=== PATIENT | female | born 1950 | race Caucasian/White ===

== ENCOUNTER 2017-03-18 23:34 | Inpatient (IN) | payer MEDICARE ==
[2017-03-18] MEDS ORDERED: Zithromax 500 MG/ 250 ML NaCl Premix 500 MG/250 ML IVPB IV STA (23:42)
[2017-03-18] MEDS ORDERED: Pepcid 20 MG VIAL IV ONE ×2 (23:42→23:48)
[2017-03-18] MEDS ORDERED: PROVENTIL 2.5 MG/3 ML NEB IH ONE (23:42)
[2017-03-18] MEDS ORDERED: Lasix 40 MG/4 ML IV ONE (23:42)
[2017-03-18] MEDS ORDERED: Zosyn 3.375GM/100 Ml D5W 3.375 GM/100 ML IVPB IV STA (23:43)
[2017-03-18 23:48] LABS: A-aADO2 409; ARTERIAL BLD GAS O2 SATURATION 99.1 % (95-100); ARTERIAL BLOOD GAS BASE EXCESS 4.7 (-2.0-2.0); ARTERIAL BLOOD GAS FIO2 100 %; ARTERIAL BLOOD GAS PO2 235 mmHg (75-100); ARTERIAL BLOOD GAS pH 7.36 (7.35-7.45); BIPAP(E) 6; BIPAP(I) 14; Glucose,Critical Care 93 (70-110)
[2017-03-18] MEDS ORDERED: Lasix 40 MG/4 ML ONE (23:48)
[2017-03-18] MEDS ORDERED: Zithromax 500 MG/ 250 ML NaCl Premix 500 MG/250 ML IVPB IV ONE (23:48)
[2017-03-18 23:49] LABS: Mean Cell Volume 77.2 fl (78-100); Mean Corpuscular Hemoglobin 21.6 pg (26-32); Mean Platelet Volume 9.8 fl (6-9.5); Platelet Count 274 K/mm3 (150-450); Red Blood Count 4.35 M/mm3 (4.1-5.4); Red Cell Distribution Width 17.6 % (11.5-14.0); White Blood Count 16.3 K/mm3 (4.0-10.5)
[2017-03-18] MEDS ORDERED: Zosyn 3.375GM/100 Ml D5W 3.375 GM/100 ML IVPB IV ONE (23:49)
[2017-03-19 00:10] LABS: ALBUMIN 2.7 g/dL (3.4-5.0); ANION GAP 11.2 MEQ/L (5-15); BILIRUBIN,TOTAL 0.4 mg/dL (0.2-1.0); Carbon Dioxide 30.5 mEq/L (21-32); Potassium 5.7 mEq/L (3.5-5.1); Total Protein 7.5 gm/dL (6.4-8.2)
[2017-03-19 00:16] LABS: MAGNESIUM 1.9 mg/dL (1.8-2.4)
[2017-03-19] MEDS ORDERED: NARCAN 1 MG/ML ONE ×2 (00:17→05:05)
[2017-03-19] MEDS ORDERED: Sodium Chloride 0.9% 1000 ML 1,000 ML ONE (00:18)
[2017-03-19 00:28] LABS: BAND 5 % (0.0-2.0); Eosinophil 2 % (0.00-3.0); Hypochromia 2+; Metamyelocyte 1 %; Microcytosis 1+; Platelet Estimate NORMAL (NORMAL); Total Cells Counted 100
[2017-03-19] MEDS ORDERED: NARCAN 1 MG/ML IV ONE (00:31)
[2017-03-19] MEDS ORDERED: FEVERALL 650 MG PR STA (00:32)
[2017-03-19] MEDS ORDERED: PROVENTIL 2.5 MG/3 ML NEB IH ONE (00:33)
[2017-03-19 00:34] LABS: Collection Type CATH
[2017-03-19 00:35] LABS: Bacteria MODERATE /HPF (NEGATIVE); Bilirubin MODERATE (NEGATIVE); Blood 50 Ery/ul (0-5); COMPLETE URINE MICROSCOPIC? YES; Epithelial Cells MODERATE /HPF (FEW); Glucose NEGATIVE (NEGATIVE); Hyaline Casts 0-2 /LPF (0-2); Leukocyte Esterase 1+ (NEGATIVE); PTT 32.1 SECONDS (25.3-37.0)
[2017-03-19] MEDS ORDERED: FEVERALL 325 MG ONE (00:35)
[2017-03-19 00:36] LABS: INR 1.19 (0.8-3.0); PROTIME 13.2 SECONDS (9.95-12.35)
--- NOTE | 2017-03-19 00:41 | ERPHSYRPT ---
- History of Present Illness Time Seen by Provider: 03/18/17 23:40 Source: EMS, correction records Physician History: CC: trouble breathing Hx: 66 y/o patient of Dr Gomez at [facility]. She has hx of heart disease, DM. Had flu shot this week. URI symptoms for 2 days. Lungs congested. She was in bed all day today. Took her meds at 1800PM. Later in evening was worse with sweats and sleepy and decreased responsiveness. Accu check was 106. BP was low. Pulse ox low. EMS noted resp distress on arrival and gave oxygen and neb en route. Pt unable to give hx. NH attempted to call sister Mandi Merida [phone] and left message. Severity: severe Allergies/Adverse Reactions: No Known Drug Allergies Allergy (Verified 03/19/17 00:53) Home Medications: Calcium Carbonate/Vitamin D3 [Caltrate 600 + D Soft Chew Tab] 1 each PO DAILY [History] Carvedilol 12.5 mg [Coreg 12.5 mg] 12.5 mg PO BID 01/01/15 [History] Celecoxib 100 mg [celeBREX 100 MG] 200 mg PO BID 01/01/15 [History] Clonazepam 0.5 mg [Klonopin 0.5 MG] 0.5 mg PO BID 01/01/15 [History] Clopidogrel Bisulfate 75 mg [PLAVIX 75 MG Tablet] 75 mg PO DAILY 01/01/15 [History] Cyanocobalamin 1000 Mcg/ml [Cyanocobalamin B-12 1000 MCG/ML] 1,000 mcg IJ UD 01/01/15 [History] Docusate Sodium 100 mg [Colace 100 MG] 100 mg PO TID 01/01/15 [History] Escitalopram Oxalate [Lexapro] 20 mg PO DAILY 01/01/15 [History] Furosemide [Lasix] 20 mg PO DAILY 01/01/15 [History] Gabapentin [Neurontin] 300 mg PO BID 01/01/15 [History] Glimepiride 2 mg [Amaryl 2 MG] 2 mg PO DAILY 01/01/15 [History] Insulin Aspart [NovoLOG Insulin] 20 unit SQ AC 01/01/15 [History] Insulin Detemir [Levemir] 60 unit SQ 01/01/15 [History] Isosorbide Mononitrate 30 mg [Imdur 30 MG] 30 mg PO DAILY 01/01/15 [History ] Lisinopril 10 mg [Zestril 10 MG] 10 mg PO DAILY 01/01/15 [History] Loratadine 10 mg [Claritin 10 mg] 10 mg PO DAILY 01/01/15 [History] Omeprazole 40 mg PO DAILY 01/01/15 [History] Oxycodone HCl [Oxycontin] 30 mg PO BID 01/01/15 [History] Potassium Chloride 10 Meq Tab* [Klor Con 10 MEQ] 10 meq PO BID 01/01/15 [ History] Pravastatin Sodium 40 mg PO DAILY 01/01/15 [History] Temazepam 7.5 mg PO 01/01/15 [History] Tizanidine HCl 4 mg [Zanaflex 4 MG] 4 mg PO 01/01/15 [History] Acetaminophen 325 mg [Tylenol 325 mg] 650 mg PO Q4HPRN PRN 07/21/15 [ History] Albuterol 2.5 mg/3 ml Neb [Proventil 2.5 mg/3 ml Neb] 2.5 mg IH Q6HPRN PRN 07/21/15 [History] Aspirin 81 mg PO DAILY 07/21/15 [History] Carboxymethylcellulose Sodium [Refresh Plus] 1 each OP Q2H/PRN PRN 07/21/15 [ History] PANTOPRAZOLE 40 mg Tablet [Protonix 40MG Tablet] 40 mg PO DAILY 07/21/15 [ History] Sodium Phosphate,[place]-Dibasic [Enema] 133 ml RC DAILY PRN PRN 07/21/15 [History] Hx Tetanus, Diphtheria Vaccination/Date Given: Yes Hx Influenza Vaccination/Date Given: Yes Hx Pneumococcal Vaccination/Date Given: Yes - Review of Systems Constitutional: Fatigue, Malaise, Weakness Abdominal/Gastrointestinal: No Vomiting All Other Systems: Unable due to condition - Past Medical History Pertinent Past Medical History: Yes Neurological History: Stroke, TIA, Other Cardiac History: Hypertension, Other Respiratory History: COPD Endocrine Medical History: Diabetes Type II Musculoskeletal History: Other GI Medical History: GERD History: No Pertinent History Psycho-Social History: Anxiety, Depression Female Reproductive Disorders: No Pertinent History Other Medical History: CHRONIC PAIN. PERIPHERAL NEUROPATHY. HYPERLIPEDEMIA. ANGINA PECTORIS. ALLERGIC RHINITIS. ESOPAHGITIS - Past Surgical History Past Surgical History: Yes Neuro Surgical History: No Pertinent History Cardiac: CABG, Cardiac Catheterization, Cardiac Stent Respiratory: No Pertinent History Gastrointestinal: No Pertinent History Genitourinary: No Pertinent History Musculoskeletal: No Pertinent History Female Surgical History: Other Other Surgical History: HIP SURGERY - Social History Smoking Status: Former smoker Exposure to second hand smoke: Yes Drug Use: none Patient Lives Alone: No ([facility]) - Nursing Vital Signs Nursing Vital Signs: Initial Vital Signs Pulse Rate 70 03/19/17 00:05 Respiratory Rate 14 03/19/17 00:05 Blood Pressure 100/47 03/19/17 00:05 O2 Sat by Pulse Oximetry 99 03/19/17 00:05 - Physical Exam General Appearance: other (lethargic on arrival but follows simple commands) Eye Exam: PERRL/EOMI (midsize) Ears, Nose, Throat Exam: dry mucous membranes Neck Exam: supple Respiratory Exam: crackles/rales, rhonchi Cardiovascular Exam: regular rate/rhythm Gastrointestinal/Abdomen Exam: soft, No tenderness, No distention Neurologic Exam: other (moves all extremities to commands but is very lethargic) Skin Exam: warm, dry SpO2 Interpretation: borderline oxygenation SpO2: 92 Oxygen Delivery: BiPap - Course Nursing assessment & vital signs reviewed: Yes EKG Interpreted by Me: RATE (86), Sinus Rhythm, NORMAL AXIS, NORMAL INTERVALS ( [id number]), Q-wave (septal), Non-specific ST Changes - Radiology Exams cxr X-ray Interpretation: Reviewed by me (limited, congestion, CM, ) Ordered Tests: Active Orders 24 hr Category Date Time Status Chief Technician STAT Care 03/18/17 23:40 Active Catheter-[place] STAT Care 03/18/17 23:40 Active EKG-ER Only STAT Care 03/18/17 23:41 Active IV Insertion STAT Care 03/18/17 23:41 Active IV Insertion-2nd Peripheral STAT Care 03/18/17 23:41 Active Pulse Oximetry (ED) STAT Care 03/18/17 23:40 Active Saline Lock STAT Care 03/18/17 23:40 Active CHEST 1 VIEW (PORTABLE) Stat Exams 03/18/17 23:41 Taken ARTERIAL BLOOD GASES Stat Lab 03/18/17 23:43 Completed BLOOD CULTURE Stat Lab 03/18/17 23:48 Received CBC W DIFF Stat Lab 03/18/17 23:46 Completed CMP Stat Lab 03/18/17 23:46 Completed CULTURE,URINE Stat Lab 03/18/17 00:12 Received Glucose,Critical Care Stat Lab 03/18/17 23:43 Completed Lactic Acid Stat Lab 03/18/17 23:43 Completed MAGNESIUM Stat Lab 03/18/17 23:49 Completed Manual Differential NC Stat Lab 03/18/17 23:46 Completed NT PRO BNP Stat Lab 03/18/17 23:49 Completed PROTIME WITH INR Stat Lab 03/18/17 00:12 Completed PTT Stat Lab 03/18/17 00:12 Completed TROPONIN Q3H Lab 03/18/17 23:46 Completed TROPONIN Q3H Lab 03/19/17 02:45 Ordered TROPONIN Q3H Lab 03/19/17 05:45 Ordered TROPONIN Q3H Lab 03/19/17 08:45 Ordered TROPONIN Q3H Lab 03/19/17 11:45 Ordered UA W/ MICROSCOPIC Stat Lab 03/18/17 00:12 Completed BiPap/CPAP Assessment STAT RT 03/18/17 23:41 Completed Respiratory Nebulizer STAT RT 03/18/17 23:43 Completed Medication Summary Generic Name Dose Route Start Last Admin Trade Name Freq PRN Reason Stop Dose Admin Sodium Chloride 1,000 mls @ 20 mls/hr 03/19/17 00:45 03/19/17 00:42 Sodium Chloride 0.9% 1000 Ml IV 04/18/17 00:44 20 mls/hr .Q24H MARJORIE Administration Discontinued Medications Generic Name Dose Route Start Last Admin Trade Name Freq PRN Reason Stop Dose Admin Acetaminophen 975 mg 03/19/17 00:32 03/19/17 00:36 [place] 650 Mg NE 03/19/17 00:33 975 mg STAT STA Administration Acetaminophen Confirm 03/19/17 00:35 F[place]all 325 Mg Administered 03/19/17 00:36 Dose 975 mg .ROUTE .STK-MED ONE Albuterol Sulfate 2.5 mg 03/18/17 23:42 03/19/17 00:34 Proventil 2.5 Mg/3 Ml Neb IH 03/18/17 23:43 2.5 mg STAT ONE Administration Albuterol Sulfate Confirm 03/19/17 00:33 Proventil 2.5 Mg/3 Ml Neb Administered 03/19/17 00:34 Dose 2.5 mg IH .STK-MED ONE Famotidine 20 mg 03/18/17 23:42 03/18/17 23:56 Pepcid 20 Mg Vial IV 03/18/17 23:43 20 mg STAT ONE Administration Famotidine Confirm 03/18/17 23:48 Pepcid 20 Mg Vial Administered 03/18/17 23:49 Dose 20 mg IV .STK-MED ONE Furosemide 40 mg 03/18/17 23:42 03/18/17 23:56 Lasix 40 Mg/4 Ml IV 03/18/17 23:43 40 mg STAT ONE Administration Furosemide Confirm 03/18/17 23:48 Lasix 40 Mg/4 Ml Administered 03/18/17 23:49 Dose 40 mg .ROUTE .STK-MED ONE Azithromycin 500 mg in 250 mls @ 250 mls/hr 03/18/17 23:42 03/18/17 23:56 Zithromax 500 Mg/ 250 Ml Nacl Premix IV 03/19/17 00:41 250 mls/hr STAT STA Administration Piperacillin Sod/Tazobactam Sod 3.375 gm in 100 mls @ 200 mls/hr 03/18/17 23: 43 03/18/17 23:56 Zosyn 3.375gm/100 Ml D5w IV 03/19/17 00:12 200 mls/hr STAT STA Administration Azithromycin Confirm 03/18/17 23:48 Zithromax 500 Mg/ 250 Ml Nacl Premix Administered 03/18/17 23:49 Dose 500 mg in 250 mls @ ud IV .STK-MED ONE Piperacillin Sod/Tazobactam Sod Confirm 03/18/17 23:49 Zosyn 3.375gm/100 Ml D5w Administered 03/18/17 23:50 Dose 3.375 gm in 100 mls @ ud IV .STK-MED ONE Sodium Chloride Confirm 03/19/17 00:18 Sodium Chloride 0.9% 1000 Ml Administered 03/19/17 00:19 Dose 1,000 mls @ ud .ROUTE .STK-MED ONE Naloxone HCl Confirm 03/19/17 00:17 Narcan 1 Mg/Ml Administered 03/19/17 00:18 Dose 2 mg .ROUTE .STK-MED ONE Naloxone HCl 0.3 mg 03/19/17 00:31 03/19/17 00:34 Narcan 1 Mg/Ml IV 03/19/17 00:32 0.3 mg STAT ONE Administration Lab/Rad Data: Laboratory Result Diagrams 03/18/17 23:46 03/18/17 23:46 Laboratory Results 03/18/17 03/18/17 03/18/17 Range/Units 23:49 23:46 23:46 WBC (4.0-10.5) K/mm3 RBC (4.1-5.4) M/mm3 Hgb (12.0-16.0) gm/dl Hct (35-47) % MCV (78-100) fl MCH (26-32) pg MCHC (32-36) g/dl RDW (11.5-14.0) % Plt Count (150-450) K/mm3 MPV (6-9.5) fl Segmented Neutrophils (36.0-66.0) % Band Neutrophils (0.0-2.0) % Lymphocytes (Manual) (24-44) % Monocytes (Manual) (0.0-12.0) % Eosinophils (Manual) (0.00-3.0) % Metamyelocytes % Differential Comment Platelet Estimate (NORMAL) Hypochromasia Microcytosis INR (0.8-3.0) APTT (25.3-37.0) SECONDS Puncture Site pCO2 (35-45) mmHg pO2 (75-100) mmHg Base Excess (-2.0-2.0) O2 Saturation (94-100) g/dF ABG pH (7.35-7.45) ABG HCO3 (22-28) ABG O2 Sat (Measured) (95-100) % Tyler Test A-a Gradient a/A Ratio Hemoglobin Carboxyhemoglobin (0.0-6.9) % THgb Methemoglobin (1.4-1.5) % Potassium 5.7 H (3.5-5.1) Glucose 92 (70-110) Temperature C POC O2 Flow Rate % Inspiratory BiPAP Expiratory BiPAP Sodium 135 L (136-145) mEq/L Chloride 99 (98-107) mEq/L Carbon Dioxide 30.5 (21-32) mEq/L Anion Gap 11.2 (5-15) MEQ/L BUN 33 H (9-20) mg/dL Creatinine 2.17 H (0.55-1.30) mg/dl Estimated GFR 24 ML/MIN Lactic Acid (0.4-2.0) Calcium 8.8 (8.5-10.1) mg/dL Magnesium 1.9 (1.8-2.4) mg/dL Total Bilirubin 0.40 (0.2-1.0) mg/dL AST 35 (15-37) U/L ALT 12 (12-78) U/L Alkaline Phosphatase 64 (46-116) U/L Troponin I < 0.017 (0.000-0.056) ng/ml NT-Pro-B Natriuret Pep 2201 H (0-125) pg/ml Serum Total Protein 7.5 (6.4-8.2) gm/dL Albumin 2.7 L (3.4-5.0) g/dL Ur Collection Type Urine Color (YELLOW) Urine Appearance (CLEAR) Urine pH (5-6) Ur Specific [place] (1.005-1.025) Urine Protein (Negative) Urine Ketones (NEGATIVE) Urine Blood (0-5) Ramses/ul Urine Nitrite (NEGATIVE) Urine Bilirubin (NEGATIVE) Urine Urobilinogen (0-1) mg/dL Ur Leukocyte Esterase (NEGATIVE) Urine Microscopic RBC (0-2) /HPF Urine Microscopic WBC (0-5) /HPF Ur Epithelial Cells (FEW) /HPF Amorphous Crystals (NEGATIVE) /HPF Urine Bacteria (NEGATIVE) /HPF Hyaline Casts (0-2) /LPF Urine Glucose (NEGATIVE) mg/dL Specimen Received 03/18/17 03/18/17 03/18/17 Range/Units 23:46 23:43 23:43 WBC 16.3 H (4.0-10.5) K/mm3 RBC 4.35 (4.1-5.4) M/mm3 Hgb 9.4 L (12.0-16.0) gm/dl Hct 33.6 L (35-47) % MCV 77.2 L (78-100) fl MCH 21.6 L (26-32) pg MCHC 28.0 L (32-36) g/dl RDW 17.6 H (11.5-14.0) % Plt Count 274 (150-450) K/mm3 MPV 9.8 H (6-9.5) fl Segmented Neutrophils 74 H (36.0-66.0) % Band Neutrophils 5 H (0.0-2.0) % Lymphocytes (Manual) 13 L (24-44) % Monocytes (Manual) 5 (0.0-12.0) % Eosinophils (Manual) 2 (0.00-3.0) % Metamyelocytes 1 % Differential Comment ABNORMAL Platelet Estimate NORMAL (NORMAL) Hypochromasia 2+ Microcytosis 1+ INR (0.8-3.0) APTT (25.3-37.0) SECONDS Puncture Site RIGHT BRACHIAL pCO2 55 H (35-45) mmHg pO2 235 H* (75-100) mmHg Base Excess 4.7 H (-2.0-2.0) O2 Saturation 95.6 (94-100) g/dF ABG pH 7.36 (7.35-7.45) ABG HCO3 31.1 H* (22-28) ABG O2 Sat (Measured) 99.1 (95-100) % Tyler Test NOT APPLICABLE A-a Gradient 409 a/A Ratio 0.36 Hemoglobin 9.9 Carboxyhemoglobin 2.2 (0.0-6.9) % THgb Methemoglobin 1.3 L (1.4-1.5) % Potassium 5.7 H (3.5-5.1) Glucose 93 (70-110) Temperature 37.0 C POC O2 Flow Rate 100 % Inspiratory BiPAP 14 Expiratory BiPAP 6 Sodium (136-145) mEq/L Chloride (98-107) mEq/L Carbon Dioxide (21-32) mEq/L Anion Gap (5-15) MEQ/L BUN (9-20) mg/dL Creatinine (0.55-1.30) mg/dl Estimated GFR ML/MIN Lactic Acid 0.8 (0.4-2.0) Calcium (8.5-10.1) mg/dL Magnesium (1.8-2.4) mg/dL Total Bilirubin (0.2-1.0) mg/dL AST (15-37) U/L ALT (12-78) U/L Alkaline Phosphatase (46-116) U/L Troponin I (0.000-0.056) ng/ml NT-Pro-B Natriuret Pep (0-125) pg/ml Serum Total Protein (6.4-8.2) gm/dL Albumin (3.4-5.0) g/dL Ur Collection Type Urine Color (YELLOW) Urine Appearance (CLEAR) Urine pH (5-6) Ur Specific [place] (1.005-1.025) Urine Protein (Negative) Urine Ketones (NEGATIVE) Urine Blood (0-5) Ramses/ul Urine Nitrite (NEGATIVE) Urine Bilirubin (NEGATIVE) Urine Urobilinogen (0-1) mg/dL Ur Leukocyte Esterase (NEGATIVE) Urine Microscopic RBC (0-2) /HPF Urine Microscopic WBC (0-5) /HPF Ur Epithelial Cells (FEW) /HPF Amorphous Crystals (NEGATIVE) /HPF Urine Bacteria (NEGATIVE) /HPF Hyaline Casts (0-2) /LPF Urine Glucose (NEGATIVE) mg/dL Specimen Received 03/18/17 03/18/17 Range/Units 00:12 00:12 WBC (4.0-10.5) K/mm3 RBC (4.1-5.4) M/mm3 Hgb (12.0-16.0) gm/dl Hct (35-47) % MCV (78-100) fl MCH (26-32) pg MCHC (32-36) g/dl RDW (11.5-14.0) % Plt Count (150-450) K/mm3 MPV (6-9.5) fl Segmented Neutrophils (36.0-66.0) % Band Neutrophils (0.0-2.0) % Lymphocytes (Manual) (24-44) % Monocytes (Manual) (0.0-12.0) % Eosinophils (Manual) (0.00-3.0) % Metamyelocytes % Differential Comment Platelet Estimate (NORMAL) Hypochromasia Microcytosis INR 1.19 (0.8-3.0) APTT 32.1 (25.3-37.0) SECONDS Puncture Site pCO2 (35-45) mmHg pO2 (75-100) mmHg Base Excess (-2.0-2.0) O2 Saturation (94-100) g/dF ABG pH (7.35-7.45) ABG HCO3 (22-28) ABG O2 Sat (Measured) (95-100) % Tyler Test A-a Gradient a/A Ratio Hemoglobin Carboxyhemoglobin (0.0-6.9) % THgb Methemoglobin (1.4-1.5) % Potassium (3.5-5.1) Glucose (70-110) Temperature C POC O2 Flow Rate % Inspiratory BiPAP Expiratory BiPAP Sodium (136-145) mEq/L Chloride (98-107) mEq/L Carbon Dioxide (21-32) mEq/L Anion Gap (5-15) MEQ/L BUN (9-20) mg/dL Creatinine (0.55-1.30) mg/dl Estimated GFR ML/MIN Lactic Acid (0.4-2.0) Calcium (8.5-10.1) mg/dL Magnesium (1.8-2.4) mg/dL Total Bilirubin (0.2-1.0) mg/dL AST (15-37) U/L ALT (12-78) U/L Alkaline Phosphatase (46-116) U/L Troponin I (0.000-0.056) ng/ml NT-Pro-B Natriuret Pep (0-125) pg/ml Serum Total Protein (6.4-8.2) gm/dL Albumin (3.4-5.0) g/dL Ur Collection Type CATH Urine Color YELLOW (YELLOW) Urine Appearance CLOUDY (CLEAR) Urine pH 5.0 (5-6) Ur Specific [place]pton 1.020 (1.005-1.025) Urine Protein TRACE (Negative) Urine Ketones NEGATIVE (NEGATIVE) Urine Blood 50 (0-5) Ramses/ul Urine Nitrite NEGATIVE (NEGATIVE) Urine Bilirubin MODERATE (NEGATIVE) Urine Urobilinogen NORMAL (0-1) mg/dL Ur Leukocyte Esterase 1+ (NEGATIVE) Urine Microscopic RBC 5-10 (0-2) /HPF Urine Microscopic WBC 5-10 (0-5) /HPF Ur Epithelial Cells MODERATE (FEW) /HPF Amorphous Crystals MODERATE (NEGATIVE) /HPF Urine Bacteria MODERATE (NEGATIVE) /HPF Hyaline Casts 0-2 (0-2) /LPF Urine Glucose NEGATIVE (NEGATIVE) mg/dL Specimen Received 03/19/17 0015 - Progress Progress Note: 03/19/17 00:42 Accu check ok. Labs fairly good. Bipap applied on arrival. Small dose narcan titrated and she had improvement in resp rate and was a little more awake. She is on ER oxycodone scheduled at [place]. She will need IP ICU admission. Cultures sent and abtx started to cover sepsis, pneumonia. 03/19/17 00:58 She renny has some renal failure with opioid build up and sedation. Appears to have infection as well. She is tolerating bipap. Called Dr Simon for Patricia and will admit to ICU. Counseled pt/family regarding: lab results, diagnosis, need for follow-up, rad results - Departure Time of Disposition: 00:59 Departure Disposition: In-patient Admission (ICU) Clinical Impression: Altered mental status, CHF (congestive heart failure), Sepsis, Acute kidney injury Condition: Serious Critical Care Time: Yes Critical Care Time(excluding separately billable procedures): 30-74 minutes Referrals: HOMER ZHENG [Primary Care Provider] -
[2017-03-19] MEDS: Sodium Chloride 0.9% 1000 ML 1,000 ML IV SCH ×3 (00:42→18:07)
[2017-03-19] MEDS ORDERED: solu-CORTEF 100MG IV ONE (01:03)
[2017-03-19] MEDS ORDERED: solu-CORTEF 100MG ONE (01:07)
[2017-03-19] MEDS ORDERED: NovoLOG Insulin SQ PRN (02:59)
[2017-03-19] MEDS ORDERED: solu-CORTEF 100MG IV SCH ×2 (02:59→10:00)
[2017-03-19] MEDS: DUONEB 0.5-3 MG/3 ml Neb IH SCH ×5 (04:05→15:39)
[2017-03-19 04:32] LABS: A-aADO2 169; ARTERIAL BLD GAS O2 SATURATION 98.1 % (95-100); ARTERIAL BLOOD GAS BASE EXCESS 3.5 (-2.0-2.0); ARTERIAL BLOOD GAS FIO2 50 %; ARTERIAL BLOOD GAS PO2 99 mmHg (75-100); ARTERIAL BLOOD GAS pH 7.26 (7.35-7.45); BIPAP(E) 6; BIPAP(I) 14; Lactic Acid 0.7 (0.4-2.0)
[2017-03-19] MEDS ORDERED: Narcan 0.4 MG/ML IV ONE ×2 (04:42→06:00)
[2017-03-19] MEDS ORDERED: DEXTROSE IV PRN (04:59)
[2017-03-19] MEDS ORDERED: NARCAN IV PRN (04:59)
[2017-03-19] MEDS ORDERED: WATER IV PRN (04:59)
[2017-03-19 05:00] LABS: BASOPHIL % 0.3 % (0.0-0.4); Eosinophil % 0.5 % (0.00-5.0); Granulocytes % 81.1 % (36.0-66.0); Lymphocytes % 10.3 % (24.0-44.0); Mean Cell Volume 77.6 fl (78-100); Mean Corpuscular Hemoglobin 22.1 pg (26-32); Mean Platelet Volume 10.2 fl (6-9.5); Monocytes % 7.8 % (0.0-12.0); Platelet Count 298 K/mm3 (150-450); Red Cell Distribution Width 17.9 % (11.5-14.0); White Blood Count 16.1 K/mm3 (4.0-10.5)
[2017-03-19] MEDS ORDERED: Dextrose 5%/Water IV Soln. 500 ML 500 ML IV ONE (05:05)
[2017-03-19 05:24] LABS: ALBUMIN 2.7 g/dL (3.4-5.0); ANION GAP 10.9 MEQ/L (5-15); BILIRUBIN,TOTAL 0.5 mg/dL (0.2-1.0); Carbon Dioxide 30.2 mEq/L (21-32); Total Protein 6.9 gm/dL (6.4-8.2)
[2017-03-19 05:31] LABS: Potassium 6.2 mEq/L (3.5-5.1)
[2017-03-19 05:55] LABS: A-aADO2 168; ARTERIAL BLOOD GAS BASE EXCESS 2.8 (-2.0-2.0); ARTERIAL BLOOD GAS FIO2 50 %; ARTERIAL BLOOD GAS PO2 119 mmHg (75-100); ARTERIAL BLOOD GAS pH 7.33 (7.35-7.45); BIPAP(E) 6; BIPAP(I) 14
[2017-03-19] MEDS ORDERED: Lasix 40 MG/4 ML IV ONE (06:00)
[2017-03-19] MEDS: Zosyn 3.375GM/100 Ml D5W 3.375 GM/100 ML IVPB IV SCH ×3 (06:16→17:56)
--- NOTE | 2017-03-19 08:30 | HP ---
HISTORY OF PRESENT ILLNESS: This is a 66 year-old patient from [facility] who presented to the emergency department. The retirement had called me close to midnight and said that she was not as responsive as she usually was and has been in bed all day and that her blood pressure was low and her oxygen saturation was right at 90% on her baseline 4 liters nasal cannula so she was brought to the emergency department by ambulance for evaluation. The patient is unable to give any history herself at this time. The emergency room physician noted that when they gave her 0.3 mg of Narcan that she woke up. He placed her on BiPAP. He noted that her potassium was a little bit high and that her creatinine was higher than her baseline and they called to have her admitted to the ICU. Overnight the patient was more somnolent. She had initial ABG with pH that was 7.36 and pCO2 of 55. Repeat ABG at 09/30/2016 her pH was 7.26 and pCO2 of 71 and this was on BiPAP. She was given another dose of Narcan 0.3 mg. Her nurse said that with that she woke up and spoke and said that she was scared. The patient is on 30 mg extended release oxycodone scheduled twice a day and also has hydrocodone ordered as needed and did receive her last dose approximately 1800 hours last night of oxycodone. The patient was started on Narcan drip which was titrating up. Currently the patient will open her eyes to voice. REVIEW OF SYSTEMS: Unobtainable besides the history of present illness due to the patient's condition. PAST MEDICAL HISTORY: Diabetes mellitus type 2, arthritis, neuropathy, anxiety, insomnia, chronic pain, depression, angina, allergic rhinitis, hyperlipidemia, hypertension, gastroesophageal reflux disease, chronic tension-type headache, chronic viral hepatitis B, history of coronary artery disease. PAST SURGICAL HISTORY: Taken from her old chart. She had a coronary artery bypass graft. She also had a scar on her upper neck. MEDICATIONS: Taken from her list from the retirement. Ferrous sulfate 325 mg p.o. b.i.d., Metformin 500 mg b.i.d., acetaminophen 650 mg daily in the a.m. for pain, aspirin 81 mg p.o. daily, carvedilol 12.5 mg p.o. b.i.d., Celebrex 200 mg b.i.d., Plavix 75 mg daily, vitamin B12 1 ml IM on the third of every month, docusate 100 mg t.i.d., Furosemide 20 mg daily, Glipizide 5 mg b.i.d., Imdur 30 mg daily, potassium chloride 1 tablet b.i.d. 10 mEq tablet, lisinopril 40 mg daily, loratadine 10 mg daily, Neurontin 300 mg b.i.d., Nystatin powder to bilateral breasts she said she finished that. Oxycodone 300 mg p.o. b.i.d., pantoprazole 40 mg daily, Pravastatin 40 mg q.h.s., tizanidine 4 mg every evening, Klonopin 0.5 mg p.o. q.h.s., Lexapro 20 mg daily, trazodone 150 mg at bedtime, Levemir 65 units at bedtime and the last dose was last night, NovoLog 20 units t.i.d. with meals, buspirone 15 mg p.o. b.i.d. ALLERGIES: NKDA. SOCIAL HISTORY: She lives at [facility]. FAMILY HISTORY: Unknown. PHYSICAL EXAMINATION: VITAL SIGNS: Temperature current 100F, temperature max 100F, heart rate 69 to 90, respiratory rate 14 to 22, blood pressure 115 to 61 with a range of 88 to 115 over 46 to 61. Oxygen saturation 92 to 100% on BiPAP currently on 50% oxygen saturation of 96%. GENERAL: The patient is lying in bed sleeping. When I talk to her she will try to open her eyes but for me she does not open them all the way. CVS: Her heart has a regular rate and rhythm. No murmurs, gallops or rubs. CHEST: Clear to auscultation bilaterally when auscultated anteriorly. ABDOMEN: Obese, soft, nontender, nondistended. EXTREMITIES: No clubbing, cyanosis or edema. SKIN: Warm, dry and intact. LABORATORY DATA AND TESTS: Her white blood cell count is 16,100 with 81% granulocytes, 10% lymphocytes, potassium was 6.2, creatinine 2.3. Serial troponins have been negative. UA revealed moderate bacteria. EKG is sinus rhythm with no ST or T-wave changes. Chest x-ray portable showed some pulmonary edema bilaterally. There is no formal report from the radiologist yet. ASSESSMENT AND PLAN: 1) ACUTE RESPIRATORY FAILURE MAY BE DUE TO UNDERLYING SEPSIS OR RETENTION OF OPIOID AND THE ACUTE RENAL FAILURE. She is currently on a Narcan drip at 0.5 mg/hour and appears to be more alert when she is given boluses of Narcan and her blood gas did improve after Narcan was given. Will continue with close monitoring of her respiratory status. 2) ACUTE RENAL FAILURE: Her potassium was elevated this morning to 6.2 and it looks like she has been getting oral potassium at [facility]. She does not have any peaks on her T-waves or EKG changes. I have ordered Lasix 20 mg IV x1 which she also had some fluid overload on her chest x-ray and poor urinary output. I will ask the greenhouse florist to see her as well. Her baseline creatinine was 1.03 on 03/13/2017. 3) CONGESTIVE HEART FAILURE EXACERBATION: Her BNP was elevated at 2,201, will continue with close monitoring. She was requiring fluids due to sepsis. 4) ALTERED MENTAL STATUS: It did improve with the Narcan. 5) SEPSIS: She is currently on Zosyn and azithromycin and on IV fluids that are running at 20 ml/hour, will try to increase this to 70 ml/hour. PROGNOSIS: Guarded given her multiple past medical problems. Dr. Jericho Vitale, her primary care doctor, will be updated shortly when she comes on shift.
--- NOTE | 2017-03-19 08:59 | XRAY ---
Indication: Short of breath. Possible sepsis. Comparison: July 21, 2015. Portable chest limited by respiration/motion artifact again with CABG surgery. Suspect new cardiomegaly, vascular congestion, small bibasilar effusions, and right midlung infiltrate/atelectasis.
[2017-03-19] MEDS: Pepcid 20 MG VIAL IV SCH ×2 (09:14→21:12)
[2017-03-19 11:48] LABS: A-aADO2 149; ALLEN TEST OK? YES; ARTERIAL BLD GAS O2 SATURATION 99.4 % (95-100); ARTERIAL BLOOD GAS BASE EXCESS 5.6 (-2.0-2.0); ARTERIAL BLOOD GAS FIO2 50 %; ARTERIAL BLOOD GAS PO2 143 mmHg (75-100); ARTERIAL BLOOD GAS pH 7.39 (7.35-7.45); BIPAP(E) 6; BIPAP(I) 14
[2017-03-19] MEDS ORDERED: CARBOXYMETHYLCELLULOSE SODIUM OP PRN (13:00)
[2017-03-19] MEDS ORDERED: Artificial Tears 15 ML OP PRN (13:24)
[2017-03-19] MEDS: solu-CORTEF 100MG IV SCH ×2 (14:36→21:11)
[2017-03-19] MEDS: NovoLOG Insulin SQ PRN ×2 (15:00→21:42)
--- NOTE | 2017-03-19 15:06 | CONS ---
CONSULT DATE: 03/19/2017 REASON FOR CONSULT: 1) Evaluation of increased BUN and creatinine. 2) High potassium. HISTORY: Miss Roman is a 66 year-old lady from [facility]. The patient was admitted because she was having poor oxygenation, altered mental sensorium. In the emergency room, the patient was given Narcan which woke her up. Her pH was low at 7.26. She was put on BiPAP. Subsequently, she was started on Narcan drip. Her creatinine at baseline is around 1.1 mg%. Her creatinine was more than 2 mg%. Potassium was 6.2 and renal consultation was called. The patient's other underlying comorbidities include hypertension, diabetes. REVIEW OF SYSTEMS: The patient is arousable. Off Narcan drip now. Slow to respond but answered simple questions appropriately then states the shortness of breath is improving. She is awaiting speech and swallow evaluation. Cough with phlegm was present. No chest pain or abdominal pain. No bleeding from any orifices. No seizure. No fall. No trauma. The rest of the review was negative. I could not assess with clarity because of underlying condition of the patient. All systems were reviewed pertinent mentioned here. PAST MEDICAL HISTORY: Diabetes mellitus type 2. Chronic kidney disease not otherwise specified, whether she has underlying chronic kidney disease or not. Osteoarthritis. Peripheral neuropathy. Chronic hepatitis B. Coronary artery disease. Hypertension. Dyslipidemia. Angina. Gastroesophageal reflux disease. Chronic tension headaches. PAST SURGICAL HISTORY: Coronary artery bypass surgery. Scar on upper neck possible neck surgery. MEDICATIONS: Home medications were reviewed and pertinent the patient was on Celebrex 200 mg b.i.d., Metformin 500 mg b.i.d., potassium chloride 10 mg twice a day, lisinopril 40 mg daily, carvedilol 12.5 mg b.i.d., Imdur 30 mg daily, Lasix 20 mg daily. All medications were reviewed, details of those are noted and hospital medications were reviewed. ALLERGIES: NKDA. SOCIAL HISTORY: No recent history of smoking. Whether she was a past smoker is unclear. She lives at [facility]. FAMILY HISTORY: No mention of any renal problems in the family but the patient is unable to recollect. PHYSICAL EXAMINATION: Revealed a lady upright in ICU. Temperature was 100F. She has been having low grade fever. Blood pressure was noted to be around 110 to 120 systolic. Initially she was hypotensive. Respiratory rate was 14 to 22, pulse rate was 69 to 90. Oxygen saturation was around 95% on 4 liters nasal cannula. HEENT: Normocephalic, atraumatic, pink conjunctiva. NECK: Neck is short. JVD could not be appreciated. CHEST: Occasional right basilar crackles. No distress. CVS: S1-S2 normal. ABDOMEN: Soft, nontender. No organomegaly. EXTREMITIES: No cyanosis, clubbing. Trace to +1 edema bilaterally. SKIN: Dry, skin turgor normal. MUSCULOSKELETAL: No acute joint swelling is noted. NEUROLOGIC: The patient is awake, answers appropriately. Alert, awake, oriented x3 at this time. LAB DATA AND TESTS: Labs were reviewed. Potassium was 6.2 which is down to 4.9. The pH was noted to be 7.36 and initially it was 7.26. Creatinine 2.3. Baseline 1.1. UA revealed moderate bacteria with some 5 to 10 white blood cell and red blood cells, no major protein. X-ray was reviewed. ASSESSMENT: 1) HYPERKALEMIA. Etiology of hyperkalemia was multifactorial this included respiratory acidosis plus underlying acute kidney injury. The patient also was on lisinopril, potassium supplementation which could have further contributed to high potassium. All offending medications have been removed, pH has improved, potassium levels have already better at 4.9. No need for Kayexalate. 2) ACUTE KIDNEY INJURY ETIOLOGY SECONDARY TO HYPERTENSION ALSO. The patient was hypoxemic which can lead to tubular damage in medullary interstitium. Also the patient was on lisinopril, Lasix which could have further caused loss of auto regulation and acute kidney injury. Continue IV fluids. Renal functions should improve. Urine output has already improving. We will monitor urine studies. We will check for underlying chronic kidney disease by getting baseline ultrasound of kidneys, will check for renal mass, renal stone, obstructive uropathy, cystic disease. I will also quantify proteinuria. Continue to monitor renal functions, avoid nonsteroidals. I agree with holding lisinopril in this acute scenario. 3) HYPERTENSION: Improved. Hold Imdur. Hold Lisinopril re-initiate at a lower dose if blood pressure is an issue. Continue fluids for now. Once she is eating better we can titrate the fluids. 4) RIGHT MIDDLE LOBE PNEUMONIA: Continue Zosyn. The patient is also on Zithromax. Zosyn should be able to cover atypical pneumonia well. 5) DIABETES MELLITUS TYPE 2: Management as per primary care physician. 6) QUESTION OF URINARY TRACT INFECTION: It could be contamination, cultures pending. The patient is well covered with Zosyn. 7) OTHER: We will make sure there is no rhabdomyolysis or cell break down causing high potassium, monitor CPK levels. We will continue to follow her up.
[2017-03-19] MEDS: COREG 12.5 MG PO SCH ×2 (15:12→21:13)
[2017-03-19] MEDS: Protonix 40MG Tablet PO SCH (15:13)
[2017-03-19] MEDS: CLARITIN 10 MG PO SCH (15:13)
[2017-03-19] MEDS: BUSPAR 5 MG PO SCH ×2 (15:14→22:00)
[2017-03-19] MEDS: Colace 100 MG PO SCH ×2 (15:17→21:13)
[2017-03-19] MEDS: TYLENOL 325 MG PO SCH (15:21)
[2017-03-19] MEDS: Lexapro 10 MG PO SCH (15:23)
[2017-03-19 15:30] LABS: ANION GAP 15.4 MEQ/L (5-15); Carbon Dioxide 27.2 mEq/L (21-32); Potassium 5.1 mEq/L (3.5-5.1)
[2017-03-19] MEDS ORDERED: DUONEB 0.5-3 MG/3 ml Neb IH PRN (15:45)
[2017-03-19] MEDS: NovoLOG Insulin SQ SCH (17:57)
[2017-03-19] MEDS: FEOSOL 325 MG PO SCH (21:13)
[2017-03-19] MEDS: ZOCOR 20MG PO SCH (21:13)
[2017-03-19] MEDS: Zithromax 500 MG/ 250 ML NaCl Premix 500 MG/250 ML IVPB IV SCH (21:14)
[2017-03-19] MEDS ORDERED: INSULIN DETEMIR 65 UNIT SQ SCH (22:00)
[2017-03-19] MEDS ORDERED: BUSPIRONE HCL 15 MG PO SCH (22:00)
[2017-03-19] MEDS ORDERED: Lantus Insulin SQ SCH (22:00)
[2017-03-19] MEDS: Desyrel 150 MG PO SCH (23:22)
[2017-03-19] MEDS: OXYCODONE-ACETAMINOPHEN 10-325 PO PRN (23:22)
[2017-03-20] MEDS: Zosyn 3.375GM/100 Ml D5W 3.375 GM/100 ML IVPB IV SCH ×5 (00:27→23:49)
[2017-03-20] MEDS: solu-CORTEF 100MG IV SCH ×3 (05:03→21:04)
[2017-03-20] MEDS: Sodium Chloride 0.9% 1000 ML 1,000 ML IV SCH (05:03)
[2017-03-20] MEDS: OXYCODONE-ACETAMINOPHEN 10-325 PO PRN ×5 (05:29→22:38)
[2017-03-20 06:39] LABS: BASOPHIL % 0.2 % (0.0-0.4); Eosinophil % 1.2 % (0.00-5.0); Granulocytes % 68.7 % (36.0-66.0); Lymphocytes % 19.4 % (24.0-44.0); Mean Platelet Volume 10.4 fl (6-9.5); Monocytes % 10.5 % (0.0-12.0); Platelet Count 284 K/mm3 (150-450); Red Blood Count 4.34 M/mm3 (4.1-5.4); Red Cell Distribution Width 17.3 % (11.5-14.0); White Blood Count 11.6 K/mm3 (4.0-10.5)
[2017-03-20 06:47] LABS: Mean Corpuscular Hemoglobin 21.6 pg (26-32)
[2017-03-20] MEDS: NovoLOG Insulin SQ SCH ×3 (07:38→17:33)
--- NOTE | 2017-03-20 08:10 | PCM.NOTE ---
Date and Time: 03/20/17809 Subjective Assessment: very alert this am doing well having some pains all over and in back eating well now. breathing ok was having some pain in the chest more in the ribs and abdomen it appears no sob Objective Exam General Appearance: no apparent distress, obese Neurologic Exam: alert, cooperative Skin Exam: warm, dry Ears, Nose, Throat Exam: moist mucous membranes Neck Exam: non-tender, supple Respiratory Exam: lungs clear Cardiovascular Exam: regular rate/rhythm, normal heart sounds Gastrointestinal/Abdomen Exam: soft, normal bowel sounds, No tenderness, No distention Extremity Exam: normal inspection, No pedal edema OBJECTIVE DATA Vital Signs: Vital Signs - 24 hr Temp Pulse Resp BP Pulse Ox 03/20/17 07:55 98.4 F 77 21 164/46 97 03/20/17 04:00 97.5 F 77 24 178/94 97 03/20/17 02:00 97.5 F 70 20 03/20/17 00:00 98.4 F 73 24 149/61 96 03/19/17 22:00 70 21 03/19/17 20:00 98.1 F 72 17 125/92 96 03/19/17 19:22 69 18 98 03/19/17 18:00 98.4 F 72 21 165/74 98 03/19/17 16:00 98.4 F 71 19 157/82 98 03/19/17 15:43 72 20 98 03/19/17 12:51 96 03/19/17 11:47 99.3 F 72 20 136/66 99 03/19/17 10:57 70 20 99 03/19/17 10:00 99.1 F 71 20 134/66 100 Oxygen-Last 24 hours O2 Percentage 4 Liters = 36% O2 Percentage 4 Liters = 36% O2 Percentage 4 Liters = 36% O2 Percentage 4 Liters = 36% O2 Percentage 4 Liters = 36% O2 Percentage 4 Liters = 36% O2 Percentage 4 Liters = 36% O2 Percentage 50% Pain Assessment - Last Documented Pain Intensity 4 Pain Scale Used 0-10 Pain Scale Intake and Output: Intake & Output 03/17/17 03/18/17 03/19/17 03/20/17 11:59 11:59 11:59 11:59 Intake Total 300 3659 Output Total 250 3850 Balance 50 -191 Weight 129.7 kg 129.41 kg Lab Results: Accuchecks Date 03/20/17 Date 03/19/17 Date 03/19/17 Time 06:25 Time 21:45 Time 09:00 Accucheck Value: 181 Accucheck Value: 228 Accucheck Value: 233 Accucheck Value: 248 Lab Results-Last 24 Hours 03/19/17 03/19/17 03/19/17 Range/Units 08:54 11:40 11:50 WBC (4.0-10.5) K/mm3 RBC (4.1-5.4) M/mm3 Hgb (12.0-16.0) gm/dl Hct (35-47) % MCV (78-100) fl MCH (26-32) pg MCHC (32-36) g/dl RDW (11.5-14.0) % Plt Count (150-450) K/mm3 MPV (6-9.5) fl Gran % (36.0-66.0) % Lymphocytes % (24.0-44.0) % Monocytes % (0.0-12.0) % Eosinophils % (0.00-5.0) % Basophils % (0.0-0.4) % Basophils # (0-0.4) Puncture Site RIGHT RADIAL pCO2 52 H (35-45) mmHg pO2 143 H* (75-100) mmHg Base Excess 5.6 H (-2.0-2.0) O2 Saturation 96.4 (94-100) g/dF ABG pH 7.39 (7.35-7.45) ABG HCO3 31.5 H* (22-28) ABG O2 Sat (Measured) 99.4 (95-100) % Tyler Test YES A-a Gradient 149 a/A Ratio 0.49 Hemoglobin 9.8 Carboxyhemoglobin 1.9 (0.0-6.9) % THgb Methemoglobin 1.1 L (1.4-1.5) % Potassium 4.9 (3.5-5.1) Temperature 37.0 C POC O2 Flow Rate 50 % Inspiratory BiPAP 14 Expiratory BiPAP 6 Sodium (136-145) mEq/L Chloride (98-107) mEq/L Carbon Dioxide (21-32) mEq/L Anion Gap (5-15) MEQ/L BUN (9-20) mg/dL Creatinine (0.55-1.30) mg/dl Estimated GFR ML/MIN Glucose (70-110) MG/DL Calcium (8.5-10.1) mg/dL Magnesium Creatine Kinase (26-192) U/L Troponin I < 0.017 < 0.017 (0.000-0.056) ng/ml Ur Random Creatinine (30-125) MG/DL U Random Total Protein mg/dL Urine Sodium MMOL Slides for Path Review 03/19/17 03/19/17 03/19/17 Range/Units 14:29 14:29 14:29 WBC (4.0-10.5) K/mm3 RBC (4.1-5.4) M/mm3 Hgb (12.0-16.0) gm/dl Hct (35-47) % MCV (78-100) fl MCH (26-32) pg MCHC (32-36) g/dl RDW (11.5-14.0) % Plt Count (150-450) K/mm3 MPV (6-9.5) fl Gran % (36.0-66.0) % Lymphocytes % (24.0-44.0) % Monocytes % (0.0-12.0) % Eosinophils % (0.00-5.0) % Basophils % (0.0-0.4) % Basophils # (0-0.4) Puncture Site pCO2 (35-45) mmHg pO2 (75-100) mmHg Base Excess (-2.0-2.0) O2 Saturation (94-100) g/dF ABG pH (7.35-7.45) ABG HCO3 (22-28) ABG O2 Sat (Measured) (95-100) % Tyler Test A-a Gradient a/A Ratio Hemoglobin Carboxyhemoglobin (0.0-6.9) % THgb Methemoglobin (1.4-1.5) % Potassium 5.1 (3.5-5.1) Temperature C POC O2 Flow Rate % Inspiratory BiPAP Expiratory BiPAP Sodium 136 (136-145) mEq/L Chloride 98 (98-107) mEq/L Carbon Dioxide 27.2 (21-32) mEq/L Anion Gap 15.4 H (5-15) MEQ/L BUN 38 H (9-20) mg/dL Creatinine 1.64 H (0.55-1.30) mg/dl Estimated GFR 33 ML/MIN Glucose 209 H (70-110) MG/DL Calcium 8.3 L (8.5-10.1) mg/dL Magnesium Cancelled Creatine Kinase 560 H (26-192) U/L Troponin I (0.000-0.056) ng/ml Ur Random Creatinine 44.56 (30-125) MG/DL U Random Total Protein 70.3 mg/dL Urine Sodium MMOL Slides for Path Review 03/19/17 03/20/17 03/20/17 Range/Units 14:29 06:10 06:15 WBC 11.6 H (4.0-10.5) K/mm3 RBC 4.34 (4.1-5.4) M/mm3 Hgb 9.4 L (12.0-16.0) gm/dl Hct 33.0 L (35-47) % MCV 76.0 L (78-100) fl MCH 21.6 L (26-32) pg MCHC 28.5 L (32-36) g/dl RDW 17.3 H (11.5-14.0) % Plt Count 284 (150-450) K/mm3 MPV 10.4 H (6-9.5) fl Gran % 68.7 H (36.0-66.0) % Lymphocytes % 19.4 L (24.0-44.0) % Monocytes % 10.5 (0.0-12.0) % Eosinophils % 1.2 (0.00-5.0) % Basophils % 0.2 (0.0-0.4) % Basophils # 0.02 (0-0.4) Puncture Site pCO2 (35-45) mmHg pO2 (75-100) mmHg Base Excess (-2.0-2.0) O2 Saturation (94-100) g/dF ABG pH (7.35-7.45) ABG HCO3 (22-28) ABG O2 Sat (Measured) (95-100) % Tyler Test A-a Gradient a/A Ratio Hemoglobin Carboxyhemoglobin (0.0-6.9) % THgb Methemoglobin (1.4-1.5) % Potassium (3.5-5.1) Temperature C POC O2 Flow Rate % Inspiratory BiPAP Expiratory BiPAP Sodium (136-145) mEq/L Chloride (98-107) mEq/L Carbon Dioxide (21-32) mEq/L Anion Gap (5-15) MEQ/L BUN (9-20) mg/dL Creatinine (0.55-1.30) mg/dl Estimated GFR ML/MIN Glucose (70-110) MG/DL Calcium (8.5-10.1) mg/dL Magnesium Creatine Kinase (26-192) U/L Troponin I < 0.017 (0.000-0.056) ng/ml Ur Random Creatinine (30-125) MG/DL U Random Total Protein mg/dL Urine Sodium 51.7 MMOL Slides for Path Review YES 03/20/17 Range/Units 06:15 WBC (4.0-10.5) K/mm3 RBC (4.1-5.4) M/mm3 Hgb (12.0-16.0) gm/dl Hct (35-47) % MCV (78-100) fl MCH (26-32) pg MCHC (32-36) g/dl RDW (11.5-14.0) % Plt Count (150-450) K/mm3 MPV (6-9.5) fl Gran % (36.0-66.0) % Lymphocytes % (24.0-44.0) % Monocytes % (0.0-12.0) % Eosinophils % (0.00-5.0) % Basophils % (0.0-0.4) % Basophils # (0-0.4) Puncture Site pCO2 (35-45) mmHg pO2 (75-100) mmHg Base Excess (-2.0-2.0) O2 Saturation (94-100) g/dF ABG pH (7.35-7.45) ABG HCO3 (22-28) ABG O2 Sat (Measured) (95-100) % Tyler Test A-a Gradient a/A Ratio Hemoglobin Carboxyhemoglobin (0.0-6.9) % THgb Methemoglobin (1.4-1.5) % Potassium (3.5-5.1) Temperature C POC O2 Flow Rate % Inspiratory BiPAP Expiratory BiPAP Sodium (136-145) mEq/L Chloride (98-107) mEq/L Carbon Dioxide (21-32) mEq/L Anion Gap (5-15) MEQ/L BUN (9-20) mg/dL Creatinine (0.55-1.30) mg/dl Estimated GFR ML/MIN Glucose (70-110) MG/DL Calcium (8.5-10.1) mg/dL Magnesium 2.0 Creatine Kinase (26-192) U/L Troponin I (0.000-0.056) ng/ml Ur Random Creatinine (30-125) MG/DL U Random Total Protein mg/dL Urine Sodium MMOL Slides for Path Review Radiology Exams: Radiology Procedures Category Date Time Status CHEST 1 VIEW (PORTABLE) Stat Exams 03/20/17 06:06 Taken KIDNEY [US] Routine Exams 03/20/17 07:00 Ordered Assessment/Plan (1) Pneumonia Current Visit: Yes Status: Acute Qualifiers: Laterality: right Lung location: upper lobe of lung Assessment & Plan: continue zosyn and azithromycin she had acute respiratory failure complicated by her depressed respiratory drive from chronic opiate therapy and acute kidney injury resulting in toxic levels resolved with the narcan gtt she was having severe pains in her back and having opiate withdrawal symptoms and percocet was started in place of her chronic Oxy ER and tolerating now. JORGE improving with holding austen inhibitor and the hydration Code(s): J18.9 - PNEUMONIA, UNSPECIFIED ORGANISM (2) Opiate dependence Current Visit: Yes Status: Chronic Code(s): F11.20 - OPIOID DEPENDENCE, UNCOMPLICATED (3) Chronic back pain Current Visit: Yes Status: Chronic Code(s): M54.9 - DORSALGIA, UNSPECIFIED; G89.29 - OTHER CHRONIC PAIN (4) Sepsis Current Visit: Yes Status: Acute (5) Acute kidney injury Current Visit: Yes Status: Acute Code(s): N17.9 - ACUTE KIDNEY FAILURE, UNSPECIFIED (6) Acute hypoxemic respiratory failure Current Visit: Yes Status: Acute Code(s): J96.01 - ACUTE RESPIRATORY FAILURE WITH HYPOXIA (7) Acute respiratory acidosis Current Visit: Yes Status: Acute Code(s): E87.2 - ACIDOSIS (8) Hyperkalemia Current Visit: Yes Status: Acute Code(s): E87.5 - HYPERKALEMIA (9) Type 2 diabetes mellitus Current Visit: Yes Status: Chronic (10) Hypertension Current Visit: Yes Status: Chronic Code(s): I10 - ESSENTIAL (PRIMARY) HYPERTENSION (11) Anemia Current Visit: Yes Status: Chronic Code(s): D64.9 - ANEMIA, UNSPECIFIED
[2017-03-20 08:25] LABS: ALBUMIN 2.4 g/dL (3.4-5.0); ANION GAP 14.2 MEQ/L (5-15); BILIRUBIN,TOTAL 0.4 mg/dL (0.2-1.0); Potassium 4.4 mEq/L (3.5-5.1); Total Protein 7.4 gm/dL (6.4-8.2)
[2017-03-20] MEDS: Colace 100 MG PO SCH ×3 (08:59→21:04)
[2017-03-20] MEDS: CLARITIN 10 MG PO SCH (08:59)
[2017-03-20] MEDS: Pepcid 20 MG VIAL IV SCH ×2 (08:59→21:05)
[2017-03-20] MEDS: BUSPAR 5 MG PO SCH ×2 (08:59→21:03)
[2017-03-20] MEDS: FEOSOL 325 MG PO SCH ×2 (09:00→21:04)
[2017-03-20] MEDS: Protonix 40MG Tablet PO SCH (09:00)
[2017-03-20] MEDS: Lexapro 10 MG PO SCH (09:03)
[2017-03-20] MEDS: TYLENOL 325 MG PO SCH (09:03)
--- NOTE | 2017-03-20 09:11 | XRAY ---
Indication: Chest pain. Short of breath. Comparison: March 18, 2017. Portable chest demonstrates diminished bibasilar effusions with stable cardiomegaly, vascular congestion, and right upper lobe infiltrate/atelectasis. No new cardiopulmonary abnormalities.
--- NOTE | 2017-03-20 09:11 | XRAY ---
Indication: Acute renal failure. Two-dimensional renal sonogram performed. Comparison: None Both kidneys normal in reniform shape with normal color perfusion. Right kidney measures 11.4 x 3.9 x 4.9 cm and the left measures 11.2 x 4.7 x 5.1 cm. No suspicious renal mass, hydronephrosis, or perinephric fluid. Cortical medullary differentiation maintained without cortical thinning. Urinary bladder is empty via Blanco catheter. Impression: Negative renal sonogram.
[2017-03-20] MEDS ORDERED: NON-FORMULARY ITEM (Escitalopram Oxalate [Lexapro] 20 MG) PO SCH (10:00)
[2017-03-20] MEDS ORDERED: ECOTRIN 81 MG PO SCH (10:00)
[2017-03-20] MEDS ORDERED: NON-FORMULARY ITEM (Pravastatin Sodium [Pravastatin Sodium] 40 MG) PO SCH (10:00)
[2017-03-20] MEDS ORDERED: Imdur 30 MG PO SCH (10:00)
[2017-03-20] MEDS ORDERED: NON-FORMULARY ITEM (Aspirin [Aspirin] 81 MG) PO SCH (10:00)
[2017-03-20] MEDS ORDERED: PLAVIX 75 MG Tablet PO SCH (10:00)
[2017-03-20] MEDS: ZOCOR 20MG PO SCH (21:03)
[2017-03-20] MEDS: Desyrel 150 MG PO SCH (21:04)
[2017-03-20] MEDS: Zithromax 500 MG/ 250 ML NaCl Premix 500 MG/250 ML IVPB IV SCH (21:05)
[2017-03-21] MEDS ORDERED: IMODIUM 2 MG PO PRN (02:00)
[2017-03-21] MEDS: Haldol 5 MG IM ONE ×2 (02:15→04:37)
[2017-03-21] MEDS: OXYCODONE-ACETAMINOPHEN 10-325 PO PRN ×2 (02:25→06:15)
[2017-03-21] MEDS: Zosyn 3.375GM/100 Ml D5W 3.375 GM/100 ML IVPB IV SCH (06:16)
[2017-03-21 06:29] LABS: Mean Cell Volume 75.6 fl (78-100); Mean Platelet Volume 10.4 fl (6-9.5); Platelet Count 270 K/mm3 (150-450); Red Blood Count 4.59 M/mm3 (4.1-5.4); Red Cell Distribution Width 17.4 % (11.5-14.0); White Blood Count 13.5 K/mm3 (4.0-10.5)
[2017-03-21] MEDS: solu-CORTEF 100MG IV SCH (06:29)
[2017-03-21 06:46] LABS: Mean Corpuscular Hemoglobin 21.5 pg (26-32)
[2017-03-21 06:47] VITALS: O2SAT 92
[2017-03-21 06:51] LABS: ANION GAP 13.7 MEQ/L (5-15); BLOOD UREA NITROGEN 14 mg/dL (9-20); CHLORIDE 102 mEq/L (98-107); Carbon Dioxide 29.5 mEq/L (21-32); Glucose 217 MG/DL (70-110); Potassium 4.2 mEq/L (3.5-5.1); SODIUM 141 mEq/L (136-145)
[2017-03-21 06:54] VITALS: BP 201/82; PULSE 114
[2017-03-21] MEDS ORDERED: Zyprexa Zydis 5 MG PO ONE (08:04)
--- NOTE | 2017-03-21 08:11 | PCM.DS ---
Discharge Summary Date of Admission: 03/19/17 02:19 Date of Discharge: 03/21/17 Admitting Physician: KATIE SANCHEZ Consults: Consults on Case 03/19/17 06:31 Consult Nephrology ROUTINE 03/19/17 18:54 Nutritional Consult Primary Care Provider: KATIE SANCHEZ Allergies Allergies No Known Drug Allergies Allergy (Verified 03/19/17 00:53) Hospital Summary - Hospital Course Hospital Course: Ms. moya is a chronic patient at [facility] and suffers from chronic pain and anxiety and has been on buttermaker continuous churn opiate analgesia. She developed illness resulting in pneumonia and became hypotensive with acute renal failure resulting in build up of her long acting opiate medications and difficulty to arouse. She presented to ED required bipap and narcan improved cognition. She was then placed on narcan gtt the first night of admission and by morning was experiencing symptoms of opiate withdrawal without sedation and difficulty in her sleeping. Her renal function improved with hydration. Her breathing improved with antibiotics. She was found to also have E. coli UTI covered by her zosyn for her pneumonia. With the good clinical improvement she was switched to levoquin for both the UTI and pneumonia for additional 7 days and transferred back to [facility] as renal function fully recovered. Her pain medication was weaned to oxycodone 15 q6h from her previous long and short acting combination. Her clonazepam at night was also discontinued. She was on percocet 10 q4h at hospital and still experiencing withdrawal symptoms and a great deal of anxiety and agitation. Will get her back to her normal environment and continue to work on decreasing sedating medications as tolerated. - Vitals & Intake/Output Vital Signs: Vital Signs Temperature 98.2 F 03/21/17 06:53 Pulse Rate 114 H 03/21/17 06:53 Respiratory Rate 20 03/21/17 06:53 Blood Pressure 201/82 03/21/17 06:53 O2 Sat by Pulse Oximetry 92 L 03/21/17 06:53 Oxygen-Last Documented O2 Percentage 4 Liters = 36% Intake & Output: Intake & Output 03/18/17 03/19/17 03/20/17 03/21/17 11:59 11:59 11:59 11:59 Intake Total 300 4139 2008 Output Total 250 3850 4000 Balance 50 289 -1990 Weight 129.7 kg 129.41 kg - Lab Result Diagrams: 03/21/17 05:00 03/21/17 05:00 Lab Results-Last 24 Hrs: Accuchecks Date 03/20/17 Date 03/20/17 Date 03/20/17 Time 22:00 Time 16:30 Time 11:06 Accucheck Value: 193 Accucheck Value: 142 Accucheck Value: 236 Lab Results-Last 24 Hours 03/19/17 03/19/17 03/20/17 Range/Units 14:29 14:29 05:00 WBC (4.0-10.5) K/mm3 RBC (4.1-5.4) M/mm3 Hgb (12.0-16.0) gm/dl Hct (35-47) % MCV (78-100) fl MCH (26-32) pg MCHC (32-36) g/dl RDW (11.5-14.0) % Plt Count (150-450) K/mm3 MPV (6-9.5) fl Sodium 143 (136-145) mEq/L Potassium 4.4 (3.5-5.1) mEq/L Chloride 104 (98-107) mEq/L Carbon Dioxide 29.0 (21-32) mEq/L Anion Gap 14.2 (5-15) MEQ/L BUN 30 H (9-20) mg/dL Creatinine 1.17 (0.55-1.30) mg/dl Estimated GFR 49 ML/MIN Glucose 188 H (70-110) MG/DL Serum Osmolality 300 (282-304) mOsm/kg Calcium 8.6 (8.5-10.1) mg/dL Total Bilirubin 0.40 (0.2-1.0) mg/dL AST 19 (15-37) U/L ALT 12 (12-78) U/L Alkaline Phosphatase 60 (46-116) U/L Serum Total Protein 7.4 (6.4-8.2) gm/dL Albumin 2.4 L (3.4-5.0) g/dL Urine Osmolality 397 mOsm/kg Slides for Path Review 03/21/17 03/21/17 Range/Units 05:00 05:00 WBC 13.5 H (4.0-10.5) K/mm3 RBC 4.59 (4.1-5.4) M/mm3 Hgb 9.9 L (12.0-16.0) gm/dl Hct 34.7 L (35-47) % MCV 75.6 L (78-100) fl MCH 21.5 L (26-32) pg MCHC 28.5 L (32-36) g/dl RDW 17.4 H (11.5-14.0) % Plt Count 270 (150-450) K/mm3 MPV 10.4 H (6-9.5) fl Sodium 141 (136-145) mEq/L Potassium 4.2 (3.5-5.1) mEq/L Chloride 102 (98-107) mEq/L Carbon Dioxide 29.5 (21-32) mEq/L Anion Gap 13.7 (5-15) MEQ/L BUN 14 (9-20) mg/dL Creatinine 0.79 (0.55-1.30) mg/dl Estimated GFR > 60 ML/MIN Glucose 217 H (70-110) MG/DL Serum Osmolality (282-304) mOsm/kg Calcium 8.9 (8.5-10.1) mg/dL Total Bilirubin (0.2-1.0) mg/dL AST (15-37) U/L ALT (12-78) U/L Alkaline Phosphatase (46-116) U/L Serum Total Protein (6.4-8.2) gm/dL Albumin (3.4-5.0) g/dL Urine Osmolality mOsm/kg Slides for Path Review YES Micro Results-Entire Visit: Accuchecks Date 03/20/17 Date 03/20/17 Date 03/20/17 Time 22:00 Time 16:30 Time 11:06 Accucheck Value: 193 Accucheck Value: 142 Accucheck Value: 236 - Radiology Exams Ordered Rad Exams-Entire Visit: Radiology Procedures Category Date Time Status CHEST 1 VIEW (PORTABLE) Stat Exams 03/20/17 06:06 Completed KIDNEY [US] Routine Exams 03/20/17 07:00 Completed - Procedures and Test Procedures and Tests throughout Hospitalization: Therapy Orders & Screens 03/19/17 03:00 Respiratory Nebulizer Q4H Comment: DUONEB Q4 HOURS Diagnosis: Shortness of Breath 03/19/17 04:08 BiPap/CPAP Assessment ROUTINE Comment: BIPAP 14/6, 50% O2 Diagnosis: Shortness of Breath 03/19/17 04:09 Oxygen NASAL CANNULA 2 lpm Comment: Diagnosis: Shortness of Breath 03/19/17 04:20 OT Screen per Nursing Assess Comment: Protocol Order Physician Instructions: Greater than 3 points order OT Admission Screening Reason For Exam: Triggered on Admission Diagnosis: Shortness of Breath Open Wound/Cellutlitis/Pressure Ulcers: Yes Acute Fx/ORIF/Change in wt bearing status: No Severe MUSCULOSKELETAL pain: No ADL Dysfunction: No Acute CVA w/Hemiparesis/Hemiplegia: No Decreased Functional Mobility/Strength: No Sprain/Strain: No Acute Post-op Mobility Dysfunction: No Total Points: 5 PT Screen per Nursing Assess ONCE Comment: Protocol Order Physician Instructions: Greater than 3 points order PT Admission Screenin Reason For Exam: Triggered on Admission Diagnosis: Shortness of Breath Open Wound/Cellutlitis/Pressure Ulcers: Yes Acute Fx/ORIF/Change in wt bearing status: No Severe MUSCULOSKELETAL pain: No ADL Dysfunction: No Acute CVA w/Hemiparesis/Hemiplegia: No Decreased Functional Mobility/Strength: No Sprain/Strain: No Acute Post-op Mobility Dysfunction: No Total Points: 5 ST Screen per Nursing Assess once Comment: Protocol Order Physician Instructions: Greater than [address] Admission Screening Reason For Exam: Triggered on Admission Diagnosis: Shortness of Breath CVA/Dyshpagia/Aphasia: No Cognitive Deficits: No Dehydration/Nutrition Deficit: No Reflux: Yes Oral-Motor Difficulties: No Pneumonia: No Skilled Nursing Resident: Yes Total Points: 8 03/19/17 05:46 EKG ROUTINE Comment: Diagnosis: Shortness of Breath 03/19/17 13:16 Speech Therapy Eval & Treat [ST Eval & Treat (MD Order)] .as ordered Comment: Physician Instructions: Reason For Exam: Evaluate: Yes Treat: Yes Reason for Eval: Choking/coughing after drinks of water. Diagnosis: Shortness of Breath 03/19/17 15:45 Respiratory Nebulizer Comment: RUDI Q4PRN Diagnosis: Shortness of Breath 03/20/17 05:55 EKG ROUTINE Comment: Diagnosis: Shortness of Breath Final Diagnosis/Problem List - Final Discharge Diagnosis/Problem (1) Pneumonia Status: Acute (2) Opiate dependence Status: Chronic (3) Chronic back pain Status: Chronic (4) Sepsis Status: Acute (5) Acute kidney injury Status: Acute (6) Acute hypoxemic respiratory failure Status: Acute (7) Acute respiratory acidosis Status: Acute (8) Hyperkalemia Status: Acute (9) Type 2 diabetes mellitus Status: Chronic (10) Hypertension Status: Chronic (11) Anemia Status: Chronic - Discharge Disposition: Skilled Care @ [facility] Condition: Fair Prescriptions: New Levofloxacin [Levofloxacin 500 MG Tablet] 500 mg PO DAILY #7 tablet Oxycodone HCl 15 mg PO Q6H #120 tablet Continue Tizanidine HCl 4 mg [Zanaflex 4 MG] 4 mg PO HS Pravastatin Sodium 40 mg PO DAILY Loratadine 10 mg [Claritin 10 mg] 10 mg PO DAILY Insulin Detemir [Levemir] 65 unit SQ HS Gabapentin [Neurontin] 300 mg PO TID Insulin Aspart [NovoLOG Insulin] 20 unit SQ AC Potassium Chloride 10 Meq Tab* [Klor Con 10 MEQ] 10 meq PO BID Lisinopril 10 mg [Zestril 10 MG] 40 mg PO DAILY Isosorbide Mononitrate 30 mg [Imdur 30 MG] 30 mg PO DAILY Furosemide [Lasix] 20 mg PO DAILY Docusate Sodium 100 mg [Colace 100 MG] 100 mg PO TID Cyanocobalamin 1000 Mcg/ml [Cyanocobalamin B-12 1000 MCG/ML] 1,000 mcg IJ UD Clopidogrel Bisulfate 75 mg [PLAVIX 75 MG Tablet] 75 mg PO DAILY Celecoxib 100 mg [celeBREX 100 MG] 200 mg PO BID Carvedilol 12.5 mg [Coreg 12.5 mg] 12.5 mg PO BID PANTOPRAZOLE 40 mg Tablet [Protonix 40MG Tablet] 40 mg PO DAILY Aspirin 81 mg PO DAILY Acetaminophen 325 mg [Tylenol 325 mg] 650 mg PO DAILY Escitalopram Oxalate [Lexapro] 20 mg PO DAILY Buspirone HCl 15 mg PO BID Glipizide 5 mg [Glucotrol 5 MG] 5 mg PO BID Metformin HCl 500 mg [Glucophage 500 MG] 500 mg PO BID Ferrous Sulfate 325 mg [Feosol 325 mg] 325 mg PO BID Trazodone HCl 150 mg PO HS Nitroglycerin 0.4 mg Tablet [Nitrostat 0.4 MG Tablet] 0.4 mg SL UD PRN PRN Reason: Chest Pain Carboxymethylcellulose Sodium [Refresh Tears] 1 drop OP Q2H/PRN PRN PRN Reason: Allergies Discontinued Oxycodone HCl [Oxycontin] 30 mg PO BID Hydrocodone Bit/Acetaminophen [[place] 5/325Mg] 1 tablet PO Q6H PRN PRN PRN Reason: Pain Clonazepam 0.5 mg [Klonopin 0.5 MG] 0.5 mg PO QHS Instructions: Heart Failure, Shortness of Breath Follow up with: [facility] [LOCATION] - Forms: Discharge Instructions
[2017-03-21] MEDS: NovoLOG Insulin SQ PRN (08:17)
[2017-03-21] MEDS: TYLENOL 325 MG PO SCH (08:22)
== END 2017-03-21 09:15 | DRG 999 ==
LOC: ED 23:34 → ICU 03-19 02:19 → MED SURG 03-20 12:25
PROVIDERS: ADMIT Internal Medicine; ATTEND Family Medicine
DX: J18.9 Pneumonia, unspecified organism (principal); A41.9 Sepsis, unspecified organism; J96.01 Acute respiratory failure with hypoxia; F11.20 Opioid dependence, uncomplicated; N39.0 Urinary tract infection, site not specified; N17.9 Acute kidney failure, unspecified; E87.2 Acidosis; B96.20 Unspecified Escherichia coli [E. coli] as the cause of diseases classified elsewhere; M54.9 Dorsalgia, unspecified; G89.29 Other chronic pain; E87.5 Hyperkalemia; E11.9 Type 2 diabetes mellitus without complications; I10 Essential (primary) hypertension; D64.9 Anemia, unspecified; I50.9 Heart failure, unspecified; R41.82 Altered mental status, unspecified; Z79.899 Other long term (current) drug therapy; Z79.84 Long term (current) use of oral hypoglycemic drugs; Z79.4 Long term (current) use of insulin; F41.9 Anxiety disorder, unspecified
CPT/HCPCS: 36000; 36415; 36600; 51702; 71010; 76770; 80048; 80053; 81000; 82375; 82550; 82570; 82803; 82947; 82962; 83605; 83735; 83880; 83930; 83935; 84156; 84300; 84484; 85025; 85027; 85610; 85730; 87040; 87077; 87086; 87186; 87493; 93005; 93041; 94002; 94003; 94640; 94760; 96360; 96361; 96365; 96367; 96374; 96375; 99285; J0456; J1630; J1720; J1940; J2310; J2543; A9270-GY

== ENCOUNTER 2017-03-23 19:52 | Observation (INO) | payer MEDICARE ==
--- NOTE | 2017-03-23 19:58 | ERPHSYRPT ---
- History of Present Illness Time Seen by Provider: 03/23/17 19:57 Historian: patient, EMS, long-term records Exam Limitations: no limitations Physician History: The patient is a 66-year-old female brought in by ambulance from a local long-term complaining of a sudden onset of left-sided chest pain with radiation to her left shoulder and arm. The chest pain began about an hour ago. She also had shortness of breath. She denies nausea or vomiting. She was recently hospitalized for chest congestion and discharge 2-3 days ago with antibiotic treatment. She said she is worse today with her breathing and her shortness of breath. She denies fever or chills. She was given aspirin 324 mg and nitroglycerin sublingual 3 with mild relief of the chest pain. Her chest pain was 7 or 8 out of 10 and now it is a 5 out of 10. Her past medical history is significant for [place] several years ago, CABG, hypertension, diabetes, GERD, morbid obesity, and congestive heart failure. Timing/Duration: today, hour(s) (1) Activities at Onset: none, rest Quality: aching Location: substernal Chest Pain Radiation: arm Severity of Pain-Max: severe Severity of Pain-Current: moderate Modifying Factors: Improves With: nitroglycerin, aspirin Associated Symptoms: shortness of breath Prior Chest Pain/Cardiac Workup: angina, heart attack, recent hospitalization Nitro Today/Relief: 0.4 mg x 3, provided by EMS, mild relief Aspirin Treatment Today: 81 mg x 4, provided by EMS Allergies/Adverse Reactions: No Known Drug Allergies Allergy (Verified 03/23/17 20:18) Home Medications: Carvedilol 12.5 mg [Coreg 12.5 mg] 12.5 mg PO BID 01/01/15 [History] Celecoxib 100 mg [celeBREX 100 MG] 200 mg PO BID 01/01/15 [History] Clopidogrel Bisulfate 75 mg [PLAVIX 75 MG Tablet] 75 mg PO DAILY 01/01/15 [History] Cyanocobalamin 1000 Mcg/ml [Cyanocobalamin B-12 1000 MCG/ML] 1,000 mcg IJ UD 01/01/15 [History] Docusate Sodium 100 mg [Colace 100 MG] 100 mg PO TID 01/01/15 [History] Furosemide [Lasix] 20 mg PO DAILY 01/01/15 [History] Gabapentin [Neurontin] 300 mg PO TID 01/01/15 [History] Insulin Aspart [NovoLOG Insulin] 20 unit SQ AC 01/01/15 [History] Insulin Detemir [Levemir] 65 unit SQ HS 01/01/15 [History] Isosorbide Mononitrate 30 mg [Imdur 30 MG] 30 mg PO DAILY 01/01/15 [History ] Lisinopril 10 mg [Zestril 10 MG] 40 mg PO DAILY 01/01/15 [History] Loratadine 10 mg [Claritin 10 mg] 10 mg PO DAILY 01/01/15 [History] Potassium Chloride 10 Meq Tab* [Klor Con 10 MEQ] 10 meq PO BID 01/01/15 [ History] Pravastatin Sodium 40 mg PO DAILY 01/01/15 [History] Tizanidine HCl 4 mg [Zanaflex 4 MG] 4 mg PO HS 01/01/15 [History] Acetaminophen 325 mg [Tylenol 325 mg] 650 mg PO DAILY 07/21/15 [History] Aspirin 81 mg PO DAILY 07/21/15 [History] PANTOPRAZOLE 40 mg Tablet [Protonix 40MG Tablet] 40 mg PO DAILY 07/21/15 [ History] Buspirone HCl 15 mg PO BID 03/19/17 [History] Carboxymethylcellulose Sodium [Refresh Tears] 1 drop OP Q2H/PRN PRN 03/19/17 [ History] Escitalopram Oxalate [Lexapro] 20 mg PO DAILY 03/19/17 [History] Ferrous Sulfate 325 mg [Feosol 325 mg] 325 mg PO BID 03/19/17 [History] Glipizide 5 mg [Glucotrol 5 MG] 5 mg PO BID 03/19/17 [History] Metformin HCl 500 mg [Glucophage 500 MG] 500 mg PO BID 03/19/17 [History] Nitroglycerin 0.4 mg Tablet [Nitrostat 0.4 MG Tablet] 0.4 mg SL UD PRN 02/25 [History] Trazodone HCl 150 mg PO HS 03/19/17 [History] Hx Tetanus, Diphtheria Vaccination/Date Given: Yes Hx Influenza Vaccination/Date Given: Yes Hx Pneumococcal Vaccination/Date Given: Yes - Review of Systems Constitutional: No Fever, No Chills Eyes: No Symptoms Ears, Nose, & Throat: No Symptoms Respiratory: Dyspnea Cardiac: Chest Pain, Edema Abdominal/Gastrointestinal: No Abdominal Pain, No Nausea, No Vomiting, No Diarrhea Genitourinary Symptoms: No Dysuria Musculoskeletal: No Back Pain, No Neck Pain Skin: No Rash Neurological: No Dizziness, No Focal Weakness, No Sensory Changes Psychological: No Symptoms Endocrine: No Symptoms Hematologic/Lymphatic: No Symptoms Immunological/Allergic: No Symptoms All Other Systems: Reviewed and Negative - Past Medical History Pertinent Past Medical History: Yes Neurological History: Stroke, TIA, Other Cardiac History: Hypertension, Other Respiratory History: COPD Endocrine Medical History: Diabetes Type II Musculoskeletal History: Other GI Medical History: GERD History: No Pertinent History Psycho-Social History: Anxiety, Depression Female Reproductive Disorders: No Pertinent History Other Medical History: CHRONIC PAIN. PERIPHERAL NEUROPATHY. HYPERLIPEDEMIA. ANGINA PECTORIS. ALLERGIC RHINITIS. ESOPAHGITIS - Past Surgical History Past Surgical History: Yes Neuro Surgical History: No Pertinent History Cardiac: CABG, Cardiac Catheterization, Cardiac Stent Respiratory: No Pertinent History Gastrointestinal: No Pertinent History Genitourinary: No Pertinent History Musculoskeletal: No Pertinent History Female Surgical History: Other Other Surgical History: HIP SURGERY - Social History Smoking Status: Never smoker Exposure to second hand smoke: Yes Drug Use: none Patient [facility] - Nursing Vital Signs Nursing Vital Signs: Initial Vital Signs Temperature 98 F 03/23/17 20:07 Pulse Rate 82 03/23/17 20:07 Respiratory Rate 20 03/23/17 20:07 Blood Pressure 150/64 03/23/17 20:07 O2 Sat by Pulse Oximetry 97 03/23/17 20:07 Pain Scale Pain Intensity 5 - Physical Exam General Appearance: mild distress, alert, obese Eye Exam: PERRL/EOMI, eyes nml inspection Ears, Nose, Throat Exam: normal ENT inspection, moist mucous membranes Neck Exam: normal inspection, non-tender, supple, full range of motion Respiratory Exam: chest tenderness (localized bruising in left anterior superior chest with reproducible chest pain), diminished breath sounds, wheezing Cardiovascular Exam: regular rate/rhythm, normal heart sounds Gastrointestinal/Abdomen Exam: soft, No tenderness, No mass Pelvic Exam: not done Rectal Exam: not done Back Exam: normal inspection, No CVA tenderness, No vertebral tenderness Extremity Exam: pedal edema Neurologic Exam: alert, oriented x 3, cooperative, normal mood/affect, sensation nml, No motor deficits Skin Exam: normal color, warm, dry SpO2 Interpretation: normal - Course EKG Interpreted by Me: RATE, Sinus Rhythm, NORMAL AXIS, NORMAL INTERVALS, Non- specific ST Changes - Radiology Exams Chest X-ray Interpretation: Interpreted by me, Other (worsening pulmonary congestion with bilateral pleural effusions, compared to single view chest 03/20/17) Ordered Tests: Active Orders 24 hr Category Date Time Status Catheter-[place] STAT Care 03/23/17 21:01 Active EKG-ER Only STAT Care 03/23/17 20:20 Active IV Insertion STAT Care 03/23/17 20:20 Active Oxygen-ED Only NASAL CANNULA 4 lpm Care 03/23/17 20:20 Active Pulse Oximetry (ED) STAT Care 03/23/17 20:20 Active CHEST 2 VIEWS (PA AND LAT) Stat Exams 03/23/17 20:20 Taken CBC W DIFF Stat Lab 03/23/17 20:00 Completed CMP Stat Lab 03/23/17 20:00 Completed Lactic Acid Stat Lab 03/23/17 20:45 Completed Manual Differential NC Stat Lab 03/23/17 20:00 Completed NT PRO BNP Stat Lab 03/23/17 20:00 Completed TROPONIN Q3H Lab 03/23/17 18:55 Completed TROPONIN Q3H Lab 03/23/17 23:30 Ordered TROPONIN Q3H Lab 03/24/17 02:30 Ordered TROPONIN Q3H Lab 03/24/17 05:30 Ordered TROPONIN Q3H Lab 03/24/17 08:30 Ordered UA W/ MICROSCOPIC Stat Lab 03/23/17 21:15 Completed Medication Summary Discontinued Medications Generic Name Dose Route Start Last Admin Trade Name Freq PRN Reason Stop Dose Admin Albuterol/Ipratropium 3 ml 03/23/17 20:20 03/23/17 20:52 Duoneb 0.5-3 Mg/3 Ml Neb IH 03/23/17 20:21 Not Given STAT ONE Furosemide 40 mg 03/23/17 20:20 03/23/17 20:55 Lasix 40 Mg/4 Ml IV 03/23/17 20:21 40 mg STAT ONE Administration Furosemide Confirm 03/23/17 20:54 Lasix 40 Mg/4 Ml Administered 03/23/17 20:55 Dose 40 mg .ROUTE .STK-MED ONE Morphine Sulfate 4 mg 03/23/17 20:20 03/23/17 20:55 Morphine Sulfate 4 Mg Inj IV 03/23/17 20:21 4 mg STAT ONE Administration Morphine Sulfate Confirm 03/23/17 20:54 Morphine Sulfate 4 Mg Inj Administered 03/23/17 20:55 Dose 4 mg .ROUTE .STK-MED ONE Lab/Rad Data: Laboratory Result Diagrams 03/23/17 20:00 03/23/17 20:00 Laboratory Results 03/23/17 03/23/17 03/23/17 Range/Units 21:15 20:45 20:00 WBC (4.0-10.5) K/mm3 RBC (4.1-5.4) M/mm3 Hgb (12.0-16.0) gm/dl Hct (35-47) % MCV (78-100) fl MCH (26-32) pg MCHC (32-36) g/dl RDW (11.5-14.0) % Plt Count (150-450) K/mm3 MPV (6-9.5) fl Segmented Neutrophils (36.0-66.0) % Lymphocytes (Manual) (24-44) % Monocytes (Manual) (0.0-12.0) % Eosinophils (Manual) (0.00-3.0) % Differential Comment Platelet Estimate (NORMAL) Hypochromasia Anisocytosis Sodium 139 (136-145) mEq/L Potassium 4.1 (3.5-5.1) mEq/L Chloride 98 (98-107) mEq/L Carbon Dioxide 32.0 (21-32) mEq/L Anion Gap 12.8 (5-15) MEQ/L BUN 22 H (9-20) mg/dL Creatinine 0.98 (0.55-1.30) mg/dl Estimated GFR > 60 ML/MIN Glucose 201 H (70-110) MG/DL Lactic Acid 1.4 (0.4-2.0) Calcium 8.9 (8.5-10.1) mg/dL Total Bilirubin 0.50 (0.2-1.0) mg/dL AST 15 (15-37) U/L ALT 12 (12-78) U/L Alkaline Phosphatase 63 (46-116) U/L Troponin I (0.000-0.056) ng/ml NT-Pro-B Natriuret Pep 4901 H (0-125) pg/ml Serum Total Protein 8.0 (6.4-8.2) gm/dL Albumin 2.6 L (3.4-5.0) g/dL Ur Collection Type CATH Urine Color YELLOW (YELLOW) Urine Appearance CLEAR (CLEAR) Urine pH 5.0 (5-6) Ur Specific [place] 1.015 (1.005-1.025) Urine Protein 30 (Negative) Urine Ketones NEGATIVE (NEGATIVE) Urine Blood 250 (0-5) Ramses/ul Urine Nitrite NEGATIVE (NEGATIVE) Urine Bilirubin NEGATIVE (NEGATIVE) Urine Urobilinogen NORMAL (0-1) mg/dL Ur Leukocyte Esterase NEGATIVE (NEGATIVE) Urine Microscopic RBC 2-5 (0-2) /HPF Urine Microscopic WBC 0-2 (0-5) /HPF Ur Epithelial Cells FEW (FEW) /HPF Amorphous Crystals MODERATE (NEGATIVE) /HPF Urine Bacteria FEW (NEGATIVE) /HPF Urine Culture Reflexed NO (NO) Urine Glucose NEGATIVE (NEGATIVE) mg/dL Specimen Received 03-23-17 [id number] 03/23/17 03/23/17 Range/Units 20:00 18:55 WBC 10.5 (4.0-10.5) K/mm3 RBC 4.64 (4.1-5.4) M/mm3 Hgb 10.1 L (12.0-16.0) gm/dl Hct 34.9 L (35-47) % MCV 75.2 L (78-100) fl MCH 21.7 L (26-32) pg MCHC 28.9 L (32-36) g/dl RDW 18.4 H (11.5-14.0) % Plt Count 318 (150-450) K/mm3 MPV 10.0 H (6-9.5) fl Segmented Neutrophils 65 (36.0-66.0) % Lymphocytes (Manual) 22 L (24-44) % Monocytes (Manual) 9 (0.0-12.0) % Eosinophils (Manual) 4 H (0.00-3.0) % Differential Comment ABNORMAL Platelet Estimate NORMAL (NORMAL) Hypochromasia 1+ Anisocytosis 1+ Sodium (136-145) mEq/L Potassium (3.5-5.1) mEq/L Chloride (98-107) mEq/L Carbon Dioxide (21-32) mEq/L Anion Gap (5-15) MEQ/L BUN (9-20) mg/dL Creatinine (0.55-1.30) mg/dl Estimated GFR ML/MIN Glucose (70-110) MG/DL Lactic Acid (0.4-2.0) Calcium (8.5-10.1) mg/dL Total Bilirubin (0.2-1.0) mg/dL AST (15-37) U/L ALT (12-78) U/L Alkaline Phosphatase (46-116) U/L Troponin I 0.057 H (0.000-0.056) ng/ml NT-Pro-B Natriuret Pep (0-125) pg/ml Serum Total Protein (6.4-8.2) gm/dL Albumin (3.4-5.0) g/dL Ur Collection Type Urine Color (YELLOW) Urine Appearance (CLEAR) Urine pH (5-6) Ur Specific [place] (1.005-1.025) Urine Protein (Negative) Urine Ketones (NEGATIVE) Urine Blood (0-5) Ramses/ul Urine Nitrite (NEGATIVE) Urine Bilirubin (NEGATIVE) Urine Urobilinogen (0-1) mg/dL Ur Leukocyte Esterase (NEGATIVE) Urine Microscopic RBC (0-2) /HPF Urine Microscopic WBC (0-5) /HPF Ur Epithelial Cells (FEW) /HPF Amorphous Crystals (NEGATIVE) /HPF Urine Bacteria (NEGATIVE) /HPF Urine Culture Reflexed (NO) Urine Glucose (NEGATIVE) mg/dL Specimen Received - Progress Progress: improved Air Movement: fair Blood Culture(s) Obtained: No Antibiotics given: No Discussed with : Arian Will see patient in: hospital (observation) Counseled pt/family regarding: lab results, diagnosis, rad results - Departure Time of Disposition: 21:49 Departure Disposition: Observation (Per Dr Don) Clinical Impression: CHF (congestive heart failure), Dyspnea Condition: Stable Critical Care Time: No Referrals: KATIE SANCHEZ [Primary Care Provider] - Instructions: Heart Failure
[2017-03-23] MEDS ORDERED: Lasix 40 MG/4 ML IV ONE (20:20)
[2017-03-23] MEDS ORDERED: MORPHINE SULFATE 4 MG INJ IV ONE (20:20)
[2017-03-23] MEDS ORDERED: DUONEB 0.5-3 MG/3 ml Neb IH ONE (20:20)
[2017-03-23 20:31] LABS: Mean Cell Volume 75.2 fl (78-100); Platelet Count 318 K/mm3 (150-450); Red Blood Count 4.64 M/mm3 (4.1-5.4); Red Cell Distribution Width 18.4 % (11.5-14.0); White Blood Count 10.5 K/mm3 (4.0-10.5)
[2017-03-23 20:32] LABS: Mean Corpuscular Hemoglobin 21.7 pg (26-32)
[2017-03-23 20:45] LABS: ALBUMIN 2.6 g/dL (3.4-5.0); ALKALINE PHOSPHATASE 63 U/L (46-116); ANION GAP 12.8 MEQ/L (5-15); BLOOD UREA NITROGEN 22 mg/dL (9-20); CHLORIDE 98 mEq/L (98-107); Glucose 201 MG/DL (70-110); Potassium 4.1 mEq/L (3.5-5.1); SGOT/AST 15 U/L (15-37); SGPT/ALT 12 U/L (12-78); SODIUM 139 mEq/L (136-145)
[2017-03-23] MEDS ORDERED: MORPHINE SULFATE 4 MG INJ ONE (20:54)
[2017-03-23] MEDS ORDERED: Lasix 40 MG/4 ML ONE (20:54)
[2017-03-23 21:04] LABS: Eosinophil 4 % (0.00-3.0); Total Cells Counted 100
[2017-03-23 21:05] LABS: ANISOCYTOSIS 1+; Hypochromia 1+; Platelet Estimate NORMAL (NORMAL)
[2017-03-23 21:33] LABS: Bilirubin NEGATIVE (NEGATIVE); Blood 250 Ery/ul (0-5); COMPLETE URINE MICROSCOPIC? YES; Collection Type CATH; Glucose NEGATIVE (NEGATIVE); Leukocyte Esterase NEGATIVE (NEGATIVE)
[2017-03-23 21:34] LABS: ADD URINE CULTURE? NO (NO); Bacteria FEW /HPF (NEGATIVE); Epithelial Cells FEW /HPF (FEW); WBC 0-2 /HPF (0-5)
--- NOTE | 2017-03-23 23:01 | XRAY ---
Indication: Chest pain and short of breath. Comparison: March 20, 2017. AP/lateral chest demonstrates stable cardiomegaly, vascular congestion, and tiny bibasilar effusions favoring cardiac decompensation. Previous right upper lobe infiltrate/atelectasis appears slightly worsened. No new cardiopulmonary abnormalities.
[2017-03-23] MEDS ORDERED: Oxy-IR 5 MG PO PRN (23:43)
[2017-03-23] MEDS ORDERED: Zanaflex 4 MG PO ONE (23:55)
[2017-03-23] MEDS ORDERED: Desyrel 150 MG PO ONE (23:55)
[2017-03-24] MEDS ORDERED: COREG 12.5 MG ONE (00:05)
[2017-03-24] MEDS ORDERED: Catapres 0.1 MG ONE (00:06)
[2017-03-24] MEDS ORDERED: Lantus Insulin ONE (00:07)
[2017-03-24] MEDS ORDERED: NEURONTIN 300 MG ONE (00:09)
[2017-03-24] MEDS ORDERED: ZOCOR 20MG ONE (00:10)
[2017-03-24 07:11] LABS: Mean Cell Volume 74.7 fl (78-100); Mean Platelet Volume 9.6 fl (6-9.5); Platelet Count 307 K/mm3 (150-450); Red Cell Distribution Width 18.5 % (11.5-14.0); White Blood Count 9.3 K/mm3 (4.0-10.5)
[2017-03-24 07:37] LABS: Mean Corpuscular Hemoglobin 21.4 pg (26-32)
[2017-03-24] MEDS: Oxy-IR 5 MG PO PRN ×2 (07:42→14:50)
[2017-03-24 08:28] LABS: ANION GAP 12.9 MEQ/L (5-15); BLOOD UREA NITROGEN 20 mg/dL (9-20); CHLORIDE 98 mEq/L (98-107); Carbon Dioxide 32.8 mEq/L (21-32); Glucose 185 MG/DL (70-110); Potassium 4.2 mEq/L (3.5-5.1); SODIUM 140 mEq/L (136-145)
[2017-03-24] MEDS ORDERED: Zestril 20 MG PO SCH (10:00)
[2017-03-24] MEDS ORDERED: Lasix 20 MG/2 ML IV SCH (10:00)
[2017-03-24] MEDS ORDERED: TYLENOL 325 MG PO PRN (11:24)
[2017-03-24] MEDS ORDERED: CARBOXYMETHYLCELLULOSE SODIUM OP PRN (11:24)
[2017-03-24] MEDS ORDERED: Nitrostat 0.4 MG Tablet SL PRN (11:24)
[2017-03-24 11:26] VITALS: BP 187/71; PULSE 87; O2SAT 91
[2017-03-24] MEDS ORDERED: NovoLOG Insulin SQ SCH (11:30)
[2017-03-24] MEDS ORDERED: Artificial Tears 15 ML OP PRN (11:40)
[2017-03-24] MEDS ORDERED: celeBREX 100 MG PO SCH (12:00)
[2017-03-24] MEDS ORDERED: CLARITIN 10 MG PO SCH (12:00)
[2017-03-24] MEDS ORDERED: ECOTRIN 81 MG PO SCH (12:00)
[2017-03-24] MEDS ORDERED: TYLENOL 325 MG PO SCH (12:00)
[2017-03-24] MEDS ORDERED: Imdur 30 MG PO SCH (12:00)
[2017-03-24] MEDS ORDERED: Lexapro 10 MG PO SCH (12:00)
[2017-03-24] MEDS ORDERED: FEOSOL 325 MG PO SCH (12:00)
[2017-03-24] MEDS ORDERED: PLAVIX 75 MG Tablet PO SCH (12:00)
[2017-03-24] MEDS ORDERED: Klor Con 10 MEQ PO SCH (12:00)
[2017-03-24] MEDS ORDERED: LASIX 20 MG PO SCH (12:00)
[2017-03-24] MEDS ORDERED: BUSPAR 5 MG PO SCH (12:00)
[2017-03-24] MEDS ORDERED: COREG 12.5 MG PO SCH (12:00)
[2017-03-24] MEDS ORDERED: Protonix 40MG Tablet PO SCH (12:00)
--- NOTE | 2017-03-24 14:32 | HP ---
CHIEF COMPLAINT: Chest pain. HISTORY OF PRESENT ILLNESS: The patient is a 66-year-old white female, resident of local skilled nursing over the past 3 years, for diabetes and peripheral neuropathy. The patient is unable to get up out of bed and walk. The patient began having problems with chest discomfort, she reports she has had productive cough, which is somewhat tender in the left sternal border. She also has a history of coronary artery disease having had bypass grafting approximately 2000. PAST MEDICAL HISTORY: HOME MEDICATIONS: List and extensive and it includes aspirin 81 mg a day, BuSpar 15 mg b.i.d., carvedilol 12.5 mg b.i.d., Celebrex 100 mg 2 tablets b.i.d., clonidine 0.1 mg t.i.d., Plavix 75 mg a day, vitamin B12 shots, Colace 100 mg t.i.d., Lexapro 20 mg a day, iron 325 mg daily, Lasix 20 mg a day, gabapentin 100 mg 3x a day, Glucotrol 500 mg b.i.d. She uses insulin. Isosorbide mononitrate 30 mg daily, lisinopril 40 mg a day, Loratadine 2 mg a day, Metformin 500 mg b.i.d., oxycodone 15 mg q.6h p.r.n. pain, potassium 10 mEq a day, Pravastatin 40 mg a day, Zanaflex 4 mg a day, trazodone 150 mg at night. ALLERGIES: The patient reveals no known drug allergies. PHYSICAL EXAMINATION: GENERAL: Reveals an obese white female who appears to be in moderate discomfort presently. VITAL SIGNS: At the most recent time showed her to be afebrile with a pulse of 71, respiratory rate of 19, blood pressure 148/84, O2 saturations 98%. HEENT: Normocephalic and atraumatic, pupils are equal, round, reactive to light, extraocular muscles intact. Oropharynx is dry. NECK: Supple without lymphadenopathy, thyromegaly or JVD. CHEST: Reveals tenderness to palpation the left sternal border. The chest is clear. HEART: Regular without significant murmurs, rubs or gallops. ABDOMEN: Soft, nontender, nondistended without hepatosplenomegaly or masses. EXTREMITIES: Without cyanosis, clubbing or edema. NEUROLOGIC: The patient is alert and oriented x3. No focal deficits are noted. LABS: The patient's laboratory studies show a urinalysis with a specific gravity of 1.015, which is essentially normal. She had a troponin at 0.057. Her white count was 10,500, hemoglobin 10.1, platelet count 318,000. There is no significant left shift noted. She does have somewhat microcytic indices consistent with her iron deficiency. Her sugar was 201 nonfasting. BUN 22, creatinine 0.98. Electrolytes were normal. He NT Pro BNP was elevated at 4901. Her chest x-ray reveals a right upper lobe atelectasis, but otherwise is normal. ASSESSMENT: Patient with chest pain, likely chest wall pain due to bronchitis and coughing; however, with a history of coronary artery disease and heart failure, the patient is given Lasix. She has been admitted to the hospital for serial troponins, rule out myocardial infarction, and for monitoring.
[2017-03-24] MEDS ORDERED: Catapres 0.1 MG PO SCH (15:00)
[2017-03-24] MEDS ORDERED: Colace 100 MG PO SCH (15:00)
[2017-03-24] MEDS ORDERED: NEURONTIN 300 MG PO SCH (15:00)
[2017-03-24] MEDS ORDERED: Glucotrol 5 MG PO SCH (16:30)
[2017-03-24] MEDS ORDERED: Glucophage 500 MG PO SCH (17:00)
[2017-03-24] MEDS ORDERED: Lantus Insulin SQ SCH (22:00)
[2017-03-24] MEDS ORDERED: INSULIN DETEMIR 65 UNIT SQ SCH (22:00)
[2017-03-24] MEDS ORDERED: ZOCOR 20MG PO SCH (22:00)
[2017-03-24] MEDS ORDERED: Zanaflex 4 MG PO SCH (22:00)
[2017-03-24] MEDS ORDERED: Desyrel 150 MG PO SCH (22:00)
[2017-03-24] MEDS ORDERED: BUSPIRONE HCL 15 MG PO SCH (22:00)
[2017-03-24] MEDS ORDERED: NON-FORMULARY ITEM (Pravastatin Sodium [Pravastatin Sodium] 40 MG) PO SCH (22:00)
[2017-03-24] MEDS ORDERED: ZOCOR 20MG PO ONE (22:55)
[2017-03-24] MEDS ORDERED: NEURONTIN 300 MG PO ONE (22:55)
[2017-03-24] MEDS ORDERED: Lantus Insulin SQ ONE (22:55)
[2017-03-24] MEDS ORDERED: COREG 12.5 MG PO ONE (22:55)
[2017-03-24] MEDS ORDERED: Catapres 0.1 MG PO ONE (22:55)
[2017-03-25] MEDS ORDERED: NON-FORMULARY ITEM (Escitalopram Oxalate [Lexapro] 20 MG) PO SCH (10:00)
[2017-03-25] MEDS ORDERED: NON-FORMULARY ITEM (Aspirin [Aspirin] 81 MG) PO SCH (10:00)
[2017-04-13] MEDS ORDERED: Cyanocobalamin B-12 1000 MCG/ML IJ SCH (22:00)
== END 2017-03-24 15:35 ==
LOC: ED 19:52 → MED SURG 22:20
PROVIDERS: ADMIT Family Medicine; ATTEND Internal Medicine
DX: J40 Bronchitis, not specified as acute or chronic (principal); R05 Cough; I25.10 Atherosclerotic heart disease of native coronary artery without angina pectoris; I50.9 Heart failure, unspecified; Z79.899 Other long term (current) drug therapy; I25.2 Old myocardial infarction; I10 Essential (primary) hypertension; E11.9 Type 2 diabetes mellitus without complications
CPT/HCPCS: 36000; 36415; 51702; 71020; 80048; 80053; 81000; 82962; 83605; 83880; 84484; 85025; 85027; 93005; 93268; 94760; 96374; 96375; 99284; 99285; G0378; J1940; J2270; A9270-GY

== ENCOUNTER 2017-06-22 05:53 | Emergency (ER) | payer MEDICARE ==
[2017-06-22] MEDS ORDERED: BABY ASPIRIN 81 MG CHEW PO ONE (06:11)
[2017-06-22 06:12] VITALS: O2SAT 97
[2017-06-22] MEDS ORDERED: PERCOCET TABLET 5/325MG PO STA (06:14)
[2017-06-22] MEDS ORDERED: PERCOCET TABLET 5/325MG ONE (06:21)
[2017-06-22] MEDS ORDERED: BABY ASPIRIN 81 MG CHEW ONE (06:21)
--- NOTE | 2017-06-22 06:21 | ERPHSYRPT ---
<LEONIDAS HOWELL - Last Filed: 06/22/17 07:28> - History of Present Illness Time Seen by Provider: 06/22/17 06:10 Historian: patient, EMS Exam Limitations: other (poor historian) Patient Subjective Stated Complaint: gneralized body aching and CP starting this am BAXCK PAIN MID BACK.. Triage Nursing Assessment: ALERT AND ANXIOUS WITH c/o BACK PAIN CP LEFT ARM PAIN , GENERALIZED BODY ACHING. CONGESTED COUGH STATES COUGHING UP YELLOW X 2 DAYS. CONGESTED LUNGS ON AUSCULATATION. ABDOMEN ROUND + bs NO PAIN ON PALPATION. NO SWELLING NOTED TO LEGS. Physician History: Pt has been c/o generalized body aches, started having left chest pain, SOB since last night. She denies vomiting, but nauseated, given one SL NTG by EMS, pain relived partly, refused NTG, asking for pain medication now, slightly wheezing over all lung dutton, but not in respiratory distress. Timing/Duration: yesterday Activities at Onset: none Quality: aching, sharpness Location: other (left chest) Chest Pain Radiation: arm (left) Severity of Pain-Max: severe Severity of Pain-Current: moderate Modifying Factors: Improves With: nothing Associated Symptoms: nausea, shortness of breath, cough Prior Chest Pain/Cardiac Workup: angina Nitro Today/Relief: provided by EMS Aspirin Treatment Today: no aspirin today Allergies/Adverse Reactions: No Known Drug Allergies Allergy (Verified 06/22/17 06:14) Home Medications: Carvedilol 12.5 mg [Coreg 12.5 mg] 25 mg PO BID 01/01/15 [History] Celecoxib 100 mg [celeBREX 100 MG] 200 mg PO BID 01/01/15 [History] Clopidogrel Bisulfate 75 mg [PLAVIX 75 MG Tablet] 75 mg PO DAILY 01/01/15 [History] Cyanocobalamin 1000 Mcg/ml [Cyanocobalamin B-12 1000 MCG/ML] 1,000 mcg IJ UD 01/01/15 [History] Docusate Sodium 100 mg [Colace 100 MG] 100 mg PO TID 01/01/15 [History] Furosemide [Lasix] 20 mg PO DAILY 01/01/15 [History] Insulin Aspart [NovoLOG Insulin] 20 unit SQ AC 01/01/15 [History] Insulin Detemir [Levemir] 65 unit SQ 01/01/15 [History] Isosorbide Mononitrate 30 mg [Imdur 30 MG] 30 mg PO DAILY 01/01/15 [History ] Lisinopril 10 mg [Zestril 10 MG] 40 mg PO DAILY 01/01/15 [History] Loratadine 10 mg [Claritin 10 mg] 10 mg PO DAILY 01/01/15 [History] Potassium Chloride 10 Meq Tab* [Klor Con 10 MEQ] 10 meq PO BID 01/01/15 [ History] Pravastatin Sodium 40 mg PO QHS 01/01/15 [History] Tizanidine HCl 4 mg [Zanaflex 4 MG] 4 mg PO HS 01/01/15 [History] Acetaminophen 325 mg [Tylenol 325 mg] 650 mg PO Q4H PRN 07/21/15 [History] Aspirin 81 mg PO DAILY 07/21/15 [History] PANTOPRAZOLE 40 mg Tablet [Protonix 40MG Tablet] 40 mg PO DAILY 07/21/15 [ History] Buspirone HCl 15 mg PO BID 03/19/17 [History] Ferrous Sulfate 325 mg [Feosol 325 mg] 325 mg PO BID 03/19/17 [History] Glipizide 5 mg [Glucotrol 5 MG] 5 mg PO BID 03/19/17 [History] Metformin HCl 500 mg [Glucophage 500 MG] 500 mg PO BID 03/19/17 [History] Nitroglycerin 0.4 mg Tablet [Nitrostat 0.4 MG Tablet] 0.4 mg SL UD PRN 02/25 [History] Trazodone HCl 150 mg PO HS 03/19/17 [History] Acetaminophen 325 mg [Tylenol 325 mg] 650 mg PO DAILY 03/23/17 [History] Clonidine HCl 0.1 mg [Catapres 0.1 MG] 0.1 mg PO TID 03/23/17 [History] Oxycodone HCl 15 mg PO Q6H PRN 03/23/17 [History] Carboxymethylcellulose Sodium [Refresh Plus] 1 each OP Q2H 06/22/17 [History] Escitalopram Oxalate 10 mg [Lexapro 10 MG] 20 mg PO DAILY 06/22/17 [History] Gabapentin 300 mg PO TID 06/22/17 [History] Ketotifen Fumarate [Refresh] 06/22/17 [History] Hx Tetanus, Diphtheria Vaccination/Date Given: Yes Hx Influenza Vaccination/Date Given: Yes Hx Pneumococcal Vaccination/Date Given: Yes Immunizations Up to Date: (UNKNOWN) - Review of Systems Constitutional: No Symptoms Respiratory: Dyspnea Cardiac: Chest Pain Abdominal/Gastrointestinal: Nausea All Other Systems: Reviewed and Negative - Past Medical History Pertinent Past Medical History: Yes Neurological History: Stroke, TIA, Other Cardiac History: High Cholesterol, Hypertension, Other Respiratory History: COPD Endocrine Medical History: Diabetes Type II Musculoskeletal History: Other GI Medical History: GERD History: No Pertinent History Psycho-Social History: Anxiety, Depression Female Reproductive Disorders: No Pertinent History Other Medical History: CHRONIC PAIN. PERIPHERAL NEUROPATHY. HYPERLIPEDEMIA. ANGINA PECTORIS. ALLERGIC RHINITIS. ARTHRITIS. CHRONIC HEADACHE. ESOPAHGITIS - Past Surgical History Past Surgical History: Yes Neuro Surgical History: No Pertinent History Cardiac: CABG, Cardiac Catheterization, Cardiac Stent Respiratory: No Pertinent History Gastrointestinal: No Pertinent History Genitourinary: No Pertinent History Musculoskeletal: No Pertinent History Female Surgical History: Other Other Surgical History: HIP SURGERY - Social History Smoking Status: Unknown if ever smoked Exposure to second hand smoke: No Drug Use: none Patient Lives Alone: No - Nursing Vital Signs Nursing Vital Signs: Initial Vital Signs Temperature 98.1 F 06/22/17 06:01 Pulse Rate 69 06/22/17 06:01 Respiratory Rate 22 06/22/17 06:01 Blood Pressure 176/99 06/22/17 06:01 O2 Sat by Pulse Oximetry 97 06/22/17 06:01 Pain Scale Pain Intensity 5 - Physical Exam General Appearance: no apparent distress Eye Exam: eyes nml inspection Ears, Nose, Throat Exam: normal ENT inspection Neck Exam: normal inspection, non-tender, supple, No carotid bruit, No JVD Respiratory Exam: airway intact, diminished breath sounds (both lung base), wheezing (diffuse, mild), No chest tenderness, No respiratory distress Cardiovascular Exam: regular rate/rhythm, normal heart sounds, normal peripheral pulses, No murmur Gastrointestinal/Abdomen Exam: soft, normal bowel sounds, No tenderness, No guarding Back Exam: normal inspection Extremity Exam: normal inspection, No calf tenderness, No marylu's sign Neurologic Exam: alert, oriented x 3 Skin Exam: normal color, warm, dry, No rash SpO2 Interpretation: normal SpO2: 97 Oxygen Delivery: Nasal Cannula - Course EKG Interpreted by Me: RATE, Left Redford Deviation, NORMAL INTERVALS, Non- specific ST Changes - Radiology Exams Chest X-ray Interpretation: Interpreted by me, Other (cardiomegaly, wide mediasthinum , atelectasis, chronic changes) Ordered Tests: Active Orders 24 hr Category Date Time Status Clinical Project Assistant STAT Care 06/22/17 06:12 Active Cath [Catheter-Wilsey Blanco] STAT Care 06/22/17 08:32 Active EKG-ER Only STAT Care 06/22/17 06:11 Active IV Insertion STAT Care 06/22/17 06:11 Active Oxygen-ED Only NASAL CANNULA 2 lpm Care 06/22/17 06:11 Active Pulse Oximetry (ED) STAT Care 06/22/17 06:11 Active CHEST 1 VIEW (PORTABLE) Stat Exams 06/22/17 06:12 Completed CHEST WITH CONTRAST [CT] Stat Exams 06/22/17 07:12 Completed CBC W DIFF Stat Lab 06/22/17 06:30 Completed CK-Creatinine Phosphokinase Stat Lab 06/22/17 06:30 Completed CMP Stat Lab 06/22/17 06:30 Completed D-DIMER QUANTITATION Stat Lab 06/22/17 06:30 Completed LIPASE Stat Lab 06/22/17 06:30 Completed MAGNESIUM Stat Lab 06/22/17 06:30 Completed NT PRO BNP Stat Lab 06/22/17 06:30 Completed PROTIME WITH INR Stat Lab 06/22/17 06:30 Completed TROPONIN Q3H Lab 06/22/17 06:30 Completed UA W/ MICROSCOPIC Stat Lab 06/22/17 09:17 Completed Medication Summary Discontinued Medications Generic Name Dose Route Start Last Admin Trade Name Freq PRN Reason Stop Dose Admin Aspirin 324 mg 06/22/17 06:11 06/22/17 06:28 Baby Aspirin 81 Mg Chew PO 06/22/17 06:12 324 mg STAT ONE Administration Aspirin Confirm 06/22/17 06:21 Baby Aspirin 81 Mg Chew Administered 06/22/17 06:22 Dose 324 mg .ROUTE .STK-MED ONE Oxycodone/Acetaminophen 1 tab 06/22/17 06:14 06/22/17 06:27 Percocet Tablet 5/325mg PO 06/22/17 06:15 1 tab STAT STA Administration Oxycodone/Acetaminophen Confirm 06/22/17 06:21 Percocet Tablet 5/325mg Administered 06/22/17 06:22 Dose 1 tab .ROUTE .STK-MED ONE Lab/Rad Data: Laboratory Result Diagrams 06/22/17 06:30 06/22/17 06:30 Laboratory Results 06/22/17 06/22/17 06/22/17 Range/Units 09:17 06:30 06:30 WBC (4.0-10.5) K/mm3 RBC (4.1-5.4) M/mm3 Hgb (12.0-16.0) gm/dl Hct (35-47) % MCV (78-100) fl MCH (26-32) pg MCHC (32-36) g/dl RDW (11.5-14.0) % Plt Count (150-450) K/mm3 MPV (6-9.5) fl Gran % (36.0-66.0) % Lymphocytes % (24.0-44.0) % Monocytes % (0.0-12.0) % Eosinophils % (0.00-5.0) % Basophils % (0.0-0.4) % Basophils # (0-0.4) INR 1.13 (0.8-3.0) D-Dimer 1345.04 H* (0-500) ng/mL Sodium (136-145) mEq/L Potassium (3.5-5.1) mEq/L Chloride (98-107) mEq/L Carbon Dioxide (21-32) mEq/L Anion Gap (5-15) MEQ/L BUN (9-20) mg/dL Creatinine (0.55-1.30) mg/dl Estimated GFR ML/MIN Glucose (70-110) MG/DL Calcium (8.5-10.1) mg/dL Magnesium (1.8-2.4) mg/dL Total Bilirubin (0.2-1.0) mg/dL AST (15-37) U/L ALT (12-78) U/L Alkaline Phosphatase (46-116) U/L Creatine Kinase (26-192) U/L Troponin I < 0.017 (0.000-0.056) ng/ml NT-Pro-B Natriuret Pep (0-125) pg/ml Serum Total Protein (6.4-8.2) gm/dL Albumin (3.4-5.0) g/dL Lipase (73-393) U/L Ur Collection Type CATH Urine Color COLORLESS (YELLOW) Urine Appearance CLEAR (CLEAR) Urine pH 8.0 (5-6) Ur Specific Jewett 1.000 (1.005-1.025) Urine Protein NEGATIVE (Negative) Urine Ketones NEGATIVE (NEGATIVE) Urine Blood 50 (0-5) Ramses/ul Urine Nitrite NEGATIVE (NEGATIVE) Urine Bilirubin NEGATIVE (NEGATIVE) Urine Urobilinogen NORMAL (0-1) mg/dL Ur Leukocyte Esterase 2+ (NEGATIVE) Urine Microscopic RBC 0-2 (0-2) /HPF Urine Microscopic WBC 25-50 (0-5) /HPF Ur Epithelial Cells RARE (FEW) /HPF Urine Bacteria RARE (NEGATIVE) /HPF Urine Glucose 50 (NEGATIVE) mg/dL Specimen Received 06/22/17 0923 06/22/17 06/22/17 Range/Units 06:30 06:30 WBC 7.9 (4.0-10.5) K/mm3 RBC 4.73 (4.1-5.4) M/mm3 Hgb 12.2 (12.0-16.0) gm/dl Hct 39.7 (35-47) % MCV 83.9 (78-100) fl MCH 25.8 L (26-32) pg MCHC 30.7 L (32-36) g/dl RDW 16.8 H (11.5-14.0) % Plt Count 274 (150-450) K/mm3 MPV 8.7 (6-9.5) fl Gran % 60.6 (36.0-66.0) % Lymphocytes % 24.2 (24.0-44.0) % Monocytes % 9.5 (0.0-12.0) % Eosinophils % 5.3 H (0.00-5.0) % Basophils % 0.4 (0.0-0.4) % Basophils # 0.03 (0-0.4) INR (0.8-3.0) D-Dimer (0-500) ng/mL Sodium 138 (136-145) mEq/L Potassium 5.3 H (3.5-5.1) mEq/L Chloride 99 (98-107) mEq/L Carbon Dioxide 33.6 H (21-32) mEq/L Anion Gap 10.6 (5-15) MEQ/L BUN 10 (9-20) mg/dL Creatinine 0.98 (0.55-1.30) mg/dl Estimated GFR > 60 ML/MIN Glucose 258 H (70-110) MG/DL Calcium 8.9 (8.5-10.1) mg/dL Magnesium 1.3 L (1.8-2.4) mg/dL Total Bilirubin 0.30 (0.2-1.0) mg/dL AST 13 L (15-37) U/L ALT 13 (12-78) U/L Alkaline Phosphatase 51 (46-116) U/L Creatine Kinase 29 (26-192) U/L Troponin I (0.000-0.056) ng/ml NT-Pro-B Natriuret Pep 2101 H (0-125) pg/ml Serum Total Protein 7.6 (6.4-8.2) gm/dL Albumin 3.0 L (3.4-5.0) g/dL Lipase 199 (73-393) U/L Ur Collection Type Urine Color (YELLOW) Urine Appearance (CLEAR) Urine pH (5-6) Ur Specific Jewett (1.005-1.025) Urine Protein (Negative) Urine Ketones (NEGATIVE) Urine Blood (0-5) Ramses/ul Urine Nitrite (NEGATIVE) Urine Bilirubin (NEGATIVE) Urine Urobilinogen (0-1) mg/dL Ur Leukocyte Esterase (NEGATIVE) Urine Microscopic RBC (0-2) /HPF Urine Microscopic WBC (0-5) /HPF Ur Epithelial Cells (FEW) /HPF Urine Bacteria (NEGATIVE) /HPF Urine Glucose (NEGATIVE) mg/dL Specimen Received - Progress Progress: improved Air Movement: fair Progress Note: 06/22/17 07:29 Improved, Awaiting CT chest, care transferred to Dr Brandt, discussed in details. - Departure Time of Disposition: 07:29 Departure Disposition: Home Clinical Impression: ATYPICAL CHEST PAIN, URINARY TRACT INFECTION Chest pain Qualifiers: Chest pain type: unspecified Qualified Code(s): R07.9 - Chest pain, unspecified Condition: Stable Critical Care Time: No Referrals: [facility] [LOCATION] - Additional Instructions: CONTINUE ALL CURRENT MEDICATIONS DIRECTED, HOLD GLUCOPHAGE FOR 48 HOURS. FOLLOW ACCUCHECK BEFORE MEALS AND AT BEDTIME, ANTIBIOTIC BACTRIM DS TWICE DAILY FOR 10 DAYS. <SERGEY BRANDT - Last Filed: 06/22/17 10:43> - CT Exams Chest CT Interpretation: Discussed w/radiologist (CHEST CT PE PROTOCOL-NO LARGE CENTRAL PULMONARY EMBOLISM, CARDIOMEGALY WITHOUT CHF, NO ACUTE CARDIOPULMONARY ABNORMALITIES) - Progress Counseled pt/family regarding: lab results, diagnosis, need for follow-up, rad results
[2017-06-22 06:32] LABS: BASOPHIL % 0.4 % (0.0-0.4); Basophil (Absolute #) 0.03 (0-0.4); Eosinophil % 5.3 % (0.00-5.0); Eosinophil (Absolute #) 0.42 (0-0.5); Granulocytes % 60.6 % (36.0-66.0); Hematocrit 39.7 % (35-47); Hemoglobin 12.2 gm/dl (12.0-16.0); Lymphocyte (Absolute #) 1.92 (1.0-4.6); Lymphocytes % 24.2 % (24.0-44.0); Mean Cell Volume 83.9 fl (78-100); Mean Corpuscular Hemoglobin 25.8 pg (26-32); Mean Corpuscular Hgb Concent. 30.7 g/dl (32-36); Mean Platelet Volume 8.7 fl (6-9.5); Monocyte (Absolute #) 0.75 (0.0-1.3); Monocytes % 9.5 % (0.0-12.0); Platelet Count 274 K/mm3 (150-450); Red Blood Count 4.73 M/mm3 (4.1-5.4); Red Cell Distribution Width 16.8 % (11.5-14.0); White Blood Count 7.9 K/mm3 (4.0-10.5)
[2017-06-22 06:51] LABS: INR 1.13 (0.8-3.0)
[2017-06-22 07:04] LABS: ALKALINE PHOSPHATASE 51 U/L (46-116); ANION GAP 10.6 MEQ/L (5-15); BLOOD UREA NITROGEN 10 mg/dL (9-20); CHLORIDE 99 mEq/L (98-107); CK-Creatinine Phosphokinase 29 U/L (26-192); Calcium 8.9 mg/dL (8.5-10.1); Carbon Dioxide 33.6 mEq/L (21-32); Creatinine 1 0.98 mg/dl (0.55-1.30); EST GLOMERULAR FILTRATION RATE > 60 ML/MIN; Glucose 258 MG/DL (70-110); LIPASE 199 U/L (73-393); MAGNESIUM 1.3 mg/dL (1.8-2.4); NT PRO BNP 2101 pg/ml (0-125); Potassium 5.3 mEq/L (3.5-5.1); SGOT/AST 13 U/L (15-37); SGPT/ALT 13 U/L (12-78); SODIUM 138 mEq/L (136-145); Total Protein 7.6 gm/dL (6.4-8.2)
[2017-06-22 07:06] LABS: D-DIMER QUANTITATION 1345.04 ng/mL (0-500)
[2017-06-22 08:11] VITALS: PULSE 68
--- NOTE | 2017-06-22 08:42 | XRAY ---
Indication: Chest pain. Comparison: March 23, 2017. Portable chest again demonstrates cardiomegaly and previous CABG surgery. No focal infiltrate, consolidation, or large effusion. Bony thorax intact again with mild osteopenia and degenerative changes. Impression: Stable cardiomegaly. Negative acute pneumonic process or CHF.
--- NOTE | 2017-06-22 08:45 | XRAY ---
Indication: Chest pain. Elevated d-dimer. Multiple contiguous axial images obtained through the chest using 100 cc Isovue 370 contrast and PE protocol. Comparison: None There is adequate opacification of the pulmonary arteries. However respiration artifact limits evaluation of the lobar and segmental branches. No central pulmonary embolus. Heart is enlarged. Aorta is mildly arteriosclerotic without aneurysm/dissection. Tiny right hilar calcified nodes. No pathologic mediastinal/hilar lymphadenopathy. Examination of the lung parenchyma demonstrates minimal bibasilar dependent atelectasis. No suspicious pulmonary mass, infiltrate, or effusion. Bony thorax intact with mild degenerative changes throughout the spine and sternotomy wires. Limited upper abdomen demonstrates fatty liver and cholecystectomy clips. Impression: 1. Limited CT PE exam due to respiration artifact. No large central pulmonary embolus. 2. Cardiomegaly without CHF. 3. No acute cardiopulmonary abnormalities. 4. Incidental fatty liver. CT DI 23.68
[2017-06-22 08:55] VITALS: BP 199/87
[2017-06-22 09:29] LABS: Appearance CLEAR (CLEAR)
[2017-06-22 09:30] LABS: Bilirubin NEGATIVE (NEGATIVE); Blood 50 Ery/ul (0-5); Glucose 50 mg/dL (NEGATIVE); Ketones NEGATIVE (NEGATIVE); Leukocyte Esterase 2+ (NEGATIVE); Nitrite NEGATIVE (NEGATIVE); Protein,Urine Dip NEGATIVE (Negative); Urobilinogen NORMAL mg/dL (0-1)
[2017-06-22 09:31] LABS: Bacteria RARE /HPF (NEGATIVE); Epithelial Cells RARE /HPF (FEW); WBC 25-50 /HPF (0-5)
== END 2017-06-22 09:49 ==
LOC: ED 05:53
DX: R07.89 Other chest pain (principal); N39.0 Urinary tract infection, site not specified; Z79.899 Other long term (current) drug therapy; R11.0 Nausea; R06.02 Shortness of breath; R05 Cough; E11.9 Type 2 diabetes mellitus without complications; J44.9 Chronic obstructive pulmonary disease, unspecified
CPT/HCPCS: 36000; 36415; 51702; 71045; 71260; 80053; 81000; 82550; 83690; 83735; 83880; 84484; 85025; 85379; 85610; 93005; 93041; 99284; 99285; A9270-GY

== ENCOUNTER 2017-07-19 19:40 | Emergency (ER) | payer MEDICARE ==
[2017-07-19] MEDS ORDERED: APRESOLINE 20 MG/ML INJ IV ONE ×2 (19:52→19:54)
[2017-07-19] MEDS ORDERED: APRESOLINE 20 MG/ML INJ ONE (19:54)
[2017-07-19] MEDS ORDERED: MORPHINE SULFATE 4 MG INJ IV ONE (20:02)
[2017-07-19] MEDS ORDERED: Zofran 4 MG/2 ML VIAL IV ONE (20:02)
[2017-07-19] MEDS ORDERED: XYLOCAINE 2% Uro-Jet TOP ONE (20:07)
[2017-07-19] MEDS ORDERED: AFRIN NASAL SPRAY NS ONE ×2 (20:07→20:15)
[2017-07-19] MEDS ORDERED: MORPHINE SULFATE 2 MG INJ ONE ×2 (20:09→20:17)
[2017-07-19] MEDS ORDERED: Sodium Chloride 0.9% 1000 ML 1,000 ML ONE (20:09)
[2017-07-19] MEDS ORDERED: Zofran 4 MG/2 ML VIAL ONE (20:09)
[2017-07-19] MEDS ORDERED: XYLOCAINE 2% Uro-Jet ONE (20:09)
[2017-07-19 20:11] LABS: BASOPHIL % 0.4 % (0.0-0.4); Basophil (Absolute #) 0.04 (0-0.4); Eosinophil % 3.8 % (0.00-5.0); Eosinophil (Absolute #) 0.34 (0-0.5); Granulocyte Absolute (ANC) 5.56 (1.4-6.9); Hematocrit 42.1 % (35-47); Lymphocytes % 26.8 % (24.0-44.0); Mean Cell Volume 85.4 fl (78-100); Mean Corpuscular Hemoglobin 26.4 pg (26-32); Mean Corpuscular Hgb Concent. 30.9 g/dl (32-36); Mean Platelet Volume 9.9 fl (6-9.5); Monocyte (Absolute #) 0.63 (0.0-1.3); Platelet Count 248 K/mm3 (150-450); Red Blood Count 4.93 M/mm3 (4.1-5.4); Red Cell Distribution Width 14.1 % (11.5-14.0)
--- NOTE | 2017-07-19 20:14 | ERPHSYRPT ---
- History of Present Illness Time Seen by Provider: 07/19/17 19:55 Source: patient Exam Limitations: no limitations Patient Subjective Stated Complaint: PT COMES TO ED FROM LOCAL [facility] BY EMS- REPORTS PT BEGAN HAVING A NOSEBLEED ROMINA 30 MIN AGO-PT REPORTS A SEVERE HEADACHE- PT BP HAS BEEN RUNNING HIGH "HIGH BUT NOT THAT HIGH FOR HER" Triage Nursing Assessment: PT FLUSHED WARM ET DRY UPON ARRIVAL-PRESSURE APPLIED TO NARES-PT ANSWERING QUESTIONS CORRECTLY-RESP NONLABORED-RIGHT EYE APPEARS BLOOD SHOT BUT REACTIVE Physician History: Pt started c/o severe nosebleed from the right nostril for about 30 minutes, denies injury, severe headaches, cough, vomiting, fever or chest pain, she is c/ o pain in her back (chronic),alert and oriented arrived with ambulance. She started bleeding from her left ear and right eye after arrival. Timing/Duration: abrupt onset Severity: severe ENT Location: nose Prearrival Treatment: no prearrival treatment Associated Symptoms: epistaxis Allergies/Adverse Reactions: No Known Drug Allergies Allergy (Verified 07/19/17 20:46) Home Medications: Carvedilol 12.5 mg [Coreg 12.5 mg] 25 mg PO BID 01/01/15 [History] Celecoxib 100 mg [celeBREX 100 MG] 200 mg PO BID 01/01/15 [History] Clopidogrel Bisulfate 75 mg [PLAVIX 75 MG Tablet] 75 mg PO DAILY 01/01/15 [History] Cyanocobalamin 1000 Mcg/ml [Cyanocobalamin B-12 1000 MCG/ML] 1,000 mcg IJ UD 01/01/15 [History] Docusate Sodium 100 mg [Colace 100 MG] 100 mg PO TID 01/01/15 [History] Furosemide [Lasix] 20 mg PO DAILY 01/01/15 [History] Insulin Aspart [NovoLOG Insulin] 20 unit SQ AC 01/01/15 [History] Insulin Detemir [Levemir] 65 unit SQ HS 01/01/15 [History] Isosorbide Mononitrate 30 mg [Imdur 30 MG] 30 mg PO DAILY 01/01/15 [History ] Lisinopril 10 mg [Zestril 10 MG] 40 mg PO DAILY 01/01/15 [History] Loratadine 10 mg [Claritin 10 mg] 10 mg PO DAILY 01/01/15 [History] Potassium Chloride 10 Meq Tab* [Klor Con 10 MEQ] 10 meq PO BID 01/01/15 [ History] Pravastatin Sodium 40 mg PO QHS 01/01/15 [History] Tizanidine HCl 4 mg [Zanaflex 4 MG] 4 mg PO HS 01/01/15 [History] Acetaminophen 325 mg [Tylenol 325 mg] 650 mg PO Q4H PRN 07/21/15 [History] Aspirin 81 mg PO DAILY 07/21/15 [History] PANTOPRAZOLE 40 mg Tablet [Protonix 40MG Tablet] 40 mg PO DAILY 07/21/15 [ History] Buspirone HCl 15 mg PO BID 03/19/17 [History] Ferrous Sulfate 325 mg [Feosol 325 mg] 325 mg PO BID 03/19/17 [History] Glipizide 5 mg [Glucotrol 5 MG] 5 mg PO BID 03/19/17 [History] Metformin HCl 500 mg [Glucophage 500 MG] 500 mg PO BID 03/19/17 [History] Nitroglycerin 0.4 mg Tablet [Nitrostat 0.4 MG Tablet] 0.4 mg SL UD PRN 02/25 [History] Trazodone HCl 150 mg PO HS 03/19/17 [History] Acetaminophen 325 mg [Tylenol 325 mg] 650 mg PO DAILY 03/23/17 [History] Clonidine HCl 0.1 mg [Catapres 0.1 MG] 0.1 mg PO TID 03/23/17 [History] Oxycodone HCl 15 mg PO Q6H PRN 03/23/17 [History] Carboxymethylcellulose Sodium [Refresh Plus] 1 each OP Q2H 06/22/17 [History] Escitalopram Oxalate 10 mg [Lexapro 10 MG] 20 mg PO DAILY 06/22/17 [History] Gabapentin 300 mg PO TID 06/22/17 [History] Ketotifen Fumarate [Refresh] 5 ml .ROUTE UD 06/22/17 [History] Hx Tetanus, Diphtheria Vaccination/Date Given: Yes Hx Influenza Vaccination/Date Given: Yes Hx Pneumococcal Vaccination/Date Given: Yes Immunizations Up to Date: Yes - Review of Systems Constitutional: No Symptoms Ears, Nose, & Throat: Epistaxis Musculoskeletal: Back Pain (chronic) All Other Systems: Reviewed and Negative - Past Medical History Pertinent Past Medical History: Yes Neurological History: Stroke, TIA, Other Cardiac History: High Cholesterol, Hypertension, Other Respiratory History: COPD Endocrine Medical History: Diabetes Type II Musculoskeletal History: Other GI Medical History: GERD History: No Pertinent History Psycho-Social History: Anxiety, Depression Female Reproductive Disorders: No Pertinent History Other Medical History: CHRONIC PAIN. PERIPHERAL NEUROPATHY. HYPERLIPEDEMIA. ANGINA PECTORIS. ALLERGIC RHINITIS. ARTHRITIS. CHRONIC HEADACHE. ESOPAHGITIS - Past Surgical History Past Surgical History: Yes Neuro Surgical History: No Pertinent History Cardiac: CABG, Cardiac Catheterization, Cardiac Stent Respiratory: No Pertinent History Gastrointestinal: No Pertinent History Genitourinary: No Pertinent History Musculoskeletal: No Pertinent History Female Surgical History: Other Other Surgical History: HIP SURGERY - Social History Smoking Status: Unknown if ever smoked Exposure to second hand smoke: No Drug Use: none Patient Lives Alone: No - Female History Hx Now: No - Nursing Vital Signs Nursing Vital Signs: Initial Vital Signs Respiratory Rate 20 07/19/17 19:43 Blood Pressure 219/127 07/19/17 19:43 O2 Sat by Pulse Oximetry 94 L 07/19/17 19:43 Pain Scale Pain Intensity 9 - Physical Exam General Appearance: mild distress, anxiety Eye Exam: bilateral eye: PERRL, EOMI Ear Exam: left ear: bleeding (left eardrum appears to be intact, blood stained, but no obvious hematotympanon, slight bloody oozing.) Nasal Exam: active bleeding (right nostril, mild, anterior, no lesions or mass, no swelling.) Throat Exam: pharynx normal (slight blood staining in oropharynx, no severe bleeding, noedema, swelling, speaks in sentences, not muffled.) Neck Exam: normal inspection, non-tender, trachea midline, No JVD, No lymphadenopathy (R), No lymphadenopathy (L) Cardiovascular/Respiratory Exam: chest non-tender, normal breath sounds, regular rate/rhythm, heart sounds normal, No no JVD Abdominal Exam: non-tender, soft Neurologic Exam: alert, oriented x 3, cooperative Skin Exam: normal color, warm, dry, No rash SpO2 Interpretation: normal SpO2: 98 Oxygen Delivery: Room Air Procedures - Additional Procedures Progress: Right nasal Rapid Rhino placement after clearing with blowing and Afrin spray, 2 % Lidocaine gel applied and 5.5 cm Rapid Rhino inserted, pt tolerated well, bleeding resolved. - Course Nursing assessment & vital signs reviewed: Yes EKG Interpreted by Me: Sinus Rhythm, Left [place] Deviation, NORMAL INTERVALS, Non- specific ST Changes Ordered Tests: Active Orders 24 hr Category Date Time Status EKG-ER Only STAT Care 07/19/17 20:15 Active Epistaxis Set Up STAT Care 07/19/17 20:02 Active IV Insertion STAT Care 07/19/17 20:02 Active CBC W DIFF Stat Lab 07/19/17 19:50 Completed CMP Stat Lab 07/19/17 19:50 Completed PROTIME WITH INR Stat Lab 07/19/17 19:50 Completed PTT Stat Lab 07/19/17 19:50 Completed Medication Summary Generic Name Dose Route Start Last Admin Trade Name Freq PRN Reason Stop Dose Admin Carvedilol 12.5 mg 07/20/17 22:10 Coreg 12.5 Mg PO 07/20/17 22:11 NOW ONE Sodium Chloride 1,000 mls @ 100 mls/hr 07/19/17 20:15 07/19/17 20:24 Sodium Chloride 0.9% 1000 Ml IV 08/18/17 20:14 100 mls/hr .Q10H MARJORIE Administration Lisinopril 10 mg 07/20/17 22:10 Zestril 10 Mg PO 07/20/17 22:11 NOW ONE Oxycodone HCl 10 mg 07/20/17 22:10 Oxycontin 10 Mg Er PO 07/20/17 22:11 NOW ONE Discontinued Medications Generic Name Dose Route Start Last Admin Trade Name Freq PRN Reason Stop Dose Admin Albuterol/Ipratropium 3 ml 07/19/17 20:31 Duoneb 0.5-3 Mg/3 Ml Neb IH 07/19/17 20:32 STAT ONE Clonidine 0.1 mg 02/08/18 22:10 Catapres 0.1 Mg PO 07/19/17 22:11 STAT ONE Hydralazine HCl 10 mg 07/19/17 19:52 07/19/17 20:00 Apresoline 20 Mg/Ml Inj IV 07/19/17 19:53 10 mg STAT ONE Administration Hydralazine HCl 10 mg 07/19/17 19:54 07/19/17 20:00 Apresoline 20 Mg/Ml Inj IV 07/19/17 19:55 Not Given STAT ONE Hydralazine HCl Confirm 07/19/17 19:54 Apresoline 20 Mg/Ml Inj Administered 07/19/17 19:55 Dose 20 mg .ROUTE .STK-MED ONE Hydromorphone HCl 0.5 mg 07/19/17 20:31 07/19/17 21:08 Hydromorphone 1 Mg/Ml Ampule IV 07/19/17 20:32 0.5 mg STAT ONE Administration Hydromorphone HCl Confirm 07/19/17 21:07 Hydromorphone 1 Mg/Ml Ampule Administered 07/19/17 21:08 Dose 1 mg .ROUTE .STK-MED ONE Labetalol HCl 20 mg 07/19/17 21:04 07/19/17 22:04 Trandate 20 Mg/5 Ml Syringe IV 07/19/17 21:05 Not Given STAT ONE Lidocaine HCl 200 mg 07/19/17 20:07 07/19/17 20:24 Xylocaine 2% Uro-Jet TOP 07/19/17 20:08 200 mg STAT ONE Administration Lidocaine HCl Confirm 07/19/17 20:09 Xylocaine 2% Uro-Jet Administered 07/19/17 20:10 Dose 200 mg .ROUTE .STK-MED ONE Morphine Sulfate 4 mg 07/19/17 20:02 07/19/17 20:20 Morphine Sulfate 4 Mg Inj IV 07/19/17 20:03 4 mg STAT ONE Administration Morphine Sulfate Confirm 07/19/17 20:09 Morphine Sulfate 2 Mg Inj Administered 07/19/17 20:10 Dose 2 mg .ROUTE .STK-MED ONE Morphine Sulfate Confirm 07/19/17 20:17 Morphine Sulfate 2 Mg Inj Administered 07/19/17 20:18 Dose 2 mg .ROUTE .STK-MED ONE Ondansetron HCl 4 mg 07/19/17 20:02 07/19/17 20:24 Zofran 4 Mg/2 Ml Vial IV 07/19/17 20:03 4 mg STAT ONE Administration Ondansetron HCl Confirm 07/19/17 20:09 Zofran 4 Mg/2 Ml Vial Administered 07/19/17 20:10 Dose 4 mg .ROUTE .STK-MED ONE Oxymetazoline HCl 15 ml 07/19/17 20:07 07/19/17 20:24 Afrin Nasal [place] NS 07/19/17 20:08 15 ml STAT ONE Administration Oxymetazoline HCl Confirm 07/19/17 20:15 Afrin Nasal [place] Administered 07/19/17 20:16 Dose 15 ml NS .STK-MED ONE Lab/Rad Data: Laboratory Result Diagrams 07/19/17 19:50 07/19/17 19:50 Laboratory Results 07/19/17 07/19/17 07/19/17 Range/Units 19:50 19:50 19:50 WBC 9.0 (4.0-10.5) K/mm3 RBC 4.93 (4.1-5.4) M/mm3 Hgb 13.0 (12.0-16.0) gm/dl Hct 42.1 (35-47) % MCV 85.4 (78-100) fl MCH 26.4 (26-32) pg MCHC 30.9 L (32-36) g/dl RDW 14.1 H (11.5-14.0) % Plt Count 248 (150-450) K/mm3 MPV 9.9 H (6-9.5) fl Gran % 62.0 (36.0-66.0) % Lymphocytes % 26.8 (24.0-44.0) % Monocytes % 7.0 (0.0-12.0) % Eosinophils % 3.8 (0.00-5.0) % Basophils % 0.4 (0.0-0.4) % Basophils # 0.04 (0-0.4) INR 1.07 (0.8-3.0) APTT 25.9 (25.3-37.0) SECONDS Sodium 136 (136-145) mEq/L Potassium 4.7 (3.5-5.1) mEq/L Chloride 97 L (98-107) mEq/L Carbon Dioxide 32.8 H (21-32) mEq/L Anion Gap 10.5 (5-15) MEQ/L BUN 15 (9-20) mg/dL Creatinine 0.90 (0.55-1.30) mg/dl Estimated GFR > 60 ML/MIN Glucose 239 H (70-110) MG/DL Calcium 8.9 (8.5-10.1) mg/dL Total Bilirubin 0.20 (0.2-1.0) mg/dL AST 13 L (15-37) U/L ALT 9 L (12-78) U/L Alkaline Phosphatase 61 (46-116) U/L Serum Total Protein 8.4 H (6.4-8.2) gm/dL Albumin 3.1 L (3.4-5.0) g/dL - Progress Progress: improved Progress Note: 07/19/17 22:38 Bleeding stopped after Rapid Rhino placed, blood pressure controlled with Hydralazine, pain controlled, BP 138/78, pt is comfortable, large clot is still hanging in the oropharynx, but no active bleeding noted. No sign if difficulty breathing or distress.She has been stable. - Departure Time of Disposition: 22:40 Departure Disposition: Extended Care Facility Clinical Impression: Epistaxis Hypertension Qualifiers: Hypertension type: unspecified Qualified Code(s): I10 - Essential (primary) hypertension Condition: Stable Critical Care Time: No Referrals: MARY COSME [Primary Care Provider] - Instructions: Nosebleeds (DC), High Blood Pressure (DC) Additional Instructions: Keep packing in for 48 hours, follow up with ENT physician to remove it, return if severe bleeding, headaches, vomiting, fever > 102F, lethargy or blood pressure> 200/120!
[2017-07-19] MEDS ORDERED: Sodium Chloride 0.9% 1000 ML 1,000 ML IV SCH (20:15)
[2017-07-19 20:26] LABS: INR 1.07 (0.8-3.0)
[2017-07-19 20:29] LABS: PTT 25.9 SECONDS (25.3-37.0)
[2017-07-19] MEDS ORDERED: Hydromorphone 1 mg/ml Ampule IV ONE (20:31)
[2017-07-19] MEDS ORDERED: DUONEB 0.5-3 MG/3 ml Neb IH ONE (20:31)
[2017-07-19 20:37] LABS: ALBUMIN 3.1 g/dL (3.4-5.0); ALKALINE PHOSPHATASE 61 U/L (46-116); ANION GAP 10.5 MEQ/L (5-15); BLOOD UREA NITROGEN 15 mg/dL (9-20); CHLORIDE 97 mEq/L (98-107); Calcium 8.9 mg/dL (8.5-10.1); Carbon Dioxide 32.8 mEq/L (21-32); EST GLOMERULAR FILTRATION RATE > 60 ML/MIN; Glucose 239 MG/DL (70-110); Potassium 4.7 mEq/L (3.5-5.1); SGOT/AST 13 U/L (15-37); SGPT/ALT 9 U/L (12-78); SODIUM 136 mEq/L (136-145); Total Protein 8.4 gm/dL (6.4-8.2)
[2017-07-19] MEDS ORDERED: TRANDATE 20 MG/5 ML SYRINGE IV ONE (21:04)
[2017-07-19] MEDS ORDERED: Hydromorphone 1 mg/ml Ampule ONE (21:07)
[2017-07-19] MEDS ORDERED: Catapres 0.1 MG PO ONE (22:10)
[2017-07-19] MEDS ORDERED: Catapres 0.1 MG ONE (22:45)
[2017-07-19] MEDS ORDERED: Zestril 10 MG ONE (22:55)
[2017-07-19] MEDS ORDERED: Oxycontin 10 MG ER PO ONE (22:56)
[2017-07-19] MEDS ORDERED: COREG 12.5 MG ONE (22:56)
[2017-07-19 23:33] VITALS: BP 145/74; PULSE 71; O2SAT 92
[2017-07-20] MEDS ORDERED: Oxycontin 10 MG ER PO ONE (22:10)
[2017-07-20] MEDS ORDERED: Zestril 10 MG PO ONE (22:10)
[2017-07-20] MEDS ORDERED: COREG 12.5 MG PO ONE (22:10)
== END 2017-07-19 23:34 ==
LOC: ED 19:40
DX: R04.0 Epistaxis (principal); I10 Essential (primary) hypertension; E11.9 Type 2 diabetes mellitus without complications; Z79.4 Long term (current) use of insulin; K21.9 Gastro-esophageal reflux disease without esophagitis; F41.8 Other specified anxiety disorders; G62.9 Polyneuropathy, unspecified; J44.9 Chronic obstructive pulmonary disease, unspecified; E78.5 Hyperlipidemia, unspecified; E78.00 Pure hypercholesterolemia, unspecified; M19.90 Unspecified osteoarthritis, unspecified site; Z79.899 Other long term (current) drug therapy; Z86.73 Personal history of transient ischemic attack (TIA), and cerebral infarction without residual deficits
CPT/HCPCS: 36415; 80053; 85025; 85610; 85730; 93005; 96360; 96361; 96374; 96375; 96376; 99284; J0360; J1170; J2270; J2405; A9270-GY

== ENCOUNTER 2018-07-08 13:15 | Inpatient (IN) | payer MEDICARE ==
[2018-07-08] MEDS ORDERED: PROVENTIL 2.5 MG/3 ML NEB IH ONE ×2 (13:48→14:01)
--- NOTE | 2018-07-08 13:55 | ERPHSYRPT ---
- History of Present Illness Time Seen by Provider: 07/08/18 13:43 Source: patient Exam Limitations: no limitations Patient Subjective Stated Complaint: Pt states "I am a little short of breath." . Medics states "she had no complaints initially, she had some slight wheezes so we gave a duo neb tx then she started to sound really wet." Triage Nursing Assessment: Pt alert and oriented X 3, skin pink, clammy, warm. Pt arrived via medic 1, pt had iv established and duo neb tx prior to arrival. Pt has audible rhales noted, pt stated she has had a stroke that affected her left side previously. Physician History: 68-year-old white female with history of CVA, cyst TIA, hyperlipidemia, high blood pressure, COPD, diabetes2 Patient arrives with complaint of shortness of breath symptoms since today no fevers no nausea no vomiting. Past medical history includes CVA, TIA, hyperlipidemia, high blood pressure, COPD, diabetes type 2, GERD, anxiety, depression, chronic pain, peripheral neuropathy, hyperlipidemia, angina, allergic rhinitis, arthritis, chronic headache, esophagitis Past surgical history includes cardiac catheter, CABG, cardiac stents, hip surgery Social history denies tobacco alcohol or illicit drug use Timing/Duration: today Activities at Onset: rest Severity of Dyspnea-Max: moderate Severity of Dyspnea-Current: moderate Possible Cause: occasional episodes Modifying Factors: Improves With: nothing. Worsens With: oxygen Associated Symptoms: wheezing, No constant, No anxiety, No cough, No chest pain/ discomfort, No edema, No fever, No insomnia, No loss of appetite, No lightheadedness, No weakness, No ankle swelling, No chills, No hemoptysis, No calf pain, No dizziness, No heaviness, No heart racing, No lightheadedness, No leg swelling, No muscle spasms feet, No muscle spasms hands, No painful breathing, No productive cough, No sweating, No tightness, No tingling face, No tingling hands International travel in last 2 weeks: No Allergies/Adverse Reactions: No Known Drug Allergies Allergy (Verified 07/19/17 20:46) Home Medications: Carvedilol 12.5 mg [Coreg 12.5 mg] 25 mg PO BID 01/01/15 [History] Celecoxib 100 mg [celeBREX 100 MG] 200 mg PO BID 01/01/15 [History] Clopidogrel Bisulfate 75 mg [PLAVIX 75 MG Tablet] 75 mg PO DAILY 01/01/15 [History] Cyanocobalamin 1000 Mcg/ml [Cyanocobalamin B-12 1000 MCG/ML] 1,000 mcg IJ UD 01/01/15 [History] Docusate Sodium 100 mg [Colace 100 MG] 100 mg PO TID 01/01/15 [History] Furosemide [Lasix] 20 mg PO DAILY 01/01/15 [History] Insulin Aspart [NovoLOG Insulin] 20 unit SQ AC 01/01/15 [History] Insulin Detemir [Levemir] 65 unit SQ HS 01/01/15 [History] Isosorbide Mononitrate 30 mg [Imdur 30 MG] 30 mg PO DAILY 01/01/15 [History ] Lisinopril 10 mg [Zestril 10 MG] 40 mg PO DAILY 01/01/15 [History] Loratadine 10 mg [Claritin 10 mg] 10 mg PO DAILY 01/01/15 [History] Potassium Chloride 10 Meq Tab* [Klor Con 10 MEQ] 10 meq PO BID 01/01/15 [ History] Pravastatin Sodium 40 mg PO QHS 01/01/15 [History] Tizanidine HCl 4 mg [Zanaflex 4 MG] 4 mg PO HS 01/01/15 [History] Acetaminophen 325 mg [Tylenol 325 mg] 650 mg PO Q4H PRN 07/21/15 [History] Aspirin 81 mg PO DAILY 07/21/15 [History] PANTOPRAZOLE 40 mg Tablet [Protonix 40MG Tablet] 40 mg PO DAILY 07/21/15 [ History] Buspirone HCl 15 mg PO BID 03/19/17 [History] Ferrous Sulfate 325 mg [Feosol 325 mg] 325 mg PO BID 03/19/17 [History] Glipizide 5 mg [Glucotrol 5 MG] 5 mg PO BID 03/19/17 [History] Metformin HCl 500 mg [Glucophage 500 MG] 500 mg PO BID 03/19/17 [History] Nitroglycerin 0.4 mg Tablet [Nitrostat 0.4 MG Tablet] 0.4 mg SL UD PRN 02/25 [History] Trazodone HCl 150 mg PO HS 03/19/17 [History] Acetaminophen 325 mg [Tylenol 325 mg] 650 mg PO DAILY 03/23/17 [History] Clonidine HCl 0.1 mg [Catapres 0.1 MG] 0.1 mg PO TID 03/23/17 [History] Oxycodone HCl 15 mg PO Q6H PRN 03/23/17 [History] Carboxymethylcellulose Sodium [Refresh Plus] 1 each OP Q2H 06/22/17 [History] Escitalopram Oxalate 10 mg [Lexapro 10 MG] 20 mg PO DAILY 06/22/17 [History] Gabapentin 300 mg PO TID 06/22/17 [History] Ketotifen Fumarate [Refresh] 5 ml .ROUTE UD 06/22/17 [History] Hx Tetanus, Diphtheria Vaccination/Date Given: Yes Hx Influenza Vaccination/Date Given: Yes Hx Pneumococcal Vaccination/Date Given: Yes Immunizations Up to Date: Yes - Review of Systems Constitutional: No Fever, No Chills Eyes: No Symptoms Ears, Nose, & Throat: No Symptoms, No Ear Pain, No Ear Discharge, No Hearing Changes, No Tinnitus, No Nose Pain, No Nose Congestion, No Nose Discharge, No Sinus Drainage, No Epistaxis, No Mouth Pain, No Mouth Swelling, No Loose Teeth, No Throat Pain, No Throat Swelling, No Hoarse, No Painful Swallowing, No Snoring , No Stridor Respiratory: Dyspnea, Wheezing, No Cough, No Cyanosis, No Dyspnea on Exertion ( HARVEY), No Stridor Cardiac: No Chest Pain, No Edema, No Syncope Abdominal/Gastrointestinal: No Abdominal Pain, No Nausea, No Vomiting, No Diarrhea Genitourinary Symptoms: No Dysuria Musculoskeletal: No Back Pain, No Neck Pain Skin: No Rash Neurological: No Dizziness, No Focal Weakness, No Sensory Changes Psychological: No Symptoms Endocrine: No Symptoms All Other Systems: Reviewed and Negative - Past Medical History Pertinent Past Medical History: Yes Neurological History: Stroke, TIA, Other Cardiac History: High Cholesterol, Hypertension, Other Respiratory History: COPD Endocrine Medical History: Diabetes Type II Musculoskeletal History: Other GI Medical History: GERD History: No Pertinent History Psycho-Social History: Anxiety, Depression Female Reproductive Disorders: No Pertinent History Other Medical History: CHRONIC PAIN. PERIPHERAL NEUROPATHY. HYPERLIPEDEMIA. ANGINA PECTORIS. ALLERGIC RHINITIS. ARTHRITIS. CHRONIC HEADACHE. ESOPAHGITIS - Past Surgical History Past Surgical History: Yes Neuro Surgical History: No Pertinent History Cardiac: CABG, Cardiac Catheterization, Cardiac Stent Respiratory: No Pertinent History Gastrointestinal: No Pertinent History Genitourinary: No Pertinent History Musculoskeletal: No Pertinent History Female Surgical History: Other Other Surgical History: HIP SURGERY - Social History Smoking Status: Never smoker Exposure to second hand smoke: No Drug Use: none Patient Lives Alone: No - Female History Hx Now: No - Nursing Vital Signs Nursing Vital Signs: Initial Vital Signs Temperature 99.5 F 07/08/18 13:17 Pulse Rate 86 07/08/18 13:17 Respiratory Rate 22 07/08/18 13:17 Blood Pressure 92/45 07/08/18 13:17 O2 Sat by Pulse Oximetry 93 L 07/08/18 13:17 Pain Scale Pain Intensity 0 - Physical Exam General Appearance: no apparent distress, obese, other (somnolent and arouses easily) Eye Exam: PERRL/EOMI Ears, Nose, Throat Exam: hearing grossly normal, normal ENT inspection, normal pharynx, No abnormal TM (R), No abnormal TM (L), No sinus pain/drainage, No hearing decreased, No nasal congestion, No pharyngeal erythema, No tonsillar exudate Neck Exam: normal inspection, supple Respiratory Exam: airway intact, diminished breath sounds, No chest tenderness, No lungs clear, No respiratory distress, No prolonged expirations, No crackles/ rales, No rhonchi, No wheezing, No stridor, No pleural rub Cardiovascular/Chest Exam: normal heart sounds, regular rate/rhythm Abdominal/Gastrointestinal Exam: soft, No tenderness, No distention, No mass Extremity Exam: non-tender, normal range of motion, normal inspection, no calf tenderness, no pedal edema Peripheral Pulses Exam: dorsalis-pedis (R): 2+, dorsalis-pedis (L): 2+ Neurologic Exam: alert (functional and vomitin), oriented x 3, cooperative, formula technician II-XII nml as tested, sensation nml, No motor deficits Skin Exam: normal color, warm, No dry SpO2 Interpretation: normal (94%) SpO2: 94 - Course Nursing assessment & vital signs reviewed: Yes EKG Interpreted by Me: RATE (76 bpm), Sinus Rhythm, Other (EKG sinus arrhythmia , 76 bpm,SI/QIII pattern no acute st or t wave changes noted) Ordered Tests: Active Orders 24 hr Category Date Time Status Fruit Harvester STAT Care 07/08/18 13:50 Active Cath for Specimen-Straight STAT Care 07/08/18 13:50 Active EKG-ER Only STAT Care 07/08/18 13:48 Active IV Insertion STAT Care 07/08/18 13:48 Active Oxygen-ED Only Nasal Cannula 4 lpm Care 07/08/18 13:48 Active CHEST 1 VIEW (PORTABLE) Stat Exams 07/08/18 14:03 Completed BLOOD CULTURE Stat Lab 07/08/18 14:37 Received CBC W DIFF Stat Lab 07/08/18 14:00 Completed CMP Stat Lab 07/08/18 14:00 Completed CULTURE,SPUTUM Stat Lab 07/08/18 13:49 Uncollected CULTURE,URINE Stat Lab 07/08/18 14:37 Received D-DIMER QUANTITATION Stat Lab 07/08/18 14:00 Completed Lactic Acid Stat Lab 07/08/18 14:02 Results NT PRO BNP Stat Lab 07/08/18 14:00 Completed PROTIME WITH INR Stat Lab 07/08/18 14:00 Completed PTT Stat Lab 07/08/18 14:00 Completed TROPONIN Q3H Lab 07/08/18 14:00 Completed TROPONIN Q3H Lab 07/08/18 17:00 Ordered TROPONIN Q3H Lab 07/08/18 20:00 Ordered TROPONIN Q3H Lab 07/08/18 23:00 Ordered TROPONIN Q3H Lab 07/09/18 02:00 Ordered UA W/RFX UR CULTURE Stat Lab 07/08/18 14:37 Completed VENOUS BLOOD GAS Stat Lab 07/08/18 14:02 Results Respiratory Nebulizer STAT RT 07/08/18 13:50 Completed Respiratory Therapy Assessment DAILY RT 07/08/18 14:08 Active Medication Summary Generic Name Dose Route Start Last Admin Trade Name Freq PRN Reason Stop Dose Admin Ceftriaxone Sodium/Dextrose 1 g in 50 mls @ 100 mls/hr 07/08/18 14:49 Rocephin 1 Gm-D5w 50 Ml Bag IV 07/08/18 15:18 STAT STA Sodium Chloride 1,000 mls @ 50 mls/hr 07/08/18 15:00 Sodium Chloride 0.9% 1000 Ml IV 08/07/18 14:59 .Q20H MARJORIE Discontinued Medications Generic Name Dose Route Start Last Admin Trade Name Barry PRN Reason Stop Dose Admin Albuterol Sulfate 2.5 mg 07/08/18 13:48 07/08/18 14:04 Proventil 2.5 Mg/3 Ml Neb IH 07/08/18 13:49 2.5 mg STAT ONE Administration Albuterol Sulfate Confirm 07/08/18 14:01 Proventil 2.5 Mg/3 Ml Neb Administered 07/08/18 14:02 Dose 2.5 mg IH .STK-MED ONE Methylprednisolone Sodium Succinate 125 mg 07/08/18 15:05 Solu-Medrol 125 Mg IV 07/08/18 15:06 STAT ONE Lab/Rad Data: Laboratory Result Diagrams 07/08/18 14:00 07/08/18 14:00 Laboratory Results 07/08/18 07/08/18 07/08/18 Range/Units 14:37 14:02 14:00 WBC (4.0-10.5) K/mm3 RBC (4.1-5.4) M/mm3 Hgb (12.0-16.0) gm/dl Hct (35-47) % MCV (78-100) fl MCH (26-32) pg MCHC (32-36) g/dl RDW (11.5-14.0) % Plt Count (150-450) K/mm3 MPV (6-9.5) fl Gran % (36.0-66.0) % Eos # (Auto) (0-0.5) Absolute Lymphs (auto) (1.0-4.6) Absolute Monos (auto) (0.0-1.3) Lymphocytes % (24.0-44.0) % Monocytes % (0.0-12.0) % Eosinophils % (0.00-5.0) % Basophils % (0.0-0.4) % Absolute Granulocytes (1.4-6.9) Basophils # (0-0.4) PT (9.95-12.35) SECONDS INR (0.8-3.0) APTT (25.3-37.0) SECONDS D-Dimer (215-500) ng/mL pO2/FiO2 Ratio 21.0 % VBG pH 7.23 L* (7.32-7.42) VBG pCO2 at Pat Temp 58 H (42-55) mm/Hg VBG pO2 at Pat Temp 22 L (25-40) mm/Hg VBG HCO3 24.3 (22-28) meq/L VBG O2 Sat (Rainer) 39.5 L (95-100) VBG Base Excess -3.9 L (-2.0-2.0) VBG Hemoglobin 12.1 VBG Carboxyhemoglobin 3.1 (0.0-6.9) % T HGB POC Potassium 4.6 (3.5-5.1) Sodium (137-145) mmol/L Potassium (3.5-5.1) mmol/L Chloride (98-107) mmol/L Carbon Dioxide (22-30) mmol/L Anion Gap (5-15) MEQ/L BUN (7-17) mg/dL Creatinine (0.52-1.04) mg/dL Estimated GFR ML/MIN Glucose (74-106) mg/dL Lactic Acid 2.6 H (0.4-2.0) Calcium (8.4-10.2) mg/dL Total Bilirubin (0.2-1.3) mg/dL AST (14-36) U/L ALT (0-35) U/L Alkaline Phosphatase (38-126) U/L Troponin I < 0.012 (0.000-0.034) ng/mL NT-Pro-B Natriuret Pep (0-900) pg/mL Serum Total Protein (6.3-8.2) g/dL Albumin (3.5-5.0) g/dL Urine Color DONTRELL (YELLOW) Urine Appearance TURBID (CLEAR) Urine pH 5.0 (5-6) Ur Specific [place] 1.025 (1.005-1.025) Urine Protein 100 (Negative) Urine Ketones NEGATIVE (NEGATIVE) Urine Blood LARGE (0-5) Ramses/ul Urine Nitrite NEGATIVE (NEGATIVE) Urine Bilirubin NEGATIVE (NEGATIVE) Urine Urobilinogen NEGATIVE (0-1) mg/dL Ur Leukocyte Esterase LARGE (NEGATIVE) Urine WBC (Auto) 51-100 (0-5) /HPF Urine RBC (Auto) >101 (0-2) /HPF U Epithel Cells (Auto) FEW (FEW) /HPF Urine Bacteria (Auto) PACKED (NEGATIVE) /HPF Urine Culture Reflexed YES (NO) Urine Glucose NEGATIVE (NEGATIVE) mg/dL 07/08/18 07/08/18 07/08/18 Range/Units 14:00 14:00 14:00 WBC 13.3 H (4.0-10.5) K/mm3 RBC 3.93 L (4.1-5.4) M/mm3 Hgb 11.8 L (12.0-16.0) gm/dl Hct 37.5 (35-47) % MCV 95.4 (78-100) fl MCH 30.0 (26-32) pg MCHC 31.5 L (32-36) g/dl RDW 13.5 (11.5-14.0) % Plt Count 240 (150-450) K/mm3 MPV 9.6 H (6-9.5) fl Gran % 84.3 H (36.0-66.0) % Eos # (Auto) 0.14 (0-0.5) Absolute Lymphs (auto) 1.07 (1.0-4.6) Absolute Monos (auto) 0.83 (0.0-1.3) Lymphocytes % 8.1 L (24.0-44.0) % Monocytes % 6.3 (0.0-12.0) % Eosinophils % 1.1 (0.00-5.0) % Basophils % 0.2 (0.0-0.4) % Absolute Granulocytes 11.20 H (1.4-6.9) Basophils # 0.02 (0-0.4) PT 14.2 H (9.95-12.35) SECONDS INR 1.22 (0.8-3.0) APTT 21.8 L (25.3-37.0) SECONDS D-Dimer 1662 H* (215-500) ng/mL pO2/FiO2 Ratio % VBG pH (7.32-7.42) VBG pCO2 at Pat Temp (42-55) mm/Hg VBG pO2 at Pat Temp (25-40) mm/Hg VBG HCO3 (22-28) meq/L VBG O2 Sat (Rainer) (95-100) VBG Base Excess (-2.0-2.0) VBG Hemoglobin VBG Carboxyhemoglobin (0.0-6.9) % T HGB POC Potassium (3.5-5.1) Sodium 134 L (137-145) mmol/L Potassium 4.8 (3.5-5.1) mmol/L Chloride 97 L (98-107) mmol/L Carbon Dioxide 24 (22-30) mmol/L Anion Gap 17.6 H (5-15) MEQ/L BUN 46 H (7-17) mg/dL Creatinine 2.11 H (0.52-1.04) mg/dL Estimated GFR 24.7 ML/MIN Glucose 184 H (74-106) mg/dL Lactic Acid (0.4-2.0) Calcium 8.9 (8.4-10.2) mg/dL Total Bilirubin 0.60 (0.2-1.3) mg/dL AST 16 (14-36) U/L ALT 14 (0-35) U/L Alkaline Phosphatase 70 (38-126) U/L Troponin I (0.000-0.034) ng/mL NT-Pro-B Natriuret Pep 1770 H (0-900) pg/mL Serum Total Protein 8.3 H (6.3-8.2) g/dL Albumin 4.1 (3.5-5.0) g/dL Urine Color (YELLOW) Urine Appearance (CLEAR) Urine pH (5-6) Ur Specific [place] (1.005-1.025) Urine Protein (Negative) Urine Ketones (NEGATIVE) Urine Blood (0-5) Ramses/ul Urine Nitrite (NEGATIVE) Urine Bilirubin (NEGATIVE) Urine Urobilinogen (0-1) mg/dL Ur Leukocyte Esterase (NEGATIVE) Urine WBC (Auto) (0-5) /HPF Urine RBC (Auto) (0-2) /HPF U Epithel Cells (Auto) (FEW) /HPF Urine Bacteria (Auto) (NEGATIVE) /HPF Urine Culture Reflexed (NO) Urine Glucose (NEGATIVE) mg/dL - Progress Progress: improved Air Movement: fair Progress Note: 07/08/18 14:50 This is a 68-year-old white female who is brought by medics with complaint of shortness of breath at the longterm On arrival patient has wet rales with breathing she has diminished lung sounds she apparently had wheezing prior to arrival and seemed to have more wet rales after receiving DuoNeb treatment. Patient's chest x-ray is remarkable for stable cardiomegaly. Patient's EKG with sinus rhythm, 76 bpm axis S1/Q 3 pattern Patient did have an elevated d-dimer 1662 unfortunately the patient's GFR is in the 20s. Patient with a white count of 13.3 hemoglobin 11.8 hematocrit 37.5 platelets are 240 Patient's BNP is elevated at 1770. CBC White blood cell 13.3 hemoglobin 11.8 hematocrit 37.5 platelets 240 patient' s chemistry sodium 134 potassium 4.8 chloride 97 bicarbonate 24 BUN 46 creatinine 2.11 glucose 184. Patient did have elevated lactate at 2.6. Patient's venous gases show a pH of 7.23 and a pain CO2 of 58. Patient is given albuterol treatment she has been cultured will give patient Rocephin 1 g IV. I am reluctant to give this patient IV fluids at this point in time secondary patient does have wet rales in her lung dutton and has very of worrisome for failure Will discuss case with Dr. Luna as soon as troponin is available. 07/08/18 15:10 I've discussed the patient's case with Dr. Luna. Will place patient on observation telemetry will continue IV Rocephin, will continue Solu-Medrol, will continue duo neb treatments,. Will leave fluids at 50 mL per hour at this point in time. . - Departure Time of Disposition: 15:10 Departure Disposition: Observation Clinical Impression: Shortness of breath, COPD exacerbation, Elevated d-dimer UTI (urinary tract infection) Qualifiers: Urinary tract infection type: site unspecified Hematuria presence: with hematuria Qualified Code(s): N39.0 - Urinary tract infection, site not specified ; R31.9 - Hematuria, unspecified Condition: Fair Critical Care Time: No Referrals: HOMER ZHENG [Primary Care Provider] - Instructions: Chronic Obstructive Pulmonary Disease
[2018-07-08 14:10] LABS: Lactic Acid 2.6 (0.4-2.0); VBG BASE EXCESS -3.9 (-2.0-2.0); VBG CARBOXYHEMOGLOBIN 3.1 % T HGB (0.0-6.9); VBG HCO3- 24.3 meq/L (22-28); VBG HEMOGLOBIN 12.1; VBG O2 SATURATION 39.5 (95-100); VBG PCO2 58 mm/Hg (42-55); VBG PO2 22 mm/Hg (25-40); VBG POTASSIUM 4.6 (3.5-5.1)
[2018-07-08 14:10] LABS: BASOPHIL % 0.2 % (0.0-0.4); Basophil (Absolute #) 0.02 (0-0.4); Eosinophil % 1.1 % (0.00-5.0); Eosinophil (Absolute #) 0.14 (0-0.5); Granulocytes % 84.3 % (36.0-66.0); Hematocrit 37.5 % (35-47); Hemoglobin 11.8 gm/dl (12.0-16.0); Lymphocyte (Absolute #) 1.07 (1.0-4.6); Lymphocytes % 8.1 % (24.0-44.0); Mean Cell Volume 95.4 fl (78-100); Mean Corpuscular Hgb Concent. 31.5 g/dl (32-36); Mean Platelet Volume 9.6 fl (6-9.5); Monocyte (Absolute #) 0.83 (0.0-1.3); Monocytes % 6.3 % (0.0-12.0); Platelet Count 240 K/mm3 (150-450); Red Blood Count 3.93 M/mm3 (4.1-5.4); Red Cell Distribution Width 13.5 % (11.5-14.0); White Blood Count 13.3 K/mm3 (4.0-10.5)
[2018-07-08 14:11] LABS: VBG pH 7.23 (7.32-7.42)
--- NOTE | 2018-07-08 14:19 | XRAY ---
Indication: Short of breath. Comparison: June 22, 2017. Portable chest remains clear. Heart remains enlarged again with CABG surgery and aortic calcifications. Bony thorax intact again with osteopenia and degenerative changes. Impression: Stable cardiomegaly. No new/acute findings.
[2018-07-08 14:22] LABS: INR 1.22 (0.8-3.0); PROTIME 14.2 SECONDS (9.95-12.35)
[2018-07-08 14:25] LABS: PTT 21.8 SECONDS (25.3-37.0)
[2018-07-08 14:26] LABS: ALBUMIN 4.1 g/dL (3.5-5.0); ANION GAP 17.6 MEQ/L (5-15); BILIRUBIN,TOTAL 0.6 mg/dL (0.2-1.3); Calcium 8.9 mg/dL (8.4-10.2); Creatinine 1 2.11 mg/dL (0.52-1.04); Potassium 4.8 mmol/L (3.5-5.1); Total Protein 8.3 g/dL (6.3-8.2)
[2018-07-08] MEDS ORDERED: ROCEPHIN 1 Gm-D5w 50 ml Bag** 1 G/50 ML IVPB IV STA (14:49)
[2018-07-08 14:59] LABS: Appearance TURBID (CLEAR); Bacteria PACKED /HPF (NEGATIVE); Bilirubin NEGATIVE (NEGATIVE); Blood LARGE Ery/ul (0-5); Epithelial Cells FEW /HPF (FEW); Glucose NEGATIVE (NEGATIVE); Ketones NEGATIVE (NEGATIVE); Leukocyte Esterase LARGE (NEGATIVE); Nitrite NEGATIVE (NEGATIVE); Protein,Urine Dip 100 (Negative); Specific Gravity 1.025 (1.005-1.025); Urobilinogen NEGATIVE mg/dL (0-1); WBC 51-100 /HPF (0-5)
[2018-07-08 15:00] LABS: RBC >101 /HPF (0-2)
[2018-07-08] MEDS ORDERED: Sodium Chloride 0.9% 1000 ML 1,000 ML IV SCH (15:00)
[2018-07-08] MEDS ORDERED: solu-MEDROL 125 MG IV ONE (15:05)
[2018-07-08 15:37] LABS: INFLUENZA A NEGATIVE (NEGATIVE); INFLUENZA B NEGATIVE (NEGATIVE); RESPIRATORY SYNCTIAL VIRUS NEGATIVE (Negative)
[2018-07-08] MEDS ORDERED: DUONEB 0.5-3 MG/3 ml Neb IH PRN (16:04)
[2018-07-08] MEDS: solu-MEDROL 125 MG IV SCH (17:21)
[2018-07-08] MEDS: Sodium Chloride 0.9% 1000 ML 1,000 ML IV SCH (17:21)
[2018-07-08] MEDS: ROCEPHIN 1 Gm-D5w 50 ml Bag** 1 G/50 ML IVPB IV SCH (17:21)
[2018-07-08 17:53] LABS: Lactic Acid 2.1 (0.4-2.0)
[2018-07-08] MEDS: DUONEB 0.5-3 MG/3 ml Neb IH SCH ×2 (19:09→23:23)
[2018-07-08 20:39] LABS: Lactic Acid 2.1 (0.4-2.0)
[2018-07-08] MEDS ORDERED: TYLENOL 325 MG PO PRN (21:13)
[2018-07-08] MEDS ORDERED: Nitrostat 0.4 MG Tablet SL PRN (21:30)
[2018-07-08] MEDS ORDERED: MILK OF MAGNESIA 30 ML PO PRN (21:35)
[2018-07-08] MEDS ORDERED: Topamax 25 MG PO SCH (22:00)
[2018-07-08] MEDS ORDERED: Topamax 100 MG ONE (22:39)
[2018-07-09] MEDS: NEURONTIN 300 MG PO SCH ×4 (00:13→21:09)
[2018-07-09] MEDS: BUSPAR 5 MG PO SCH ×3 (00:13→21:07)
[2018-07-09] MEDS: FEOSOL 325 MG PO SCH ×3 (00:14→21:09)
[2018-07-09] MEDS: Catapres 0.1 MG PO SCH ×4 (00:14→21:08)
[2018-07-09] MEDS: COREG 12.5 MG PO SCH ×3 (00:15→21:08)
[2018-07-09] MEDS: celeBREX 100 MG PO SCH ×3 (00:15→21:08)
[2018-07-09] MEDS: Desyrel 150 MG PO SCH ×2 (00:15→21:09)
[2018-07-09] MEDS: Zanaflex 4 MG PO SCH ×2 (00:15→21:10)
[2018-07-09] MEDS: Colace 100 MG PO SCH ×4 (00:16→21:08)
[2018-07-09] MEDS: Lantus Insulin SQ SCH ×3 (00:16→21:10)
[2018-07-09] MEDS: solu-MEDROL 125 MG IV SCH ×4 (00:16→17:03)
[2018-07-09] MEDS: DUONEB 0.5-3 MG/3 ml Neb IH SCH ×6 (03:42→23:43)
[2018-07-09 06:26] LABS: BASOPHIL % 0.1 % (0.0-0.4); Basophil (Absolute #) 0.01 (0-0.4); Eosinophil % 0.1 % (0.00-5.0); Eosinophil (Absolute #) 0.01 (0-0.5); Granulocyte Absolute (ANC) 9.21 (1.4-6.9); Granulocytes % 90.9 % (36.0-66.0); Hematocrit 37.6 % (35-47); Hemoglobin 11.8 gm/dl (12.0-16.0); Lymphocyte (Absolute #) 0.78 (1.0-4.6); Lymphocytes % 7.7 % (24.0-44.0); Mean Cell Volume 92.6 fl (78-100); Mean Corpuscular Hgb Concent. 31.4 g/dl (32-36); Mean Platelet Volume 9.8 fl (6-9.5); Monocyte (Absolute #) 0.12 (0.0-1.3); Monocytes % 1.2 % (0.0-12.0); Platelet Count 244 K/mm3 (150-450); Red Blood Count 4.06 M/mm3 (4.1-5.4); Red Cell Distribution Width 13.3 % (11.5-14.0); White Blood Count 10.1 K/mm3 (4.0-10.5)
[2018-07-09 06:40] LABS: ANION GAP 18.7 MEQ/L (5-15); BILIRUBIN,TOTAL 0.5 mg/dL (0.2-1.3); Calcium 8.8 mg/dL (8.4-10.2); Creatinine 1 1.47 mg/dL (0.52-1.04); Potassium 5.3 mmol/L (3.5-5.1); Total Protein 8.1 g/dL (6.3-8.2)
[2018-07-09] MEDS ORDERED: MILK OF MAGNESIA 30 ML PO PRN (07:04)
[2018-07-09] MEDS ORDERED: NovoLOG Insulin SQ PRN (07:04)
[2018-07-09] MEDS ORDERED: CARBOXYMETHYLCELLULOSE SODIUM OP PRN (07:04)
[2018-07-09] MEDS ORDERED: OXYCODONE HCL 15 MG PO PRN (07:04)
[2018-07-09] MEDS ORDERED: AFRIN NASAL SPRAY NS PRN (07:04)
[2018-07-09] MEDS ORDERED: GlucaGen 1 MG IM PRN (07:15)
[2018-07-09] MEDS ORDERED: Artificial Tears 15 ML OP PRN (07:24)
[2018-07-09] MEDS ORDERED: PHARMACY DOSING REQUEST MC ONE (08:56)
[2018-07-09] MEDS: ROCEPHIN 1 Gm-D5w 50 ml Bag** 1 G/50 ML IVPB IV SCH (09:17)
[2018-07-09] MEDS: hydroDIURIL 25 MG PO SCH (09:18)
[2018-07-09] MEDS: Zestril 20 MG PO SCH (09:19)
[2018-07-09] MEDS: PLAVIX 75 MG Tablet PO SCH (09:19)
[2018-07-09] MEDS: ECOTRIN 81 MG PO SCH (09:20)
[2018-07-09] MEDS: Imdur 30 MG PO SCH (09:20)
[2018-07-09] MEDS: Lexapro 10 MG PO SCH (09:20)
[2018-07-09] MEDS: CLARITIN 10 MG PO SCH (09:21)
[2018-07-09] MEDS: Protonix 40MG Tablet PO SCH (09:21)
[2018-07-09] MEDS: Aldactone 25 MG PO SCH (09:21)
[2018-07-09] MEDS: Glucophage 500 MG PO SCH ×3 (09:22→16:37)
[2018-07-09] MEDS: Topamax 100 MG PO SCH ×2 (09:24→21:09)
[2018-07-09] MEDS: NovoLOG Insulin SQ SCH ×3 (09:25→16:37)
[2018-07-09] MEDS: ENOXAPARIN SODIUM SQ SCH (09:26)
[2018-07-09] MEDS: NovoLOG Insulin SQ PRN ×3 (09:27→21:11)
[2018-07-09] MEDS ORDERED: NON-FORMULARY ITEM (Aspirin [Aspirin] 81 MG) PO SCH (10:00)
[2018-07-09] MEDS ORDERED: Zestril 10 MG PO SCH (10:00)
[2018-07-09] MEDS: Zithromax 500 MG/ 250 ML NaCl Premix 500 MG/250 ML IVPB IV SCH (10:45)
--- NOTE | 2018-07-09 11:48 | PCM.HP ---
History of Present Illness - Chief Complaint Chief Complaint: SOB for 1 day History of Present Illness: is a 68-year-old white female with history of CVA, cyst TIA, hyperlipidemia, high blood pressure, COPD, diabetes2 Patient arrives with complaint of shortness of breath symptoms since today no fevers no nausea no vomiting. Past medical history includes CVA, TIA, hyperlipidemia, high blood pressure, COPD, diabetes type 2, GERD, anxiety, depression, chronic pain, peripheral neuropathy, hyperlipidemia, angina, allergic rhinitis, arthritis, chronic headache, esophagitis - Review of Systems Constitutional: Fatigue, Lethargy, Weakness, No Fever, No Chills Eyes: No Symptoms Ears, Nose, & Throat: No Symptoms Respiratory: No Cough, No Short Of Breath Cardiac: No Chest Pain, No Edema, No Syncope Abdominal/Gastrointestinal: No Abdominal Pain, No Nausea, No Vomiting, No Diarrhea Genitourinary Symptoms: No Dysuria Musculoskeletal: No Back Pain, No Neck Pain Skin: No Rash Neurological: No Dizziness, No Focal Weakness, No Sensory Changes Psychological: No Symptoms Endocrine: No Symptoms Hematologic/Lymphatic: No Symptoms Immunological/Allergic: No Symptoms Medications & Allergies Home Medications: Home Medication List Carvedilol 12.5 mg [Coreg 12.5 mg] 25 mg PO BID 01/01/15 [History Confirmed 07/08/18] Celecoxib 100 mg [celeBREX 100 MG] 200 mg PO BID 01/01/15 [History Confirmed 07/08/18] Clopidogrel Bisulfate 75 mg [PLAVIX 75 MG Tablet] 75 mg PO DAILY 01/01/15 [History Confirmed 07/08/18] Cyanocobalamin 1000 Mcg/ml [Cyanocobalamin B-12 1000 MCG/ML] 1,000 mcg IJ UD 01/01/15 [History Confirmed 07/08/18] Docusate Sodium 100 mg [Colace 100 MG] 100 mg PO TID 01/01/15 [History Confirmed 07/08/18] Insulin Aspart [NovoLOG Insulin] 12 unit SQ AC 01/01/15 [History Confirmed 07/08/18] Insulin Detemir [Levemir] 50 unit SQ BID 01/01/15 [History Confirmed 07/08/18] Isosorbide Mononitrate 30 mg [Imdur 30 MG] 30 mg PO DAILY 01/01/15 [ History Confirmed 07/08/18] Lisinopril 10 mg [Zestril 10 MG] 40 mg PO DAILY 01/01/15 [History Confirmed 07/08/18] Loratadine 10 mg [Claritin 10 mg] 10 mg PO DAILY 01/01/15 [History Confirmed 07/08/18] Pravastatin Sodium 40 mg PO QHS 01/01/15 [History Confirmed 07/08/18] Tizanidine HCl 4 mg [Zanaflex 4 MG] 4 mg PO HS 01/01/15 [History Confirmed 07/08/18] Acetaminophen 325 mg [Tylenol 325 mg] 650 mg PO Q4H PRN 07/21/15 [History Confirmed 07/08/18] Aspirin 81 mg PO DAILY 07/21/15 [History Confirmed 07/08/18] PANTOPRAZOLE 40 mg Tablet [Protonix 40MG Tablet] 40 mg PO DAILY 07/21/15 [ History Confirmed 07/08/18] Buspirone HCl 15 mg PO BID 03/19/17 [History Confirmed 07/08/18] Ferrous Sulfate 325 mg [Feosol 325 mg] 325 mg PO BID 03/19/17 [History Confirmed 07/08/18] Metformin HCl 500 mg [Glucophage 500 MG] 500 mg PO TID 03/19/17 [History Confirmed 07/08/18] Nitroglycerin 0.4 mg Tablet [Nitrostat 0.4 MG Tablet] 0.4 mg SL UD PRN 02/25 [History Confirmed 07/08/18] Trazodone HCl 150 mg PO HS 03/19/17 [History Confirmed 07/08/18] Acetaminophen 325 mg [Tylenol 325 mg] 650 mg PO 0600 03/23/17 [History Confirmed 07/08/18] Clonidine HCl 0.1 mg [Catapres 0.1 MG] 0.3 mg PO TID 03/23/17 [History Confirmed 07/08/18] Oxycodone HCl 15 mg PO Q6HPRN PRN 03/23/17 [History Confirmed 07/08/18] Carboxymethylcellulose Sodium [Refresh Plus] 1 each OP Q2H/PRN PRN 06/22/17 [ History Confirmed 07/08/18] Escitalopram Oxalate 10 mg [Lexapro 10 MG] 20 mg PO DAILY 06/22/17 [History Confirmed 07/08/18] Gabapentin 300 mg PO TID 06/22/17 [History Confirmed 07/08/18] Glucagon 1 mg [GlucaGen 1 MG] 1 mg IM UD 07/08/18 [History Confirmed 07/08] Hydrochlorothiazide 25 mg [hydroDIURIL 25 MG] 25 mg PO DAILY 07/08/18 [ History Confirmed 07/08/18] Insulin Aspart [NovoLOG Insulin] 1 unit SQ UD PRN 07/08/18 [History Confirmed 07/08/18] Magnesium Hydroxide 30 ml [Milk of Magnesia 30 ml] 30 ml PO Q6HPRN PRN [History Confirmed 07/08/18] Oxymetazoline HCl [Nasal Bowie] 30 ml NS Q4HPRN PRN 07/08/18 [History Confirmed 07/08/18] Sodium Phosphate,Bennett-Dibasic [Enema] 1 applic RC DAILY PRN PRN 07/08/18 [ History Confirmed 07/08/18] Spironolactone 25 mg [Aldactone 25 MG] 25 mg PO DAILY 07/08/18 [History Confirmed 07/08/18] Topiramate 25 mg [Topamax 25 MG] 50 mg PO BID 07/08/18 [History Confirmed 07/08/18] Allergies/Adverse Reactions: Allergies Allergy/AdvReac Type Severity Reaction Status Date / Time No Known Drug Allergies Allergy Verified 07/19/17 20:46 - Past Medical History Past Medical History: Yes Neurological History: Stroke, TIA ENT History: No Pertinent History Cardiac History: High Cholesterol, Hypertension, Other Respiratory History: COPD Endocrine Medical History: Diabetes Type II Musculoskelatal History: Other GI Medical History: GERD History: No Pertinent History Pyscho-Social History: Anxiety, Depression Reproductive Disorders: No Pertinent History Comment: CHRONIC PAIN. PERIPHERAL NEUROPATHY. HYPERLIPEDEMIA. ANGINA PECTORIS. ALLERGIC RHINITIS. ARTHRITIS. CHRONIC HEADACHE. ESOPAHGITIS - Female History Are you now?: No - Past Surgical History Past Surgical History: Yes Neuro Surgical History: No Pertinent History Cardiac History: CABG, Cardiac Catheterization, Cardiac Stent Respiratory Surgery: No Pertinent History GI Surgical History: No Pertinent History Genitourinary Surgical Hx: No Pertinent History Musculskeletal Surgical Hx: No Pertinent History Female Surgical History: Other Other Surgical History: HIP SURGERY - Social History Smoking Status: Never smoker Exposure to second hand smoke: No Alcohol: None Drug Use: none - Physical Exam Vital Signs: Vital Signs - 24 hr Temp Pulse Resp BP Pulse Ox 07/09/18 11:37 73 22 98 07/09/18 08:00 97.6 F 64 16 156/65 98 07/09/18 07:00 65 16 98 07/09/18 04:00 97.5 F 61 20 135/62 99 07/09/18 03:15 68 18 95 07/09/18 00:00 97.4 F 73 18 141/65 07/08/18 23:23 79 18 95 07/08/18 20:00 100.3 F 79 23 118/56 95 07/08/18 19:11 78 22 99 07/08/18 17:38 98 07/08/18 17:01 88 22 100 07/08/18 16:05 100.1 F 72 23 126/58 97 07/08/18 15:11 94 L 07/08/18 15:09 102/64 07/08/18 14:57 99.1 F 86 18 104/60 97 07/08/18 14:16 99.5 F 86 20 111/64 99 07/08/18 14:08 90 24 96 07/08/18 13:17 99.5 F 86 22 92/45 94 L Oxygen-Last 24 hours O2 Percentage 3 Liters = 32% O2 Percentage 4 Liters = 36% O2 Percentage 4 Liters = 36% O2 Percentage 4 Liters = 36% O2 Percentage 4 Liters = 36% O2 Percentage 4 Liters = 36% Oxygen Flowrate (L/min)-RT 4 General Appearance: no apparent distress, alert Neurologic Exam: alert, oriented x 3, cooperative, normal mood/affect, nml cerebellar function, nml station & gait, sensation nml, No motor deficits Eye Exam: PERRL/EOMI, eyes nml inspection Ears, Nose, Throat Exam: normal ENT inspection, TMs normal, pharynx normal, moist mucous membranes Neck Exam: normal inspection, non-tender, supple, full range of motion Respiratory Exam: normal breath sounds, diminished breath sounds, crackles/rales , rhonchi, No respiratory distress Cardiovascular Exam: regular rate/rhythm, normal heart sounds, normal peripheral pulses Gastrointestinal/Abdomen Exam: soft, normal bowel sounds, No tenderness, No mass Back Exam: normal inspection, normal range of motion, No CVA tenderness, No vertebral tenderness Extremity Exam: normal inspection, normal range of motion, pelvis stable Skin Exam: normal color, warm, dry, No rash Lymphatic Exam: No adenopathy Results - Labs Lab/Micro Results: Accuchecks Date 07/09/18 Date 07/08/18 Time 07:30 Time 20:00 Accucheck Value: 299 Accucheck Value: 150 Lab Results-Last 24 Hours 07/08/18 07/08/18 07/08/18 Range/Units 14:00 14:00 14:00 WBC 13.3 H (4.0-10.5) K/mm3 RBC 3.93 L (4.1-5.4) M/mm3 Hgb 11.8 L (12.0-16.0) gm/dl Hct 37.5 (35-47) % MCV 95.4 (78-100) fl MCH 30.0 (26-32) pg MCHC 31.5 L (32-36) g/dl RDW 13.5 (11.5-14.0) % Plt Count 240 (150-450) K/mm3 MPV 9.6 H (6-9.5) fl Gran % 84.3 H (36.0-66.0) % Eos # (Auto) 0.14 (0-0.5) Absolute Lymphs (auto) 1.07 (1.0-4.6) Absolute Monos (auto) 0.83 (0.0-1.3) Lymphocytes % 8.1 L (24.0-44.0) % Monocytes % 6.3 (0.0-12.0) % Eosinophils % 1.1 (0.00-5.0) % Basophils % 0.2 (0.0-0.4) % Absolute Granulocytes 11.20 H (1.4-6.9) Basophils # 0.02 (0-0.4) PT 14.2 H (9.95-12.35) SECONDS INR 1.22 (0.8-3.0) APTT 21.8 L (25.3-37.0) SECONDS D-Dimer 1662 H* (215-500) ng/mL pO2/FiO2 Ratio % VBG pH (7.32-7.42) VBG pCO2 at Pat Temp (42-55) mm/Hg VBG pO2 at Pat Temp (25-40) mm/Hg VBG HCO3 (22-28) meq/L VBG O2 Sat (Rainer) (95-100) VBG Base Excess (-2.0-2.0) VBG Hemoglobin VBG Carboxyhemoglobin (0.0-6.9) % T HGB POC Potassium (3.5-5.1) Sodium 134 L (137-145) mmol/L Potassium 4.8 (3.5-5.1) mmol/L Chloride 97 L (98-107) mmol/L Carbon Dioxide 24 (22-30) mmol/L Anion Gap 17.6 H (5-15) MEQ/L BUN 46 H (7-17) mg/dL Creatinine 2.11 H (0.52-1.04) mg/dL Estimated GFR 24.7 ML/MIN Glucose 184 H (74-106) mg/dL Lactic Acid (0.4-2.0) Calcium 8.9 (8.4-10.2) mg/dL Total Bilirubin 0.60 (0.2-1.3) mg/dL AST 16 (14-36) U/L ALT 14 (0-35) U/L Alkaline Phosphatase 70 (38-126) U/L Troponin I (0.000-0.034) ng/mL NT-Pro-B Natriuret Pep 1770 H (0-900) pg/mL Serum Total Protein 8.3 H (6.3-8.2) g/dL Albumin 4.1 (3.5-5.0) g/dL Urine Color (YELLOW) Urine Appearance (CLEAR) Urine pH (5-6) Ur Specific Sterling (1.005-1.025) Urine Protein (Negative) Urine Ketones (NEGATIVE) Urine Blood (0-5) Ramses/ul Urine Nitrite (NEGATIVE) Urine Bilirubin (NEGATIVE) Urine Urobilinogen (0-1) mg/dL Ur Leukocyte Esterase (NEGATIVE) Urine WBC (Auto) (0-5) /HPF Urine RBC (Auto) (0-2) /HPF U Epithel Cells (Auto) (FEW) /HPF Urine Bacteria (Auto) (NEGATIVE) /HPF Urine Culture Reflexed (NO) Urine Glucose (NEGATIVE) mg/dL Influenza Type A Ag (NEGATIVE) Influenza Type B Ag (NEGATIVE) RSV (PCR) (Negative) 07/08/18 07/08/18 07/08/18 Range/Units 14:00 14:02 14:37 WBC (4.0-10.5) K/mm3 RBC (4.1-5.4) M/mm3 Hgb (12.0-16.0) gm/dl Hct (35-47) % MCV (78-100) fl MCH (26-32) pg MCHC (32-36) g/dl RDW (11.5-14.0) % Plt Count (150-450) K/mm3 MPV (6-9.5) fl Gran % (36.0-66.0) % Eos # (Auto) (0-0.5) Absolute Lymphs (auto) (1.0-4.6) Absolute Monos (auto) (0.0-1.3) Lymphocytes % (24.0-44.0) % Monocytes % (0.0-12.0) % Eosinophils % (0.00-5.0) % Basophils % (0.0-0.4) % Absolute Granulocytes (1.4-6.9) Basophils # (0-0.4) PT (9.95-12.35) SECONDS INR (0.8-3.0) APTT (25.3-37.0) SECONDS D-Dimer (215-500) ng/mL pO2/FiO2 Ratio 21.0 % VBG pH 7.23 L* (7.32-7.42) VBG pCO2 at Pat Temp 58 H (42-55) mm/Hg VBG pO2 at Pat Temp 22 L (25-40) mm/Hg VBG HCO3 24.3 (22-28) meq/L VBG O2 Sat (Rainer) 39.5 L (95-100) VBG Base Excess -3.9 L (-2.0-2.0) VBG Hemoglobin 12.1 VBG Carboxyhemoglobin 3.1 (0.0-6.9) % T HGB POC Potassium 4.6 (3.5-5.1) Sodium (137-145) mmol/L Potassium (3.5-5.1) mmol/L Chloride (98-107) mmol/L Carbon Dioxide (22-30) mmol/L Anion Gap (5-15) MEQ/L BUN (7-17) mg/dL Creatinine (0.52-1.04) mg/dL Estimated GFR ML/MIN Glucose (74-106) mg/dL Lactic Acid 2.6 H (0.4-2.0) Calcium (8.4-10.2) mg/dL Total Bilirubin (0.2-1.3) mg/dL AST (14-36) U/L ALT (0-35) U/L Alkaline Phosphatase (38-126) U/L Troponin I < 0.012 (0.000-0.034) ng/mL NT-Pro-B Natriuret Pep (0-900) pg/mL Serum Total Protein (6.3-8.2) g/dL Albumin (3.5-5.0) g/dL Urine Color (YELLOW) Urine Appearance (CLEAR) Urine pH (5-6) Ur Specific Sterling (1.005-1.025) Urine Protein (Negative) Urine Ketones (NEGATIVE) Urine Blood (0-5) Ramses/ul Urine Nitrite (NEGATIVE) Urine Bilirubin (NEGATIVE) Urine Urobilinogen (0-1) mg/dL Ur Leukocyte Esterase (NEGATIVE) Urine WBC (Auto) (0-5) /HPF Urine RBC (Auto) (0-2) /HPF U Epithel Cells (Auto) (FEW) /HPF Urine Bacteria (Auto) (NEGATIVE) /HPF Urine Culture Reflexed (NO) Urine Glucose (NEGATIVE) mg/dL Influenza Type A Ag NEGATIVE (NEGATIVE) Influenza Type B Ag NEGATIVE (NEGATIVE) RSV (PCR) NEGATIVE (Negative) 07/08/18 07/08/18 07/08/18 Range/Units 14:37 17:46 17:50 WBC (4.0-10.5) K/mm3 RBC (4.1-5.4) M/mm3 Hgb (12.0-16.0) gm/dl Hct (35-47) % MCV (78-100) fl MCH (26-32) pg MCHC (32-36) g/dl RDW (11.5-14.0) % Plt Count (150-450) K/mm3 MPV (6-9.5) fl Gran % (36.0-66.0) % Eos # (Auto) (0-0.5) Absolute Lymphs (auto) (1.0-4.6) Absolute Monos (auto) (0.0-1.3) Lymphocytes % (24.0-44.0) % Monocytes % (0.0-12.0) % Eosinophils % (0.00-5.0) % Basophils % (0.0-0.4) % Absolute Granulocytes (1.4-6.9) Basophils # (0-0.4) PT (9.95-12.35) SECONDS INR (0.8-3.0) APTT (25.3-37.0) SECONDS D-Dimer (215-500) ng/mL pO2/FiO2 Ratio % VBG pH (7.32-7.42) VBG pCO2 at Pat Temp (42-55) mm/Hg VBG pO2 at Pat Temp (25-40) mm/Hg VBG HCO3 (22-28) meq/L VBG O2 Sat (Rainer) (95-100) VBG Base Excess (-2.0-2.0) VBG Hemoglobin VBG Carboxyhemoglobin (0.0-6.9) % T HGB POC Potassium (3.5-5.1) Sodium (137-145) mmol/L Potassium (3.5-5.1) mmol/L Chloride (98-107) mmol/L Carbon Dioxide (22-30) mmol/L Anion Gap (5-15) MEQ/L BUN (7-17) mg/dL Creatinine (0.52-1.04) mg/dL Estimated GFR ML/MIN Glucose (74-106) mg/dL Lactic Acid 2.1 H (0.4-2.0) Calcium (8.4-10.2) mg/dL Total Bilirubin (0.2-1.3) mg/dL AST (14-36) U/L ALT (0-35) U/L Alkaline Phosphatase (38-126) U/L Troponin I < 0.012 (0.000-0.034) ng/mL NT-Pro-B Natriuret Pep (0-900) pg/mL Serum Total Protein (6.3-8.2) g/dL Albumin (3.5-5.0) g/dL Urine Color DONTRELL (YELLOW) Urine Appearance TURBID (CLEAR) Urine pH 5.0 (5-6) Ur Specific Sterling 1.025 (1.005-1.025) Urine Protein 100 (Negative) Urine Ketones NEGATIVE (NEGATIVE) Urine Blood LARGE (0-5) Ramses/ul Urine Nitrite NEGATIVE (NEGATIVE) Urine Bilirubin NEGATIVE (NEGATIVE) Urine Urobilinogen NEGATIVE (0-1) mg/dL Ur Leukocyte Esterase LARGE (NEGATIVE) Urine WBC (Auto) 51-100 (0-5) /HPF Urine RBC (Auto) >101 (0-2) /HPF U Epithel Cells (Auto) FEW (FEW) /HPF Urine Bacteria (Auto) PACKED (NEGATIVE) /HPF Urine Culture Reflexed YES (NO) Urine Glucose NEGATIVE (NEGATIVE) mg/dL Influenza Type A Ag (NEGATIVE) Influenza Type B Ag (NEGATIVE) RSV (PCR) (Negative) 07/08/18 07/08/18 07/08/18 Range/Units 20:20 20:35 23:07 WBC (4.0-10.5) K/mm3 RBC (4.1-5.4) M/mm3 Hgb (12.0-16.0) gm/dl Hct (35-47) % MCV (78-100) fl MCH (26-32) pg MCHC (32-36) g/dl RDW (11.5-14.0) % Plt Count (150-450) K/mm3 MPV (6-9.5) fl Gran % (36.0-66.0) % Eos # (Auto) (0-0.5) Absolute Lymphs (auto) (1.0-4.6) Absolute Monos (auto) (0.0-1.3) Lymphocytes % (24.0-44.0) % Monocytes % (0.0-12.0) % Eosinophils % (0.00-5.0) % Basophils % (0.0-0.4) % Absolute Granulocytes (1.4-6.9) Basophils # (0-0.4) PT (9.95-12.35) SECONDS INR (0.8-3.0) APTT (25.3-37.0) SECONDS D-Dimer (215-500) ng/mL pO2/FiO2 Ratio % VBG pH (7.32-7.42) VBG pCO2 at Pat Temp (42-55) mm/Hg VBG pO2 at Pat Temp (25-40) mm/Hg VBG HCO3 (22-28) meq/L VBG O2 Sat (Rainer) (95-100) VBG Base Excess (-2.0-2.0) VBG Hemoglobin VBG Carboxyhemoglobin (0.0-6.9) % T HGB POC Potassium (3.5-5.1) Sodium (137-145) mmol/L Potassium (3.5-5.1) mmol/L Chloride (98-107) mmol/L Carbon Dioxide (22-30) mmol/L Anion Gap (5-15) MEQ/L BUN (7-17) mg/dL Creatinine (0.52-1.04) mg/dL Estimated GFR ML/MIN Glucose (74-106) mg/dL Lactic Acid 2.1 H (0.4-2.0) Calcium (8.4-10.2) mg/dL Total Bilirubin (0.2-1.3) mg/dL AST (14-36) U/L ALT (0-35) U/L Alkaline Phosphatase (38-126) U/L Troponin I < 0.012 < 0.012 (0.000-0.034) ng/mL NT-Pro-B Natriuret Pep (0-900) pg/mL Serum Total Protein (6.3-8.2) g/dL Albumin (3.5-5.0) g/dL Urine Color (YELLOW) Urine Appearance (CLEAR) Urine pH (5-6) Ur Specific Sterling (1.005-1.025) Urine Protein (Negative) Urine Ketones (NEGATIVE) Urine Blood (0-5) Ramses/ul Urine Nitrite (NEGATIVE) Urine Bilirubin (NEGATIVE) Urine Urobilinogen (0-1) mg/dL Ur Leukocyte Esterase (NEGATIVE) Urine WBC (Auto) (0-5) /HPF Urine RBC (Auto) (0-2) /HPF U Epithel Cells (Auto) (FEW) /HPF Urine Bacteria (Auto) (NEGATIVE) /HPF Urine Culture Reflexed (NO) Urine Glucose (NEGATIVE) mg/dL Influenza Type A Ag (NEGATIVE) Influenza Type B Ag (NEGATIVE) RSV (PCR) (Negative) 07/09/18 07/09/18 07/09/18 Range/Units 02:07 05:27 05:27 WBC 10.1 (4.0-10.5) K/mm3 RBC 4.06 L (4.1-5.4) M/mm3 Hgb 11.8 L (12.0-16.0) gm/dl Hct 37.6 (35-47) % MCV 92.6 (78-100) fl MCH 29.0 (26-32) pg MCHC 31.4 L (32-36) g/dl RDW 13.3 (11.5-14.0) % Plt Count 244 (150-450) K/mm3 MPV 9.8 H (6-9.5) fl Gran % 90.9 H (36.0-66.0) % Eos # (Auto) 0.01 (0-0.5) Absolute Lymphs (auto) 0.78 L (1.0-4.6) Absolute Monos (auto) 0.12 (0.0-1.3) Lymphocytes % 7.7 L (24.0-44.0) % Monocytes % 1.2 (0.0-12.0) % Eosinophils % 0.1 (0.00-5.0) % Basophils % 0.1 (0.0-0.4) % Absolute Granulocytes 9.21 H (1.4-6.9) Basophils # 0.01 (0-0.4) PT (9.95-12.35) SECONDS INR (0.8-3.0) APTT (25.3-37.0) SECONDS D-Dimer (215-500) ng/mL pO2/FiO2 Ratio % VBG pH (7.32-7.42) VBG pCO2 at Pat Temp (42-55) mm/Hg VBG pO2 at Pat Temp (25-40) mm/Hg VBG HCO3 (22-28) meq/L VBG O2 Sat (Rainer) (95-100) VBG Base Excess (-2.0-2.0) VBG Hemoglobin VBG Carboxyhemoglobin (0.0-6.9) % T HGB POC Potassium (3.5-5.1) Sodium 134 L (137-145) mmol/L Potassium 5.3 H (3.5-5.1) mmol/L Chloride 98 (98-107) mmol/L Carbon Dioxide 22 (22-30) mmol/L Anion Gap 18.7 H (5-15) MEQ/L BUN 47 H (7-17) mg/dL Creatinine 1.47 H (0.52-1.04) mg/dL Estimated GFR 37.5 ML/MIN Glucose 299 H (74-106) mg/dL Lactic Acid (0.4-2.0) Calcium 8.8 (8.4-10.2) mg/dL Total Bilirubin 0.50 (0.2-1.3) mg/dL AST 17 (14-36) U/L ALT 14 (0-35) U/L Alkaline Phosphatase 67 (38-126) U/L Troponin I < 0.012 (0.000-0.034) ng/mL NT-Pro-B Natriuret Pep (0-900) pg/mL Serum Total Protein 8.1 (6.3-8.2) g/dL Albumin 4.0 (3.5-5.0) g/dL Urine Color (YELLOW) Urine Appearance (CLEAR) Urine pH (5-6) Ur Specific Sterling (1.005-1.025) Urine Protein (Negative) Urine Ketones (NEGATIVE) Urine Blood (0-5) Ramses/ul Urine Nitrite (NEGATIVE) Urine Bilirubin (NEGATIVE) Urine Urobilinogen (0-1) mg/dL Ur Leukocyte Esterase (NEGATIVE) Urine WBC (Auto) (0-5) /HPF Urine RBC (Auto) (0-2) /HPF U Epithel Cells (Auto) (FEW) /HPF Urine Bacteria (Auto) (NEGATIVE) /HPF Urine Culture Reflexed (NO) Urine Glucose (NEGATIVE) mg/dL Influenza Type A Ag (NEGATIVE) Influenza Type B Ag (NEGATIVE) RSV (PCR) (Negative) Microbiology 07/08/18 14:37 Urine Culture - Preliminary Catherized GRAM NEGATIVE ID AND SENSITIVITY PENDING 07/08/18 14:37 Blood Culture Gram Stain - Final Blood 07/08/18 14:37 Blood Culture Gram Stain - Final Blood Accuchecks Date 07/09/18 Date 07/08/18 Time 07:30 Time 20:00 Accucheck Value: 299 Accucheck Value: 150 - Radiology Impressions Radiology Exams & Impressions: Radiology Procedures Category Date Time Status CHEST 1 VIEW (PORTABLE) Stat Exams 07/08/18 14:03 Completed - Other Procedures and Tests Respiratory Therapy 07/08/18 16:04 Oxygen Nasal Cannula 4 lpm 07/08/18 16:59 Respiratory Therapy Assessment DAILY 07/09/18 09:20 Peak Expiratory Flow Rate ONCE Assessment/Plan (1) Sepsis associated hypotension Current Visit: Yes Status: Acute Assessment & Plan: Last Vital Signs Temp 97.6 F 07/09/18 08:00 Pulse 73 07/09/18 11:37 Resp 22 07/09/18 11:37 BP 156/65 07/09/18 08:00 Pulse Ox 98 07/09/18 11:37 Allergies No Known Drug Allergies Allergy (Verified 07/19/17 20:46) Active Medications Acetaminophen (Tylenol 325 Mg) 650 mg PO Q4H PRN PRN PRN Reason: PAIN AND/OR FEVER Stop: 08/07/18 21:12 Last Admin: 07/09/18 00:15 Dose: 650 mg Acetaminophen (Tylenol 325 Mg) 650 mg PO 0600 [facility] Stop: 08/09/18 05:59 Albuterol/Ipratropium (Duoneb 0.5-3 Mg/3 Ml Neb) 3 ml IH Q4HPRN PRN PRN Reason: SHORTNESS OF BREATH/WHEEZING Stop: 08/07/18 16:03 Albuterol/Ipratropium (Duoneb 0.5-3 Mg/3 Ml Neb) 3 ml IH Q4HRT [facility] Stop: 08/07/18 18:59 Last Admin: 07/09/18 11:34 Dose: 3 ml Artificial Tears (Artificial Tears 15 Ml) 0 ml OP Q2H PRN PRN PRN Reason: DRY EYES Stop: 08/08/18 07:23 Aspirin (Ecotrin 81 Mg) 81 mg PO DAILY [facility] Stop: 08/08/18 09:59 Last Admin: 07/09/18 09:20 Dose: 81 mg Buspirone HCl (Buspar 5 Mg) 15 mg PO BID [facility] Stop: 08/07/18 21:59 Last Admin: 07/09/18 09:18 Dose: 15 mg Carvedilol (Coreg 12.5 Mg) 25 mg PO BID [facility] Stop: 08/07/18 21:59 Last Admin: 07/09/18 09:20 Dose: 25 mg Celecoxib (Celebrex 100 Mg) 200 mg PO BID [facility] Stop: 08/07/18 21:59 Last Admin: 07/09/18 09:18 Dose: 200 mg Clonidine (Catapres 0.1 Mg) 0.3 mg PO TID [facility] Stop: 08/07/18 21:59 Last Admin: 07/09/18 09:19 Dose: 0.3 mg Clopidogrel Bisulfate (Plavix 75 Mg Tablet) 75 mg PO DAILY [facility] Stop: 08/08/18 09:59 Last Admin: 07/09/18 09:19 Dose: 75 mg Cyanocobalamin (Cyanocobalamin B-12 1000 Mcg/Ml) 1,000 mcg IJ Q30D [facility] Stop: 08/13/18 09:59 Docusate Sodium (Colace 100 Mg) 100 mg PO TID [facility] Stop: 08/07/18 21:59 Last Admin: 07/09/18 09:21 Dose: 100 mg Enoxaparin Sodium (Enoxaparin Sodium) 30 mg SQ DAILY [facility] Stop: 08/08/18 09:59 Last Admin: 07/09/18 09:26 Dose: 30 mg Escitalopram Oxalate (Lexapro 10 Mg) 20 mg PO DAILY [facility] Stop: 08/08/18 09:59 Last Admin: 07/09/18 09:20 Dose: 20 mg Ferrous Sulfate (Feosol 325 Mg) 325 mg PO BID [facility] Stop: 08/07/18 21:59 Last Admin: 07/09/18 09:25 Dose: 325 mg Gabapentin (Neurontin 300 Mg) 300 mg PO TID [facility] Stop: 08/07/18 21:59 Last Admin: 07/09/18 09:19 Dose: 300 mg Glucagon (Glucagen 1 Mg) 1 mg IM PRN PRN PRN Reason: FOR HYPOGLYCEMIA Stop: 08/08/18 07:14 Hydrochlorothiazide (Hydrodiuril 25 Mg) 25 mg PO DAILY [facility] Stop: 08/08/18 09:59 Last Admin: 07/09/18 09:18 Dose: 25 mg Ceftriaxone Sodium/Dextrose (Rocephin 1 Gm-D5w 50 Ml Bag) 1 g in 50 mls @ 100 mls/hr IV Q24H10 [facility] Stop: 08/07/18 16:59 Last Admin: 07/09/18 09:17 Dose: 100 mls/hr Sodium Chloride (Sodium Chloride 0.9% 1000 Ml) 1,000 mls @ 50 mls/hr IV .Q20H [facility] Stop: 08/07/18 16:03 Last Admin: 07/08/18 17:21 Dose: 50 mls/hr Azithromycin (Zithromax 500 Mg/ 250 Ml Nacl Premix) 500 mg in 250 mls @ 125 mls /hr IV Q24H10 [facility] Stop: 08/08/18 09:59 Last Admin: 07/09/18 10:45 Dose: 125 mls/hr Insulin Aspart (Novolog Insulin) 0 unit SQ UD PRN PRN Reason: HYPERGLYCEMIA Stop: 08/07/18 16:03 Last Admin: 07/09/18 09:27 Dose: 4 unit Insulin Aspart (Novolog Insulin) 12 unit SQ AC [facility] Stop: 08/08/18 07:29 Last Admin: 07/09/18 09:25 Dose: 12 unit Insulin Glargine (Lantus Insulin) 50 unit SQ BID [facility] Stop: 08/07/18 21:59 Last Admin: 07/09/18 09:24 Dose: 50 unit Isosorbide Mononitrate (Imdur 30 Mg) 30 mg PO DAILY [facility] Stop: 08/08/18 09:59 Last Admin: 07/09/18 09:20 Dose: 30 mg Lisinopril (Zestril 20 Mg) 40 mg PO DAILY [facility] Stop: 08/08/18 09:59 Last Admin: 07/09/18 09:19 Dose: 40 mg Loratadine (Claritin 10 Mg) 10 mg PO DAILY [facility] Stop: 08/08/18 09:59 Last Admin: 07/09/18 09:21 Dose: 10 mg Magnesium Hydroxide (Milk Of Magnesia 30 Ml) 30 ml PO Q6HPRN PRN PRN Reason: INDIGESTION Stop: 08/08/18 07:03 Metformin HCl (Glucophage 500 Mg) 500 mg PO TIDWM [facility] Stop: 08/08/18 07:59 Last Admin: 07/09/18 09:22 Dose: 500 mg Methylprednisolone Sodium Succinate (Solu-Medrol 125 Mg) 80 mg IV Q6HT [facility] Stop: 08/07/18 17:59 Last Admin: 07/09/18 06:41 Dose: 80 mg Nitroglycerin (Nitrostat 0.4 Mg Tablet) 0.4 mg SL Q5MIN PRN MR X 3 PRN PRN Reason: CHEST PAIN Stop: 08/07/18 21:29 Oxycodone HCl (Oxy-Ir 5 Mg) 15 mg PO Q6H PRN PRN PRN Reason: PAIN Stop: 07/14/18 07:23 Oxymetazoline HCl (Afrin Nasal [facility]) 0 ml NS Q4HPRN PRN PRN Reason: DRY NOSE Stop: 08/08/18 07:03 Pantoprazole Sodium (Protonix 40mg Tablet) 40 mg PO DAILY [facility] Stop: 08/08/18 09:59 Last Admin: 07/09/18 09:21 Dose: 40 mg Simvastatin (Zocor 20mg) 40 mg PO [facility] Stop: 08/08/18 21:59 Spironolactone (Aldactone 25 Mg) 25 mg PO DAILY [facility] Stop: 08/08/18 09:59 Last Admin: 07/09/18 09:21 Dose: 25 mg Tizanidine HCl (Zanaflex 4 Mg) 4 mg PO HS [facility] Stop: 08/07/18 21:59 Last Admin: 07/09/18 00:15 Dose: 4 mg Topiramate (Topamax 100 Mg) 50 mg PO BID [facility] Stop: 08/08/18 09:59 Last Admin: 07/09/18 09:24 Dose: 50 mg Trazodone HCl (Desyrel 150 Mg) 150 mg PO [facility] Stop: 08/07/18 21:59 Last Admin: 07/09/18 00:15 Dose: 150 mg Intake & Output 07/08/18 07/09/18 11:59 11:59 Intake Total 1453 Balance 1453 Weight 116.1 kg Orders 07/08/18 16:59 Respiratory Therapy Assessment DAILY 07/08/18 19:00 Albuterol/Ipratropium 3ml Neb* [DUONEB 0.5-3 MG/3 ml Neb] 3 ml IH Q4HRT 07/08/18 21:13 Acetaminophen 325 mg [Tylenol 325 mg] 650 mg PO Q4H PRN PRN 07/08/18 21:30 Nitroglycerin 0.4 mg Tablet [Nitrostat 0.4 MG Tablet] 0.4 mg SL Q5MIN PRN MR X 3 PRN 07/08/18 22:00 Buspirone HCl 5 mg [Buspar 5 mg] 15 mg PO BID Carvedilol 12.5 mg [Coreg 12.5 mg] 25 mg PO BID Celecoxib 100 mg [celeBREX 100 MG] 200 mg PO BID Clonidine HCl 0.1 mg [Catapres 0.1 MG] 0.3 mg PO TID Docusate Sodium 100 mg [Colace 100 MG] 100 mg PO TID Ferrous Sulfate 325 mg [Feosol 325 mg] 325 mg PO BID Gabapentin 300 mg [Neurontin 300 mg] 300 mg PO TID Insulin Glargine [Lantus Insulin] 50 unit SQ BID Tizanidine HCl 4 mg [Zanaflex 4 MG] 4 mg PO HS Trazodone HCl 150 mg [Desyrel 150 MG] 150 mg PO HS 07/09/18 07:04 Magnesium Hydroxide 30 ml [Milk of Magnesia 30 ml] 30 ml PO Q6HPRN PRN Oxymetazoline HCl Nasal [Afrin Nasal [place]] 0 ml NS Q4HPRN PRN 07/09/18 07:15 Glucagon 1 mg [GlucaGen 1 MG] 1 mg IM PRN PRN 07/09/18 07:24 Oxycodone HCl 5 mg Ir [Oxy-IR 5 MG] 15 mg PO Q6H PRN PRN Polyvinyl Alcohol Tears [Artificial Tears 15 ML] 0 ml OP Q2H PRN PRN 07/09/18 07:30 Insulin Aspart [NovoLOG Insulin] 12 unit SQ AC 07/09/18 08:00 Metformin HCl 500 mg [Glucophage 500 MG] 500 mg PO TIDWM 07/09/18 09:20 Peak Expiratory Flow Rate ONCE 07/09/18 10:00 Aspirin EC 81 mg [Ecotrin 81 mg] 81 mg PO DAILY Azithromycin 500 mg/250 ml [Zithromax 500 MG/ 250 ML NaCl Premix] 500 mg in 250 ml IV Q24H10 Clopidogrel Bisulfate 75 mg [PLAVIX 75 MG Tablet] 75 mg PO DAILY Enoxaparin Sodium [Enoxaparin Sodium] 30 mg SQ DAILY Escitalopram Oxalate 10 mg [Lexapro 10 MG] 20 mg PO DAILY Hydrochlorothiazide 25 mg [hydroDIURIL 25 MG] 25 mg PO DAILY Isosorbide Mononitrate 30 mg [Imdur 30 MG] 30 mg PO DAILY Lisinopril 20 mg [Zestril 20 MG] 40 mg PO DAILY Loratadine 10 mg [Claritin 10 mg] 10 mg PO DAILY PANTOPRAZOLE 40 mg Tablet [Protonix 40MG Tablet] 40 mg PO DAILY Spironolactone 25 mg [Aldactone 25 MG] 25 mg PO DAILY Topiramate 100 mg [Topamax 100 MG] 50 mg PO BID 07/09/18 22:00 Simvastatin 20Mg [Zocor 20Mg] 40 mg PO HS 07/10/18 06:00 Acetaminophen 325 mg [Tylenol 325 mg] 650 mg PO 0600 07/14/18 10:00 Cyanocobalamin 1000 Mcg/ml [Cyanocobalamin B-12 1000 MCG/ML] 1,000 mcg IJ Q30D Lab Tests 07/08/18 07/08/18 07/08/18 14:00 14:00 14:00 WBC 13.3 H RBC 3.93 L Hgb 11.8 L Hct 37.5 MCV 95.4 MCH 30.0 MCHC 31.5 L RDW 13.5 Plt Count 240 MPV 9.6 H Gran % 84.3 H Eos # (Auto) 0.14 Absolute Lymphs (auto) 1.07 Absolute Monos (auto) 0.83 Lymphocytes % 8.1 L Monocytes % 6.3 Eosinophils % 1.1 Basophils % 0.2 Absolute Granulocytes 11.20 H Basophils # 0.02 PT 14.2 H INR 1.22 APTT 21.8 L D-Dimer 1662 H* pO2/FiO2 Ratio VBG pH VBG pCO2 at Pat Temp VBG pO2 at Pat Temp VBG HCO3 VBG O2 Sat (Rainer) VBG Base Excess VBG Hemoglobin VBG Carboxyhemoglobin POC Potassium Sodium 134 L Potassium 4.8 Chloride 97 L Carbon Dioxide 24 Anion Gap 17.6 H BUN 46 H Creatinine 2.11 H Estimated GFR 24.7 Glucose 184 H Lactic Acid Calcium 8.9 Total Bilirubin 0.60 AST 16 ALT 14 Alkaline Phosphatase 70 Troponin I NT-Pro-B Natriuret Pep 1770 H Serum Total Protein 8.3 H Albumin 4.1 Urine Color Urine Appearance Urine pH Ur Specific [place] Urine Protein Urine Ketones Urine Blood Urine Nitrite Urine Bilirubin Urine Urobilinogen Ur Leukocyte Esterase Urine WBC (Auto) Urine RBC (Auto) U Epithel Cells (Auto) Urine Bacteria (Auto) Urine Culture Reflexed Urine Glucose Influenza Type A Ag Influenza Type B Ag RSV (PCR) 07/08/18 07/08/18 07/08/18 14:00 14:02 14:37 WBC RBC Hgb Hct MCV MCH MCHC RDW Plt Count MPV Gran % Eos # (Auto) Absolute Lymphs (auto) Absolute Monos (auto) Lymphocytes % Monocytes % Eosinophils % Basophils % Absolute Granulocytes Basophils # PT INR APTT D-Dimer pO2/FiO2 Ratio 21.0 VBG pH 7.23 L* VBG pCO2 at Pat Temp 58 H VBG pO2 at Pat Temp 22 L VBG HCO3 24.3 VBG O2 Sat (Rainer) 39.5 L VBG Base Excess -3.9 L VBG Hemoglobin 12.1 VBG Carboxyhemoglobin 3.1 POC Potassium 4.6 Sodium Potassium Chloride Carbon Dioxide Anion Gap BUN Creatinine Estimated GFR Glucose Lactic Acid 2.6 H Calcium Total Bilirubin AST ALT Alkaline Phosphatase Troponin I < 0.012 NT-Pro-B Natriuret Pep Serum Total Protein Albumin Urine Color Urine Appearance Urine pH Ur Specific [place] Urine Protein Urine Ketones Urine Blood Urine Nitrite Urine Bilirubin Urine Urobilinogen Ur Leukocyte Esterase Urine WBC (Auto) Urine RBC (Auto) U Epithel Cells (Auto) Urine Bacteria (Auto) Urine Culture Reflexed Urine Glucose Influenza Type A Ag NEGATIVE Influenza Type B Ag NEGATIVE RSV (PCR) NEGATIVE 07/08/18 07/08/18 07/08/18 14:37 17:46 17:50 WBC RBC Hgb Hct MCV MCH MCHC RDW Plt Count MPV Gran % Eos # (Auto) Absolute Lymphs (auto) Absolute Monos (auto) Lymphocytes % Monocytes % Eosinophils % Basophils % Absolute Granulocytes Basophils # PT INR APTT D-Dimer pO2/FiO2 Ratio VBG pH VBG pCO2 at Pat Temp VBG pO2 at Pat Temp VBG HCO3 VBG O2 Sat (Rainer) VBG Base Excess VBG Hemoglobin VBG Carboxyhemoglobin POC Potassium Sodium Potassium Chloride Carbon Dioxide Anion Gap BUN Creatinine Estimated GFR Glucose Lactic Acid 2.1 H Calcium Total Bilirubin AST ALT Alkaline Phosphatase Troponin I < 0.012 NT-Pro-B Natriuret Pep Serum Total Protein Albumin Urine Color DONTRELL Urine Appearance TURBID Urine pH 5.0 Ur Specific [place] 1.025 Urine Protein 100 Urine Ketones NEGATIVE Urine Blood LARGE Urine Nitrite NEGATIVE Urine Bilirubin NEGATIVE Urine Urobilinogen NEGATIVE Ur Leukocyte Esterase LARGE Urine WBC (Auto) 51-100 Urine RBC (Auto) >101 U Epithel Cells (Auto) FEW Urine Bacteria (Auto) PACKED Urine Culture Reflexed YES Urine Glucose NEGATIVE Influenza Type A Ag Influenza Type B Ag RSV (PCR) 07/08/18 07/08/18 07/08/18 20:20 20:35 23:07 WBC RBC Hgb Hct MCV MCH MCHC RDW Plt Count MPV Gran % Eos # (Auto) Absolute Lymphs (auto) Absolute Monos (auto) Lymphocytes % Monocytes % Eosinophils % Basophils % Absolute Granulocytes Basophils # PT INR APTT D-Dimer pO2/FiO2 Ratio VBG pH VBG pCO2 at Pat Temp VBG pO2 at Pat Temp VBG HCO3 VBG O2 Sat (Rainer) VBG Base Excess VBG Hemoglobin VBG Carboxyhemoglobin POC Potassium Sodium Potassium Chloride Carbon Dioxide Anion Gap BUN Creatinine Estimated GFR Glucose Lactic Acid 2.1 H Calcium Total Bilirubin AST ALT Alkaline Phosphatase Troponin I < 0.012 < 0.012 NT-Pro-B Natriuret Pep Serum Total Protein Albumin Urine Color Urine Appearance Urine pH Ur Specific [place] Urine Protein Urine Ketones Urine Blood Urine Nitrite Urine Bilirubin Urine Urobilinogen Ur Leukocyte Esterase Urine WBC (Auto) Urine RBC (Auto) U Epithel Cells (Auto) Urine Bacteria (Auto) Urine Culture Reflexed Urine Glucose Influenza Type A Ag Influenza Type B Ag RSV (PCR) 07/09/18 07/09/18 07/09/18 02:07 05:27 05:27 WBC 10.1 RBC 4.06 L Hgb 11.8 L Hct 37.6 MCV 92.6 MCH 29.0 MCHC 31.4 L RDW 13.3 Plt Count 244 MPV 9.8 H Gran % 90.9 H Eos # (Auto) 0.01 Absolute Lymphs (auto) 0.78 L Absolute Monos (auto) 0.12 Lymphocytes % 7.7 L Monocytes % 1.2 Eosinophils % 0.1 Basophils % 0.1 Absolute Granulocytes 9.21 H Basophils # 0.01 PT INR APTT D-Dimer pO2/FiO2 Ratio VBG pH VBG pCO2 at Pat Temp VBG pO2 at Pat Temp VBG HCO3 VBG O2 Sat (Rainer) VBG Base Excess VBG Hemoglobin VBG Carboxyhemoglobin POC Potassium Sodium 134 L Potassium 5.3 H Chloride 98 Carbon Dioxide 22 Anion Gap 18.7 H BUN 47 H Creatinine 1.47 H Estimated GFR 37.5 Glucose 299 H Lactic Acid Calcium 8.8 Total Bilirubin 0.50 AST 17 ALT 14 Alkaline Phosphatase 67 Troponin I < 0.012 NT-Pro-B Natriuret Pep Serum Total Protein 8.1 Albumin 4.0 Urine Color Urine Appearance Urine pH Ur Specific [place] Urine Protein Urine Ketones Urine Blood Urine Nitrite Urine Bilirubin Urine Urobilinogen Ur Leukocyte Esterase Urine WBC (Auto) Urine RBC (Auto) U Epithel Cells (Auto) Urine Bacteria (Auto) Urine Culture Reflexed Urine Glucose Influenza Type A Ag Influenza Type B Ag RSV (PCR) Microbiology 07/08/18 14:37 Catherized Urine Culture - Preliminary GRAM NEGATIVE ID AND SENSITIVITY PENDING 07/08/18 14:37 Blood Blood Culture Gram Stain - Final 07/08/18 14:37 Blood Blood Culture Gram Stain - Final Code(s): A41.9 - SEPSIS, UNSPECIFIED ORGANISM; I95.9 - HYPOTENSION, UNSPECIFIED (2) COPD exacerbation Current Visit: Yes Status: Acute Onset Date: ~07/08/18 Code(s): J44.1 - CHRONIC OBSTRUCTIVE PULMONARY DISEASE W (ACUTE) EXACERBATION (3) UTI (urinary tract infection) Current Visit: Yes Status: Acute Onset Date: ~07/08/18 Qualifiers: Urinary tract infection type: site unspecified Hematuria presence: with hematuria Qualified Code(s): N39.0 - Urinary tract infection, site not specified; R31.9 - Hematuria, unspecified Code(s): N39.0 - URINARY TRACT INFECTION, SITE NOT SPECIFIED (4) Hypertension Current Visit: No Status: Chronic Code(s): I10 - ESSENTIAL (PRIMARY) HYPERTENSION (5) Type 2 diabetes mellitus Current Visit: No Status: Chronic Qualifiers: Diabetes mellitus mcc insulin use: with terminal block assembler use Diabetes mellitus complication status: with other specified complication Qualified Code (s): E11.69 - Type 2 diabetes mellitus with other specified complication; Z79.4 - terminal worker (current) use of insulin
[2018-07-09] MEDS: Oxy-IR 5 MG PO PRN ×2 (12:15→20:31)
[2018-07-09] MEDS: Sodium Chloride 0.9% 1000 ML 1,000 ML IV SCH (13:34)
[2018-07-09] MEDS: ZOCOR 20MG PO SCH (21:10)
[2018-07-09] MEDS ORDERED: NON-FORMULARY ITEM (Pravastatin Sodium [Pravastatin Sodium] 40 MG) PO SCH (22:00)
[2018-07-10] MEDS: solu-MEDROL 125 MG IV SCH ×5 (00:06→23:38)
[2018-07-10] MEDS: DUONEB 0.5-3 MG/3 ml Neb IH SCH ×6 (03:42→22:44)
[2018-07-10] MEDS: TYLENOL 325 MG PO SCH (05:31)
[2018-07-10] MEDS: Glucophage 500 MG PO SCH ×3 (07:57→17:11)
[2018-07-10] MEDS: NovoLOG Insulin SQ SCH ×3 (07:57→17:11)
[2018-07-10] MEDS: NovoLOG Insulin SQ PRN ×4 (07:58→21:06)
[2018-07-10] MEDS: Sodium Chloride 0.9% 1000 ML 1,000 ML IV SCH (09:47)
--- NOTE | 2018-07-10 09:47 | PCM.NOTE ---
Date and Time: 07/10/1845 Subjective Assessment: doing ok - Review of Systems Constitutional: No Fever, No Chills Eyes: No Symptoms Ears, Nose, & Throat: No Symptoms Respiratory: Orthopnea, No Cough, No Short Of Breath Cardiac: No Chest Pain, No Edema, No Syncope Abdominal/Gastrointestinal: No Abdominal Pain, No Nausea, No Vomiting, No Diarrhea Genitourinary Symptoms: No Dysuria Musculoskeletal: No Back Pain, No Neck Pain Skin: No Rash Neurological: No Dizziness, No Focal Weakness, No Sensory Changes Psychological: No Symptoms Endocrine: No Symptoms Hematologic/Lymphatic: No Symptoms Immunological/Allergic: No Symptoms Objective Exam General Appearance: no apparent distress, alert Neurologic Exam: alert, oriented x 3, cooperative, normal mood/affect, nml cerebellar function, sensation nml, No motor deficits Skin Exam: normal color, warm, dry Eye Exam: PERRL, EOMI, eyes nml inspection Ears, Nose, Throat Exam: normal ENT inspection, pharynx normal, moist mucous membranes Neck Exam: normal inspection, non-tender, supple, full range of motion Respiratory Exam: normal breath sounds, diminished breath sounds, crackles/rales , rhonchi, No respiratory distress Cardiovascular Exam: regular rate/rhythm, normal heart sounds Gastrointestinal/Abdomen Exam: soft, No tenderness, No mass Extremity Exam: normal inspection, normal range of motion Back Exam: normal inspection, normal range of motion, No CVA tenderness, No vertebral tenderness Pelvic Exam: deferred Rectal Exam: deferred OBJECTIVE DATA Vital Signs: Vital Signs - 24 hr Temp Pulse Resp BP Pulse Ox 07/10/18 08:00 20 07/10/18 07:55 98 F 66 20 198/88 96 07/10/18 06:52 72 18 98 07/10/18 04:00 14 07/10/18 03:59 97.9 F 58 L 14 190/72 99 07/10/18 03:43 56 L 18 99 07/10/18 00:00 97.9 F 63 17 148/76 98 07/09/18 23:43 60 20 98 07/09/18 21:03 71 20 98 07/09/18 20:00 98.5 F 72 20 142/63 99 07/09/18 16:00 98 F 69 20 130/77 98 07/09/18 12:00 98.2 F 76 18 151/67 99 07/09/18 11:37 73 22 98 Oxygen-Last 24 hours O2 Percentage 3 Liters = 32% O2 Percentage 4 Liters = 36% O2 Percentage 4 Liters = 36% O2 Percentage 3 Liters = 32% O2 Percentage 3 Liters = 32% O2 Percentage 3 Liters = 32% Oxygen Flowrate (L/min)-RT 3 Pain Assessment - Last Documented Pain Intensity 9 Pain Scale Used 0-10 Pain Scale Intake and Output: Intake & Output 07/07/18 07/08/18 07/09/18 07/10/18 11:59 11:59 11:59 11:59 Intake Total 1453 5532 Balance 1453 5532 Weight 116.1 kg 116.9 kg Lab Results: Accuchecks Date 07/10/18 Date 07/09/18 Date 07/09/18 Date 07/09/18 Time 07:30 Time 16:30 Time 11:59 Accucheck Value: 323 Accucheck Value: 263 Accucheck Value: 205 Accucheck Value: 307 Radiology Exams: Radiology Procedures Category Date Time Status CHEST 1 VIEW (PORTABLE) Stat Exams 07/08/18 14:03 Completed Multi-Disciplinary Progress Notes: Multi-Disciplinary Progress Notes 07/09/18 09:47 Pharmacy Note by Panda Desai PHARMACY ANTIBIOTIC CONSULT SITE OF INFECTION / DIAGNOSIS: UTI GRAM NEG SANTANA, BLOOD CULTURE GRAM VARIABLE RODS PATIENT IS ON ROCEPHIN PHARMACY RECOMMENDATIONS:START AZITHROMYCIN 500 MG IV Q24H DO TB TEST IF NOT DONE RECENTLY. Initialized on 07/09/18 09:47 - END OF NOTE Assessment/Plan (1) Sepsis associated hypotension Current Visit: Yes Status: Acute Assessment & Plan: improved Code(s): A41.9 - SEPSIS, UNSPECIFIED ORGANISM; I95.9 - HYPOTENSION, UNSPECIFIED (2) COPD exacerbation Current Visit: Yes Status: Acute Onset Date: ~07/08/18 Assessment & Plan: improving Code(s): J44.1 - CHRONIC OBSTRUCTIVE PULMONARY DISEASE W (ACUTE) EXACERBATION (3) UTI (urinary tract infection) Current Visit: Yes Status: Acute Onset Date: ~07/08/18 Qualifiers: Urinary tract infection type: site unspecified Hematuria presence: with hematuria Qualified Code(s): N39.0 - Urinary tract infection, site not specified; R31.9 - Hematuria, unspecified Code(s): N39.0 - URINARY TRACT INFECTION, SITE NOT SPECIFIED (4) Hypertension Current Visit: Yes Status: Chronic Qualifiers: Hypertension type: essential hypertension Qualified Code(s): I10 - Essential (primary) hypertension Code(s): I10 - ESSENTIAL (PRIMARY) HYPERTENSION (5) Type 2 diabetes mellitus Current Visit: No Status: Chronic Qualifiers: Diabetes mellitus computer terminal operator insulin use: with custodial use Diabetes mellitus complication status: with other specified complication Qualified Code (s): E11.69 - Type 2 diabetes mellitus with other specified complication; Z79.4 - parts counterman (current) use of insulin
[2018-07-10] MEDS: ROCEPHIN 1 Gm-D5w 50 ml Bag** 1 G/50 ML IVPB IV SCH (09:50)
[2018-07-10] MEDS: PLAVIX 75 MG Tablet PO SCH (10:41)
[2018-07-10] MEDS: BUSPAR 5 MG PO SCH ×2 (10:41→21:04)
[2018-07-10] MEDS: Imdur 30 MG PO SCH (10:42)
[2018-07-10] MEDS: Lexapro 10 MG PO SCH (10:42)
[2018-07-10] MEDS: Aldactone 25 MG PO SCH (10:42)
[2018-07-10] MEDS: Catapres 0.1 MG PO SCH ×3 (10:42→21:04)
[2018-07-10] MEDS: celeBREX 100 MG PO SCH ×2 (10:42→21:05)
[2018-07-10] MEDS: Colace 100 MG PO SCH ×3 (10:42→21:05)
[2018-07-10] MEDS: Zestril 20 MG PO SCH (10:42)
[2018-07-10] MEDS: COREG 12.5 MG PO SCH ×2 (10:42→21:05)
[2018-07-10] MEDS: CLARITIN 10 MG PO SCH (10:42)
[2018-07-10] MEDS: Topamax 100 MG PO SCH ×2 (10:43→21:05)
[2018-07-10] MEDS: ECOTRIN 81 MG PO SCH (10:43)
[2018-07-10] MEDS: NEURONTIN 300 MG PO SCH ×3 (10:43→21:05)
[2018-07-10] MEDS: hydroDIURIL 25 MG PO SCH (10:43)
[2018-07-10] MEDS: FEOSOL 325 MG PO SCH ×2 (10:43→21:05)
[2018-07-10] MEDS: ENOXAPARIN SODIUM SQ SCH (10:43)
[2018-07-10] MEDS: Protonix 40MG Tablet PO SCH (10:43)
[2018-07-10] MEDS: Lantus Insulin SQ SCH ×2 (10:43→21:05)
[2018-07-10] MEDS: Oxy-IR 5 MG PO PRN ×2 (10:49→20:24)
[2018-07-10] MEDS: Zithromax 500 MG/ 250 ML NaCl Premix 500 MG/250 ML IVPB IV SCH (10:51)
[2018-07-10] MEDS ORDERED: TRANDATE 100 MG/20 ML MDV FOR DRIP IV ONE (17:05)
[2018-07-10] MEDS: Desyrel 150 MG PO SCH (21:05)
[2018-07-10] MEDS: ZOCOR 20MG PO SCH (21:06)
[2018-07-10] MEDS: Zanaflex 4 MG PO SCH (21:06)
[2018-07-11] MEDS: DUONEB 0.5-3 MG/3 ml Neb IH SCH ×6 (02:45→23:31)
[2018-07-11] MEDS: Sodium Chloride 0.9% 1000 ML 1,000 ML IV SCH (03:59)
[2018-07-11] MEDS: TYLENOL 325 MG PO SCH (05:05)
[2018-07-11] MEDS: solu-MEDROL 125 MG IV SCH ×4 (05:05→23:26)
[2018-07-11] MEDS: Oxy-IR 5 MG PO PRN ×2 (08:11→19:51)
[2018-07-11] MEDS: ENOXAPARIN SODIUM SQ SCH (08:13)
[2018-07-11] MEDS: NovoLOG Insulin SQ SCH ×3 (08:13→16:52)
[2018-07-11] MEDS: NovoLOG Insulin SQ PRN ×4 (08:13→22:04)
[2018-07-11] MEDS: Aldactone 25 MG PO SCH (08:14)
[2018-07-11] MEDS: Imdur 30 MG PO SCH (08:14)
[2018-07-11] MEDS: FEOSOL 325 MG PO SCH ×2 (08:14→22:00)
[2018-07-11] MEDS: PLAVIX 75 MG Tablet PO SCH (08:14)
[2018-07-11] MEDS: Glucophage 500 MG PO SCH ×3 (08:14→16:53)
[2018-07-11] MEDS: NEURONTIN 300 MG PO SCH ×3 (08:14→22:03)
[2018-07-11] MEDS: BUSPAR 5 MG PO SCH ×2 (08:14→22:01)
[2018-07-11] MEDS: hydroDIURIL 25 MG PO SCH ×4 (08:14→22:01)
[2018-07-11] MEDS: Protonix 40MG Tablet PO SCH (08:15)
[2018-07-11] MEDS: Zestril 20 MG PO SCH (08:15)
[2018-07-11] MEDS: Topamax 100 MG PO SCH ×2 (08:15→22:02)
[2018-07-11] MEDS: CLARITIN 10 MG PO SCH (08:16)
[2018-07-11] MEDS: ECOTRIN 81 MG PO SCH (08:16)
[2018-07-11] MEDS: Lantus Insulin SQ SCH ×2 (08:19→22:03)
[2018-07-11] MEDS: ROCEPHIN 1 Gm-D5w 50 ml Bag** 1 G/50 ML IVPB IV SCH (08:20)
--- NOTE | 2018-07-11 09:05 | PCM.NOTE ---
Date and Time: 07/11/18902 Subjective Assessment: doing ok - Review of Systems Constitutional: No Fever, No Chills Eyes: No Symptoms Ears, Nose, & Throat: No Symptoms Respiratory: Short Of Breath, No Cough Cardiac: No Chest Pain, No Edema, No Syncope Abdominal/Gastrointestinal: No Abdominal Pain, No Nausea, No Vomiting, No Diarrhea Genitourinary Symptoms: No Dysuria Musculoskeletal: No Back Pain, No Neck Pain Skin: No Rash Neurological: No Dizziness, No Focal Weakness, No Sensory Changes Psychological: No Symptoms Endocrine: No Symptoms Hematologic/Lymphatic: No Symptoms Immunological/Allergic: No Symptoms Objective Exam General Appearance: no apparent distress, alert Neurologic Exam: alert, oriented x 3, cooperative, normal mood/affect, nml cerebellar function, sensation nml, No motor deficits Skin Exam: normal color, warm, dry Eye Exam: PERRL, EOMI, eyes nml inspection Ears, Nose, Throat Exam: normal ENT inspection, pharynx normal, moist mucous membranes Neck Exam: normal inspection, non-tender, supple, full range of motion Respiratory Exam: normal breath sounds, lungs clear, No respiratory distress Cardiovascular Exam: regular rate/rhythm, normal heart sounds Gastrointestinal/Abdomen Exam: soft, No tenderness, No mass Extremity Exam: normal inspection, normal range of motion Back Exam: normal inspection, normal range of motion, No CVA tenderness, No vertebral tenderness Pelvic Exam: deferred Rectal Exam: deferred OBJECTIVE DATA Vital Signs: Vital Signs - 24 hr Temp Pulse Resp BP Pulse Ox 07/11/18 08:00 20 07/11/18 07:14 97.8 F 86 20 171/92 97 07/11/18 07:13 76 16 99 07/11/18 04:00 15 07/11/18 03:55 97.7 F 106 H 15 186/97 98 07/11/18 02:45 106 H 15 98 07/11/18 00:44 97.7 F 72 16 139/80 96 07/11/18 00:30 97.7 F 72 16 139/80 96 07/11/18 00:00 16 07/10/18 22:44 72 16 96 07/10/18 21:00 98.6 F 105 H 18 193/88 97 07/10/18 20:00 20 07/10/18 18:06 80 20 96 07/10/18 17:59 148/87 07/10/18 16:00 99 F 82 20 205/83 96 07/10/18 14:33 72 18 98 07/10/18 12:00 18 07/10/18 11:33 98.7 F 72 18 187/77 98 07/10/18 10:49 71 20 96 Oxygen-Last 24 hours O2 Percentage 4 Liters = 36% O2 Percentage 3 Liters = 32% O2 Percentage 3 Liters = 32% O2 Percentage 3 Liters = 32% O2 Percentage 3 Liters = 32% O2 Percentage 3 Liters = 32% Pain Assessment - Last Documented Pain Intensity 9 Pain Scale Used 0-10 Pain Scale Intake and Output: Intake & Output 07/08/18 07/09/18 07/10/18 07/11/18 11:59 11:59 11:59 11:59 Intake Total 1453 5532 3556 Balance 1453 5532 3556 Weight 116.1 kg 116.9 kg 117 kg Lab Results: Accuchecks Date 07/11/18 Date 07/10/18 Date 07/10/18 Time 07:30 Time 16:30 Time 11:30 Accucheck Value: 227 Accucheck Value: 254 Accucheck Value: 214 Accucheck Value: 366 Assessment/Plan (1) Sepsis associated hypotension Current Visit: Yes Status: Acute Assessment & Plan: improved Last Vital Signs Temp 97.8 F 07/11/18 07:14 Pulse 86 07/11/18 07:14 Resp 20 07/11/18 08:00 BP 171/92 07/11/18 07:14 Pulse Ox 97 07/11/18 07:14 Allergies No Known Drug Allergies Allergy (Verified 07/19/17 20:46) Active Medications Acetaminophen (Tylenol 325 Mg) 650 mg PO Q4H PRN PRN PRN Reason: PAIN AND/OR FEVER Stop: 08/07/18 21:12 Last Admin: 07/09/18 00:15 Dose: 650 mg Acetaminophen (Tylenol 325 Mg) 650 mg PO 0600 MARJORIE Stop: 08/09/18 05:59 Last Admin: 07/11/18 05:05 Dose: 650 mg Albuterol/Ipratropium (Duoneb 0.5-3 Mg/3 Ml Neb) 3 ml IH Q4HPRN PRN PRN Reason: SHORTNESS OF BREATH/WHEEZING Stop: 08/07/18 16:03 Albuterol/Ipratropium (Duoneb 0.5-3 Mg/3 Ml Neb) 3 ml IH Q4HRT [facility] Stop: 08/07/18 18:59 Last Admin: 07/11/18 06:40 Dose: 3 ml Artificial Tears (Artificial Tears 15 Ml) 0 ml OP Q2H PRN PRN PRN Reason: DRY EYES Stop: 08/08/18 07:23 Aspirin (Ecotrin 81 Mg) 81 mg PO DAILY [facility] Stop: 08/08/18 09:59 Last Admin: 07/11/18 08:16 Dose: 81 mg Buspirone HCl (Buspar 5 Mg) 15 mg PO BID [facility] Stop: 08/07/18 21:59 Last Admin: 07/11/18 08:14 Dose: 15 mg Carvedilol (Coreg 12.5 Mg) 25 mg PO BID [facility] Stop: 08/07/18 21:59 Last Admin: 07/10/18 21:05 Dose: 25 mg Celecoxib (Celebrex 100 Mg) 200 mg PO BID [facility] Stop: 08/07/18 21:59 Last Admin: 07/10/18 21:05 Dose: 200 mg Clonidine (Catapres 0.1 Mg) 0.3 mg PO TID [facility] Stop: 08/07/18 21:59 Last Admin: 07/10/18 21:04 Dose: 0.3 mg Clopidogrel Bisulfate (Plavix 75 Mg Tablet) 75 mg PO DAILY [facility] Stop: 08/08/18 09:59 Last Admin: 07/11/18 08:14 Dose: 75 mg Cyanocobalamin (Cyanocobalamin B-12 1000 Mcg/Ml) 1,000 mcg IJ Q30D [facility] Stop: 08/13/18 09:59 Docusate Sodium (Colace 100 Mg) 100 mg PO TID [facility] Stop: 08/07/18 21:59 Last Admin: 07/10/18 21:05 Dose: 100 mg Enoxaparin Sodium (Enoxaparin Sodium) 30 mg SQ DAILY [facility] Stop: 08/08/18 09:59 Last Admin: 07/11/18 08:13 Dose: 30 mg Escitalopram Oxalate (Lexapro 10 Mg) 20 mg PO DAILY [facility] Stop: 08/08/18 09:59 Last Admin: 07/10/18 10:42 Dose: 20 mg Ferrous Sulfate (Feosol 325 Mg) 325 mg PO BID [facility] Stop: 08/07/18 21:59 Last Admin: 07/11/18 08:14 Dose: 325 mg Gabapentin (Neurontin 300 Mg) 300 mg PO TID [facility] Stop: 08/07/18 21:59 Last Admin: 07/11/18 08:14 Dose: 300 mg Glucagon (Glucagen 1 Mg) 1 mg IM PRN PRN PRN Reason: FOR HYPOGLYCEMIA Stop: 08/08/18 07:14 Hydrochlorothiazide (Hydrodiuril 25 Mg) 25 mg PO DAILY [facility] Stop: 08/08/18 09:59 Last Admin: 07/11/18 08:14 Dose: 25 mg Ceftriaxone Sodium/Dextrose (Rocephin 1 Gm-D5w 50 Ml Bag) 1 g in 50 mls @ 100 mls/hr IV Q24H10 [facility] Stop: 08/07/18 16:59 Last Admin: 07/11/18 08:20 Dose: 100 mls/hr Sodium Chloride (Sodium Chloride 0.9% 1000 Ml) 1,000 mls @ 50 mls/hr IV .Q20H [facility] Stop: 08/07/18 16:03 Last Admin: 07/11/18 03:59 Dose: 50 mls/hr Azithromycin (Zithromax 500 Mg/ 250 Ml Nacl Premix) 500 mg in 250 mls @ 125 mls /hr IV Q24H10 [facility] Stop: 08/08/18 09:59 Last Admin: 07/10/18 10:51 Dose: 125 mls/hr Insulin Aspart (Novolog Insulin) 0 unit SQ UD PRN PRN Reason: HYPERGLYCEMIA Stop: 08/07/18 16:03 Last Admin: 07/11/18 08:13 Dose: 2 unit Insulin Aspart (Novolog Insulin) 12 unit SQ AC [facility] Stop: 08/08/18 07:29 Last Admin: 07/11/18 08:13 Dose: 12 unit Insulin Glargine (Lantus Insulin) 50 unit SQ BID [facility] Stop: 08/07/18 21:59 Last Admin: 07/11/18 08:19 Dose: 50 unit Isosorbide Mononitrate (Imdur 30 Mg) 30 mg PO DAILY [facility] Stop: 08/08/18 09:59 Last Admin: 07/11/18 08:14 Dose: 30 mg Lisinopril (Zestril 20 Mg) 40 mg PO DAILY [facility] Stop: 08/08/18 09:59 Last Admin: 07/11/18 08:15 Dose: 40 mg Loratadine (Claritin 10 Mg) 10 mg PO DAILY [facility] Stop: 08/08/18 09:59 Last Admin: 07/11/18 08:16 Dose: 10 mg Magnesium Hydroxide (Milk Of Magnesia 30 Ml) 30 ml PO Q6HPRN PRN PRN Reason: INDIGESTION Stop: 08/08/18 07:03 Metformin HCl (Glucophage 500 Mg) 500 mg PO TIDWM [facility] Stop: 08/08/18 07:59 Last Admin: 07/11/18 08:14 Dose: 500 mg Methylprednisolone Sodium Succinate (Solu-Medrol 125 Mg) 80 mg IV Q6HT [facility] Stop: 08/07/18 17:59 Last Admin: 07/11/18 05:05 Dose: 80 mg Nitroglycerin (Nitrostat 0.4 Mg Tablet) 0.4 mg SL Q5MIN PRN MR X 3 PRN PRN Reason: CHEST PAIN Stop: 08/07/18 21:29 Oxycodone HCl (Oxy-Ir 5 Mg) 15 mg PO Q6H PRN PRN PRN Reason: PAIN Stop: 07/14/18 07:23 Last Admin: 07/11/18 08:11 Dose: 15 mg Oxymetazoline HCl (Afrin Nasal [place]) 0 ml NS Q4HPRN PRN PRN Reason: DRY NOSE Stop: 08/08/18 07:03 Pantoprazole Sodium (Protonix 40mg Tablet) 40 mg PO DAILY [facility] Stop: 08/08/18 09:59 Last Admin: 07/11/18 08:15 Dose: 40 mg Simvastatin (Zocor 20mg) 40 mg PO HS [facility] Stop: 08/08/18 21:59 Last Admin: 07/10/18 21:06 Dose: 40 mg Spironolactone (Aldactone 25 Mg) 25 mg PO DAILY [facility] Stop: 08/08/18 09:59 Last Admin: 07/11/18 08:14 Dose: 25 mg Tizanidine HCl (Zanaflex 4 Mg) [address] [facility] Stop: 08/07/18 21:59 Last Admin: 07/10/18 21:06 Dose: 4 mg Topiramate (Topamax 100 Mg) 50 mg PO BID [facility] Stop: 08/08/18 09:59 Last Admin: 07/11/18 08:15 Dose: 50 mg Trazodone HCl (Desyrel 150 Mg) 150 [address] PO [facility] Stop: 08/07/18 21:59 Last Admin: 07/10/18 21:05 Dose: 150 mg Intake & Output 07/10/18 07/11/18 11:59 11:59 Intake Total 5532 3556 Balance 5532 3556 Weight 116.9 kg 117 kg Orders 07/14/18 10:00 Cyanocobalamin 1000 Mcg/ml [Cyanocobalamin B-12 1000 MCG/ML] 1,000 mcg IJ Q30D Microbiology 07/08/18 14:37 Blood Blood Culture Gram Stain - Final 07/08/18 14:37 Blood Blood Culture - Final Escherichia Coli 07/08/18 14:37 Blood Blood Culture Gram Stain - Final 07/08/18 14:37 Blood Blood Culture - Final Escherichia Coli 07/08/18 14:37 Catherized Urine Culture - Final Klebsiella Pneumoniae Escherichia Coli Code(s): A41.9 - SEPSIS, UNSPECIFIED ORGANISM; I95.9 - HYPOTENSION, UNSPECIFIED (2) COPD exacerbation Current Visit: Yes Status: Acute Onset Date: ~07/08/18 Assessment & Plan: improved Code(s): J44.1 - CHRONIC OBSTRUCTIVE PULMONARY DISEASE W (ACUTE) EXACERBATION (3) UTI (urinary tract infection) Current Visit: Yes Status: Acute Onset Date: ~07/08/18 Qualifiers: Urinary tract infection type: site unspecified Hematuria presence: with hematuria Assessment & Plan: resolved Code(s): N39.0 - URINARY TRACT INFECTION, SITE NOT SPECIFIED (4) Hypertension Current Visit: Yes Status: Chronic Qualifiers: Hypertension type: essential hypertension Qualified Code(s): I10 - Essential (primary) hypertension Code(s): I10 - ESSENTIAL (PRIMARY) HYPERTENSION (5) Type 2 diabetes mellitus Current Visit: No Status: Chronic Qualifiers: Diabetes mellitus terminal manager insulin use: with terminal manager use Diabetes mellitus complication status: with other specified complication Qualified Code (s): E11.69 - Type 2 diabetes mellitus with other specified complication; Z79.4 - [facility]DC (current) use of insulin
[2018-07-11] MEDS: Zithromax 500 MG/ 250 ML NaCl Premix 500 MG/250 ML IVPB IV SCH (10:26)
[2018-07-11] MEDS: Catapres 0.1 MG PO SCH ×3 (10:26→22:00)
[2018-07-11] MEDS: Lexapro 10 MG PO SCH (10:27)
[2018-07-11] MEDS: COREG 12.5 MG PO SCH ×2 (10:27→22:01)
[2018-07-11] MEDS: Colace 100 MG PO SCH ×3 (10:27→22:02)
[2018-07-11] MEDS: celeBREX 100 MG PO SCH ×2 (10:50→22:02)
[2018-07-11] MEDS: Desyrel 150 MG PO SCH (22:01)
[2018-07-11] MEDS: ZOCOR 20MG PO SCH (22:02)
[2018-07-11] MEDS: Zanaflex 4 MG PO SCH (22:03)
[2018-07-12] MEDS: Sodium Chloride 0.9% 1000 ML 1,000 ML IV SCH (02:35)
[2018-07-12] MEDS: DUONEB 0.5-3 MG/3 ml Neb IH SCH ×3 (03:50→10:26)
[2018-07-12] MEDS: TYLENOL 325 MG PO SCH (05:57)
[2018-07-12] MEDS: solu-MEDROL 125 MG IV SCH ×2 (05:57→11:25)
[2018-07-12] MEDS: Catapres 0.1 MG PO SCH (07:36)
[2018-07-12] MEDS: NovoLOG Insulin SQ SCH ×2 (07:37→11:25)
[2018-07-12] MEDS: COREG 12.5 MG PO SCH (07:37)
[2018-07-12] MEDS: hydroDIURIL 25 MG PO SCH (07:37)
[2018-07-12] MEDS: Glucophage 500 MG PO SCH ×2 (07:37→11:25)
[2018-07-12] MEDS: Zestril 20 MG PO SCH (07:37)
[2018-07-12] MEDS: BUSPAR 5 MG PO SCH (08:51)
[2018-07-12] MEDS: ROCEPHIN 1 Gm-D5w 50 ml Bag** 1 G/50 ML IVPB IV SCH (08:51)
[2018-07-12] MEDS: Aldactone 25 MG PO SCH (08:51)
[2018-07-12] MEDS: celeBREX 100 MG PO SCH (08:52)
[2018-07-12] MEDS: ENOXAPARIN SODIUM SQ SCH (08:53)
[2018-07-12] MEDS: ECOTRIN 81 MG PO SCH (08:53)
[2018-07-12] MEDS: Colace 100 MG PO SCH (08:53)
[2018-07-12] MEDS: CLARITIN 10 MG PO SCH (08:53)
[2018-07-12] MEDS: Imdur 30 MG PO SCH (08:54)
[2018-07-12] MEDS: FEOSOL 325 MG PO SCH (08:54)
[2018-07-12] MEDS: Lexapro 10 MG PO SCH (08:55)
[2018-07-12] MEDS: NEURONTIN 300 MG PO SCH (08:55)
[2018-07-12] MEDS: PLAVIX 75 MG Tablet PO SCH (08:55)
[2018-07-12] MEDS: Lantus Insulin SQ SCH (08:56)
[2018-07-12] MEDS: Protonix 40MG Tablet PO SCH (08:56)
[2018-07-12] MEDS: Topamax 100 MG PO SCH (08:56)
[2018-07-12] MEDS: Zithromax 500 MG/ 250 ML NaCl Premix 500 MG/250 ML IVPB IV SCH (09:43)
[2018-07-12 10:31] VITALS: PULSE 73; O2SAT 98
[2018-07-12] MEDS: NovoLOG Insulin SQ PRN (11:25)
[2018-07-12 12:30] VITALS: BP 169/80
--- NOTE | 2018-07-12 12:39 | PCM.DS ---
Discharge Summary Date of Admission: 07/09/18 11:49 Admitting Physician: CONCHIS CHILDS Primary Care Provider: CONCHIS CHILDS Allergies Allergies No Known Drug Allergies Allergy (Verified 07/19/17 20:46) Hospital Summary - Hospital Course Hospital Course: Last Vital Signs Temp 98.2 F 07/12/18 12:00 Pulse 73 07/12/18 12:00 Resp 20 07/12/18 12:00 BP 169/80 07/12/18 12:00 Pulse Ox 98 07/12/18 12:00 Allergies No Known Drug Allergies Allergy (Verified 07/19/17 20:46) Intake & Output 07/12/18 07/13/18 11:59 11:59 Intake Total 3411 Balance 3411 Weight 118 kg Orders 07/12/18 Discharge Routine Discharge/Telephone Order Routine - Vitals & Intake/Output Vital Signs: Vital Signs Temperature 98.2 F 07/12/18 12:00 Pulse Rate 73 07/12/18 12:00 Respiratory Rate 20 07/12/18 12:00 Blood Pressure 169/80 07/12/18 12:00 O2 Sat by Pulse Oximetry 98 07/12/18 12:00 Oxygen-Last Documented O2 Percentage 4 Liters = 36% Intake & Output: Intake & Output 07/10/18 07/11/18 07/12/18 07/13/18 11:59 11:59 11:59 11:59 Intake Total 5532 3556 3411 Balance 5532 3556 3411 Weight 116.9 kg 117 kg 118 kg - Lab Result Diagrams: 07/09/18 05:27 07/09/18 05:27 Lab Results-Last 24 Hrs: Accuchecks Date 07/12/18 Date 07/12/18 Date 07/11/18 Time 11:15 Time 07:30 Time 16:30 Accucheck Value: 291 Accucheck Value: 189 Accucheck Value: 229 Accucheck Value: 98 Micro Results-Entire Visit: Microbiology 07/08/18 14:37 Blood Culture Gram Stain - Final Blood Blood Culture - Final Escherichia Coli 07/08/18 14:37 Blood Culture Gram Stain - Final Blood Blood Culture - Final Escherichia Coli 07/08/18 14:37 Urine Culture - Final Catherized Klebsiella Pneumoniae Escherichia Coli Accuchecks Date 07/12/18 Date 07/12/18 Date 07/11/18 Time 11:15 Time 07:30 Time 16:30 Accucheck Value: 291 Accucheck Value: 189 Accucheck Value: 229 Accucheck Value: 98 - Procedures and Test Procedures and Tests throughout Hospitalization: Therapy Orders & Screens 07/08/18 13:50 Respiratory Nebulizer STAT Comment: Diagnosis: Shortness of Breath 07/08/18 14:08 Respiratory Therapy Assessment DAILY Comment: Diagnosis: Shortness of Breath 07/08/18 16:04 Oxygen Nasal Cannula 4 lpm Comment: Diagnosis: Shortness of Breath Respiratory Therapy Consult ROUTINE Comment: Reason For Exam: Diagnosis: Shortness of Breath 07/08/18 16:42 RT Screen per Nursing Assess ONCE Comment: Protocol Order Physician Instructions: Greater than 3 points order RT Admission Screen Reason For Exam: Triggered on Admission Diagnosis: SOB, COPD EXACERBATION, UTI Diagnosis: SOB, COPD EXACERBATION, UTI Pneumonia: No Home O2: Yes: HS Asthma: No CHF: No Home CPAP/BIPAP: No Home Nebs/MDI: Yes Total Points: 10 07/08/18 16:59 Respiratory Therapy Assessment DAILY Comment: Diagnosis: SOB, COPD EXACERBATION, UTI 07/09/18 09:20 Peak Expiratory Flow Rate ONCE Comment: Reason For Exam: Diagnosis: SOB, COPD EXACERBATION, UTI 07/11/18 10:23 PT Eval & Treat (MD Order) ROUTINE Reason for Eval:: WEAKNESS AND DECONDITIONING DT PNEUMONIA Diagnosis: SOB for 1 day Discharge Exam General Appearance: no apparent distress, alert Neurologic Exam: alert, oriented x 3, cooperative, normal mood/affect, nml cerebellar function, sensation nml, No motor deficits Skin Exam: normal color, warm, dry Eye Exam: PERRL, EOMI, eyes nml inspection Ears, Nose, Throat Exam: normal ENT inspection, pharynx normal, moist mucous membranes Neck Exam: normal inspection, non-tender, supple, full range of motion Respiratory Exam: normal breath sounds, lungs clear, No respiratory distress Cardiovascular Exam: regular rate/rhythm, normal heart sounds Gastrointestinal/Abdomen Exam: soft, No tenderness, No mass Extremity Exam: normal inspection, normal range of motion Back Exam: normal inspection, normal range of motion, No CVA tenderness, No vertebral tenderness Pelvic Exam: deferred Rectal Exam: deferred Final Diagnosis/Problem List - Final Discharge Diagnosis/Problem (1) Sepsis associated hypotension Status: Resolved (2) COPD exacerbation Status: Resolved Onset Date: ~07/08/18 (3) UTI (urinary tract infection) Status: Resolved Onset Date: ~07/08/18 (4) Hypertension Status: Chronic (5) Type 2 diabetes mellitus Status: Chronic - Discharge Discharge Date: 07/12/18 Disposition: [facility] Condition: Stable Prescriptions: New Cephalexin Mh 500 mg [Keflex 500 mg] 500 mg PO QID 7 Days #28 capsule Continue Tizanidine HCl 4 mg [Zanaflex 4 MG] 4 mg PO HS Pravastatin Sodium 40 mg PO QHS Loratadine 10 mg [Claritin 10 mg] 10 mg PO DAILY Insulin Detemir [Levemir] 50 unit SQ BID Insulin Aspart [NovoLOG Insulin] 12 unit SQ AC Lisinopril 10 mg [Zestril 10 MG] 40 mg PO DAILY Isosorbide Mononitrate 30 mg [Imdur 30 MG] 30 mg PO DAILY Docusate Sodium 100 mg [Colace 100 MG] 100 mg PO TID Cyanocobalamin 1000 Mcg/ml [Cyanocobalamin B-12 1000 MCG/ML] 1,000 mcg IJ UD Clopidogrel Bisulfate 75 mg [PLAVIX 75 MG Tablet] 75 mg PO DAILY Celecoxib 100 mg [celeBREX 100 MG] 200 mg PO BID Carvedilol 12.5 mg [Coreg 12.5 mg] 25 mg PO BID PANTOPRAZOLE 40 mg Tablet [Protonix 40MG Tablet] 40 mg PO DAILY Aspirin 81 mg PO DAILY Acetaminophen 325 mg [Tylenol 325 mg] 650 mg PO Q4H PRN PRN Reason: Pain And/Or Fever Buspirone HCl 15 mg PO BID Metformin HCl 500 mg [Glucophage 500 MG] 500 mg PO TID Ferrous Sulfate 325 mg [Feosol 325 mg] 325 mg PO BID Trazodone HCl 150 mg PO HS Nitroglycerin 0.4 mg Tablet [Nitrostat 0.4 MG Tablet] 0.4 mg SL UD PRN PRN Reason: Chest Pain Clonidine HCl 0.1 mg [Catapres 0.1 MG] 0.3 mg PO TID Acetaminophen 325 mg [Tylenol 325 mg] 650 mg PO 0600 Oxycodone HCl 15 mg PO Q6HPRN PRN PRN Reason: Pain Gabapentin 300 mg PO TID Escitalopram Oxalate 10 mg [Lexapro 10 MG] 20 mg PO DAILY Carboxymethylcellulose Sodium [Refresh Plus] 1 each OP Q2H/PRN PRN PRN Reason: dryness Spironolactone 25 mg [Aldactone 25 MG] 25 mg PO DAILY Oxymetazoline HCl [Nasal [place]] 30 ml NS Q4HPRN PRN PRN Reason: DRY NOSE Insulin Aspart [NovoLOG Insulin] 1 unit SQ UD PRN PRN Reason: Hyperglycemia Magnesium Hydroxide 30 ml [Milk of Magnesia 30 ml] 30 ml PO Q6HPRN PRN PRN Reason: Indigestion Glucagon 1 mg [GlucaGen 1 MG] 1 mg IM UD Sodium Phosphate,[place]-Dibasic [Enema] 1 applic RC DAILY PRN PRN PRN Reason: Constipation Topiramate 25 mg [Topamax 25 MG] 50 mg PO BID Hydrochlorothiazide 25 mg [hydroDIURIL 25 MG] 25 mg PO TID #90 tablet Additional Instructions: [facility] ORDERS: PT/OT TO EVAL AND TREAT 1800 ADA DIET ACCUCHECKS AC/HS 3-4L O2/NC AT NOC AND PRN ACTIVITY TOLERATED Follow up with: CONCHIS CHILDS MD [Primary Care Provider] - 1 Week
[2018-07-14] MEDS ORDERED: Cyanocobalamin B-12 1000 MCG/ML IJ SCH (10:00)
== END 2018-07-12 11:50 | DRG 872 ==
LOC: ED 13:15 → MED SURG 15:59 → OBSVTOIN 07-09 11:49
PROVIDERS: ADMIT General Practice; ATTEND General Practice
DX: A41.9 Sepsis, unspecified organism (principal); J44.1 Chronic obstructive pulmonary disease with (acute) exacerbation; N39.0 Urinary tract infection, site not specified; I95.9 Hypotension, unspecified; R79.1 Abnormal coagulation profile; E11.9 Type 2 diabetes mellitus without complications; I10 Essential (primary) hypertension; Z86.73 Personal history of transient ischemic attack (TIA), and cerebral infarction without residual deficits; Z95.1 Presence of aortocoronary bypass graft; Z79.01 Long term (current) use of anticoagulants; Z79.899 Other long term (current) drug therapy; Z79.4 Long term (current) use of insulin; R53.83 Other fatigue; R53.1 Weakness
CPT/HCPCS: 36000; 36415; 71045; 80053; 81001; 82805; 82962; 83605; 83880; 84484; 85025; 85379; 85610; 85730; 87040; 87077; 87086; 87186; 87631; 93005; 93041; 93268; 94150; 94640; 94760; 94762; 97161; 99285; G0378; P9612; J0456; J0696; J1650; J2930; J7609; A9270-GY

== ENCOUNTER 2021-03-23 07:42 | Inpatient (IN) | payer MEDICARE ==
[2021-03-23] MEDS ORDERED: Sodium Chloride 0.9% 1000 ML 1,000 ML ONE ×3 (07:52→11:55)
[2021-03-23] MEDS ORDERED: EPINEPHRINE 1MG/ML AMP ONE (08:05)
[2021-03-23] MEDS ORDERED: EPINEPHRINE ABBOJECT 1 MG ONE (08:06)
[2021-03-23] MEDS ORDERED: Amidate 20 MG/10 ML IV ONE (08:15)
[2021-03-23 08:19] LABS: Absolute Neutrophil Ct (ANC) 5.58 (1.4-6.9); BASOPHIL % 0.1 % (0.0-0.4); Basophil (Absolute #) 0.01 (0-0.4); Eosinophil % 0.4 % (0.00-5.0); Eosinophil (Absolute #) 0.04 (0-0.5); Hematocrit 34.6 % (35-47); Hemoglobin 10.7 gm/dl (12.0-16.0); Lymphocyte (Absolute #) 3.35 (1.0-4.6); Lymphocytes % 33.7 % (24.0-44.0); Mean Cell Volume 106.1 fl (78-100); Mean Corpuscular Hemoglobin 32.8 pg (26-32); Mean Corpuscular Hgb Concent. 30.9 g/dl (32-36); Mean Platelet Volume 9.5 fl (7.5-11.0); Monocyte (Absolute #) 0.95 (0.0-1.3); Monocytes % 9.6 % (0.0-12.0); Neutrophil % 56.2 % (36.0-66.0); Platelet Count 169 K/mm3 (150-450); Red Blood Count 3.26 M/mm3 (4.1-5.4); Red Cell Distribution Width 16.1 % (11.5-14.0); White Blood Count 9.9 K/mm3 (4.0-10.5)
[2021-03-23] MEDS ORDERED: VERSED 5 MG/5 ML IV ONE (08:20)
[2021-03-23] MEDS ORDERED: Versed 50 MG/ 10 Ml MDV*** 50 MG in Sodium Chloride 0.9% 250 ML 240 ML IV PRN ×2 (08:25→12:48)
[2021-03-23] MEDS ORDERED: Zithromax 500 MG/ 250 ML NaCl Premix 500 MG/250 ML IVPB IV STA (08:26)
[2021-03-23] MEDS ORDERED: Zosyn 3.375 GM Vial 3.375 GM in Sodium Chloride 100ML MINI-BAG PLUS 100 ML IV ONE (08:26)
[2021-03-23] MEDS ORDERED: Quelicin Fliptop 200 MG/10 ML IV ONE (08:26)
--- NOTE | 2021-03-23 08:30 | ERPHSYRPT ---
- History of Present Illness Time Seen by Provider: 03/23/21 07:42 Source: EMS Exam Limitations: clinical condition Patient Subjective Stated Complaint: unresponsive Triage Nursing Assessment: Patient brought into ED per EMS and transferred to bed with asssit of 4. Patient unresponsive at this time. EMS was called for decline in condition. Patient has no gag reflex at this time. Rhonchi and wheezing noted throughout. Physician History: 70 years old female resident of retirement with history of hypertension, hyperlipidemia, diabetes mellitus, coronary artery disease, COPD is brought in the ER after patient was found unresponsive this morning. She had coarse crackles, given DuoNeb by EMS and is currently on nonrebreather with saturation around 98% on presentation. Patient has no response to sternal rub and no gag reflex and is promptly intubated. Further history is limited. Timing/Duration: today Severity: severe Modifying Factors: Improves With: nothing Allergies/Adverse Reactions: No Known Drug Allergies Allergy (Verified 07/19/17 20:46) Home Medications: Carvedilol 12.5 mg [Coreg 12.5 mg] 25 mg PO BID 01/01/15 [History] Clopidogrel Bisulfate 75 mg [PLAVIX 75 MG Tablet] 75 mg PO DAILY 01/01/15 [History] Cyanocobalamin 1000 Mcg/ml [Cyanocobalamin B-12 1000 MCG/ML] 1,000 mcg IJ UD 01/01/15 [History] Docusate Sodium 100 mg [Colace 100 MG] 100 mg PO TID 01/01/15 [History] Insulin Detemir [Levemir] 45 unit SQ HS 01/01/15 [History] Isosorbide Mononitrate 30 mg [Imdur 30 MG] 30 mg PO DAILY 01/01/15 [History] Loratadine 10 mg [Claritin 10 mg] 10 mg PO DAILY 01/01/15 [History] Pravastatin Sodium 40 mg PO QHS 01/01/15 [History] Acetaminophen 325 mg [Tylenol 325 mg] 650 mg PO Q4H PRN 07/21/15 [History] Aspirin 81 mg PO DAILY 07/21/15 [History] PANTOPRAZOLE 40 mg Tablet [Protonix 40MG Tablet] 40 mg PO DAILY 07/21/15 [ History] Ferrous Sulfate 325 mg [Feosol 325 mg] 325 mg PO BID 03/19/17 [History] Metformin HCl 500 mg [Glucophage 500 MG] 500 mg PO TID 03/19/17 [History] Nitroglycerin 0.4 mg Tablet [Nitrostat 0.4 MG Tablet] 0.4 mg SL UD PRN 03/19/17 [History] Trazodone HCl 25 mg PO HS 03/19/17 [History] Acetaminophen 325 mg [Tylenol 325 mg] 650 mg PO 0600 03/23/17 [History] Clonidine HCl 0.1 mg [Catapres 0.1 MG] 0.3 mg PO BID 03/23/17 [History] Oxycodone HCl 5 mg PO HSPRN PRN 03/23/17 [History] Carboxymethylcellulose Sodium [Refresh Plus] 1 each OP Q2H/PRN PRN 06/22/17 [History] Escitalopram Oxalate 10 mg [Lexapro 10 MG] 20 mg PO DAILY 06/22/17 [History] Gabapentin 300 mg PO TID 06/22/17 [History] Glucagon 1 mg [GlucaGen 1 MG] 1 mg IM UD 07/08/18 [History] Insulin Aspart [NovoLOG Insulin] 1 unit SQ UD PRN 07/08/18 [History] Magnesium Hydroxide 30 ml [Milk of Magnesia 30 ml] 30 ml PO Q6HPRN PRN 07/08/18 [History] Oxymetazoline HCl [Nasal Isabel] 30 ml NS Q4HPRN PRN 07/08/18 [History] Sodium Phosphate,[place]-Dibasic [Enema] 1 applic RC DAILY PRN PRN 07/08/18 [History] Spironolactone 25 mg [Aldactone 25 MG] 25 mg PO DAILY 07/08/18 [History] Hydrochlorothiazide 25 mg [hydroDIURIL 25 MG] 25 mg PO DAILY 03/23/21 [History] Hx Tetanus, Diphtheria Vaccination/Date Given: Yes Hx Influenza Vaccination/Date Given: Yes Hx Pneumococcal Vaccination/Date Given: Yes Immunizations Up to Date: Yes Travel Risk - International Travel Have you traveled outside of the country in past 3 weeks: No - Coronavirus Screening Are you exhibiting any of the following symptoms?: No Close contact with a COVID-19 positive Pt in past 14-21 Days: No - Vaccine Status Have you recieved a Covid-19 vaccination: No [employer] Hand: Unknown - Vaccination Dates Dates if Unknown: unknown - Review of Systems All Other Systems: Unable due to condition - Past Medical History Pertinent Past Medical History: Yes Neurological History: Stroke, TIA ENT History: No Pertinent History Cardiac History: High Cholesterol, Hypertension, Other Respiratory History: COPD Endocrine Medical History: Diabetes Type II Musculoskeletal History: Other GI Medical History: GERD History: No Pertinent History Psycho-Social History: Anxiety, Depression Female Reproductive Disorders: No Pertinent History Other Medical History: CHRONIC PAIN. PERIPHERAL NEUROPATHY. HYPERLIPEDEMIA. ANGINA PECTORIS. ALLERGIC RHINITIS. ARTHRITIS. CHRONIC HEADACHE. ESOPAHGITIS - Past Surgical History Past Surgical History: Yes Neuro Surgical History: No Pertinent History Cardiac: CABG, Cardiac Catheterization, Cardiac Stent Respiratory: No Pertinent History Gastrointestinal: No Pertinent History Genitourinary: No Pertinent History Musculoskeletal: No Pertinent History Female Surgical History: Other Other Surgical History: HIP SURGERY - Social History Smoking Status: Never smoker Exposure to second hand smoke: No Drug Use: none Patient Lives Alone: No ([facility] retirement) - Female History Hx Now: No - Nursing Vital Signs Nursing Vital Signs: Initial Vital Signs Temperature 97.5 F 03/23/21 07:51 Pulse Rate 98 H 03/23/21 07:51 Respiratory Rate 35 H 03/23/21 07:51 Blood Pressure 83/53 03/23/21 07:51 O2 Sat by Pulse Oximetry 100 03/23/21 07:51 Pain Scale Pain Intensity 0 - Physical Exam General Appearance: moderate distress, other Eye Exam: eyes nml inspection, other (Bilateral 3 mm pupils reacting to light) Ears, Nose, Throat Exam: normal ENT inspection, TMs normal, pharyngeal erythema Neck Exam: normal inspection, supple Respiratory Exam: diminished breath sounds, crackles/rales, rhonchi, wheezing Cardiovascular Exam: regular rate/rhythm, normal heart sounds Gastrointestinal/Abdomen Exam: soft, No tenderness Back Exam: normal inspection Extremity Exam: normal inspection, pelvis stable Neurologic Exam: other (Plantars downgoing bilaterally. 2+ reflexes in upper and lower extremities bilaterally.), No alert, No oriented x 3 Skin Exam: normal color SpO2 Interpretation: O2 applied SpO2: 100 O2 Delivery: Non-rebreather Procedures - Central Line Time Of Procedure: 10:01 Timeout: Performed Central Line Lumen: triple Lumen Size: 7 [place] Central Line Procedure: chlorahexadine prep Central Line Postion: femoral (R) Anesthesia: 1% Lidocaine cc's of anesthesia: 3 Ultrasound Guided Placement: Yes Complications: none Central Line Post Position: sutured - Intubation Time of Intubation: 08:13 Intubation Indications: airway protection, respiratory distress Intubation Method: glidescope Tube Size (cm): 7.5 Medications: Etomidate, Succinylcholine Endotracheal Tube Confirmation: bilateral breath sounds, positive end tidal CO2, good rise & fall of chest, stable or inc of O2 sat Intubation Complications: no complications Performed By: ED Physician Post Intubation Xray: Yes - Course EKG Interpreted by Me: RATE (100), Sinus Rhythm, NORMAL AXIS, NORMAL INTERVALS, Q-wave (Inferior anteroseptal) Ordered Tests: Active Orders 24 hr Category Date Time Status Admit as Inpatient ROUTINE Care 03/23/21 12:46 Active CO2 Monitoring ROUTINE Care 03/23/21 08:42 Completed Catheter-[place] STAT Care 03/23/21 08:06 Completed Code Status Order ROUTINE Care 03/23/21 12:46 Active IV Care Q4H Care 03/23/21 12:46 Active Neuro Checks Q4H Care 03/23/21 12:46 Active POCT Glucose Check ACHS Care 03/23/21 12:46 Active Donta Hose, Apply ROUTINE Care 03/23/21 12:46 Active Weight,Daily 0600 Care 03/23/21 12:46 Active CHEST 1 VIEW (PORTABLE) Stat Exams 03/23/21 08:05 Completed CHEST 1 VIEW (PORTABLE) Stat Exams 03/23/21 08:39 Completed HEAD WITHOUT CONTRAST [CT] Stat Exams 03/23/21 08:06 Completed ABG [ARTERIAL BLOOD GASES] Routine Lab 03/23/21 11:57 Completed ABG [ARTERIAL BLOOD GASES] Urgent Lab 03/23/21 08:10 Completed BMP Stat Lab 03/23/21 10:00 Completed CBC W DIFF AM.LAB Lab 03/24/21 04:00 Ordered CBC W DIFF Stat Lab 03/23/21 08:15 Completed CMP AM.LAB Lab 03/24/21 04:00 Ordered CMP Stat Lab 03/23/21 08:15 Completed CULTURE,URINE Stat Lab 03/23/21 09:00 Received Lactic Acid Stat Lab 03/23/21 08:10 Completed MAGNESIUM Stat Lab 03/23/21 08:15 Completed Manual Differential NC Stat Lab 03/23/21 08:15 Completed NT PRO BNP Stat Lab 03/23/21 08:15 Completed PROCALCITONIN Stat Lab 03/23/21 08:15 Completed TROPONIN Q3H Lab 03/23/21 08:15 Completed TROPONIN Q3H Lab 03/23/21 11:10 Completed TROPONIN Q3H Lab 03/23/21 14:15 Completed UA W/RFX UR CULTURE Stat Lab 03/23/21 08:31 Completed Urine Triage Profile Stat Lab 03/23/21 09:00 Completed Intubate Patient ROUTINE RT 03/23/21 08:37 Completed Vent Settings [Ventilator Management] ROUTINE RT 03/23/21 08:38 Completed Transfer Order Routine Transfer 03/23/21 Completed Medication Summary Generic Name Dose Route Start Last Admin Trade Name Freq PRN Reason Stop Dose Admin Atropine Sulfate 0.2 ml 03/23/21 17:58 03/23/21 18:27 Atropine Sulfate 1% 5 Ml Eye Drops PO 04/22/21 17:57 0.2 ml UD PRN Administration secretions Fentanyl Citrate 1,500 mcg/ 150 mls @ 3.67 mls/hr 03/23/21 13:00 03/23/21 13:04 Sodium Chloride IV 03/28/21 12:59 0.5 mcg/kg/hr .Q24H MARJORIE 3.67 mls/hr Administration Protocol 0.5 MCG/KG/HR Discontinued Medications Generic Name Dose Route Start Last Admin Trade Name Freq PRN Reason Stop Dose Admin Albuterol/Ipratropium 3 ml 03/23/21 13:00 03/23/21 14:26 Ipratropium/Albuterol Sulfate 3 Ml Ampul.Neb IH 04/22/21 12:59 Not Given Q6HRT MARJORIE Albuterol/Ipratropium 3 ml 03/23/21 14:27 Ipratropium/Albuterol Sulfate 3 Ml Ampul.Neb IH 04/22/21 14:25 Q4HPRN PRN SHORTNESS OF BREATH/WHEEZING Epinephrine HCl Confirm 03/23/21 08:05 Epinephrine 1mg/Ml Amp Administered 03/23/21 08:06 Dose 1 mg .ROUTE .STK-MED ONE Epinephrine HCl Confirm 03/23/21 08:06 Epinephrine Abboject 1 Mg Administered 03/23/21 08:07 Dose 1 mg .ROUTE .STK-MED ONE Etomidate 10 mg 03/23/21 08:15 03/23/21 08:00 Amidate 20 Mg/10 Ml IV 03/23/21 08:16 10 mg STAT ONE Administration Famotidine 20 mg 03/23/21 12:46 03/23/21 13:48 Famotidine 20 Mg/1 Vial IV 04/22/21 12:45 Not Given Q12HT MARJORIE Sodium Chloride Confirm 03/23/21 07:52 Sodium Chloride 0.9% 1000 Ml Administered 03/23/21 07:53 Dose 1,000 mls @ ud .ROUTE .STK-MED ONE Sodium Chloride Confirm 03/23/21 08:20 Sodium Chloride 0.9% 1000 Ml Administered 03/23/21 08:21 Dose 1,000 mls @ ud .ROUTE .STK-MED ONE Piperacillin Sod/Tazobactam 100 mls @ 200 mls/hr 03/23/21 08:26 03/23/21 09:20 Sod 3.375 gm/ Sodium Chloride IV 03/23/21 08:55 200 mls/hr STAT ONE Administration Azithromycin 500 mg in 250 mls @ 250 mls/hr 03/23/21 08:26 03/23/21 09:24 Zithromax 500 Mg/ 250 Ml Nacl Premix IV 03/23/21 09:25 250 mls/hr STAT STA 250 mls/hr Administration Midazolam HCl 50 mg/ Sodium 250 mls @ 10 mls/hr 03/23/21 08:25 03/23/21 08:41 Chloride IV 04/22/21 08:24 2 mg/hr .Q24H PRN 10 mls/hr SEDATION Administration Protocol 2 MG/HR Dextrose/Sodium Chloride Confirm 03/23/21 08:50 Dextrose 5% -0.45 Nacl 1000 Ml Administered 03/23/21 08:51 Dose 1,000 mls @ ud IV .STK-MED ONE Norepinephrine 4,000 mcg/ 504 mls @ 37.8 mls/hr 03/23/21 09:12 03/23/21 09:24 Dextrose IV 04/22/21 09:11 5 mcg/min .[id number] PRN 37.8 mls/hr SEVERE HYPOTENSION Administration Protocol 5 MCG/MIN Magnesium Sulfate/Dextrose 100 mls @ 100 mls/hr 03/23/21 09:15 03/23/21 14:14 Magnesium 1 Gm / 100 Ml D5w IV 03/23/21 11:14 100 mls/hr Q1H MARJORIE Administration Sodium Chloride Confirm 03/23/21 09:15 Sodium Chloride 100ml Mini-Bag Plus Administered 03/23/21 09:16 Dose 100 mls @ ud IV .STK-MED ONE Azithromycin Confirm 03/23/21 09:15 Zithromax 500 Mg/ 250 Ml Nacl Premix Administered 03/23/21 09:16 Dose 500 mg in 250 mls @ ud IV .STK-MED ONE Magnesium Sulfate/Dextrose Confirm 03/23/21 09:37 Magnesium 1 Gm / 100 Ml D5w Administered 03/23/21 09:38 Dose 100 mls @ ud IV .STK-MED ONE Sodium Chloride 1,000 mls @ 999 mls/hr 03/23/21 11:52 03/23/21 11:55 Sodium Chloride 0.9% 1000 Ml IV 03/23/21 12:52 999 mls/hr .Q1H1M STA Administration Sodium Chloride Confirm 03/23/21 11:55 Sodium Chloride 0.9% 1000 Ml Administered 03/23/21 11:56 Dose 1,000 mls @ ud .ROUTE .STK-MED ONE Sodium Chloride 1,000 mls @ 125 mls/hr 03/23/21 12:46 03/23/21 13:48 Sodium Chloride 0.45% 1000 Ml IV 04/22/21 12:45 Not Given .Q8H MARJORIE Azithromycin 500 mg in 250 mls @ 250 mls/hr 03/23/21 12:46 03/23/21 13:48 Zithromax 500 Mg/ 250 Ml Nacl Premix IV 04/22/21 12:45 Not Given Q24H10 MARJORIE Piperacillin Sod/Tazobactam 100 mls @ 200 mls/hr 03/23/21 12:46 03/23/21 18:11 Sod 3.375 gm/ Sodium Chloride IV 03/26/21 12:45 Not Given Q6HT MARJORIE Cisatracurium Besylate 200 mg/ 200 mls @ 13.212 mls/hr 03/23/21 13:00 03/23/21 18:10 Dextrose IV 04/22/21 12:59 Not Given .Q15H9M MARJORIE Protocol 3 MCG/KG/MIN Midazolam HCl 50 mg/ Sodium 250 mls @ 10 mls/hr 03/23/21 12:48 Chloride IV 04/22/21 12:47 .Q24H PRN SEDATION Protocol 2 MG/HR Norepinephrine 4,000 mcg/ 504 mls @ 37.8 mls/hr 03/23/21 12:50 03/23/21 14:10 Dextrose IV 04/22/21 12:49 25 mcg/min .[id number] PRN 189 mls/hr SEVERE HYPOTENSION Titration Protocol 5 MCG/MIN Magnesium Sulfate/Dextrose Confirm 03/23/21 14:10 Magnesium 1 Gm / 100 Ml D5w Administered 03/23/21 14:11 Dose 100 mls @ ud IV .STK-MED ONE Insulin Human Lispro 0 unit 03/23/21 12:46 Insulin Lispro 1 Unit SQ 04/22/21 12:45 UD PRN HYPERGLYCEMIA Midazolam HCl 3 mg 03/23/21 08:20 03/23/21 08:05 Versed 5 Mg/5 Ml IV 03/23/21 08:21 3 mg STAT ONE Administration Ondansetron HCl 4 mg 03/23/21 12:46 Ondansetron Hcl 4 Mg/2 Ml Vial IV 04/22/21 12:45 Q6H PRN PRN NAUSEA/VOMITING Piperacillin Sod/Tazobactam Sod Confirm 03/23/21 09:15 Zosyn 3.375 Gm Vial Administered 03/23/21 09:16 Dose 3.375 gm IV .STK-MED ONE Sodium Chloride Confirm 03/23/21 12:29 Sodium Cl For Inhalation 3 Ml Ud Nebule Administered 03/23/21 12:30 Dose 15 ml IH .STK-MED ONE Succinylcholine Chloride 100 mg 03/23/21 08:26 03/23/21 08:00 Quelicin Fliptop 200 Mg/10 Ml IV 03/23/21 08:27 100 mg STAT ONE Administration Lab/Rad Data: Laboratory Result Diagrams 03/23/21 08:15 03/23/21 10:00 Laboratory Results 03/23/21 03/23/21 03/23/21 Range/Units 11:57 11:10 10:00 WBC (4.0-10.5) K/mm3 RBC (4.1-5.4) M/mm3 Hgb (12.0-16.0) gm/dl Hct (35-47) % MCV (78-100) fl MCH (26-32) pg MCHC (32-36) g/dl RDW (11.5-14.0) % Plt Count (150-450) K/mm3 MPV (7.5-11.0) fl Gran % (36.0-66.0) % Eos # (Auto) (0-0.5) Absolute Lymphs (auto) (1.0-4.6) Absolute Monos (auto) (0.0-1.3) Lymphocytes % (24.0-44.0) % Monocytes % (0.0-12.0) % Eosinophils % (0.00-5.0) % Basophils % (0.0-0.4) % Absolute Granulocytes (1.4-6.9) Segmented Neutrophils (36.0-66.0) % Band Neutrophils (0.0-2.0) % Lymphocytes (Manual) (24-44) % Monocytes (Manual) (0.0-12.0) % Basophils # (0-0.4) Platelet Estimate (NORMAL) RBC Morphology Anisocytosis Macrocytosis Puncture Site RIGHT RADIAL pCO2 32 L (35-45) mmHg pO2 147 H* (75-100) mmHg Base Excess -14.4 L (-2.0-2.0) O2 Saturation 97.3 (94-100) g/dF ABG pH 7.20 L* (7.35-7.45) ABG HCO3 12.5 L* (22-28) ABG O2 Sat (Measured) 99.4 (95-100) % Tyler Test NOT APPLICABLE A-a Gradient 383 a/A Ratio 0.28 Hemoglobin 12.9 Carboxyhemoglobin 0.9 (0.0-6.9) % THgb Methemoglobin 1.2 L (1.4-1.5) % Potassium 3.5 3.5 (3.5-5.1) Temperature 37.0 C POC O2 Flow Rate 80 % Vent Mode A/C Tidal Volume 500 cc PEEP 5.0 cmH2O Sodium 147 H (137-145) mmol/L Chloride 114 H (98-107) mmol/L Carbon Dioxide 13 L* (22-30) mmol/L Anion Gap 23.8 H (5-15) MEQ/L BUN 51 H (7-17) mg/dL Creatinine 2.28 H (0.52-1.04) mg/dL Estimated GFR 22.4 ML/MIN Glucose 206 H (74-106) mg/dL Lactic Acid (0.4-2.0) Calcium 7.8 L (8.4-10.2) mg/dL Magnesium (1.6-2.3) mg/dL Total Bilirubin (0.2-1.3) mg/dL AST (14-36) U/L ALT (0-35) U/L Alkaline Phosphatase (38-126) U/L Troponin I 0.043 H* (0.000-0.034) ng/mL NT-Pro-B Natriuret Pep (0-900) pg/mL Serum Total Protein (6.3-8.2) g/dL Albumin (3.5-5.0) g/dL Procalcitonin (0.030-0.080) ng/mL Urine Color (YELLOW) Urine Appearance (CLEAR) Urine pH (5-6) Ur Specific [place] (1.005-1.025) Urine Protein (Negative) Urine Ketones (NEGATIVE) Urine Blood (0-5) Ramses/ul Urine Nitrite (NEGATIVE) Urine Bilirubin (NEGATIVE) Urine Urobilinogen (0-1) mg/dL Ur Leukocyte Esterase (NEGATIVE) Urine WBC (Auto) (0-5) /HPF Urine RBC (Auto) (0-2) /HPF U Epithel Cells (Auto) (FEW) /HPF Urine Bacteria (Auto) (NEGATIVE) /HPF Urine Mucus (Auto) (NEGATIVE) /HPF Urine Culture Reflexed (NO) Urine Glucose (NEGATIVE) mg/dL Urine Opiates Level (NEGATIVE) Ur Methadone (NEGATIVE) Urine Barbiturates (NEGATIVE) Ur Phencyclidine (PCP) (NEGATIVE) Urine Amphetamine (NEGATIVE) U Benzodiazepine Level (NEGATIVE) Urine Cocaine (NEGATIVE) Urine Marijuana (THC) (NEGATIVE) SARS-CoV-2 (PCR) (NEGATIVE) 03/23/21 03/23/21 03/23/21 Range/Units 09:00 08:31 08:15 WBC (4.0-10.5) K/mm3 RBC (4.1-5.4) M/mm3 Hgb (12.0-16.0) gm/dl Hct (35-47) % MCV (78-100) fl MCH (26-32) pg MCHC (32-36) g/dl RDW (11.5-14.0) % Plt Count (150-450) K/mm3 MPV (7.5-11.0) fl Gran % (36.0-66.0) % Eos # (Auto) (0-0.5) Absolute Lymphs (auto) (1.0-4.6) Absolute Monos (auto) (0.0-1.3) Lymphocytes % (24.0-44.0) % Monocytes % (0.0-12.0) % Eosinophils % (0.00-5.0) % Basophils % (0.0-0.4) % Absolute Granulocytes (1.4-6.9) Segmented Neutrophils (36.0-66.0) % Band Neutrophils (0.0-2.0) % Lymphocytes (Manual) (24-44) % Monocytes (Manual) (0.0-12.0) % Basophils # (0-0.4) Platelet Estimate (NORMAL) RBC Morphology Anisocytosis Macrocytosis Puncture Site pCO2 (35-45) mmHg pO2 (75-100) mmHg Base Excess (-2.0-2.0) O2 Saturation (94-100) g/dF ABG pH (7.35-7.45) ABG HCO3 (22-28) ABG O2 Sat (Measured) (95-100) % Tyler Test A-a Gradient a/A Ratio Hemoglobin Carboxyhemoglobin (0.0-6.9) % THgb Methemoglobin (1.4-1.5) % Potassium (3.5-5.1) Temperature C POC O2 Flow Rate % Vent Mode Tidal Volume cc PEEP cmH2O Sodium (137-145) mmol/L Chloride (98-107) mmol/L Carbon Dioxide (22-30) mmol/L Anion Gap (5-15) MEQ/L BUN (7-17) mg/dL Creatinine (0.52-1.04) mg/dL Estimated GFR ML/MIN Glucose (74-106) mg/dL Lactic Acid (0.4-2.0) Calcium (8.4-10.2) mg/dL Magnesium (1.6-2.3) mg/dL Total Bilirubin (0.2-1.3) mg/dL AST (14-36) U/L ALT (0-35) U/L Alkaline Phosphatase (38-126) U/L Troponin I (0.000-0.034) ng/mL NT-Pro-B Natriuret Pep (0-900) pg/mL Serum Total Protein (6.3-8.2) g/dL Albumin (3.5-5.0) g/dL Procalcitonin (0.030-0.080) ng/mL Urine Color [place]LL (YELLOW) Urine Appearance CLOUDY (CLEAR) Urine pH 5.0 (5-6) Ur Specific [place] 1.026 (1.005-1.025) Urine Protein 30 (Negative) Urine Ketones TRACE (NEGATIVE) Urine Blood NEGATIVE (0-5) Ramses/ul Urine Nitrite NEGATIVE (NEGATIVE) Urine Bilirubin NEGATIVE (NEGATIVE) Urine Urobilinogen 2 (0-1) mg/dL Ur Leukocyte Esterase MODERATE (NEGATIVE) Urine WBC (Auto) 26-50 (0-5) /HPF Urine RBC (Auto) 6-10 (0-2) /HPF U Epithel Cells (Auto) RARE (FEW) /HPF Urine Bacteria (Auto) MANY (NEGATIVE) /HPF Urine Mucus (Auto) SLIGHT (NEGATIVE) /HPF Urine Culture Reflexed ORDERED SEPARATELY (NO) Urine Glucose NEGATIVE (NEGATIVE) mg/dL Urine Opiates Level NEGATIVE (NEGATIVE) Ur Methadone NEGATIVE (NEGATIVE) Urine Barbiturates NEGATIVE (NEGATIVE) Ur Phencyclidine (PCP) NEGATIVE (NEGATIVE) Urine Amphetamine NEGATIVE (NEGATIVE) U Benzodiazepine Level NEGATIVE (NEGATIVE) Urine Cocaine NEGATIVE (NEGATIVE) Urine Marijuana (THC) NEGATIVE (NEGATIVE) SARS-CoV-2 (PCR) NEGATIVE (NEGATIVE) 03/23/21 03/23/21 03/23/21 Range/Units 08:15 08:15 08:15 WBC (4.0-10.5) K/mm3 RBC (4.1-5.4) M/mm3 Hgb (12.0-16.0) gm/dl Hct (35-47) % MCV (78-100) fl MCH (26-32) pg MCHC (32-36) g/dl RDW (11.5-14.0) % Plt Count (150-450) K/mm3 MPV (7.5-11.0) fl Gran % (36.0-66.0) % Eos # (Auto) (0-0.5) Absolute Lymphs (auto) (1.0-4.6) Absolute Monos (auto) (0.0-1.3) Lymphocytes % (24.0-44.0) % Monocytes % (0.0-12.0) % Eosinophils % (0.00-5.0) % Basophils % (0.0-0.4) % Absolute Granulocytes (1.4-6.9) Segmented Neutrophils (36.0-66.0) % Band Neutrophils (0.0-2.0) % Lymphocytes (Manual) (24-44) % Monocytes (Manual) (0.0-12.0) % Basophils # (0-0.4) Platelet Estimate (NORMAL) RBC Morphology Anisocytosis Macrocytosis Puncture Site pCO2 (35-45) mmHg pO2 (75-100) mmHg Base Excess (-2.0-2.0) O2 Saturation (94-100) g/dF ABG pH (7.35-7.45) ABG HCO3 (22-28) ABG O2 Sat (Measured) (95-100) % Tyler Test A-a Gradient a/A Ratio Hemoglobin Carboxyhemoglobin (0.0-6.9) % THgb Methemoglobin (1.4-1.5) % Potassium 3.6 (3.5-5.1) Temperature C POC O2 Flow Rate % Vent Mode Tidal Volume cc PEEP cmH2O Sodium 152 H* (137-145) mmol/L Chloride 117 H (98-107) mmol/L Carbon Dioxide 10 L* (22-30) mmol/L Anion Gap 28.0 H (5-15) MEQ/L BUN 51 H (7-17) mg/dL Creatinine 2.34 H (0.52-1.04) mg/dL Estimated GFR 21.8 ML/MIN Glucose 110 H (74-106) mg/dL Lactic Acid (0.4-2.0) Calcium 8.2 L (8.4-10.2) mg/dL Magnesium 1.2 L (1.6-2.3) mg/dL Total Bilirubin 0.50 (0.2-1.3) mg/dL AST 28 (14-36) U/L ALT 18 (0-35) U/L Alkaline Phosphatase 39 (38-126) U/L Troponin I 0.040 H* (0.000-0.034) ng/mL NT-Pro-B Natriuret Pep 9960 H (0-900) pg/mL Serum Total Protein 6.7 (6.3-8.2) g/dL Albumin 2.6 L (3.5-5.0) g/dL Procalcitonin 5.740 H* (0.030-0.080) ng/mL Urine Color (YELLOW) Urine Appearance (CLEAR) Urine pH (5-6) Ur Specific [place] (1.005-1.025) Urine Protein (Negative) Urine Ketones (NEGATIVE) Urine Blood (0-5) Ramses/ul Urine Nitrite (NEGATIVE) Urine Bilirubin (NEGATIVE) Urine Urobilinogen (0-1) mg/dL Ur Leukocyte Esterase (NEGATIVE) Urine WBC (Auto) (0-5) /HPF Urine RBC (Auto) (0-2) /HPF U Epithel Cells (Auto) (FEW) /HPF Urine Bacteria (Auto) (NEGATIVE) /HPF Urine Mucus (Auto) (NEGATIVE) /HPF Urine Culture Reflexed (NO) Urine Glucose (NEGATIVE) mg/dL Urine Opiates Level (NEGATIVE) Ur Methadone (NEGATIVE) Urine Barbiturates (NEGATIVE) Ur Phencyclidine (PCP) (NEGATIVE) Urine Amphetamine (NEGATIVE) U Benzodiazepine Level (NEGATIVE) Urine Cocaine (NEGATIVE) Urine Marijuana (THC) (NEGATIVE) SARS-CoV-2 (PCR) (NEGATIVE) 03/23/21 03/23/21 03/23/21 Range/Units 08:15 08:10 08:10 WBC 9.9 (4.0-10.5) K/mm3 RBC 3.26 L (4.1-5.4) M/mm3 Hgb 10.7 L (12.0-16.0) gm/dl Hct 34.6 L (35-47) % MCV 106.1 H (78-100) fl MCH 32.8 H (26-32) pg MCHC 30.9 L (32-36) g/dl RDW 16.1 H (11.5-14.0) % Plt Count 169 (150-450) K/mm3 MPV 9.5 (7.5-11.0) fl Gran % 56.2 (36.0-66.0) % Eos # (Auto) 0.04 (0-0.5) Absolute Lymphs (auto) 3.35 (1.0-4.6) Absolute Monos (auto) 0.95 (0.0-1.3) Lymphocytes % 33.7 (24.0-44.0) % Monocytes % 9.6 (0.0-12.0) % Eosinophils % 0.4 (0.00-5.0) % Basophils % 0.1 (0.0-0.4) % Absolute Granulocytes 5.58 (1.4-6.9) Segmented Neutrophils 45 (36.0-66.0) % Band Neutrophils 6 H (0.0-2.0) % Lymphocytes (Manual) 42 (24-44) % Monocytes (Manual) 7 (0.0-12.0) % Basophils # 0.01 (0-0.4) Platelet Estimate NORMAL (NORMAL) RBC Morphology ABNORMAL Anisocytosis 1+ Macrocytosis 1+ Puncture Site RIGHT BRACHIAL pCO2 31 L (35-45) mmHg pO2 72 L (75-100) mmHg Base Excess -16.0 L (-2.0-2.0) O2 Saturation 92.8 L (94-100) g/dF ABG pH 7.17 L* (7.35-7.45) ABG HCO3 11.3 L* (22-28) ABG O2 Sat (Measured) 95.3 (95-100) % Tyler Test NOT APPLICABLE A-a Gradient 246 a/A Ratio 0.23 Hemoglobin 10.9 Carboxyhemoglobin 1.6 (0.0-6.9) % THgb Methemoglobin 1.0 L (1.4-1.5) % Potassium 3.5 (3.5-5.1) Temperature 37.0 C POC O2 Flow Rate 50 % Vent Mode A/C Tidal Volume 600 cc PEEP 5.0 cmH2O Sodium (137-145) mmol/L Chloride (98-107) mmol/L Carbon Dioxide (22-30) mmol/L Anion Gap (5-15) MEQ/L BUN (7-17) mg/dL Creatinine (0.52-1.04) mg/dL Estimated GFR ML/MIN Glucose (74-106) mg/dL Lactic Acid 4.7 H (0.4-2.0) Calcium (8.4-10.2) mg/dL Magnesium (1.6-2.3) mg/dL Total Bilirubin (0.2-1.3) mg/dL AST (14-36) U/L ALT (0-35) U/L Alkaline Phosphatase (38-126) U/L Troponin I (0.000-0.034) ng/mL NT-Pro-B Natriuret Pep (0-900) pg/mL Serum Total Protein (6.3-8.2) g/dL Albumin (3.5-5.0) g/dL Procalcitonin (0.030-0.080) ng/mL Urine Color (YELLOW) Urine Appearance (CLEAR) Urine pH (5-6) Ur Specific [place] (1.005-1.025) Urine Protein (Negative) Urine Ketones (NEGATIVE) Urine Blood (0-5) [place]/ul Urine Nitrite (NEGATIVE) Urine Bilirubin (NEGATIVE) Urine Urobilinogen (0-1) mg/dL Ur Leukocyte Esterase (NEGATIVE) Urine WBC (Auto) (0-5) /HPF Urine RBC (Auto) (0-2) /HPF U Epithel Cells (Auto) (FEW) /HPF Urine Bacteria (Auto) (NEGATIVE) /HPF Urine Mucus (Auto) (NEGATIVE) /HPF Urine Culture Reflexed (NO) Urine Glucose (NEGATIVE) mg/dL Urine Opiates Level (NEGATIVE) Ur Methadone (NEGATIVE) Urine Barbiturates (NEGATIVE) Ur Phencyclidine (PCP) (NEGATIVE) Urine Amphetamine (NEGATIVE) U Benzodiazepine Level (NEGATIVE) Urine Cocaine (NEGATIVE) Urine Marijuana (THC) (NEGATIVE) SARS-CoV-2 (PCR) (NEGATIVE) - Progress Progress: improved Progress Note: 03/23/21 12:02 70-year-old is evaluated for altered mental status. Patient was not arousable on presentation, no gag reflex. She is promptly intubated. Patient was hypotensive and given fluids per sepsis protocol and started on antibiotics. Patient initial response was not very well to fluids and started on Levophed and currently around 104 systolic with map around 68. Work-up showed acidosis with a pH of 7.1 and a bicarb of 10 and acute on chronic kidney failure with a creatinine of 2.38. Work-up consistent with DKA but normal blood sugar. We will continue with fluids. Patient initial sodium was 152 and fluids were switched to half-normal but repeat sodium is in 142, will continue with normal saline now. Chest x-ray showed bilateral airspace disease. Has mildly elevated troponin which I believe is secondary to sepsis as EKG did not show any acute ST elevations. Discussed with , reviewed history, work-up and agreed with admission here at [facility], not doing insulin drip. Family is called about the guarded prognosis. Discussed with .: Natalie Will see patient in: hospital (full admit) Counseled pt/family regarding: lab results, diagnosis, rad results - Departure Departure Disposition: In-patient Admission Clinical Impression: Septic shock, Hypernatremia Respiratory failure Qualifiers: Chronicity: acute Respiratory failure complication: hypoxia and hypercapnia Qualified Code(s): J96.01 - Acute respiratory failure with hypoxia Bilateral pneumonia Qualifiers: Pneumonia type: due to other aerobic Gram-negative bacteria Lung location: unspecified part of lung Qualified Code(s): J15.6 - Pneumonia due to other Gram-negative bacteria Renal failure Qualifiers: Renal failure chronicity: acute Acute renal failure type: unspecified Qualified Code(s): N17.9 - Acute kidney failure, unspecified Condition: Critical Critical Care Time: Yes Critical Care Time(excluding separately billable procedures): Critical 75-104 mins
[2021-03-23 08:31] LABS: A-aADO2 246; ABG HEMOGLOBIN 10.9; ABG POTASSIUM 3.5 (3.5-5.1); ARTERIAL BLD GAS O2 SATURATION 95.3 % (95-100); ARTERIAL BLD GAS TIDAL VOLUME 600 cc; ARTERIAL BLOOD GAS FIO2 50 %; ARTERIAL BLOOD GAS PCO2 31 mmHg (35-45); ARTERIAL BLOOD GAS PO2 72 mmHg (75-100); ARTERIAL BLOOD GAS VENT MODE A/C; CARBOXYHEMOGLOBIN 1.6 % THgb (0.0-6.9); HCO3- 11.3 (22-28); HGB O2 SAT 92.8 g/dF (94-100)
[2021-03-23 08:32] LABS: ABG SITE RIGHT BRACHIAL; ARTERIAL BLOOD GAS pH 7.17 (7.35-7.45)
[2021-03-23 08:42] LABS: ALBUMIN 2.6 g/dL (3.5-5.0); BILIRUBIN,TOTAL 0.5 mg/dL (0.2-1.3); Calcium 8.2 mg/dL (8.4-10.2); Creatinine 1 2.34 mg/dL (0.52-1.04); EST GLOMERULAR FILTRATION RATE 21.8 ML/MIN; MAGNESIUM 1.2 mg/dL (1.6-2.3); Potassium 3.6 mmol/L (3.5-5.1); Total Protein 6.7 g/dL (6.3-8.2)
[2021-03-23] MEDS ORDERED: Dextrose 5% -0.45 NaCl 1000 ML 1,000 ML IV ONE (08:50)
--- NOTE | 2021-03-23 09:02 | XRAY ---
Indication: Endotracheal tube placement. Comparison: July 08, 2018. Portable chest demonstrates new endotracheal tube tip 4 cm above mayra. New moderate left mid to lower lung patchy consolidating and minimal right base airspace disease. 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 Bony thorax intact again with osteopenia and degenerative changes.
--- NOTE | 2021-03-23 09:02 | XRAY ---
Indication: NG tube placement. Comparison: Taken earlier in the day. Portable chest demonstrates new NG tube tip at gastroesophageal junction. Stable endotracheal tube tip 4 cm above mayra. Stable bilateral airspace disease left greater than right. No new cardiopulmonary abnormalities.
[2021-03-23] MEDS ORDERED: LEVOPHED 4 MG/4 ML 4,000 MCG in Dextrose 5%/Water IV Soln. 500 ML 500 ML IV PRN ×2 (09:12→12:50)
[2021-03-23] MEDS ORDERED: Zosyn 3.375 GM Vial IV ONE (09:15)
[2021-03-23] MEDS ORDERED: Sodium Chloride 100ML MINI-BAG PLUS 100 ML IV ONE (09:15)
[2021-03-23] MEDS ORDERED: Zithromax 500 MG/ 250 ML NaCl Premix 500 MG/250 ML IVPB IV ONE (09:15)
--- NOTE | 2021-03-23 09:19 | XRAY ---
Indication: Found unconscious. Multiple contiguous axial images obtained through the head without contrast. Comparison: January 01, 2015. Again age-appropriate global atrophy, moderate perivascular degenerative micro-ischemia bilaterally, and multiple tiny remote lacunar infarcts in both basal ganglia/brainstem. New bilateral periventricular remote lacunar infarcts. Left basal ganglia demonstrates new 1.1 x 2.1 cm remote infarct. No acute intraconal hemorrhage, abnormal extra-axial fluid collection, or mass effect. Fourth ventricle is midline. Bony calvarium intact. Paranasal sinuses and mastoid air cells are clear. New incompletely visualized NG and endotracheal tubes. 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 There are new bilateral remote lacunar infarcts and new small remote infarct left basal ganglia.
[2021-03-23 09:22] LABS: Appearance CLOUDY (CLEAR); Bacteria MANY /HPF (NEGATIVE); Bilirubin NEGATIVE (NEGATIVE); Blood NEGATIVE Ery/ul (0-5); Epithelial Cells RARE /HPF (FEW); Glucose NEGATIVE (NEGATIVE); Ketones TRACE (NEGATIVE); Leukocyte Esterase MODERATE (NEGATIVE); Mucus SLIGHT /HPF (NEGATIVE); Nitrite NEGATIVE (NEGATIVE); Protein,Urine Dip 30 (Negative); Specific Gravity 1.026 (1.005-1.025); Urobilinogen 2 mg/dL (0-1); WBC 26-50 /HPF (0-5)
[2021-03-23 09:23] LABS: BAND 6 % (0.0-2.0); Lymphocytes 42 % (24-44); Monocyte 7 % (0.0-12.0); Neutrophils 45 % (36.0-66.0); Platelet Estimate NORMAL (NORMAL); Total Cells Counted 100
[2021-03-23 09:24] LABS: ANISOCYTOSIS 1+; Macrocytosis 1+
[2021-03-23 09:33] LABS: Amphetamine,Urine NEGATIVE (NEGATIVE); Barbiturate,Urine NEGATIVE (NEGATIVE); Benzodiazepine,Urine NEGATIVE (NEGATIVE); Cocaine,Urine NEGATIVE (NEGATIVE); Methadone,Urine NEGATIVE (NEGATIVE); Opiate,Urine NEGATIVE (NEGATIVE); PCP,Urine NEGATIVE (NEGATIVE); THC,Urine NEGATIVE (NEGATIVE)
[2021-03-23] MEDS ORDERED: Magnesium 1 Gm / 100 Ml D5W*** 100 ML IV ONE ×2 (09:37→14:10)
[2021-03-23] MEDS: Magnesium 1 Gm / 100 Ml D5W*** 100 ML IV SCH ×2 (09:39→14:14)
[2021-03-23 11:51] LABS: ANION GAP 23.8 MEQ/L (5-15); Calcium 7.8 mg/dL (8.4-10.2); Creatinine 1 2.28 mg/dL (0.52-1.04); EST GLOMERULAR FILTRATION RATE 22.4 ML/MIN; Potassium 3.5 mmol/L (3.5-5.1)
[2021-03-23] MEDS ORDERED: Sodium Chloride 0.9% 1000 ML 1,000 ML IV STA (11:52)
[2021-03-23 11:58] LABS: A-aADO2 383; ABG HEMOGLOBIN 12.9; ABG POTASSIUM 3.5 (3.5-5.1); ARTERIAL BLD GAS O2 SATURATION 99.4 % (95-100); ARTERIAL BLD GAS TIDAL VOLUME 500 cc; ARTERIAL BLOOD GAS BASE EXCESS -14.4 (-2.0-2.0); ARTERIAL BLOOD GAS FIO2 80 %; ARTERIAL BLOOD GAS PCO2 32 mmHg (35-45); ARTERIAL BLOOD GAS PO2 147 mmHg (75-100); ARTERIAL BLOOD GAS VENT MODE A/C; CARBOXYHEMOGLOBIN 0.9 % THgb (0.0-6.9); HCO3- 12.5 (22-28); HGB O2 SAT 97.3 g/dF (94-100); Methhemoglobin 1.2 % (1.4-1.5)
[2021-03-23 11:59] LABS: ABG SITE RIGHT RADIAL
[2021-03-23] MEDS ORDERED: Sodium Chloride 3 ML UD NEBULES IH ONE (12:29)
[2021-03-23] MEDS ORDERED: Zithromax 500 MG/ 250 ML NaCl Premix 500 MG/250 ML IVPB IV SCH (12:46)
[2021-03-23] MEDS ORDERED: Pepcid 20 MG VIAL IV SCH (12:46)
[2021-03-23] MEDS ORDERED: HUMALOG SQ PRN (12:46)
[2021-03-23] MEDS ORDERED: Zofran 4 MG/2 ML VIAL IV PRN (12:46)
[2021-03-23] MEDS ORDERED: DUONEB 0.5-3 MG/3 ml Neb IH SCH (13:00)
[2021-03-23] MEDS ORDERED: Nimbex 200MG/20 Ml MDV (HIGH RISK MED)** 200 MG in Dextrose 5%/Water IV Soln. 250 ML 18... IV SCH (13:00)
[2021-03-23] MEDS: SUBLIMAZE 1000 Mcg/ 20 Ml*** 1,500 MCG in Sodium Chloride 0.9% 150 ML 120 ML IV SCH (13:04)
[2021-03-23] MEDS: Zosyn 3.375 GM Vial 3.375 GM in Sodium Chloride 100ML MINI-BAG PLUS 100 ML IV SCH ×2 (13:48→18:11)
[2021-03-23] MEDS ORDERED: DUONEB 0.5-3 MG/3 ml Neb IH PRN (14:27)
--- NOTE | 2021-03-23 17:16 | PCM.HP ---
History of Present Illness - Chief Complaint Chief Complaint: Patient found unresponsive at [facility] just prior to arrival to ER History of Present Illness: is a 70 year old female resident of [facility] with history of hypertension, hyperlipidemia, diabetes mellitus, coronary artery disease, COPD is brought in the ER after patient was found unresponsive this morning. She had coarse crackles, given DuoNeb by EMS and is currently on nonrebreather with saturation around 98% on presentation. Patient has no response to sternal rub and no gag reflex and is promptly intubated. Further history is limited - Review of Systems All Other Systems: Unable due to condition Medications & Allergies Home Medications: Home Medication List Carvedilol 12.5 mg [Coreg 12.5 mg] 25 mg PO BID 01/01/15 [History Confirmed 03/23/21] Clopidogrel Bisulfate 75 mg [PLAVIX 75 MG Tablet] 75 mg PO DAILY 01/01/15 [History Confirmed 03/23/21] Cyanocobalamin 1000 Mcg/ml [Cyanocobalamin B-12 1000 MCG/ML] 1,000 mcg IJ UD 01/01/15 [History Confirmed 03/23/21] Docusate Sodium 100 mg [Colace 100 MG] 100 mg PO TID 01/01/15 [History Confirmed 03/23/21] Insulin Detemir [Levemir] 45 unit SQ HS 01/01/15 [History Confirmed 03/23/21] Isosorbide Mononitrate 30 mg [Imdur 30 MG] 30 mg PO DAILY 01/01/15 [History Confirmed 03/23/21] Loratadine 10 mg [Claritin 10 mg] 10 mg PO DAILY 01/01/15 [History Confirmed 03/23/21] Pravastatin Sodium 40 mg PO QHS 01/01/15 [History Confirmed 03/23/21] Acetaminophen 325 mg [Tylenol 325 mg] 650 mg PO Q4H PRN 07/21/15 [History Confirmed 03/23/21] Aspirin 81 mg PO DAILY 07/21/15 [History Confirmed 03/23/21] PANTOPRAZOLE 40 mg Tablet [Protonix 40MG Tablet] 40 mg PO DAILY 07/21/15 [History Confirmed 03/23/21] Ferrous Sulfate 325 mg [Feosol 325 mg] 325 mg PO BID 03/19/17 [History Confirmed 03/23/21] Metformin HCl 500 mg [Glucophage 500 MG] 500 mg PO TID 03/19/17 [History Confirmed 03/23/21] Nitroglycerin 0.4 mg Tablet [Nitrostat 0.4 MG Tablet] 0.4 mg SL UD PRN 03/19/17 [History Confirmed 03/23/21] Trazodone HCl 25 mg PO HS 03/19/17 [History Confirmed 03/23/21] Acetaminophen 325 mg [Tylenol 325 mg] 650 mg PO 0600 03/23/17 [History Confirmed 03/23/21] Clonidine HCl 0.1 mg [Catapres 0.1 MG] 0.3 mg PO BID 03/23/17 [History Confirmed 03/23/21] Oxycodone HCl 5 mg PO HSPRN PRN 03/23/17 [History Confirmed 03/23/21] Carboxymethylcellulose Sodium [Refresh Plus] 1 each OP Q2H/PRN PRN 06/22/17 [History Confirmed 03/23/21] Escitalopram Oxalate 10 mg [Lexapro 10 MG] 20 mg PO DAILY 06/22/17 [History Confirmed 03/23/21] Gabapentin 300 mg PO TID 06/22/17 [History Confirmed 03/23/21] Glucagon 1 mg [GlucaGen 1 MG] 1 mg IM UD 07/08/18 [History Confirmed 03/23/21] Insulin Aspart [NovoLOG Insulin] 1 unit SQ UD PRN 07/08/18 [History Confirmed 03/23/21] Magnesium Hydroxide 30 ml [Milk of Magnesia 30 ml] 30 ml PO Q6HPRN PRN 07/08/18 [History Confirmed 03/23/21] Oxymetazoline HCl [Nasal [place]] 30 ml NS Q4HPRN PRN 07/08/18 [History Confirmed 03/23/21] Sodium Phosphate,[place]-Dibasic [Enema] 1 applic RC DAILY PRN PRN 07/08/18 [History Confirmed 03/23/21] Spironolactone 25 mg [Aldactone 25 MG] 25 mg PO DAILY 07/08/18 [History Confirmed 03/23/21] Hydrochlorothiazide 25 mg [hydroDIURIL 25 MG] 25 mg PO DAILY 03/23/21 [History Confirmed 03/23/21] Allergies/Adverse Reactions: Allergies Allergy/AdvReac Type Severity Reaction Status Date / Time No Known Drug Allergies Allergy Verified 07/19/17 20:46 - Past Medical History Past Medical History: Yes Neurological History: Stroke, TIA ENT History: No Pertinent History Cardiac History: High Cholesterol, Hypertension, Other Respiratory History: COPD Endocrine Medical History: Diabetes Type II Musculoskelatal History: Other GI Medical History: GERD History: No Pertinent History Pyscho-Social History: Anxiety, Depression Reproductive Disorders: No Pertinent History Comment: CHRONIC PAIN. PERIPHERAL NEUROPATHY. HYPERLIPEDEMIA. ANGINA PECTORIS. ALLERGIC RHINITIS. ARTHRITIS. CHRONIC HEADACHE. ESOPAHGITIS - Female History Are you now?: No - Past Surgical History Past Surgical History: Yes Neuro Surgical History: No Pertinent History Cardiac History: CABG, Cardiac Catheterization, Cardiac Stent Respiratory Surgery: No Pertinent History GI Surgical History: No Pertinent History Genitourinary Surgical Hx: No Pertinent History Musculskeletal Surgical Hx: No Pertinent History Female Surgical History: Other Other Surgical History: HIP SURGERY - Social History Smoking Status: Unknown if ever smoked Exposure to second hand smoke: No Alcohol: None Drug Use: none - Physical Exam Vital Signs: Vital Signs - 24 hr Temp Pulse Resp BP Pulse Ox 03/23/21 17:00 97.7 F 19 03/23/21 16:00 97.5 F 71 16 83/52 97 03/23/21 15:00 97.5 F 76 15 82/52 98 03/23/21 14:36 79 21 100 03/23/21 14:00 98.8 F 72 22 78/48 100 03/23/21 13:20 98.8 F 93 H 16 73/52 99 03/23/21 13:00 97.9 F 75 21 76/45 100 03/23/21 12:05 100 03/23/21 11:57 83 16 97/54 100 03/23/21 09:08 99.7 F 82 19 75/47 99 03/23/21 08:47 100.0 F 94 H 22 76/43 96 03/23/21 08:32 99.5 F 87 18 89/47 94 L 03/23/21 07:51 97.5 F 98 H 35 H 83/53 100 General Appearance: severe distress Neurologic Exam: other (Intubated, sedated) Eye Exam: other (fixed and dilated) Ears, Nose, Throat Exam: normal ENT inspection Neck Exam: normal inspection Respiratory Exam: other (on ventilator) Cardiovascular Exam: capillary refill >3 sec Gastrointestinal/Abdomen Exam: soft Pelvic Exam: not done Rectal Exam: deferred Wound Assessment: Skin/Wound Assessment Wound/Incision Assessment Start: 03/23/21 13:39 Text: Status: Active Freq: Q6H Protocol: Document 03/23/21 14:00 SAMMY (Rec: 03/23/21 14:23 SAMMY [id number]) Wound/Incision Assessment Posterior Medial Buttock Wound Assessment Shift Assessment Wound Type FISSURE Wound Stage Non Pressure Wound Drainage Amount None Results - Labs Lab/Micro Results: Lab Results-Last 24 Hours 03/23/21 03/23/21 03/23/21 Range/Units 08:10 08:10 08:15 WBC 9.9 (4.0-10.5) K/mm3 RBC 3.26 L (4.1-5.4) M/mm3 Hgb 10.7 L (12.0-16.0) gm/dl Hct 34.6 L (35-47) % MCV 106.1 H (78-100) fl MCH 32.8 H (26-32) pg MCHC 30.9 L (32-36) g/dl RDW 16.1 H (11.5-14.0) % Plt Count 169 (150-450) K/mm3 MPV 9.5 (7.5-11.0) fl Gran % 56.2 (36.0-66.0) % Eos # (Auto) 0.04 (0-0.5) Absolute Lymphs (auto) 3.35 (1.0-4.6) Absolute Monos (auto) 0.95 (0.0-1.3) Lymphocytes % 33.7 (24.0-44.0) % Monocytes % 9.6 (0.0-12.0) % Eosinophils % 0.4 (0.00-5.0) % Basophils % 0.1 (0.0-0.4) % Absolute Granulocytes 5.58 (1.4-6.9) Segmented Neutrophils 45 (36.0-66.0) % Band Neutrophils 6 H (0.0-2.0) % Lymphocytes (Manual) 42 (24-44) % Monocytes (Manual) 7 (0.0-12.0) % Basophils # 0.01 (0-0.4) Platelet Estimate NORMAL (NORMAL) RBC Morphology ABNORMAL Anisocytosis 1+ Macrocytosis 1+ Puncture Site RIGHT BRACHIAL pCO2 31 L (35-45) mmHg pO2 72 L (75-100) mmHg Base Excess -16.0 L (-2.0-2.0) O2 Saturation 92.8 L (94-100) g/dF ABG pH 7.17 L* (7.35-7.45) ABG HCO3 11.3 L* (22-28) ABG O2 Sat (Measured) 95.3 (95-100) % Tyler Test NOT APPLICABLE A-a Gradient 246 a/A Ratio 0.23 Hemoglobin 10.9 Carboxyhemoglobin 1.6 (0.0-6.9) % THgb Methemoglobin 1.0 L (1.4-1.5) % Potassium 3.5 (3.5-5.1) Temperature 37.0 C POC O2 Flow Rate 50 % Vent Mode A/C Tidal Volume 600 cc PEEP 5.0 cmH2O Sodium (137-145) mmol/L Chloride (98-107) mmol/L Carbon Dioxide (22-30) mmol/L Anion Gap (5-15) MEQ/L BUN (7-17) mg/dL Creatinine (0.52-1.04) mg/dL Estimated GFR ML/MIN Glucose (74-106) mg/dL Lactic Acid 4.7 H (0.4-2.0) Calcium (8.4-10.2) mg/dL Magnesium (1.6-2.3) mg/dL Total Bilirubin (0.2-1.3) mg/dL AST (14-36) U/L ALT (0-35) U/L Alkaline Phosphatase (38-126) U/L Troponin I (0.000-0.034) ng/mL NT-Pro-B Natriuret Pep (0-900) pg/mL Serum Total Protein (6.3-8.2) g/dL Albumin (3.5-5.0) g/dL Procalcitonin (0.030-0.080) ng/mL Urine Color (YELLOW) Urine Appearance (CLEAR) Urine pH (5-6) Ur Specific [place] (1.005-1.025) Urine Protein (Negative) Urine Ketones (NEGATIVE) Urine Blood (0-5) Ramses/ul Urine Nitrite (NEGATIVE) Urine Bilirubin (NEGATIVE) Urine Urobilinogen (0-1) mg/dL Ur Leukocyte Esterase (NEGATIVE) Urine WBC (Auto) (0-5) /HPF Urine RBC (Auto) (0-2) /HPF U Epithel Cells (Auto) (FEW) /HPF Urine Bacteria (Auto) (NEGATIVE) /HPF Urine Mucus (Auto) (NEGATIVE) /HPF Urine Culture Reflexed (NO) Urine Glucose (NEGATIVE) mg/dL Urine Opiates Level (NEGATIVE) Ur Methadone (NEGATIVE) Urine Barbiturates (NEGATIVE) Ur Phencyclidine (PCP) (NEGATIVE) Urine Amphetamine (NEGATIVE) U Benzodiazepine Level (NEGATIVE) Urine Cocaine (NEGATIVE) Urine Marijuana (THC) (NEGATIVE) SARS-CoV-2 (PCR) (NEGATIVE) 03/23/21 03/23/21 03/23/21 Range/Units 08:15 08:15 08:15 WBC (4.0-10.5) K/mm3 RBC (4.1-5.4) M/mm3 Hgb (12.0-16.0) gm/dl Hct (35-47) % MCV (78-100) fl MCH (26-32) pg MCHC (32-36) g/dl RDW (11.5-14.0) % Plt Count (150-450) K/mm3 MPV (7.5-11.0) fl Gran % (36.0-66.0) % Eos # (Auto) (0-0.5) Absolute Lymphs (auto) (1.0-4.6) Absolute Monos (auto) (0.0-1.3) Lymphocytes % (24.0-44.0) % Monocytes % (0.0-12.0) % Eosinophils % (0.00-5.0) % Basophils % (0.0-0.4) % Absolute Granulocytes (1.4-6.9) Segmented Neutrophils (36.0-66.0) % Band Neutrophils (0.0-2.0) % Lymphocytes (Manual) (24-44) % Monocytes (Manual) (0.0-12.0) % Basophils # (0-0.4) Platelet Estimate (NORMAL) RBC Morphology Anisocytosis Macrocytosis Puncture Site pCO2 (35-45) mmHg pO2 (75-100) mmHg Base Excess (-2.0-2.0) O2 Saturation (94-100) g/dF ABG pH (7.35-7.45) ABG HCO3 (22-28) ABG O2 Sat (Measured) (95-100) % Tyler Test A-a Gradient a/A Ratio Hemoglobin Carboxyhemoglobin (0.0-6.9) % THgb Methemoglobin (1.4-1.5) % Potassium 3.6 (3.5-5.1) Temperature C POC O2 Flow Rate % Vent Mode Tidal Volume cc PEEP cmH2O Sodium 152 H* (137-145) mmol/L Chloride 117 H (98-107) mmol/L Carbon Dioxide 10 L* (22-30) mmol/L Anion Gap 28.0 H (5-15) MEQ/L BUN 51 H (7-17) mg/dL Creatinine 2.34 H (0.52-1.04) mg/dL Estimated GFR 21.8 ML/MIN Glucose 110 H (74-106) mg/dL Lactic Acid (0.4-2.0) Calcium 8.2 L (8.4-10.2) mg/dL Magnesium 1.2 L (1.6-2.3) mg/dL Total Bilirubin 0.50 (0.2-1.3) mg/dL AST 28 (14-36) U/L ALT 18 (0-35) U/L Alkaline Phosphatase 39 (38-126) U/L Troponin I 0.040 H* (0.000-0.034) ng/mL NT-Pro-B Natriuret Pep 9960 H (0-900) pg/mL Serum Total Protein 6.7 (6.3-8.2) g/dL Albumin 2.6 L (3.5-5.0) g/dL Procalcitonin 5.740 H* (0.030-0.080) ng/mL Urine Color (YELLOW) Urine Appearance (CLEAR) Urine pH (5-6) Ur Specific [place] (1.005-1.025) Urine Protein (Negative) Urine Ketones (NEGATIVE) Urine Blood (0-5) Ramses/ul Urine Nitrite (NEGATIVE) Urine Bilirubin (NEGATIVE) Urine Urobilinogen (0-1) mg/dL Ur Leukocyte Esterase (NEGATIVE) Urine WBC (Auto) (0-5) /HPF Urine RBC (Auto) (0-2) /HPF U Epithel Cells (Auto) (FEW) /HPF Urine Bacteria (Auto) (NEGATIVE) /HPF Urine Mucus (Auto) (NEGATIVE) /HPF Urine Culture Reflexed (NO) Urine Glucose (NEGATIVE) mg/dL Urine Opiates Level (NEGATIVE) Ur Methadone (NEGATIVE) Urine Barbiturates (NEGATIVE) Ur Phencyclidine (PCP) (NEGATIVE) Urine Amphetamine (NEGATIVE) U Benzodiazepine Level (NEGATIVE) Urine Cocaine (NEGATIVE) Urine Marijuana (THC) (NEGATIVE) SARS-CoV-2 (PCR) (NEGATIVE) 03/23/21 03/23/21 03/23/21 Range/Units 08:15 08:31 09:00 WBC (4.0-10.5) K/mm3 RBC (4.1-5.4) M/mm3 Hgb (12.0-16.0) gm/dl Hct (35-47) % MCV (78-100) fl MCH (26-32) pg MCHC (32-36) g/dl RDW (11.5-14.0) % Plt Count (150-450) K/mm3 MPV (7.5-11.0) fl Gran % (36.0-66.0) % Eos # (Auto) (0-0.5) Absolute Lymphs (auto) (1.0-4.6) Absolute Monos (auto) (0.0-1.3) Lymphocytes % (24.0-44.0) % Monocytes % (0.0-12.0) % Eosinophils % (0.00-5.0) % Basophils % (0.0-0.4) % Absolute Granulocytes (1.4-6.9) Segmented Neutrophils (36.0-66.0) % Band Neutrophils (0.0-2.0) % Lymphocytes (Manual) (24-44) % Monocytes (Manual) (0.0-12.0) % Basophils # (0-0.4) Platelet Estimate (NORMAL) RBC Morphology Anisocytosis Macrocytosis Puncture Site pCO2 (35-45) mmHg pO2 (75-100) mmHg Base Excess (-2.0-2.0) O2 Saturation (94-100) g/dF ABG pH (7.35-7.45) ABG HCO3 (22-28) ABG O2 Sat (Measured) (95-100) % [place] Test A-a Gradient a/A Ratio Hemoglobin Carboxyhemoglobin (0.0-6.9) % THgb Methemoglobin (1.4-1.5) % Potassium (3.5-5.1) Temperature C POC O2 Flow Rate % Vent Mode Tidal Volume cc PEEP cmH2O Sodium (137-145) mmol/L Chloride (98-107) mmol/L Carbon Dioxide (22-30) mmol/L Anion Gap (5-15) MEQ/L BUN (7-17) mg/dL Creatinine (0.52-1.04) mg/dL Estimated GFR ML/MIN Glucose (74-106) mg/dL Lactic Acid (0.4-2.0) Calcium (8.4-10.2) mg/dL Magnesium (1.6-2.3) mg/dL Total Bilirubin (0.2-1.3) mg/dL AST (14-36) U/L ALT (0-35) U/L Alkaline Phosphatase (38-126) U/L Troponin I (0.000-0.034) ng/mL NT-Pro-B Natriuret Pep (0-900) pg/mL Serum Total Protein (6.3-8.2) g/dL Albumin (3.5-5.0) g/dL Procalcitonin (0.030-0.080) ng/mL Urine Color [place] (YELLOW) Urine Appearance CLOUDY (CLEAR) Urine pH 5.0 (5-6) Ur Specific [place] 1.026 (1.005-1.025) Urine Protein 30 (Negative) Urine Ketones TRACE (NEGATIVE) Urine Blood NEGATIVE (0-5) Ramses/ul Urine Nitrite NEGATIVE (NEGATIVE) Urine Bilirubin NEGATIVE (NEGATIVE) Urine Urobilinogen 2 (0-1) mg/dL Ur Leukocyte Esterase MODERATE (NEGATIVE) Urine WBC (Auto) 26-50 (0-5) /HPF Urine RBC (Auto) 6-10 (0-2) /HPF U Epithel Cells (Auto) RARE (FEW) /HPF Urine Bacteria (Auto) MANY (NEGATIVE) /HPF Urine Mucus (Auto) SLIGHT (NEGATIVE) /HPF Urine Culture Reflexed ORDERED SEPARATELY (NO) Urine Glucose NEGATIVE (NEGATIVE) mg/dL Urine Opiates Level NEGATIVE (NEGATIVE) Ur Methadone NEGATIVE (NEGATIVE) Urine Barbiturates NEGATIVE (NEGATIVE) Ur Phencyclidine (PCP) NEGATIVE (NEGATIVE) Urine Amphetamine NEGATIVE (NEGATIVE) U Benzodiazepine Level NEGATIVE (NEGATIVE) Urine Cocaine NEGATIVE (NEGATIVE) Urine Marijuana (THC) NEGATIVE (NEGATIVE) SARS-CoV-2 (PCR) NEGATIVE (NEGATIVE) 03/23/21 03/23/21 03/23/21 Range/Units 10:00 11:10 11:57 WBC (4.0-10.5) K/mm3 RBC (4.1-5.4) M/mm3 Hgb (12.0-16.0) gm/dl Hct (35-47) % MCV (78-100) fl MCH (26-32) pg MCHC (32-36) g/dl RDW (11.5-14.0) % Plt Count (150-450) K/mm3 MPV (7.5-11.0) fl Gran % (36.0-66.0) % Eos # (Auto) (0-0.5) Absolute Lymphs (auto) (1.0-4.6) Absolute Monos (auto) (0.0-1.3) Lymphocytes % (24.0-44.0) % Monocytes % (0.0-12.0) % Eosinophils % (0.00-5.0) % Basophils % (0.0-0.4) % Absolute Granulocytes (1.4-6.9) Segmented Neutrophils (36.0-66.0) % Band Neutrophils (0.0-2.0) % Lymphocytes (Manual) (24-44) % Monocytes (Manual) (0.0-12.0) % Basophils # (0-0.4) Platelet Estimate (NORMAL) RBC Morphology Anisocytosis Macrocytosis Puncture Site RIGHT RADIAL pCO2 32 L (35-45) mmHg pO2 147 H* (75-100) mmHg Base Excess -14.4 L (-2.0-2.0) O2 Saturation 97.3 (94-100) g/dF ABG pH 7.20 L* (7.35-7.45) ABG HCO3 12.5 L* (22-28) ABG O2 Sat (Measured) 99.4 (95-100) % Tyler Test NOT APPLICABLE A-a Gradient 383 a/A Ratio 0.28 Hemoglobin 12.9 Carboxyhemoglobin 0.9 (0.0-6.9) % THgb Methemoglobin 1.2 L (1.4-1.5) % Potassium 3.5 3.5 (3.5-5.1) Temperature 37.0 C POC O2 Flow Rate 80 % Vent Mode A/C Tidal Volume 500 cc PEEP 5.0 cmH2O Sodium 147 H (137-145) mmol/L Chloride 114 H (98-107) mmol/L Carbon Dioxide 13 L* (22-30) mmol/L Anion Gap 23.8 H (5-15) MEQ/L BUN 51 H (7-17) mg/dL Creatinine 2.28 H (0.52-1.04) mg/dL Estimated GFR 22.4 ML/MIN Glucose 206 H (74-106) mg/dL Lactic Acid (0.4-2.0) Calcium 7.8 L (8.4-10.2) mg/dL Magnesium (1.6-2.3) mg/dL Total Bilirubin (0.2-1.3) mg/dL AST (14-36) U/L ALT (0-35) U/L Alkaline Phosphatase (38-126) U/L Troponin I 0.043 H* (0.000-0.034) ng/mL NT-Pro-B Natriuret Pep (0-900) pg/mL Serum Total Protein (6.3-8.2) g/dL Albumin (3.5-5.0) g/dL Procalcitonin (0.030-0.080) ng/mL Urine Color (YELLOW) Urine Appearance (CLEAR) Urine pH (5-6) Ur Specific [place] (1.005-1.025) Urine Protein (Negative) Urine Ketones (NEGATIVE) Urine Blood (0-5) Ramses/ul Urine Nitrite (NEGATIVE) Urine Bilirubin (NEGATIVE) Urine Urobilinogen (0-1) mg/dL Ur Leukocyte Esterase (NEGATIVE) Urine WBC (Auto) (0-5) /HPF Urine RBC (Auto) (0-2) /HPF U Epithel Cells (Auto) (FEW) /HPF Urine Bacteria (Auto) (NEGATIVE) /HPF Urine Mucus (Auto) (NEGATIVE) /HPF Urine Culture Reflexed (NO) Urine Glucose (NEGATIVE) mg/dL Urine Opiates Level (NEGATIVE) Ur Methadone (NEGATIVE) Urine Barbiturates (NEGATIVE) Ur Phencyclidine (PCP) (NEGATIVE) Urine Amphetamine (NEGATIVE) U Benzodiazepine Level (NEGATIVE) Urine Cocaine (NEGATIVE) Urine Marijuana (THC) (NEGATIVE) SARS-CoV-2 (PCR) (NEGATIVE) 03/23/21 Range/Units 14:15 WBC (4.0-10.5) K/mm3 RBC (4.1-5.4) M/mm3 Hgb (12.0-16.0) gm/dl Hct (35-47) % MCV (78-100) fl MCH (26-32) pg MCHC (32-36) g/dl RDW (11.5-14.0) % Plt Count (150-450) K/mm3 MPV (7.5-11.0) fl Gran % (36.0-66.0) % Eos # (Auto) (0-0.5) Absolute Lymphs (auto) (1.0-4.6) Absolute Monos (auto) (0.0-1.3) Lymphocytes % (24.0-44.0) % Monocytes % (0.0-12.0) % Eosinophils % (0.00-5.0) % Basophils % (0.0-0.4) % Absolute Granulocytes (1.4-6.9) Segmented Neutrophils (36.0-66.0) % Band Neutrophils (0.0-2.0) % Lymphocytes (Manual) (24-44) % Monocytes (Manual) (0.0-12.0) % Basophils # (0-0.4) Platelet Estimate (NORMAL) RBC Morphology Anisocytosis Macrocytosis Puncture Site pCO2 (35-45) mmHg pO2 (75-100) mmHg Base Excess (-2.0-2.0) O2 Saturation (94-100) g/dF ABG pH (7.35-7.45) ABG HCO3 (22-28) ABG O2 Sat (Measured) (95-100) % Tyler Test A-a Gradient a/A Ratio Hemoglobin Carboxyhemoglobin (0.0-6.9) % THgb Methemoglobin (1.4-1.5) % Potassium (3.5-5.1) Temperature C POC O2 Flow Rate % Vent Mode Tidal Volume cc PEEP cmH2O Sodium (137-145) mmol/L Chloride (98-107) mmol/L Carbon Dioxide (22-30) mmol/L Anion Gap (5-15) MEQ/L BUN (7-17) mg/dL Creatinine (0.52-1.04) mg/dL Estimated GFR ML/MIN Glucose (74-106) mg/dL Lactic Acid (0.4-2.0) Calcium (8.4-10.2) mg/dL Magnesium (1.6-2.3) mg/dL Total Bilirubin (0.2-1.3) mg/dL AST (14-36) U/L ALT (0-35) U/L Alkaline Phosphatase (38-126) U/L Troponin I 0.039 H* (0.000-0.034) ng/mL NT-Pro-B Natriuret Pep (0-900) pg/mL Serum Total Protein (6.3-8.2) g/dL Albumin (3.5-5.0) g/dL Procalcitonin (0.030-0.080) ng/mL Urine Color (YELLOW) Urine Appearance (CLEAR) Urine pH (5-6) Ur Specific [place] (1.005-1.025) Urine Protein (Negative) Urine Ketones (NEGATIVE) Urine Blood (0-5) Ramses/ul Urine Nitrite (NEGATIVE) Urine Bilirubin (NEGATIVE) Urine Urobilinogen (0-1) mg/dL Ur Leukocyte Esterase (NEGATIVE) Urine WBC (Auto) (0-5) /HPF Urine RBC (Auto) (0-2) /HPF U Epithel Cells (Auto) (FEW) /HPF Urine Bacteria (Auto) (NEGATIVE) /HPF Urine Mucus (Auto) (NEGATIVE) /HPF Urine Culture Reflexed (NO) Urine Glucose (NEGATIVE) mg/dL Urine Opiates Level (NEGATIVE) Ur Methadone (NEGATIVE) Urine Barbiturates (NEGATIVE) Ur Phencyclidine (PCP) (NEGATIVE) Urine Amphetamine (NEGATIVE) U Benzodiazepine Level (NEGATIVE) Urine Cocaine (NEGATIVE) Urine Marijuana (THC) (NEGATIVE) SARS-CoV-2 (PCR) (NEGATIVE) - Radiology Impressions Radiology Exams & Impressions: Radiology Procedures Category Date Time Status CHEST 1 VIEW (PORTABLE) Stat Exams 03/23/21 08:05 Completed CHEST 1 VIEW (PORTABLE) Stat Exams 03/23/21 08:39 Completed HEAD WITHOUT CONTRAST [CT] Stat Exams 03/23/21 08:06 Completed - Other Procedures and Tests Respiratory Therapy 03/23/21 14:36 Respiratory Therapy Assessment DAILY 03/23/21 17:03 Oxygen NASAL CANNULA 4 lpm Assessment/Plan (1) Respiratory failure Current Visit: Yes Status: Acute Qualifiers: Chronicity: acute Respiratory failure complication: hypoxia and hypercapnia Qualified Code(s): J96.01 - Acute respiratory failure with hypoxia; J96.02 - Acute respiratory failure with hypercapnia Assessment & Plan: Chief Complaint Diagnosis RESPIRATORY FAILURE, SEPSIS PNEUMONIA Allergies Allergy/AdvReac Type Severity Reaction Status Date / Time No Known Drug Allergies Allergy Verified 07/19/17 20:46 Vital Signs (Last 24 hours) Temp Pulse Resp BP Pulse Ox 03/23/21 17:00 97.7 F 19 03/23/21 16:00 97.5 F 71 16 83/52 97 03/23/21 15:00 97.5 F 76 15 82/52 98 03/23/21 14:36 79 21 100 03/23/21 14:00 98.8 F 72 22 78/48 100 03/23/21 13:20 98.8 F 93 H 16 73/52 99 03/23/21 13:00 97.9 F 75 21 76/45 100 03/23/21 12:05 100 03/23/21 11:57 83 16 97/54 100 03/23/21 09:08 99.7 F 82 19 75/47 99 03/23/21 08:47 100.0 F 94 H 22 76/43 96 03/23/21 08:32 99.5 F 87 18 89/47 94 L 03/23/21 07:51 97.5 F 98 H 35 H 83/53 100 Home Medications Medication Instructions Recorded Confirmed Last Taken Type Hydrochlorothiazide 25 mg 25 mg PO DAILY 03/23/21 03/23/21 03/22/21 History [hydroDIURIL 25 MG] Current Medications Generic Name Dose Route Start Last Admin Trade Name Freq PRN Reason Stop Dose Admin Albuterol/Ipratropium 3 ml 03/23/21 14:27 Ipratropium/Albuterol Sulfate 3 Ml Ampul.Neb 04/22/21 14:25 Q4HPRN PRN SHORTNESS OF BREATH/WHEEZING Famotidine 20 mg 03/23/21 12:46 03/23/21 13:48 Famotidine 20 Mg/1 Vial IV 04/22/21 12:45 Not Given Q12HT [facility] Azithromycin 500 mg in 250 mls @ 250 mls/hr 03/23/21 12:46 03/23/21 13:48 Zithromax 500 Mg/ 250 Ml Nacl Premix IV 04/22/21 12:45 Not Given Q24H10 [facility] Piperacillin Sod/Tazobactam 100 mls @ 200 mls/hr 03/23/21 12:46 03/23/21 13:48 Sod 3.375 gm/ Sodium Chloride IV 03/26/21 12:45 Not Given Q6HT [facility] Fentanyl Citrate 1,500 mcg/ 150 mls @ 3.67 mls/hr 03/23/21 13:00 03/23/21 13:04 Sodium Chloride IV 03/28/21 12:59 0.5 mcg/kg/hr .Q24H MARJORIE 3.67 mls/hr Administration Protocol 0.5 MCG/KG/HR Insulin Human Lispro 0 unit 03/23/21 12:46 Insulin Lispro 1 Unit SQ 04/22/21 12:45 UD PRN HYPERGLYCEMIA Ondansetron HCl 4 mg 03/23/21 12:46 Ondansetron Hcl 4 Mg/2 Ml Vial IV 04/22/21 12:45 Q6H PRN PRN NAUSEA/VOMITING Discontinued Medications Generic Name Dose Route Start Last Admin Trade Name Freq PRN Reason Stop Dose Admin Albuterol/Ipratropium 3 ml 03/23/21 13:00 03/23/21 14:26 Ipratropium/Albuterol Sulfate 3 Ml Ampul.Neb 04/22/21 12:59 Not Given Q6HRT MARJORIE Epinephrine HCl Confirm 03/23/21 08:05 Epinephrine 1mg/Ml Amp Administered 03/23/21 08:06 Dose 1 mg .ROUTE .STK-MED ONE Epinephrine HCl Confirm 03/23/21 08:06 Epinephrine Abboject 1 Mg Administered 03/23/21 08:07 Dose 1 mg .ROUTE .STK-MED ONE Etomidate 10 mg 03/23/21 08:15 03/23/21 08:00 Amidate 20 Mg/10 Ml IV 03/23/21 08:16 10 mg STAT ONE Administration Sodium Chloride Confirm 03/23/21 07:52 Sodium Chloride 0.9% 1000 Ml Administered 03/23/21 07:53 Dose 1,000 mls @ ud .ROUTE .STK-MED ONE Sodium Chloride Confirm 03/23/21 08:20 Sodium Chloride 0.9% 1000 Ml Administered 03/23/21 08:21 Dose 1,000 mls @ ud .ROUTE .STK-MED ONE Piperacillin Sod/Tazobactam 100 mls @ 200 mls/hr 03/23/21 08:26 03/23/21 09:20 Sod 3.375 gm/ Sodium Chloride IV 03/23/21 08:55 200 mls/hr STAT ONE Administration Azithromycin 500 mg in 250 mls @ 250 mls/hr 03/23/21 08:26 03/23/21 09:24 Zithromax 500 Mg/ 250 Ml Nacl Premix IV 03/23/21 09:25 250 mls/hr STAT STA 250 mls/hr Administration Midazolam HCl 50 mg/ Sodium 250 mls @ 10 mls/hr 03/23/21 08:25 03/23/21 08:41 Chloride IV 04/22/21 08:24 2 mg/hr .Q24H PRN 10 mls/hr SEDATION Administration Protocol 2 MG/HR Dextrose/Sodium Chloride Confirm 03/23/21 08:50 Dextrose 5% -0.45 Nacl 1000 Ml Administered 03/23/21 08:51 Dose 1,000 mls @ ud IV .STK-MED ONE Norepinephrine 4,000 mcg/ 504 mls @ 37.8 mls/hr 03/23/21 09:12 03/23/21 09:24 Dextrose IV 04/22/21 09:11 5 mcg/min .[id number] PRN 37.8 mls/hr SEVERE HYPOTENSION Administration Protocol 5 MCG/MIN Magnesium Sulfate/Dextrose 100 mls @ 100 mls/hr 03/23/21 09:15 03/23/21 14:14 Magnesium 1 Gm / 100 Ml D5w IV 03/23/21 11:14 100 mls/hr Q1H MARJORIE Administration Sodium Chloride Confirm 03/23/21 09:15 Sodium Chloride 100ml Mini-Bag Plus Administered 03/23/21 09:16 Dose 100 mls @ ud IV .STK-MED ONE Azithromycin Confirm 03/23/21 09:15 Zithromax 500 Mg/ 250 Ml Nacl Premix Administered 03/23/21 09:16 Dose 500 mg in 250 mls @ ud IV .STK-MED ONE Magnesium Sulfate/Dextrose Confirm 03/23/21 09:37 Magnesium 1 Gm / 100 Ml D5w Administered 03/23/21 09:38 Dose 100 mls @ ud IV .STK-MED ONE Sodium Chloride 1,000 mls @ 999 mls/hr 03/23/21 11:52 03/23/21 11:55 Sodium Chloride 0.9% 1000 Ml IV 03/23/21 12:52 999 mls/hr .Q1H1M STA Administration Sodium Chloride Confirm 03/23/21 11:55 Sodium Chloride 0.9% 1000 Ml Administered 03/23/21 11:56 Dose 1,000 mls @ ud .ROUTE .STK-MED ONE Sodium Chloride 1,000 mls @ 125 mls/hr 03/23/21 12:46 03/23/21 13:48 Sodium Chloride 0.45% 1000 Ml IV 04/22/21 12:45 Not Given .Q8H MARJORIE Cisatracurium Besylate 200 mg/ 200 mls @ 13.212 mls/hr 03/23/21 13:00 Dextrose IV 04/22/21 12:59 .[id number] MARJORIE Protocol 3 MCG/KG/MIN Midazolam HCl 50 mg/ Sodium 250 mls @ 10 mls/hr 03/23/21 12:48 Chloride IV 04/22/21 12:47 .Q24H PRN SEDATION Protocol 2 MG/HR Norepinephrine 4,000 mcg/ 504 mls @ 37.8 mls/hr 03/23/21 12:50 03/23/21 14:10 Dextrose IV 04/22/21 12:49 25 mcg/min .[id number] PRN 189 mls/hr SEVERE HYPOTENSION Titration Protocol 5 MCG/MIN Magnesium Sulfate/Dextrose Confirm 03/23/21 14:10 Magnesium 1 Gm / 100 Ml D5w Administered 03/23/21 14:11 Dose 100 mls @ ud IV .STK-MED ONE Midazolam HCl 3 mg 03/23/21 08:20 03/23/21 08:05 Versed 5 Mg/5 Ml IV 03/23/21 08:21 3 mg STAT ONE Administration Piperacillin Sod/Tazobactam Sod Confirm 03/23/21 09:15 Zosyn 3.375 Gm Vial Administered 03/23/21 09:16 Dose 3.375 gm IV .STK-MED ONE Sodium Chloride Confirm 03/23/21 12:29 Sodium Cl For Inhalation 3 Ml Ud Nebule Administered 03/23/21 12:30 Dose 15 ml IH .STK-MED ONE Succinylcholine Chloride 100 mg 03/23/21 08:26 03/23/21 08:00 Quelicin Fliptop 200 Mg/10 Ml IV 03/23/21 08:27 100 mg STAT ONE Administration Intake & Output (Last 24 hours) 03/21/21 03/22/21 03/23/21 03/24/21 11:59 11:59 11:59 11:59 Output Total 200 Balance -200 Weight 73.4 kg 73.9 kg Microbiology Results (Last 24 hours) 03/23/21 09:00 Catherized Urine Culture - Pending Laboratory Results (Last 24 hours) 03/23/21 03/23/21 03/23/21 14:15 11:57 11:10 WBC RBC Hgb Hct MCV MCH MCHC RDW Plt Count MPV Gran % Eos # (Auto) Absolute Lymphs (auto) Absolute Monos (auto) Lymphocytes % Monocytes % Eosinophils % Basophils % Absolute Granulocytes Segmented Neutrophils Band Neutrophils Lymphocytes (Manual) Monocytes (Manual) Basophils # Platelet Estimate RBC Morphology Anisocytosis Macrocytosis Puncture Site RIGHT RADIAL pCO2 32 L pO2 147 H* Base Excess -14.4 L O2 Saturation 97.3 ABG pH 7.20 L* ABG HCO3 12.5 L* ABG O2 Sat (Measured) 99.4 Tyler Test NOT APPLICABLE A-a Gradient 383 a/A Ratio 0.28 Hemoglobin 12.9 Carboxyhemoglobin 0.9 Methemoglobin 1.2 L Potassium 3.5 Temperature 37.0 POC O2 Flow Rate 80 Vent Mode A/C Tidal Volume 500 PEEP 5.0 Sodium Chloride Carbon Dioxide Anion Gap BUN Creatinine Estimated GFR Glucose Lactic Acid Calcium Magnesium Total Bilirubin AST ALT Alkaline Phosphatase Troponin I 0.039 H* 0.043 H* NT-Pro-B Natriuret Pep Serum Total Protein Albumin Procalcitonin Urine Color Urine Appearance Urine pH Ur Specific [place] Urine Protein Urine Ketones Urine Blood Urine Nitrite Urine Bilirubin Urine Urobilinogen Ur Leukocyte Esterase Urine WBC (Auto) Urine RBC (Auto) U Epithel Cells (Auto) Urine Bacteria (Auto) Urine Mucus (Auto) Urine Culture Reflexed Urine Glucose Urine Opiates Level Ur Methadone Urine Barbiturates Ur Phencyclidine (PCP) Urine Amphetamine U Benzodiazepine Level Urine Cocaine Urine Marijuana (THC) SARS-CoV-2 (PCR) 03/23/21 03/23/21 03/23/21 10:00 09:00 08:31 WBC RBC Hgb Hct MCV MCH MCHC RDW Plt Count MPV Gran % Eos # (Auto) Absolute Lymphs (auto) Absolute Monos (auto) Lymphocytes % Monocytes % Eosinophils % Basophils % Absolute Granulocytes Segmented Neutrophils Band Neutrophils Lymphocytes (Manual) Monocytes (Manual) Basophils # Platelet Estimate RBC Morphology Anisocytosis Macrocytosis Puncture Site pCO2 pO2 Base Excess O2 Saturation ABG pH ABG HCO3 ABG O2 Sat (Measured) Tyler Test A-a Gradient a/A Ratio Hemoglobin Carboxyhemoglobin Methemoglobin Potassium 3.5 Temperature POC O2 Flow Rate Vent Mode Tidal Volume PEEP Sodium 147 H Chloride 114 H Carbon Dioxide 13 L* Anion Gap 23.8 H BUN 51 H Creatinine 2.28 H Estimated GFR 22.4 Glucose 206 H Lactic Acid Calcium 7.8 L Magnesium Total Bilirubin AST ALT Alkaline Phosphatase Troponin I NT-Pro-B Natriuret Pep Serum Total Protein Albumin Procalcitonin Urine Color DONTRELL Urine Appearance CLOUDY Urine pH 5.0 Ur Specific [place] 1.026 Urine Protein 30 Urine Ketones TRACE Urine Blood NEGATIVE Urine Nitrite NEGATIVE Urine Bilirubin NEGATIVE Urine Urobilinogen 2 Ur Leukocyte Esterase MODERATE Urine WBC (Auto) 26-50 Urine RBC (Auto) 6-10 U Epithel Cells (Auto) RARE Urine Bacteria (Auto) MANY Urine Mucus (Auto) SLIGHT Urine Culture Reflexed ORDERED SEPARATELY Urine Glucose NEGATIVE Urine Opiates Level NEGATIVE Ur Methadone NEGATIVE Urine Barbiturates NEGATIVE Ur Phencyclidine (PCP) NEGATIVE Urine Amphetamine NEGATIVE U Benzodiazepine Level NEGATIVE Urine Cocaine NEGATIVE Urine Marijuana (THC) NEGATIVE SARS-CoV-2 (PCR) 03/23/21 03/23/21 03/23/21 08:15 08:15 08:15 WBC RBC Hgb Hct MCV MCH MCHC RDW Plt Count MPV Gran % Eos # (Auto) Absolute Lymphs (auto) Absolute Monos (auto) Lymphocytes % Monocytes % Eosinophils % Basophils % Absolute Granulocytes Segmented Neutrophils Band Neutrophils Lymphocytes (Manual) Monocytes (Manual) Basophils # Platelet Estimate RBC Morphology Anisocytosis Macrocytosis Puncture Site pCO2 pO2 Base Excess O2 Saturation ABG pH ABG HCO3 ABG O2 Sat (Measured) Tyler Test A-a Gradient a/A Ratio Hemoglobin Carboxyhemoglobin Methemoglobin Potassium Temperature POC O2 Flow Rate Vent Mode Tidal Volume PEEP Sodium Chloride Carbon Dioxide Anion Gap BUN Creatinine Estimated GFR Glucose Lactic Acid Calcium Magnesium Total Bilirubin AST ALT Alkaline Phosphatase Troponin I 0.040 H* NT-Pro-B Natriuret Pep Serum Total Protein Albumin Procalcitonin 5.740 H* Urine Color Urine Appearance Urine pH Ur Specific [place] Urine Protein Urine Ketones Urine Blood Urine Nitrite Urine Bilirubin Urine Urobilinogen Ur Leukocyte Esterase Urine WBC (Auto) Urine RBC (Auto) U Epithel Cells (Auto) Urine Bacteria (Auto) Urine Mucus (Auto) Urine Culture Reflexed Urine Glucose Urine Opiates Level Ur Methadone Urine Barbiturates Ur Phencyclidine (PCP) Urine Amphetamine U Benzodiazepine Level Urine Cocaine Urine Marijuana (THC) SARS-CoV-2 (PCR) NEGATIVE 03/23/21 03/23/21 03/23/21 08:15 08:15 08:10 WBC 9.9 RBC 3.26 L Hgb 10.7 L Hct 34.6 L MCV 106.1 H MCH 32.8 H MCHC 30.9 L RDW 16.1 H Plt Count 169 MPV 9.5 Gran % 56.2 Eos # (Auto) 0.04 Absolute Lymphs (auto) 3.35 Absolute Monos (auto) 0.95 Lymphocytes % 33.7 Monocytes % 9.6 Eosinophils % 0.4 Basophils % 0.1 Absolute Granulocytes 5.58 Segmented Neutrophils 45 Band Neutrophils 6 H Lymphocytes (Manual) 42 Monocytes (Manual) 7 Basophils # 0.01 Platelet Estimate NORMAL RBC Morphology ABNORMAL Anisocytosis 1+ Macrocytosis 1+ Puncture Site RIGHT BRACHIAL pCO2 31 L pO2 72 L Base Excess -16.0 L O2 Saturation 92.8 L ABG pH 7.17 L* ABG HCO3 11.3 L* ABG O2 Sat (Measured) 95.3 Tyler Test NOT APPLICABLE A-a Gradient 246 a/A Ratio 0.23 Hemoglobin 10.9 Carboxyhemoglobin 1.6 Methemoglobin 1.0 L Potassium 3.6 3.5 Temperature 37.0 POC O2 Flow Rate 50 Vent Mode A/C Tidal Volume 600 PEEP 5.0 Sodium 152 H* Chloride 117 H Carbon Dioxide 10 L* Anion Gap 28.0 H BUN 51 H Creatinine 2.34 H Estimated GFR 21.8 Glucose 110 H Lactic Acid Calcium 8.2 L Magnesium 1.2 L Total Bilirubin 0.50 AST 28 ALT 18 Alkaline Phosphatase 39 Troponin I NT-Pro-B Natriuret Pep 9960 H Serum Total Protein 6.7 Albumin 2.6 L Procalcitonin Urine Color Urine Appearance Urine pH Ur Specific [place] Urine Protein Urine Ketones Urine Blood Urine Nitrite Urine Bilirubin Urine Urobilinogen Ur Leukocyte Esterase Urine WBC (Auto) Urine RBC (Auto) U Epithel Cells (Auto) Urine Bacteria (Auto) Urine Mucus (Auto) Urine Culture Reflexed Urine Glucose Urine Opiates Level Ur Methadone Urine Barbiturates Ur Phencyclidine (PCP) Urine Amphetamine U Benzodiazepine Level Urine Cocaine Urine Marijuana (THC) SARS-CoV-2 (PCR) 03/23/21 08:10 WBC RBC Hgb Hct MCV MCH MCHC RDW Plt Count MPV Gran % Eos # (Auto) Absolute Lymphs (auto) Absolute Monos (auto) Lymphocytes % Monocytes % Eosinophils % Basophils % Absolute Granulocytes Segmented Neutrophils Band Neutrophils Lymphocytes (Manual) Monocytes (Manual) Basophils # Platelet Estimate RBC Morphology Anisocytosis Macrocytosis Puncture Site pCO2 pO2 Base Excess O2 Saturation ABG pH ABG HCO3 ABG O2 Sat (Measured) Tyler Test A-a Gradient a/A Ratio Hemoglobin Carboxyhemoglobin Methemoglobin Potassium Temperature POC O2 Flow Rate Vent Mode Tidal Volume PEEP Sodium Chloride Carbon Dioxide Anion Gap BUN Creatinine Estimated GFR Glucose Lactic Acid 4.7 H Calcium Magnesium Total Bilirubin AST ALT Alkaline Phosphatase Troponin I NT-Pro-B Natriuret Pep Serum Total Protein Albumin Procalcitonin Urine Color Urine Appearance Urine pH Ur Specific [place] Urine Protein Urine Ketones Urine Blood Urine Nitrite Urine Bilirubin Urine Urobilinogen Ur Leukocyte Esterase Urine WBC (Auto) Urine RBC (Auto) U Epithel Cells (Auto) Urine Bacteria (Auto) Urine Mucus (Auto) Urine Culture Reflexed Urine Glucose Urine Opiates Level Ur Methadone Urine Barbiturates Ur Phencyclidine (PCP) Urine Amphetamine U Benzodiazepine Level Urine Cocaine Urine Marijuana (THC) SARS-CoV-2 (PCR) Orders (Last 24 hours) Category Date Time Status Admit as Inpatient ROUTINE Care 03/23/21 12:46 Active CO2 Monitoring ROUTINE Care 03/23/21 08:42 Completed Catheter-[place] STAT Care 03/23/21 08:06 Completed Code Status Order ROUTINE Care 03/23/21 12:46 Active IV Care Q1H Care 03/23/21 12:46 Active Neuro Checks Q1H Care 03/23/21 12:46 Active POCT Glucose Check ACHS Care 03/23/21 12:46 Active Donta Rutledgee, Apply ROUTINE Care 03/23/21 12:46 Active Weight,Daily 0600 Care 03/23/21 12:46 Active Consult Pulmonology ROUTINE Cons 03/23/21 12:51 Active Infection Control Consult ROUTINE Cons 03/23/21 13:39 Active CHEST 1 VIEW (PORTABLE) Stat Exams 03/23/21 08:05 Completed CHEST 1 VIEW (PORTABLE) Stat Exams 03/23/21 08:39 Completed HEAD WITHOUT CONTRAST [CT] Stat Exams 03/23/21 08:06 Completed ABG [ARTERIAL BLOOD GASES] AM.LAB Lab 03/24/21 04:00 Ordered ABG [ARTERIAL BLOOD GASES] AM.LAB Lab 03/25/21 04:00 Ordered ABG [ARTERIAL BLOOD GASES] AM.LAB Lab 03/26/21 04:00 Ordered ABG [ARTERIAL BLOOD GASES] AM.LAB Lab 03/27/21 04:00 Ordered ABG [ARTERIAL BLOOD GASES] AM.LAB Lab 03/28/21 04:00 Ordered ABG [ARTERIAL BLOOD GASES] Routine Lab 03/23/21 11:57 Completed ABG [ARTERIAL BLOOD GASES] Urgent Lab 03/23/21 08:10 Completed BMP Stat Lab 03/23/21 10:00 Completed CBC W DIFF AM.LAB Lab 03/24/21 04:00 Ordered CBC W DIFF Stat Lab 03/23/21 08:15 Completed CMP AM.LAB Lab 03/24/21 04:00 Ordered CMP Stat Lab 03/23/21 08:15 Completed CULTURE,URINE Stat Lab 03/23/21 09:00 Received Lactic Acid Stat Lab 03/23/21 08:10 Completed MAGNESIUM Stat Lab 03/23/21 08:15 Completed Manual Differential NC Stat Lab 03/23/21 08:15 Completed NT PRO BNP Stat Lab 03/23/21 08:15 Completed PROCALCITONIN Stat Lab 03/23/21 08:15 Completed TROPONIN Q3H Lab 03/23/21 08:15 Completed TROPONIN Q3H Lab 03/23/21 11:10 Completed TROPONIN Q3H Lab 03/23/21 14:15 Completed TROPONIN Q3H Lab 03/23/21 17:15 Ordered TROPONIN Q3H Lab 03/23/21 20:15 Ordered TROPONIN Q3H Lab 03/23/21 23:15 Ordered UA W/RFX UR CULTURE Stat Lab 03/23/21 08:31 Completed Urine Triage Profile Stat Lab 03/23/21 09:00 Completed Albuterol/Ipratropium 3ml Neb* [DUONEB 0.5-3 MG/3 ml Med 03/23/21 14:27 Active Neb] 3 ml IH Q4HPRN PRN Albuterol/Ipratropium 3ml Neb* [DUONEB 0.5-3 MG/3 ml Med 03/23/21 13:00 Discontinued Neb] 3 ml IH Q6HRT Azithromycin 500 mg/250 ml [Zithromax 500 MG/ 250 ML Med 03/23/21 12:46 Active NaCl Premix] 500 mg in 250 ml IV Q24H10 Azithromycin 500 mg/250 ml [Zithromax 500 MG/ 250 ML Med 03/23/21 08:26 Discontinued NaCl Premix] 500 mg in 250 ml IV STAT Azithromycin 500 mg/250 ml [Zithromax 500 MG/ 250 ML Med 03/23/21 09:15 Discontinued NaCl Premix] 500 mg in 250 ml IV UD D5w 250 ml [Dextrose 5%/Water IV Soln. 250 ML] 180 ml Med 03/23/21 13:00 Discontinued Cisatracurium 200 mg/20 ml [Nimbex 200MG/20 Ml MDV ( HIGH RISK MED)] 200 mg IV 3 mcg/kg/min D5w 500 ml [Dextrose 5%/Water IV Soln. 500 ML] 500 ml Med 03/23/21 09:12 Discontinued Norepinephrine Bitartrate 4 mg [Levophed 4 mg/4 ml] 4, 000 mcg IV 5 mcg/min D5w 500 ml [Dextrose 5%/Water IV Soln. 500 ML] 500 ml Med 03/23/21 12:50 Discontinued Norepinephrine Bitartrate 4 mg [Levophed 4 mg/4 ml] 4, 000 mcg IV 5 mcg/min D5w-0.45 NaCl 1000 ml [Dextrose 5% -0.45 NaCl 1000 ML] Med 03/23/21 08:50 Discontinued 1,000 ml IV UD Epinephrine 1 mg [Epinephrine Abboject 1 mg] Med 03/23/21 08:06 Discontinued 1 mg .ROUTE .STK-MED ONE Epinephrine 1Mg/ml [Epinephrine 1Mg/ml Amp] Med 03/23/21 08:05 Discontinued 1 mg .ROUTE .STK-MED ONE Etomidate 20 mg/10 ml [Amidate 20 MG/10 ML] Med 03/23/21 08:15 Discontinued 10 mg IV STAT ONE Famotidine 20 mg Vial [Pepcid 20 MG VIAL] Med 03/23/21 12:46 Active 20 mg IV Q12HT Insulin Lispro [Humalog] Med 03/23/21 12:46 Active See Dose Instructions SQ UD PRN Magnesium Sulfate 1 gm/100 ml* [Magnesium 1 Gm / 100 Ml Med 03/23/21 09:15 Discontinued D5W] 100 ml IV Q1H Magnesium Sulfate 1 gm/100 ml* [Magnesium 1 Gm / 100 Ml Med 03/23/21 09:37 Discontinued D5W] 100 ml IV UD Magnesium Sulfate 1 gm/100 ml* [Magnesium 1 Gm / 100 Ml Med 03/23/21 14:10 Discontinued D5W] 100 ml IV UD Midazolam HCl 5 mg/5 ml [Versed 5 mg/5 ml] Med 03/23/21 08:20 Discontinued 3 mg IV STAT ONE NaCl 0.45% 1000 ml [Sodium Chloride 0.45% 1000 ML] 1, Med 03/23/21 12:46 Discontinued 000 ml IV 125 mls/hr NaCl 0.9% 100 ml Mini-Bag Plus [Sodium Chloride 100ML Med 03/23/21 09:15 Discontinued MINI-BAG PLUS] 100 ml IV UD NaCl 0.9% 1000 ml [Sodium Chloride 0.9% 1000 ML] 1,000 Med 03/23/21 07:52 Discontinued ml .ROUTE UD NaCl 0.9% 1000 ml [Sodium Chloride 0.9% 1000 ML] 1,000 Med 03/23/21 08:20 Discontinued ml .ROUTE UD NaCl 0.9% 1000 ml [Sodium Chloride 0.9% 1000 ML] 1,000 Med 03/23/21 11:55 Discontinued ml .ROUTE UD NaCl 0.9% 1000 ml [Sodium Chloride 0.9% 1000 ML] 1,000 Med 03/23/21 11:52 Discontinued ml IV 999 mls/hr NaCl 0.9% 150 ml [Sodium Chloride 0.9% 150 ML] 120 ml Med 03/23/21 13:00 Active Fentanyl 1000 mg/20 ml [SUBLIMAZE 1000 Mcg/ 20 Ml ] 1,500 mcg IV 0.5 mcg/kg/hr NaCl 0.9% 250 ml [Sodium Chloride 0.9% 250 ML] 240 ml Med 03/23/21 08:25 Discontinued Midazolam HCl 50 mg/10 ml Mdv* [Versed 50 MG/ 10 Ml MDV ] 50 mg IV 2 mg/hr NaCl 0.9% 250 ml [Sodium Chloride 0.9% 250 ML] 240 ml Med 03/23/21 12:48 Discontinued Midazolam HCl 50 mg/10 ml Mdv* [Versed 50 MG/ 10 Ml MDV ] 50 mg IV 2 mg/hr NaCl 3Ml For Inhalation [Sodium Chloride 3 ML UD Med 03/23/21 12:29 Discontinued NEBULES] 15 ml IH .STK-MED ONE Ondansetron HCl 4 mg/2 ml [Zofran 4 MG/2 ML VIAL] Med 03/23/21 12:46 Active 4 mg IV Q6H PRN PRN Piperacillin/Tazobactam 3.375G [Zosyn 3.375 GM Vial] Med 03/23/21 09:15 Discontinued 3.375 gm IV .STK-MED ONE Piperacillin/Tazobactam 3.375G [Zosyn 3.375 GM Vial] 3. Med 03/23/21 12:46 Active 375 gm NaCl 0.9% 100 ml Mini-Bag Plus [Sodium Chloride 100ML MINI-BAG PLUS] 100 ml IV Q6HT Piperacillin/Tazobactam 3.375G [Zosyn 3.375 GM Vial] 3. Med 03/23/21 08:26 Discontinued 375 gm NaCl 0.9% 100 ml Mini-Bag Plus [Sodium Chloride 100ML MINI-BAG PLUS] 100 ml IV STAT Succinylcholine Chloride 200Mg [Quelicin Fliptop 200 MG Med 03/23/21 08:26 Discontinued /10 ML] 100 mg IV STAT ONE Intubate Patient ROUTINE RT 03/23/21 08:37 Completed Oxygen NASAL CANNULA 4 lpm RT 03/23/21 17:03 Active Pulse Oximetry .continuos RT 03/23/21 15:01 Active Respiratory Therapy Assessment DAILY RT 03/23/21 14:36 Active Vent Settings [Ventilator Management] ROUTINE RT 03/23/21 08:38 Completed Transfer Order Routine Transfer 03/23/21 Completed Patient Care Notes (Last 24 hours) 03/23/21 16:30 (created 03/23/21 16:46) Nursing Note by ALOK MEJÍA FAMILY MADE DECISION TO MAKE PT SCO AND REMOVED VENT. DR. CHILDS CALLED AND MADE AWARE. NEW ORDERS TO TURN OFF ALL DRIPS, LEAVE FENTANYL DRIP, EXTUBATE PT. COMFORT CARE ONLY FROM THIS POINT Initialized on 03/23/21 16:46 - END OF NOTE Patient is DNR. extubated. condition critical. Family have opted for comfort measures Code(s): J96.90 - RESPIRATORY FAILURE, UNSP, UNSP W HYPOXIA OR HYPERCAPNIA (2) Heart failure with acute decompensation, type unknown Current Visit: Yes Status: Acute Qualifiers: Heart failure type: combined systolic and diastolic Qualified Code(s): I50.43 - Acute on chronic combined systolic (congestive) and diastolic (congestive) heart failure Code(s): I50.9 - HEART FAILURE, UNSPECIFIED (3) Bilateral pneumonia Current Visit: Yes Status: Acute Qualifiers: Pneumonia type: due to other aerobic Gram-negative bacteria Lung location: unspecified part of lung Qualified Code(s): J15.6 - Pneumonia due to other Gram-negative bacteria Code(s): J18.9 - PNEUMONIA, UNSPECIFIED ORGANISM
[2021-03-23] MEDS: ATROPINE SULFATE EYE DROPS PO PRN ×2 (18:27→21:21)
[2021-03-24] MEDS: ATROPINE SULFATE EYE DROPS PO PRN ×3 (02:25→16:23)
--- NOTE | 2021-03-24 08:11 | PCM.NOTE ---
Date and Time: 03/24/21806 Subjective Assessment: Patient unresponsive, comfort measures - Review of Systems Eyes: No Symptoms Ears, Nose, & Throat: No Symptoms Psychological: No Symptoms Endocrine: No Symptoms Hematologic/Lymphatic: No Symptoms Immunological/Allergic: No Symptoms All Other Systems: Unable due to condition Objective Exam Wound Assessment: Skin/Wound Assessment Wound/Incision Assessment Start: 03/23/21 13:39 Text: Status: Active Freq: Q6H Protocol: Document 03/24/21 02:00 BSO (Rec: 03/24/21 02:13 BSO [id number]) Wound/Incision Assessment Posterior Medial Buttock Wound Assessment Shift Assessment Wound Type FISSURE Wound Stage Non Pressure Wound Drainage Amount None Drainage Odor None/Absent General Appearance Clean/Dry Wound Photo Photo Taken No Respiratory Exam: crackles/rales, rhonchi Cardiovascular Exam: tachycardia OBJECTIVE DATA Vital Signs: Vital Signs - 24 hr Temp Pulse Resp BP Pulse Ox 03/24/21 07:48 98.8 F 82 17 78/45 03/24/21 06:38 97 03/24/21 03:55 98.8 F 91 H 23 79/48 96 03/24/21 00:00 98.6 F 62 15 70/47 93 L 03/23/21 21:21 100 03/23/21 19:46 98.2 F 68 13 82/49 86 L 03/23/21 17:00 97.7 F 19 03/23/21 16:00 97.5 F 71 16 83/52 97 03/23/21 15:00 97.5 F 76 15 82/52 98 03/23/21 14:36 79 21 100 03/23/21 14:00 98.8 F 72 22 78/48 100 03/23/21 13:20 98.8 F 93 H 16 73/52 99 03/23/21 13:00 97.9 F 75 21 76/45 100 03/23/21 11:57 83 16 97/54 100 03/23/21 09:08 99.7 F 82 19 75/47 99 03/23/21 08:47 100.0 F 94 H 22 76/43 96 03/23/21 08:32 99.5 F 87 18 89/47 94 L Pain Assessment - Last Documented Pain Intensity 0 Intake and Output: Intake & Output 10/11/03/22/21 03/23/21 03/24/21 11:59 11:59 11:59 11:59 Intake Total 44 Output Total 200 50 Balance -200 -6 Weight 73.4 kg 75.4 kg Lab Results: Lab Results-Last 24 Hours 03/23/21 03/23/21 03/23/21 Range/Units 08:10 08:10 08:15 WBC 9.9 (4.0-10.5) K/mm3 RBC 3.26 L (4.1-5.4) M/mm3 Hgb 10.7 L (12.0-16.0) gm/dl Hct 34.6 L (35-47) % MCV 106.1 H (78-100) fl MCH 32.8 H (26-32) pg MCHC 30.9 L (32-36) g/dl RDW 16.1 H (11.5-14.0) % Plt Count 169 (150-450) K/mm3 MPV 9.5 (7.5-11.0) fl Gran % 56.2 (36.0-66.0) % Eos # (Auto) 0.04 (0-0.5) Absolute Lymphs (auto) 3.35 (1.0-4.6) Absolute Monos (auto) 0.95 (0.0-1.3) Lymphocytes % 33.7 (24.0-44.0) % Monocytes % 9.6 (0.0-12.0) % Eosinophils % 0.4 (0.00-5.0) % Basophils % 0.1 (0.0-0.4) % Absolute Granulocytes 5.58 (1.4-6.9) Segmented Neutrophils 45 (36.0-66.0) % Band Neutrophils 6 H (0.0-2.0) % Lymphocytes (Manual) 42 (24-44) % Monocytes (Manual) 7 (0.0-12.0) % Basophils # 0.01 (0-0.4) Platelet Estimate NORMAL (NORMAL) RBC Morphology ABNORMAL Anisocytosis 1+ Macrocytosis 1+ Puncture Site RIGHT BRACHIAL pCO2 31 L (35-45) mmHg pO2 72 L (75-100) mmHg Base Excess -16.0 L (-2.0-2.0) O2 Saturation 92.8 L (94-100) g/dF ABG pH 7.17 L* (7.35-7.45) ABG HCO3 11.3 L* (22-28) ABG O2 Sat (Measured) 95.3 (95-100) % Tyler Test NOT APPLICABLE A-a Gradient 246 a/A Ratio 0.23 Hemoglobin 10.9 Carboxyhemoglobin 1.6 (0.0-6.9) % THgb Methemoglobin 1.0 L (1.4-1.5) % Potassium 3.5 (3.5-5.1) Temperature 37.0 C POC O2 Flow Rate 50 % Vent Mode A/C Tidal Volume 600 cc PEEP 5.0 cmH2O Sodium (137-145) mmol/L Chloride (98-107) mmol/L Carbon Dioxide (22-30) mmol/L Anion Gap (5-15) MEQ/L BUN (7-17) mg/dL Creatinine (0.52-1.04) mg/dL Estimated GFR ML/MIN Glucose (74-106) mg/dL Lactic Acid 4.7 H (0.4-2.0) Calcium (8.4-10.2) mg/dL Magnesium (1.6-2.3) mg/dL Total Bilirubin (0.2-1.3) mg/dL AST (14-36) U/L ALT (0-35) U/L Alkaline Phosphatase (38-126) U/L Troponin I (0.000-0.034) ng/mL NT-Pro-B Natriuret Pep (0-900) pg/mL Serum Total Protein (6.3-8.2) g/dL Albumin (3.5-5.0) g/dL Procalcitonin (0.030-0.080) ng/mL Urine Color (YELLOW) Urine Appearance (CLEAR) Urine pH (5-6) Ur Specific Manning (1.005-1.025) Urine Protein (Negative) Urine Ketones (NEGATIVE) Urine Blood (0-5) Ramses/ul Urine Nitrite (NEGATIVE) Urine Bilirubin (NEGATIVE) Urine Urobilinogen (0-1) mg/dL Ur Leukocyte Esterase (NEGATIVE) Urine WBC (Auto) (0-5) /HPF Urine RBC (Auto) (0-2) /HPF U Epithel Cells (Auto) (FEW) /HPF Urine Bacteria (Auto) (NEGATIVE) /HPF Urine Mucus (Auto) (NEGATIVE) /HPF Urine Culture Reflexed (NO) Urine Glucose (NEGATIVE) mg/dL Urine Opiates Level (NEGATIVE) Ur Methadone (NEGATIVE) Urine Barbiturates (NEGATIVE) Ur Phencyclidine (PCP) (NEGATIVE) Urine Amphetamine (NEGATIVE) U Benzodiazepine Level (NEGATIVE) Urine Cocaine (NEGATIVE) Urine Marijuana (THC) (NEGATIVE) SARS-CoV-2 (PCR) (NEGATIVE) 03/23/21 03/23/21 03/23/21 Range/Units 08:15 08:15 08:15 WBC (4.0-10.5) K/mm3 RBC (4.1-5.4) M/mm3 Hgb (12.0-16.0) gm/dl Hct (35-47) % MCV (78-100) fl MCH (26-32) pg MCHC (32-36) g/dl RDW (11.5-14.0) % Plt Count (150-450) K/mm3 MPV (7.5-11.0) fl Gran % (36.0-66.0) % Eos # (Auto) (0-0.5) Absolute Lymphs (auto) (1.0-4.6) Absolute Monos (auto) (0.0-1.3) Lymphocytes % (24.0-44.0) % Monocytes % (0.0-12.0) % Eosinophils % (0.00-5.0) % Basophils % (0.0-0.4) % Absolute Granulocytes (1.4-6.9) Segmented Neutrophils (36.0-66.0) % Band Neutrophils (0.0-2.0) % Lymphocytes (Manual) (24-44) % Monocytes (Manual) (0.0-12.0) % Basophils # (0-0.4) Platelet Estimate (NORMAL) RBC Morphology Anisocytosis Macrocytosis Puncture Site pCO2 (35-45) mmHg pO2 (75-100) mmHg Base Excess (-2.0-2.0) O2 Saturation (94-100) g/dF ABG pH (7.35-7.45) ABG HCO3 (22-28) ABG O2 Sat (Measured) (95-100) % Tyler Test A-a Gradient a/A Ratio Hemoglobin Carboxyhemoglobin (0.0-6.9) % THgb Methemoglobin (1.4-1.5) % Potassium 3.6 (3.5-5.1) Temperature C POC O2 Flow Rate % Vent Mode Tidal Volume cc PEEP cmH2O Sodium 152 H* (137-145) mmol/L Chloride 117 H (98-107) mmol/L Carbon Dioxide 10 L* (22-30) mmol/L Anion Gap 28.0 H (5-15) MEQ/L BUN 51 H (7-17) mg/dL Creatinine 2.34 H (0.52-1.04) mg/dL Estimated GFR 21.8 ML/MIN Glucose 110 H (74-106) mg/dL Lactic Acid (0.4-2.0) Calcium 8.2 L (8.4-10.2) mg/dL Magnesium 1.2 L (1.6-2.3) mg/dL Total Bilirubin 0.50 (0.2-1.3) mg/dL AST 28 (14-36) U/L ALT 18 (0-35) U/L Alkaline Phosphatase 39 (38-126) U/L Troponin I 0.040 H* (0.000-0.034) ng/mL NT-Pro-B Natriuret Pep 9960 H (0-900) pg/mL Serum Total Protein 6.7 (6.3-8.2) g/dL Albumin 2.6 L (3.5-5.0) g/dL Procalcitonin 5.740 H* (0.030-0.080) ng/mL Urine Color (YELLOW) Urine Appearance (CLEAR) Urine pH (5-6) Ur Specific Manning (1.005-1.025) Urine Protein (Negative) Urine Ketones (NEGATIVE) Urine Blood (0-5) Ramses/ul Urine Nitrite (NEGATIVE) Urine Bilirubin (NEGATIVE) Urine Urobilinogen (0-1) mg/dL Ur Leukocyte Esterase (NEGATIVE) Urine WBC (Auto) (0-5) /HPF Urine RBC (Auto) (0-2) /HPF U Epithel Cells (Auto) (FEW) /HPF Urine Bacteria (Auto) (NEGATIVE) /HPF Urine Mucus (Auto) (NEGATIVE) /HPF Urine Culture Reflexed (NO) Urine Glucose (NEGATIVE) mg/dL Urine Opiates Level (NEGATIVE) Ur Methadone (NEGATIVE) Urine Barbiturates (NEGATIVE) Ur Phencyclidine (PCP) (NEGATIVE) Urine Amphetamine (NEGATIVE) U Benzodiazepine Level (NEGATIVE) Urine Cocaine (NEGATIVE) Urine Marijuana (THC) (NEGATIVE) SARS-CoV-2 (PCR) (NEGATIVE) 03/23/21 03/23/21 03/23/21 Range/Units 08:15 08:31 09:00 WBC (4.0-10.5) K/mm3 RBC (4.1-5.4) M/mm3 Hgb (12.0-16.0) gm/dl Hct (35-47) % MCV (78-100) fl MCH (26-32) pg MCHC (32-36) g/dl RDW (11.5-14.0) % Plt Count (150-450) K/mm3 MPV (7.5-11.0) fl Gran % (36.0-66.0) % Eos # (Auto) (0-0.5) Absolute Lymphs (auto) (1.0-4.6) Absolute Monos (auto) (0.0-1.3) Lymphocytes % (24.0-44.0) % Monocytes % (0.0-12.0) % Eosinophils % (0.00-5.0) % Basophils % (0.0-0.4) % Absolute Granulocytes (1.4-6.9) Segmented Neutrophils (36.0-66.0) % Band Neutrophils (0.0-2.0) % Lymphocytes (Manual) (24-44) % Monocytes (Manual) (0.0-12.0) % Basophils # (0-0.4) Platelet Estimate (NORMAL) RBC Morphology Anisocytosis Macrocytosis Puncture Site pCO2 (35-45) mmHg pO2 (75-100) mmHg Base Excess (-2.0-2.0) O2 Saturation (94-100) g/dF ABG pH (7.35-7.45) ABG HCO3 (22-28) ABG O2 Sat (Measured) (95-100) % Tyler Test A-a Gradient a/A Ratio Hemoglobin Carboxyhemoglobin (0.0-6.9) % THgb Methemoglobin (1.4-1.5) % Potassium (3.5-5.1) Temperature C POC O2 Flow Rate % Vent Mode Tidal Volume cc PEEP cmH2O Sodium (137-145) mmol/L Chloride (98-107) mmol/L Carbon Dioxide (22-30) mmol/L Anion Gap (5-15) MEQ/L BUN (7-17) mg/dL Creatinine (0.52-1.04) mg/dL Estimated GFR ML/MIN Glucose (74-106) mg/dL Lactic Acid (0.4-2.0) Calcium (8.4-10.2) mg/dL Magnesium (1.6-2.3) mg/dL Total Bilirubin (0.2-1.3) mg/dL AST (14-36) U/L ALT (0-35) U/L Alkaline Phosphatase (38-126) U/L Troponin I (0.000-0.034) ng/mL NT-Pro-B Natriuret Pep (0-900) pg/mL Serum Total Protein (6.3-8.2) g/dL Albumin (3.5-5.0) g/dL Procalcitonin (0.030-0.080) ng/mL Urine Color DONTRELL (YELLOW) Urine Appearance CLOUDY (CLEAR) Urine pH 5.0 (5-6) Ur Specific Manning 1.026 (1.005-1.025) Urine Protein 30 (Negative) Urine Ketones TRACE (NEGATIVE) Urine Blood NEGATIVE (0-5) Ramses/ul Urine Nitrite NEGATIVE (NEGATIVE) Urine Bilirubin NEGATIVE (NEGATIVE) Urine Urobilinogen 2 (0-1) mg/dL Ur Leukocyte Esterase MODERATE (NEGATIVE) Urine WBC (Auto) 26-50 (0-5) /HPF Urine RBC (Auto) 6-10 (0-2) /HPF U Epithel Cells (Auto) RARE (FEW) /HPF Urine Bacteria (Auto) MANY (NEGATIVE) /HPF Urine Mucus (Auto) SLIGHT (NEGATIVE) /HPF Urine Culture Reflexed ORDERED SEPARATELY (NO) Urine Glucose NEGATIVE (NEGATIVE) mg/dL Urine Opiates Level NEGATIVE (NEGATIVE) Ur Methadone NEGATIVE (NEGATIVE) Urine Barbiturates NEGATIVE (NEGATIVE) Ur Phencyclidine (PCP) NEGATIVE (NEGATIVE) Urine Amphetamine NEGATIVE (NEGATIVE) U Benzodiazepine Level NEGATIVE (NEGATIVE) Urine Cocaine NEGATIVE (NEGATIVE) Urine Marijuana (THC) NEGATIVE (NEGATIVE) SARS-CoV-2 (PCR) NEGATIVE (NEGATIVE) 03/23/21 03/23/21 03/23/21 Range/Units 10:00 11:10 11:57 WBC (4.0-10.5) K/mm3 RBC (4.1-5.4) M/mm3 Hgb (12.0-16.0) gm/dl Hct (35-47) % MCV (78-100) fl MCH (26-32) pg MCHC (32-36) g/dl RDW (11.5-14.0) % Plt Count (150-450) K/mm3 MPV (7.5-11.0) fl Gran % (36.0-66.0) % Eos # (Auto) (0-0.5) Absolute Lymphs (auto) (1.0-4.6) Absolute Monos (auto) (0.0-1.3) Lymphocytes % (24.0-44.0) % Monocytes % (0.0-12.0) % Eosinophils % (0.00-5.0) % Basophils % (0.0-0.4) % Absolute Granulocytes (1.4-6.9) Segmented Neutrophils (36.0-66.0) % Band Neutrophils (0.0-2.0) % Lymphocytes (Manual) (24-44) % Monocytes (Manual) (0.0-12.0) % Basophils # (0-0.4) Platelet Estimate (NORMAL) RBC Morphology Anisocytosis Macrocytosis Puncture Site RIGHT RADIAL pCO2 32 L (35-45) mmHg pO2 147 H* (75-100) mmHg Base Excess -14.4 L (-2.0-2.0) O2 Saturation 97.3 (94-100) g/dF ABG pH 7.20 L* (7.35-7.45) ABG HCO3 12.5 L* (22-28) ABG O2 Sat (Measured) 99.4 (95-100) % Tyler Test NOT APPLICABLE A-a Gradient 383 a/A Ratio 0.28 Hemoglobin 12.9 Carboxyhemoglobin 0.9 (0.0-6.9) % THgb Methemoglobin 1.2 L (1.4-1.5) % Potassium 3.5 3.5 (3.5-5.1) Temperature 37.0 C POC O2 Flow Rate 80 % Vent Mode A/C Tidal Volume 500 cc PEEP 5.0 cmH2O Sodium 147 H (137-145) mmol/L Chloride 114 H (98-107) mmol/L Carbon Dioxide 13 L* (22-30) mmol/L Anion Gap 23.8 H (5-15) MEQ/L BUN 51 H (7-17) mg/dL Creatinine 2.28 H (0.52-1.04) mg/dL Estimated GFR 22.4 ML/MIN Glucose 206 H (74-106) mg/dL Lactic Acid (0.4-2.0) Calcium 7.8 L (8.4-10.2) mg/dL Magnesium (1.6-2.3) mg/dL Total Bilirubin (0.2-1.3) mg/dL AST (14-36) U/L ALT (0-35) U/L Alkaline Phosphatase (38-126) U/L Troponin I 0.043 H* (0.000-0.034) ng/mL NT-Pro-B Natriuret Pep (0-900) pg/mL Serum Total Protein (6.3-8.2) g/dL Albumin (3.5-5.0) g/dL Procalcitonin (0.030-0.080) ng/mL Urine Color (YELLOW) Urine Appearance (CLEAR) Urine pH (5-6) Ur Specific Manning (1.005-1.025) Urine Protein (Negative) Urine Ketones (NEGATIVE) Urine Blood (0-5) Ramses/ul Urine Nitrite (NEGATIVE) Urine Bilirubin (NEGATIVE) Urine Urobilinogen (0-1) mg/dL Ur Leukocyte Esterase (NEGATIVE) Urine WBC (Auto) (0-5) /HPF Urine RBC (Auto) (0-2) /HPF U Epithel Cells (Auto) (FEW) /HPF Urine Bacteria (Auto) (NEGATIVE) /HPF Urine Mucus (Auto) (NEGATIVE) /HPF Urine Culture Reflexed (NO) Urine Glucose (NEGATIVE) mg/dL Urine Opiates Level (NEGATIVE) Ur Methadone (NEGATIVE) Urine Barbiturates (NEGATIVE) Ur Phencyclidine (PCP) (NEGATIVE) Urine Amphetamine (NEGATIVE) U Benzodiazepine Level (NEGATIVE) Urine Cocaine (NEGATIVE) Urine Marijuana (THC) (NEGATIVE) SARS-CoV-2 (PCR) (NEGATIVE) 03/23/21 Range/Units 14:15 WBC (4.0-10.5) K/mm3 RBC (4.1-5.4) M/mm3 Hgb (12.0-16.0) gm/dl Hct (35-47) % MCV (78-100) fl MCH (26-32) pg MCHC (32-36) g/dl RDW (11.5-14.0) % Plt Count (150-450) K/mm3 MPV (7.5-11.0) fl Gran % (36.0-66.0) % Eos # (Auto) (0-0.5) Absolute Lymphs (auto) (1.0-4.6) Absolute Monos (auto) (0.0-1.3) Lymphocytes % (24.0-44.0) % Monocytes % (0.0-12.0) % Eosinophils % (0.00-5.0) % Basophils % (0.0-0.4) % Absolute Granulocytes (1.4-6.9) Segmented Neutrophils (36.0-66.0) % Band Neutrophils (0.0-2.0) % Lymphocytes (Manual) (24-44) % Monocytes (Manual) (0.0-12.0) % Basophils # (0-0.4) Platelet Estimate (NORMAL) RBC Morphology Anisocytosis Macrocytosis Puncture Site pCO2 (35-45) mmHg pO2 (75-100) mmHg Base Excess (-2.0-2.0) O2 Saturation (94-100) g/dF ABG pH (7.35-7.45) ABG HCO3 (22-28) ABG O2 Sat (Measured) (95-100) % Tyler Test A-a Gradient a/A Ratio Hemoglobin Carboxyhemoglobin (0.0-6.9) % THgb Methemoglobin (1.4-1.5) % Potassium (3.5-5.1) Temperature C POC O2 Flow Rate % Vent Mode Tidal Volume cc PEEP cmH2O Sodium (137-145) mmol/L Chloride (98-107) mmol/L Carbon Dioxide (22-30) mmol/L Anion Gap (5-15) MEQ/L BUN (7-17) mg/dL Creatinine (0.52-1.04) mg/dL Estimated GFR ML/MIN Glucose (74-106) mg/dL Lactic Acid (0.4-2.0) Calcium (8.4-10.2) mg/dL Magnesium (1.6-2.3) mg/dL Total Bilirubin (0.2-1.3) mg/dL AST (14-36) U/L ALT (0-35) U/L Alkaline Phosphatase (38-126) U/L Troponin I 0.039 H* (0.000-0.034) ng/mL NT-Pro-B Natriuret Pep (0-900) pg/mL Serum Total Protein (6.3-8.2) g/dL Albumin (3.5-5.0) g/dL Procalcitonin (0.030-0.080) ng/mL Urine Color (YELLOW) Urine Appearance (CLEAR) Urine pH (5-6) Ur Specific Manning (1.005-1.025) Urine Protein (Negative) Urine Ketones (NEGATIVE) Urine Blood (0-5) Ramses/ul Urine Nitrite (NEGATIVE) Urine Bilirubin (NEGATIVE) Urine Urobilinogen (0-1) mg/dL Ur Leukocyte Esterase (NEGATIVE) Urine WBC (Auto) (0-5) /HPF Urine RBC (Auto) (0-2) /HPF U Epithel Cells (Auto) (FEW) /HPF Urine Bacteria (Auto) (NEGATIVE) /HPF Urine Mucus (Auto) (NEGATIVE) /HPF Urine Culture Reflexed (NO) Urine Glucose (NEGATIVE) mg/dL Urine Opiates Level (NEGATIVE) Ur Methadone (NEGATIVE) Urine Barbiturates (NEGATIVE) Ur Phencyclidine (PCP) (NEGATIVE) Urine Amphetamine (NEGATIVE) U Benzodiazepine Level (NEGATIVE) Urine Cocaine (NEGATIVE) Urine Marijuana (THC) (NEGATIVE) SARS-CoV-2 (PCR) (NEGATIVE) Radiology Exams: Radiology Procedures Category Date Time Status CHEST 1 VIEW (PORTABLE) Stat Exams 03/23/21 08:05 Completed CHEST 1 VIEW (PORTABLE) Stat Exams 03/23/21 08:39 Completed HEAD WITHOUT CONTRAST [CT] Stat Exams 03/23/21 08:06 Completed Assessment/Plan (1) Respiratory failure Current Visit: Yes Status: Acute Qualifiers: Chronicity: acute Respiratory failure complication: hypoxia and hypercapnia Qualified Code(s): J96.01 - Acute respiratory failure with hypoxia; J96.02 - Acute respiratory failure with hypercapnia Assessment & Plan: Chief Complaint Diagnosis Patient found unresponsive at [place] just prior to arrival to ER Allergies Allergy/AdvReac Type Severity Reaction Status Date / Time No Known Drug Allergies Allergy Verified 07/19/17 20:46 Vital Signs (Last 24 hours) Temp Pulse Resp BP Pulse Ox 03/24/21 07:48 98.8 F 82 17 78/45 03/24/21 06:38 97 03/24/21 03:55 98.8 F 91 H 23 79/48 96 03/24/21 00:00 98.6 F 62 15 70/47 93 L 03/23/21 21:21 100 03/23/21 19:46 98.2 F 68 13 82/49 86 L 03/23/21 17:00 97.7 F 19 03/23/21 16:00 97.5 F 71 16 83/52 97 03/23/21 15:00 97.5 F 76 15 82/52 98 03/23/21 14:36 79 21 100 03/23/21 14:00 98.8 F 72 22 78/48 100 03/23/21 13:20 98.8 F 93 H 16 73/52 99 03/23/21 13:00 97.9 F 75 21 76/45 100 03/23/21 11:57 83 16 97/54 100 03/23/21 09:08 99.7 F 82 19 75/47 99 03/23/21 08:47 100.0 F 94 H 22 76/43 96 03/23/21 08:32 99.5 F 87 18 89/47 94 L Home Medications Medication Instructions Recorded Confirmed Last Taken Type Hydrochlorothiazide 25 mg 25 mg PO DAILY 03/23/21 03/23/21 03/22/21 History [hydroDIURIL 25 MG] Current Medications Generic Name Dose Route Start Last Admin Trade Name Dharmeshq PRN Reason Stop Dose Admin Atropine Sulfate 0.2 ml 03/23/21 17:58 03/24/21 02:25 Atropine Sulfate 1% 5 Ml Eye Drops PO 04/22/21 17:57 0.2 ml UD PRN Administration secretions Fentanyl Citrate 1,500 mcg/ 150 mls @ 3.67 mls/hr 03/23/21 13:00 03/23/21 13:04 Sodium Chloride IV 03/28/21 12:59 0.5 mcg/kg/hr .Q24H MARJORIE 3.67 mls/hr Administration Protocol 0.5 MCG/KG/HR Discontinued Medications Generic Name Dose Route Start Last Admin Trade Name Freq PRN Reason Stop Dose Admin Albuterol/Ipratropium 3 ml 03/23/21 13:00 03/23/21 14:26 Ipratropium/Albuterol Sulfate 3 Ml Ampul.[facility] 04/22/21 12:59 Not Given Q6HRT MARJORIE Albuterol/Ipratropium 3 ml 03/23/21 14:27 Ipratropium/Albuterol Sulfate 3 Ml Ampul.[facility] 04/22/21 14:25 Q4HPRN PRN SHORTNESS OF BREATH/WHEEZING Epinephrine HCl Confirm 03/23/21 08:05 Epinephrine 1mg/Ml Amp Administered 03/23/21 08:06 Dose 1 mg .ROUTE .STK-MED ONE Epinephrine HCl Confirm 03/23/21 08:06 Epinephrine Abboject 1 Mg Administered 03/23/21 08:07 Dose 1 mg .ROUTE .STK-MED ONE Etomidate 10 mg 03/23/21 08:15 03/23/21 08:00 Amidate 20 Mg/10 Ml IV 03/23/21 08:16 10 mg STAT ONE Administration Famotidine 20 mg 03/23/21 12:46 03/23/21 13:48 Famotidine 20 Mg/1 Vial IV 04/22/21 12:45 Not Given Q12HT MARJORIE Sodium Chloride Confirm 03/23/21 07:52 Sodium Chloride 0.9% 1000 Ml Administered 03/23/21 07:53 Dose 1,000 mls @ ud .ROUTE .STK-MED ONE Sodium Chloride Confirm 03/23/21 08:20 Sodium Chloride 0.9% 1000 Ml Administered 03/23/21 08:21 Dose 1,000 mls @ ud .ROUTE .STK-MED ONE Piperacillin Sod/Tazobactam 100 mls @ 200 mls/hr 03/23/21 08:26 03/23/21 09:20 Sod 3.375 gm/ Sodium Chloride IV 03/23/21 08:55 200 mls/hr STAT ONE Administration Azithromycin 500 mg in 250 mls @ 250 mls/hr 03/23/21 08:26 03/23/21 09:24 Zithromax 500 Mg/ 250 Ml Nacl Premix IV 03/23/21 09:25 250 mls/hr STAT STA 250 mls/hr Administration Midazolam HCl 50 mg/ Sodium 250 mls @ 10 mls/hr 03/23/21 08:25 03/23/21 08:41 Chloride IV 04/22/21 08:24 2 mg/hr .Q24H PRN 10 mls/hr SEDATION Administration Protocol 2 MG/HR Dextrose/Sodium Chloride Confirm 03/23/21 08:50 Dextrose 5% -0.45 Nacl 1000 Ml Administered 03/23/21 08:51 Dose 1,000 mls @ ud IV .STK-MED ONE Norepinephrine 4,000 mcg/ 504 mls @ 37.8 mls/hr 03/23/21 09:12 03/23/21 09:24 Dextrose IV 04/22/21 09:11 5 mcg/min .[id number] PRN 37.8 mls/hr SEVERE HYPOTENSION Administration Protocol 5 MCG/MIN Magnesium Sulfate/Dextrose 100 mls @ 100 mls/hr 03/23/21 09:15 03/23/21 14:14 Magnesium 1 Gm / 100 Ml D5w IV 03/23/21 11:14 100 mls/hr Q1H MARJORIE Administration Sodium Chloride Confirm 03/23/21 09:15 Sodium Chloride 100ml Mini-Bag Plus Administered 03/23/21 09:16 Dose 100 mls @ ud IV .STK-MED ONE Azithromycin Confirm 03/23/21 09:15 Zithromax 500 Mg/ 250 Ml Nacl Premix Administered 03/23/21 09:16 Dose 500 mg in 250 mls @ ud IV .STK-MED ONE Magnesium Sulfate/Dextrose Confirm 03/23/21 09:37 Magnesium 1 Gm / 100 Ml D5w Administered 03/23/21 09:38 Dose 100 mls @ ud IV .STK-MED ONE Sodium Chloride 1,000 mls @ 999 mls/hr 03/23/21 11:52 03/23/21 11:55 Sodium Chloride 0.9% 1000 Ml IV 03/23/21 12:52 999 mls/hr .Q1H1M STA Administration Sodium Chloride Confirm 03/23/21 11:55 Sodium Chloride 0.9% 1000 Ml Administered 03/23/21 11:56 Dose 1,000 mls @ ud .ROUTE .STK-MED ONE Sodium Chloride 1,000 mls @ 125 mls/hr 03/23/21 12:46 03/23/21 13:48 Sodium Chloride 0.45% 1000 Ml IV 04/22/21 12:45 Not Given .Q8H MARJORIE Azithromycin 500 mg in 250 mls @ 250 mls/hr 03/23/21 12:46 03/23/21 13:48 Zithromax 500 Mg/ 250 Ml Nacl Premix IV 04/22/21 12:45 Not Given Q24H10 MARJORIE Piperacillin Sod/Tazobactam 100 mls @ 200 mls/hr 03/23/21 12:46 03/23/21 18:11 Sod 3.375 gm/ Sodium Chloride IV 03/26/21 12:45 Not Given Q6HT MARJORIE Cisatracurium Besylate 200 mg/ 200 mls @ 13.212 mls/hr 03/23/21 13:00 03/23 18:10 Dextrose IV 04/22/21 12:59 Not Given .Q15H9M MARJORIE Protocol 3 MCG/KG/MIN Midazolam HCl 50 mg/ Sodium 250 mls @ 10 mls/hr 03/23/21 12:48 Chloride IV 04/22/21 12:47 .Q24H PRN SEDATION Protocol 2 MG/HR Norepinephrine 4,000 mcg/ 504 mls @ 37.8 mls/hr 03/23/21 12:50 03/23/21 14:10 Dextrose IV 04/22/21 12:49 25 mcg/min .[id number] PRN 189 mls/hr SEVERE HYPOTENSION Titration Protocol 5 MCG/MIN Magnesium Sulfate/Dextrose Confirm 03/23/21 14:10 Magnesium 1 Gm / 100 Ml D5w Administered 03/23/21 14:11 Dose 100 mls @ ud IV .STK-MED ONE Insulin Human Lispro 0 unit 03/23/21 12:46 Insulin Lispro 1 Unit SQ 04/22/21 12:45 UD PRN HYPERGLYCEMIA Midazolam HCl 3 mg 03/23/21 08:20 03/23/21 08:05 Versed 5 Mg/5 Ml IV 03/23/21 08:21 3 mg STAT ONE Administration Ondansetron HCl 4 mg 03/23/21 12:46 Ondansetron Hcl 4 Mg/2 Ml Vial IV 04/22/21 12:45 Q6H PRN PRN NAUSEA/VOMITING Piperacillin Sod/Tazobactam Sod Confirm 03/23/21 09:15 Zosyn 3.375 Gm Vial Administered 03/23/21 09:16 Dose 3.375 gm IV .STK-MED ONE Sodium Chloride Confirm 03/23/21 12:29 Sodium Cl For Inhalation 3 Ml Ud Nebule Administered 03/23/21 12:30 Dose 15 ml IH .STK-MED ONE Succinylcholine Chloride 100 mg 03/23/21 08:26 03/23/21 08:00 Quelicin Fliptop 200 Mg/10 Ml IV 03/23/21 08:27 100 mg STAT ONE Administration Intake & Output (Last 24 hours) 03/21/21 03/22/21 03/23/21 03/24/21 11:59 11:59 11:59 11:59 Intake Total 44 Output Total 200 50 Balance -200 -6 Weight 73.4 kg 75.4 kg Microbiology Results (Last 24 hours) 03/23/21 09:00 Catherized Urine Culture - Pending Laboratory Results (Last 24 hours) 03/23/21 03/23/21 03/23/21 14:15 11:57 11:10 WBC RBC Hgb Hct MCV MCH MCHC RDW Plt Count MPV Gran % Eos # (Auto) Absolute Lymphs (auto) Absolute Monos (auto) Lymphocytes % Monocytes % Eosinophils % Basophils % Absolute Granulocytes Segmented Neutrophils Band Neutrophils Lymphocytes (Manual) Monocytes (Manual) Basophils # Platelet Estimate RBC Morphology Anisocytosis Macrocytosis Puncture Site RIGHT RADIAL pCO2 32 L pO2 147 H* Base Excess -14.4 L O2 Saturation 97.3 ABG pH 7.20 L* ABG HCO3 12.5 L* ABG O2 Sat (Measured) 99.4 Tyler Test NOT APPLICABLE A-a Gradient 383 a/A Ratio 0.28 Hemoglobin 12.9 Carboxyhemoglobin 0.9 Methemoglobin 1.2 L Potassium 3.5 Temperature 37.0 POC O2 Flow Rate 80 Vent Mode A/C Tidal Volume 500 PEEP 5.0 Sodium Chloride Carbon Dioxide Anion Gap BUN Creatinine Estimated GFR Glucose Lactic Acid Calcium Magnesium Total Bilirubin AST ALT Alkaline Phosphatase Troponin I 0.039 H* 0.043 H* NT-Pro-B Natriuret Pep Serum Total Protein Albumin Procalcitonin Urine Color Urine Appearance Urine pH Ur Specific Manning Urine Protein Urine Ketones Urine Blood Urine Nitrite Urine Bilirubin Urine Urobilinogen Ur Leukocyte Esterase Urine WBC (Auto) Urine RBC (Auto) U Epithel Cells (Auto) Urine Bacteria (Auto) Urine Mucus (Auto) Urine Culture Reflexed Urine Glucose Urine Opiates Level Ur Methadone Urine Barbiturates Ur Phencyclidine (PCP) Urine Amphetamine U Benzodiazepine Level Urine Cocaine Urine Marijuana (THC) SARS-CoV-2 (PCR) 03/23/21 03/23/21 03/23/21 10:00 09:00 08:31 WBC RBC Hgb Hct MCV MCH MCHC RDW Plt Count MPV Gran % Eos # (Auto) Absolute Lymphs (auto) Absolute Monos (auto) Lymphocytes % Monocytes % Eosinophils % Basophils % Absolute Granulocytes Segmented Neutrophils Band Neutrophils Lymphocytes (Manual) Monocytes (Manual) Basophils # Platelet Estimate RBC Morphology Anisocytosis Macrocytosis Puncture Site pCO2 pO2 Base Excess O2 Saturation ABG pH ABG HCO3 ABG O2 Sat (Measured) Tyler Test A-a Gradient a/A Ratio Hemoglobin Carboxyhemoglobin Methemoglobin Potassium 3.5 Temperature POC O2 Flow Rate Vent Mode Tidal Volume PEEP Sodium 147 H Chloride 114 H Carbon Dioxide 13 L* Anion Gap 23.8 H BUN 51 H Creatinine 2.28 H Estimated GFR 22.4 Glucose 206 H Lactic Acid Calcium 7.8 L Magnesium Total Bilirubin AST ALT Alkaline Phosphatase Troponin I NT-Pro-B Natriuret Pep Serum Total Protein Albumin Procalcitonin Urine Color DONTRELL Urine Appearance CLOUDY Urine pH 5.0 Ur Specific Manning 1.026 Urine Protein 30 Urine Ketones TRACE Urine Blood NEGATIVE Urine Nitrite NEGATIVE Urine Bilirubin NEGATIVE Urine Urobilinogen 2 Ur Leukocyte Esterase MODERATE Urine WBC (Auto) 26-50 Urine RBC (Auto) 6-10 U Epithel Cells (Auto) RARE Urine Bacteria (Auto) MANY Urine Mucus (Auto) SLIGHT Urine Culture Reflexed ORDERED SEPARATELY Urine Glucose NEGATIVE Urine Opiates Level NEGATIVE Ur Methadone NEGATIVE Urine Barbiturates NEGATIVE Ur Phencyclidine (PCP) NEGATIVE Urine Amphetamine NEGATIVE U Benzodiazepine Level NEGATIVE Urine Cocaine NEGATIVE Urine Marijuana (THC) NEGATIVE SARS-CoV-2 (PCR) 03/23/21 03/23/21 03/23/21 08:15 08:15 08:15 WBC RBC Hgb Hct MCV MCH MCHC RDW Plt Count MPV Gran % Eos # (Auto) Absolute Lymphs (auto) Absolute Monos (auto) Lymphocytes % Monocytes % Eosinophils % Basophils % Absolute Granulocytes Segmented Neutrophils Band Neutrophils Lymphocytes (Manual) Monocytes (Manual) Basophils # Platelet Estimate RBC Morphology Anisocytosis Macrocytosis Puncture Site pCO2 pO2 Base Excess O2 Saturation ABG pH ABG HCO3 ABG O2 Sat (Measured) Tyler Test A-a Gradient a/A Ratio Hemoglobin Carboxyhemoglobin Methemoglobin Potassium Temperature POC O2 Flow Rate Vent Mode Tidal Volume PEEP Sodium Chloride Carbon Dioxide Anion Gap BUN Creatinine Estimated GFR Glucose Lactic Acid Calcium Magnesium Total Bilirubin AST ALT Alkaline Phosphatase Troponin I 0.040 H* NT-Pro-B Natriuret Pep Serum Total Protein Albumin Procalcitonin 5.740 H* Urine Color Urine Appearance Urine pH Ur Specific Manning Urine Protein Urine Ketones Urine Blood Urine Nitrite Urine Bilirubin Urine Urobilinogen Ur Leukocyte Esterase Urine WBC (Auto) Urine RBC (Auto) U Epithel Cells (Auto) Urine Bacteria (Auto) Urine Mucus (Auto) Urine Culture Reflexed Urine Glucose Urine Opiates Level Ur Methadone Urine Barbiturates Ur Phencyclidine (PCP) Urine Amphetamine U Benzodiazepine Level Urine Cocaine Urine Marijuana (THC) SARS-CoV-2 (PCR) NEGATIVE 03/23/21 03/23/21 03/23/21 08:15 08:15 08:10 WBC 9.9 RBC 3.26 L Hgb 10.7 L Hct 34.6 L MCV 106.1 H MCH 32.8 H MCHC 30.9 L RDW 16.1 H Plt Count 169 MPV 9.5 Gran % 56.2 Eos # (Auto) 0.04 Absolute Lymphs (auto) 3.35 Absolute Monos (auto) 0.95 Lymphocytes % 33.7 Monocytes % 9.6 Eosinophils % 0.4 Basophils % 0.1 Absolute Granulocytes 5.58 Segmented Neutrophils 45 Band Neutrophils 6 H Lymphocytes (Manual) 42 Monocytes (Manual) 7 Basophils # 0.01 Platelet Estimate NORMAL RBC Morphology ABNORMAL Anisocytosis 1+ Macrocytosis 1+ Puncture Site RIGHT BRACHIAL pCO2 31 L pO2 72 L Base Excess -16.0 L O2 Saturation 92.8 L ABG pH 7.17 L* ABG HCO3 11.3 L* ABG O2 Sat (Measured) 95.3 Tyler Test NOT APPLICABLE A-a Gradient 246 a/A Ratio 0.23 Hemoglobin 10.9 Carboxyhemoglobin 1.6 Methemoglobin 1.0 L Potassium 3.6 3.5 Temperature 37.0 POC O2 Flow Rate 50 Vent Mode A/C Tidal Volume 600 PEEP 5.0 Sodium 152 H* Chloride 117 H Carbon Dioxide 10 L* Anion Gap 28.0 H BUN 51 H Creatinine 2.34 H Estimated GFR 21.8 Glucose 110 H Lactic Acid Calcium 8.2 L Magnesium 1.2 L Total Bilirubin 0.50 AST 28 ALT 18 Alkaline Phosphatase 39 Troponin I NT-Pro-B Natriuret Pep 9960 H Serum Total Protein 6.7 Albumin 2.6 L Procalcitonin Urine Color Urine Appearance Urine pH Ur Specific Manning Urine Protein Urine Ketones Urine Blood Urine Nitrite Urine Bilirubin Urine Urobilinogen Ur Leukocyte Esterase Urine WBC (Auto) Urine RBC (Auto) U Epithel Cells (Auto) Urine Bacteria (Auto) Urine Mucus (Auto) Urine Culture Reflexed Urine Glucose Urine Opiates Level Ur Methadone Urine Barbiturates Ur Phencyclidine (PCP) Urine Amphetamine U Benzodiazepine Level Urine Cocaine Urine Marijuana (THC) SARS-CoV-2 (PCR) 03/23/21 08:10 WBC RBC Hgb Hct MCV MCH MCHC RDW Plt Count MPV Gran % Eos # (Auto) Absolute Lymphs (auto) Absolute Monos (auto) Lymphocytes % Monocytes % Eosinophils % Basophils % Absolute Granulocytes Segmented Neutrophils Band Neutrophils Lymphocytes (Manual) Monocytes (Manual) Basophils # Platelet Estimate RBC Morphology Anisocytosis Macrocytosis Puncture Site pCO2 pO2 Base Excess O2 Saturation ABG pH ABG HCO3 ABG O2 Sat (Measured) Tyler Test A-a Gradient a/A Ratio Hemoglobin Carboxyhemoglobin Methemoglobin Potassium Temperature POC O2 Flow Rate Vent Mode Tidal Volume PEEP Sodium Chloride Carbon Dioxide Anion Gap BUN Creatinine Estimated GFR Glucose Lactic Acid 4.7 H Calcium Magnesium Total Bilirubin AST ALT Alkaline Phosphatase Troponin I NT-Pro-B Natriuret Pep Serum Total Protein Albumin Procalcitonin Urine Color Urine Appearance Urine pH Ur Specific Manning Urine Protein Urine Ketones Urine Blood Urine Nitrite Urine Bilirubin Urine Urobilinogen Ur Leukocyte Esterase Urine WBC (Auto) Urine RBC (Auto) U Epithel Cells (Auto) Urine Bacteria (Auto) Urine Mucus (Auto) Urine Culture Reflexed Urine Glucose Urine Opiates Level Ur Methadone Urine Barbiturates Ur Phencyclidine (PCP) Urine Amphetamine U Benzodiazepine Level Urine Cocaine Urine Marijuana (THC) SARS-CoV-2 (PCR) Orders (Last 24 hours) Category Date Time Status Admit as Inpatient ROUTINE Care 03/23/21 12:46 Active CO2 Monitoring ROUTINE Care 03/23/21 08:42 Completed Catheter-[place] STAT Care 03/23/21 08:06 Completed Code Status Order ROUTINE Care 03/23/21 12:46 Active IV Care Q4H Care 03/23/21 12:46 Active Neuro Checks Q4H Care 03/23/21 12:46 Active POCT Glucose Check ACHS Care 03/23/21 12:46 Completed Donta Kong Singletary ROUTINE Care 03/23/21 12:46 Active Weight,Daily 0600 Care 03/23/21 12:46 Active Infection Control Consult ROUTINE Cons 03/23/21 13:39 Active Infection Control Consult ROUTINE Cons 03/23/21 20:04 Active CHEST 1 VIEW (PORTABLE) Stat Exams 03/23/21 08:05 Completed CHEST 1 VIEW (PORTABLE) Stat Exams 03/23/21 08:39 Completed HEAD WITHOUT CONTRAST [CT] Stat Exams 03/23/21 08:06 Completed ABG [ARTERIAL BLOOD GASES] Routine Lab 03/23/21 11:57 Completed ABG [ARTERIAL BLOOD GASES] Urgent Lab 03/23/21 08:10 Completed BMP Stat Lab 03/23/21 10:00 Completed CBC W DIFF Stat Lab 03/23/21 08:15 Completed CMP Stat Lab 03/23/21 08:15 Completed CULTURE,URINE Stat Lab 03/23/21 09:00 Received Lactic Acid Stat Lab 03/23/21 08:10 Completed MAGNESIUM Stat Lab 03/23/21 08:15 Completed Manual Differential NC Stat Lab 03/23/21 08:15 Completed NT PRO BNP Stat Lab 03/23/21 08:15 Completed PROCALCITONIN Stat Lab 03/23/21 08:15 Completed TROPONIN Q3H Lab 03/23/21 08:15 Completed TROPONIN Q3H Lab 03/23/21 11:10 Completed TROPONIN Q3H Lab 03/23/21 14:15 Completed UA W/RFX UR CULTURE Stat Lab 03/23/21 08:31 Completed Urine Triage Profile Stat Lab 03/23/21 09:00 Completed Albuterol/Ipratropium 3ml Neb* [DUONEB 0.5-3 MG/3 ml Med 03/23/21 14:27 Discontinued Neb] 3 ml IH Q4HPRN PRN Albuterol/Ipratropium 3ml Neb* [DUONEB 0.5-3 MG/3 ml Med 03/23/21 13:00 Discontinued Neb] 3 ml IH Q6HRT Atropine Sulfate [Atropine Sulfate Eye Drops] Med 03/23/21 17:58 Active 0.2 ml PO UD PRN Azithromycin 500 mg/250 ml [Zithromax 500 MG/ 250 ML Med 03/23/21 12:46 Discontinued NaCl Premix] 500 mg in 250 ml IV Q24H10 Azithromycin 500 mg/250 ml [Zithromax 500 MG/ 250 ML Med 03/23/21 08:26 Discontinued NaCl Premix] 500 mg in 250 ml IV STAT Azithromycin 500 mg/250 ml [Zithromax 500 MG/ 250 ML Med 03/23/21 09:15 Discontinued NaCl Premix] 500 mg in 250 ml IV UD D5w 250 ml [Dextrose 5%/Water IV Soln. 250 ML] 180 ml Med 03/23/21 13:00 Discontinued Cisatracurium 200 mg/20 ml [Nimbex 200MG/20 Ml MDV ( HIGH RISK MED)] 200 mg IV 3 mcg/kg/min D5w 500 ml [Dextrose 5%/Water IV Soln. 500 ML] 500 ml Med 03/23/21 09:12 Discontinued Norepinephrine Bitartrate 4 mg [Levophed 4 mg/4 ml] 4, 000 mcg IV 5 mcg/min D5w 500 ml [Dextrose 5%/Water IV Soln. 500 ML] 500 ml Med 03/23/21 12:50 Discontinued Norepinephrine Bitartrate 4 mg [Levophed 4 mg/4 ml] 4, 000 mcg IV 5 mcg/min D5w-0.45 NaCl 1000 ml [Dextrose 5% -0.45 NaCl 1000 ML] Med 03/23/21 08:50 Discontinued 1,000 ml IV UD Epinephrine 1 mg [Epinephrine Abboject 1 mg] Med 03/23/21 08:06 Discontinued 1 mg .ROUTE .STK-MED ONE Epinephrine 1Mg/ml [Epinephrine 1Mg/ml Amp] Med 03/23/21 08:05 Discontinued 1 mg .ROUTE .STK-MED ONE Etomidate 20 mg/10 ml [Amidate 20 MG/10 ML] Med 03/23/21 08:15 Discontinued 10 mg IV STAT ONE Famotidine 20 mg Vial [Pepcid 20 MG VIAL] Med 03/23/21 12:46 Discontinued 20 mg IV Q12HT Insulin Lispro [Humalog] Med 03/23/21 12:46 Discontinued See Dose Instructions SQ UD PRN Magnesium Sulfate 1 gm/100 ml* [Magnesium 1 Gm / 100 Ml Med 03/23/21 09:15 Discontinued D5W] 100 ml IV Q1H Magnesium Sulfate 1 gm/100 ml* [Magnesium 1 Gm / 100 Ml Med 03/23/21 09:37 Discontinued D5W] 100 ml IV UD Magnesium Sulfate 1 gm/100 ml* [Magnesium 1 Gm / 100 Ml Med 03/23/21 14:10 Discontinued D5W] 100 ml IV UD Midazolam HCl 5 mg/5 ml [Versed 5 mg/5 ml] Med 03/23/21 08:20 Discontinued 3 mg IV STAT ONE NaCl 0.45% 1000 ml [Sodium Chloride 0.45% 1000 ML] 1, Med 03/23/21 12:46 Discontinued 000 ml IV 125 mls/hr NaCl 0.9% 100 ml Mini-Bag Plus [Sodium Chloride 100ML Med 03/23/21 09:15 Discontinued MINI-BAG PLUS] 100 ml IV UD NaCl 0.9% 1000 ml [Sodium Chloride 0.9% 1000 ML] 1,000 Med 03/23/21 07:52 Discontinued ml .ROUTE UD NaCl 0.9% 1000 ml [Sodium Chloride 0.9% 1000 ML] 1,000 Med 03/23/21 08:20 Discontinued ml .ROUTE UD NaCl 0.9% 1000 ml [Sodium Chloride 0.9% 1000 ML] 1,000 Med 03/23/21 11:55 Discontinued ml .ROUTE UD NaCl 0.9% 1000 ml [Sodium Chloride 0.9% 1000 ML] 1,000 Med 03/23/21 11:52 Discontinued ml IV 999 mls/hr NaCl 0.9% 150 ml [Sodium Chloride 0.9% 150 ML] 120 ml Med 03/23/21 13:00 Active Fentanyl 1000 mg/20 ml [SUBLIMAZE 1000 Mcg/ 20 Ml ] 1,500 mcg IV 0.5 mcg/kg/hr NaCl 0.9% 250 ml [Sodium Chloride 0.9% 250 ML] 240 ml Med 03/23/21 08:25 Discontinued Midazolam HCl 50 mg/10 ml Mdv* [Versed 50 MG/ 10 Ml MDV ] 50 mg IV 2 mg/hr NaCl 0.9% 250 ml [Sodium Chloride 0.9% 250 ML] 240 ml Med 03/23/21 12:48 Discontinued Midazolam HCl 50 mg/10 ml Mdv* [Versed 50 MG/ 10 Ml MDV ] 50 mg IV 2 mg/hr NaCl 3Ml For Inhalation [Sodium Chloride 3 ML UD Med 03/23/21 12:29 D iscontinued NEBULES] 15 ml IH .STK-MED ONE Ondansetron HCl 4 mg/2 ml [Zofran 4 MG/2 ML VIAL] Med 03/23/21 12:46 Discontinued 4 mg IV Q6H PRN PRN Piperacillin/Tazobactam 3.375G [Zosyn 3.375 GM Vial] Med 03/23/21 09:15 Discontinued 3.375 gm IV .STK-MED ONE Piperacillin/Tazobactam 3.375G [Zosyn 3.375 GM Vial] 3. Med 03/23/21 12:46 Discontinued 375 gm NaCl 0.9% 100 ml Mini-Bag Plus [Sodium Chloride 100ML MINI-BAG PLUS] 100 ml IV Q6HT Piperacillin/Tazobactam 3.375G [Zosyn 3.375 GM Vial] 3. Med 03/23/21 08:26 Discontinued 375 gm NaCl 0.9% 100 ml Mini-Bag Plus [Sodium Chloride 100ML MINI-BAG PLUS] 100 ml IV STAT Succinylcholine Chloride 200Mg [Quelicin Fliptop 200 MG Med 03/23/21 08:26 Discontinued /10 ML] 100 mg IV STAT ONE Intubate Patient ROUTINE RT 03/23/21 08:37 Completed Oxygen NASAL CANNULA 4 lpm RT 03/23/21 17:03 Active Pulse Oximetry .continuos RT 03/23/21 15:01 Active Respiratory Therapy Assessment DAILY RT 03/23/21 14:36 Active Vent Settings [Ventilator Management] ROUTINE RT 03/23/21 08:38 Completed Patient Care Notes (Last 24 hours) 03/23/21 22:02 Nursing Note by Aminata Spear Pt remains unresponsive. Atropine 0.2mls given for secretions. Initialized on 03/23/21 22:02 - END OF NOTE 03/23/21 20:28 Nursing Note by Aminata Spear Pt is unresponsive. Lungs are coarse. Initialized on 03/23/21 20:28 - END OF NOTE 03/23/21 16:30 (created 03/23/21 16:46) Nursing Note by ALOK MEJÍA FAMILY MADE DECISION TO MAKE PT SCO AND REMOVED VENT. NEW ORDERS TO TURN OFF ALL DRIPS, LEAVE FENTANYL DRIP, EXTUBATE PT. COMFORT CARE ONLY FROM THIS POINt Code(s): J96.90 - RESPIRATORY FAILURE, UNSP, UNSP W HYPOXIA OR HYPERCAPNIA (2) Heart failure with acute decompensation, type unknown Current Visit: Yes Status: Acute Qualifiers: Heart failure type: combined systolic and diastolic Qualified Code(s): I5 0.43 - Acute on chronic combined systolic (congestive) and diastolic (congestive) heart failure Code(s): I50.9 - HEART FAILURE, UNSPECIFIED (3) Bilateral pneumonia Current Visit: Yes Status: Acute Qualifiers: Pneumonia type: due to other aerobic Gram-negative bacteria Lung location: unspecified part of lung Qualified Code(s): J15.6 - Pneumonia due to other Gram-negative bacteria Code(s): J18.9 - PNEUMONIA, UNSPECIFIED ORGANISM
[2021-03-25] MEDS ORDERED: FENTANYL 500 MCG/10 ML VIAL IV ONE (02:15)
[2021-03-25] MEDS ORDERED: Sodium Chloride 0.9% 150 ML 150 ML IV ONE (02:15)
[2021-03-25] MEDS: SUBLIMAZE 1000 Mcg/ 20 Ml*** 1,500 MCG in Sodium Chloride 0.9% 150 ML 120 ML IV SCH ×2 (02:40→16:30)
--- NOTE | 2021-03-25 13:02 | PCM.NOTE ---
Date and Time: 03/25/21 1256 Subjective Assessment: patient is unresponsive, urine output 10 ml/24 hrs - Review of Systems All Other Systems: Unable due to condition Objective Exam Neurologic Exam: other (unresponsive) Wound Assessment: Skin/Wound Assessment Wound/Incision Assessment Start: 03/23/21 13:39 Text: Status: Active Freq: Q6H Protocol: Document 03/25/21 08:00 AW (Rec: 03/25/21 08:08 AW [id number]) Wound/Incision Assessment Posterior Medial Buttock Wound Assessment Shift Assessment Wound Type FISSURE Wound Stage Non Pressure Wound Drainage Amount None Drainage Odor None/Absent General Appearance Clean/Dry Wound Photo Photo Taken No OBJECTIVE DATA Vital Signs: Vital Signs - 24 hr Temp Pulse Resp BP Pulse Ox 03/25/21 12:00 100.6 F 88 62/34 03/25/21 07:56 93 L 03/25/21 07:50 97.8 F 91 H 15 68/38 93 L 03/25/21 03:56 97.5 F 60 16 70/41 95 03/25/21 00:00 97.8 F 62 16 69/39 95 03/24/21 20:00 97.3 F 55 L 20 90 L 03/24/21 19:04 90 L 03/24/21 16:00 97.3 F 55 L 25 H 60/36 80 L Pain Assessment - Last Documented Pain Intensity 0 Intake and Output: Intake & Output 03/23/21 03/24/21 03/25/21 03/26/21 11:59 11:59 11:59 11:59 Intake Total 44 57 Output Total 200 50 15 Balance -200 -6 42 Weight 73.4 kg 75.4 kg Assessment/Plan (1) Respiratory failure Current Visit: Yes Status: Acute Qualifiers: Chronicity: acute Respiratory failure complication: hypoxia and hypercapnia Qualified Code(s): J96.01 - Acute respiratory failure with hypoxia; J96.02 - Acute respiratory failure with hypercapnia Assessment & Plan: Last Vital Signs Temp 100.6 F 03/25/21 12:00 Pulse 88 03/25/21 12:00 Resp 15 03/25/21 07:50 BP 62/34 03/25/21 12:00 Pulse Ox 93 L 03/25/21 07:56 Allergies No Known Drug Allergies Allergy (Verified 07/19/17 20:46) Active Medications Atropine Sulfate (Atropine Sulfate 1% 5 Ml Eye Drops) 0.2 ml PO UD PRN PRN Reason: secretions Stop: 04/22/21 17:57 Last Admin: 03/24/21 16:23 Dose: 0.2 ml Fentanyl Citrate 1,500 mcg/ (Sodium Chloride) 150 mls @ 3.67 mls/hr IV .Q24H MARJORIE; Protocol Stop: 03/28/21 12:59 Last Admin: 03/25/21 02:40 Dose: 0.5 mcg/kg/hr, 3.67 mls/hr Intake & Output 03/25/21 03/26/21 11:59 11:59 Intake Total 57 Output Total 15 Balance 42 Microbiology 03/23/21 09:00 Catherized Urine Culture - Final Klebsiella Pneumoniae Escherichia Coli Code(s): J96.90 - RESPIRATORY FAILURE, UNSP, UNSP W HYPOXIA OR HYPERCAPNIA (2) Heart failure with acute decompensation, type unknown Current Visit: Yes Status: Acute Qualifiers: Heart failure type: combined systolic and diastolic Qualified Code(s): I50.43 - Acute on chronic combined systolic (congestive) and diastolic (congestive) heart failure Code(s): I50.9 - HEART FAILURE, UNSPECIFIED (3) Bilateral pneumonia Current Visit: Yes Status: Acute Qualifiers: Pneumonia type: due to other aerobic Gram-negative bacteria Lung location: unspecified part of lung Qualified Code(s): J15.6 - Pneumonia due to other Gram-negative bacteria Code(s): J18.9 - PNEUMONIA, UNSPECIFIED ORGANISM
--- NOTE | 2021-03-26 10:00 | PCM.NOTE ---
Date and Time: 03/26/21 0958 Subjective Assessment: unresponsive - Review of Systems All Other Systems: Unable due to condition Objective Exam General Appearance: other (unresponsive) Wound Assessment: Skin/Wound Assessment Wound/Incision Assessment Start: 03/23/21 13:39 Text: Status: Active Freq: Q6H Protocol: Document 03/26/21 08:00 LUND (Rec: 03/26/21 08:51 [id number]) Wound/Incision Assessment Posterior Heel Wound Assessment Shift Assessment Wound Type Pressure Ulcer Wound Stage Stage I Dressing Status Dry & Intact Drainage Amount None General Appearance Clean/Dry Comment Floating patient's heels to help with pressure. Posterior Medial Buttock Wound Assessment Shift Assessment Wound Type FISSURE Wound Stage Non Pressure Wound Drainage Amount None Drainage Odor None/Absent General Appearance Clean/Dry Wound Photo Photo Taken No OBJECTIVE DATA Vital Signs: Vital Signs - 24 hr Temp Pulse Resp BP BP Pulse Ox 03/26/21 07:54 95 03/26/21 07:51 98 F 96 H 13 96 03/26/21 07:39 97 03/26/21 07:17 96 03/26/21 04:00 97.7 F 82 16 51/25 94 L 03/26/21 00:00 97.8 F 74 16 60/31 95 03/25/21 20:00 97.8 F 85 19 51/34 94 L 03/25/21 19:42 94 L 03/25/21 16:00 100.3 F 86 18 61/33 88 L 03/25/21 12:00 100.6 F 88 62/34 Pain Assessment - Last Documented Pain Intensity 0 Intake and Output: Intake & Output 03/23/21 03/24/21 03/25/21 03/26/21 11:59 11:59 11:59 11:59 Intake Total 44 57 85 Output Total 200 50 15 Balance -200 -6 42 85 Weight 73.4 kg 75.4 kg Assessment/Plan (1) Respiratory failure Current Visit: Yes Status: Acute Qualifiers: Chronicity: acute Respiratory failure complication: hypoxia and hypercapnia Qualified Code(s): J96.01 - Acute respiratory failure with hypoxia; J96.02 - Acute respiratory failure with hypercapnia Assessment & Plan: unresponsive, will continue comfort measures Code(s): J96.90 - RESPIRATORY FAILURE, UNSP, UNSP W HYPOXIA OR HYPERCAPNIA (2) Heart failure with acute decompensation, type unknown Current Visit: Yes Status: Acute Qualifiers: Heart failure type: combined systolic and diastolic Qualified Code(s): I50.43 - Acute on chronic combined systolic (congestive) and diastolic (congestive) heart failure Code(s): I50.9 - HEART FAILURE, UNSPECIFIED (3) Bilateral pneumonia Current Visit: Yes Status: Acute Qualifiers: Pneumonia type: due to other aerobic Gram-negative bacteria Lung location: unspecified part of lung Qualified Code(s): J15.6 - Pneumonia due to other Gram-negative bacteria Code(s): J18.9 - PNEUMONIA, UNSPECIFIED ORGANISM
[2021-03-26 11:14] VITALS: BP 42/21; PULSE 78; O2SAT 60
--- NOTE | 2021-03-26 12:41 | PCM.DS ---
Discharge Summary Date of Admission: 03/24/21 12:46 Admitting Physician: CONCHIS CHILDS Primary Care Provider: HOMER ZHENG Allergies Allergies No Known Drug Allergies Allergy (Verified 07/19/17 20:46) Hospital Summary - Hospital Course Hospital Course: Chief Complaint Diagnosis Patient found unresponsive at [place] just prior to arrival to ER Allergies Allergy/AdvReac Type Severity Reaction Status Date / Time No Known Drug Allergies Allergy Verified 07/19/17 20:46 Vital Signs (Last 24 hours) Temp Pulse Resp BP BP Pulse Ox 03/26/21 11:13 97.1 F 78 14 4221 60 L 03/26/21 07:54 95 03/26/21 07:51 98 F 96 H 13 96 03/26/21 07:39 97 03/26/21 07:17 96 03/26/21 04:00 97.7 F 82 16 51/25 94 L 03/26/21 00:00 97.8 F 74 16 60/31 95 03/25/21 20:00 97.8 F 85 19 51/34 94 L 03/25/21 19:42 94 L 03/25/21 16:00 100.3 F 86 18 61/33 88 L Home Medications Medication Instructions Recorded Confirmed Last Taken Type Hydrochlorothiazide 25 mg 25 mg PO DAILY 03/23/21 03/23/21 03/22/21 History [hydroDIURIL 25 MG] Current Medications Generic Name Dose Route Start Last Admin Trade Name Freq PRN Reason Stop Dose Admin Atropine Sulfate 0.2 ml 03/23/21 17:58 03/24/21 16:23 Atropine Sulfate 1% 5 Ml Eye Drops PO 04/22/21 17:57 0.2 ml UD PRN Administration secretions Fentanyl Citrate 1,500 mcg/ 150 mls @ 3.67 mls/hr 03/23/21 13:00 03/25/21 16:30 Sodium Chloride IV 03/28/21 12:59 Not Given .Q24H MARJORIE Protocol 0.5 MCG/KG/HR Discontinued Medications Generic Name Dose Route Start Last Admin Trade Name Freq PRN Reason Stop Dose Admin Albuterol/Ipratropium 3 ml 03/23/21 13:00 03/23/21 14:26 Ipratropium/Albuterol Sulfate 3 Ml Ampul.Neb IH 04/22/21 12:59 Not Given Q6HRT MARJORIE Albuterol/Ipratropium 3 ml 03/23/21 14:27 Ipratropium/Albuterol Sulfate 3 Ml Ampul.Neb 04/22/21 14:25 Q4HPRN PRN SHORTNESS OF BREATH/WHEEZING Epinephrine HCl Confirm 03/23/21 08:05 Epinephrine 1 Mg/Ml Ampule Administered 03/23/21 08:06 Dose 1 mg .ROUTE .STK-MED ONE Epinephrine HCl Confirm 03/23/21 08:06 Epinephrine 0.1 Mg/Ml 10 Ml Abboject Administered 03/23/21 08:07 Dose 1 mg .ROUTE .STK-MED ONE Etomidate 10 mg 03/23/21 08:15 03/23/21 08:00 Etomidate 20 Mg/10 Ml Amp IV 03/23/21 08:16 10 mg STAT ONE Administration Famotidine 20 mg 03/23/21 12:46 03/23/21 13:48 Famotidine 20 Mg/1 Vial IV 04/22/21 12:45 Not Given Q12HT [facility] Fentanyl Citrate Confirm 03/25/21 02:15 Fentanyl Citrate/Pf 500 Mcg/10 Ml Vial Administered 03/25/21 02:16 Dose 1,500 mcg IV .STK-MED ONE Sodium Chloride Confirm 03/23/21 07:52 Sodium Chloride 0.9% 1000 Ml Administered 03/23/21 07:53 Dose 1,000 mls @ ud .ROUTE .STK-MED ONE Sodium Chloride Confirm 03/23/21 08:20 Sodium Chloride 0.9% 1000 Ml Administered 03/23/21 08:21 Dose 1,000 mls @ ud .ROUTE .STK-MED ONE Piperacillin Sod/Tazobactam 100 mls @ 200 mls/hr 03/23/21 08:26 03/23/21 09:20 Sod 3.375 gm/ Sodium Chloride IV 03/23/21 08:55 200 mls/hr STAT ONE Administration Azithromycin 500 mg in 250 mls @ 250 mls/hr 03/23/21 08:26 03/23/21 09:24 Zithromax 500 Mg/ 250 Ml Nacl Premix IV 03/23/21 09:25 250 mls/hr STAT STA 250 mls/hr Administration Midazolam HCl 50 mg/ Sodium 250 mls @ 10 mls/hr 03/23/21 08:25 03/23/21 08:41 Chloride IV 04/22/21 08:24 2 mg/hr .Q24H PRN 10 mls/hr SEDATION Administration Protocol 2 MG/HR Dextrose/Sodium Chloride Confirm 03/23/21 08:50 Dextrose 5% -0.45 Nacl 1000 Ml Administered 03/23/21 08:51 Dose 1,000 mls @ ud IV .STK-MED ONE Norepinephrine 4,000 mcg/ 504 mls @ 37.8 mls/hr 03/23/21 09:12 03/23/21 09:24 Dextrose IV 04/22/21 09:11 5 mcg/min .[id number] PRN 37.8 mls/hr SEVERE HYPOTENSION Administration Protocol 5 MCG/MIN Magnesium Sulfate/Dextrose 100 mls @ 100 mls/hr 03/23/21 09:15 03/23/21 14:14 Magnesium 1 Gm / 100 Ml D5w IV 03/23/21 11:14 100 mls/hr Q1H MARJORIE Administration Sodium Chloride Confirm 03/23/21 09:15 Sodium Chloride 100ml Mini-Bag Plus Administered 03/23/21 09:16 Dose 100 mls @ ud IV .STK-MED ONE Azithromycin Confirm 03/23/21 09:15 Zithromax 500 Mg/ 250 Ml Nacl Premix Administered 03/23/21 09:16 Dose 500 mg in 250 mls @ ud IV .STK-MED ONE Magnesium Sulfate/Dextrose Confirm 03/23/21 09:37 Magnesium 1 Gm / 100 Ml D5w Administered 03/23/21 09:38 Dose 100 mls @ ud IV .STK-MED ONE Sodium Chloride 1,000 mls @ 999 mls/hr 03/23/21 11:52 03/23/21 11:55 Sodium Chloride 0.9% 1000 Ml IV 03/23/21 12:52 999 mls/hr .Q1H1M STA Administration Sodium Chloride Confirm 03/23/21 11:55 Sodium Chloride 0.9% 1000 Ml Administered 03/23/21 11:56 Dose 1,000 mls @ ud .ROUTE .STK-MED ONE Sodium Chloride 1,000 mls @ 125 mls/hr 03/23/21 12:46 03/23/21 13:48 Sodium Chloride 0.45% 1000 Ml IV 04/22/21 12:45 Not Given .Q8H MARJORIE Azithromycin 500 mg in 250 mls @ 250 mls/hr 03/23/21 12:46 03/23/21 13:48 Zithromax 500 Mg/ 250 Ml Nacl Premix IV 04/22/21 12:45 Not Given Q24H10 MARJORIE Piperacillin Sod/Tazobactam 100 mls @ 200 mls/hr 03/23/21 12:46 03/23/21 18:11 Sod 3.375 gm/ Sodium Chloride IV 03/26/21 12:45 Not Given Q6HT [facility] Cisatracurium Besylate 200 mg/ 200 mls @ 13.212 mls/hr 03/23/21 13:00 03/11 08/29 18:10 Dextrose IV 04/22/21 12:59 Not Given .Q15H9M MARJORIE Protocol 3 MCG/KG/MIN Midazolam HCl 50 mg/ Sodium 250 mls @ 10 mls/hr 03/23/21 12:48 Chloride IV 04/22/21 12:47 .Q24H PRN SEDATION Protocol 2 MG/HR Norepinephrine 4,000 mcg/ 504 mls @ 37.8 mls/hr 03/23/21 12:50 03/23/21 14:10 Dextrose IV 04/22/21 12:49 25 mcg/min .[id number] PRN 189 mls/hr SEVERE HYPOTENSION Titration Protocol 5 MCG/MIN Magnesium Sulfate/Dextrose Confirm 03/23/21 14:10 Magnesium 1 Gm / 100 Ml D5w Administered 03/23/21 14:11 Dose 100 mls @ ud IV .STK-MED ONE Sodium Chloride Confirm 03/25/21 02:15 Sodium Chloride 0.9% 150 Ml Administered 03/25/21 02:16 Dose 150 mls @ ud IV .STK-MED ONE Insulin Human Lispro 0 unit 03/23/21 12:46 Insulin Lispro 1 Unit SQ 04/22/21 12:45 UD PRN HYPERGLYCEMIA Midazolam HCl 3 mg 03/23/21 08:20 03/23/21 08:05 Midazolam Hcl 5 Mg/5 Ml Vial IV 03/23/21 08:21 3 mg STAT ONE Administration Ondansetron HCl 4 mg 03/23/21 12:46 Ondansetron Hcl 4 Mg/2 Ml Vial IV 04/22/21 12:45 Q6H PRN PRN NAUSEA/VOMITING Piperacillin Sod/Tazobactam Sod Confirm 03/23/21 09:15 Piperacillin/Tazobactam Sodium 3.375 Gm Vial Administered 03/23/21 09:16 Dose 3.375 gm IV .STK-MED ONE Sodium Chloride Confirm 03/23/21 12:29 Sodium Cl For Inhalation 3 Ml Ud Nebule Administered 03/23/21 12:30 Dose 9 ml IH .STK-MED ONE Succinylcholine Chloride 100 mg 03/23/21 08:26 03/23/21 08:00 Succinylcholine Chloride 200mg/10 Ml Vial IV 03/23/21 08:27 100 mg STAT ONE Administration Intake & Output (Last 24 hours) 03/24/21 03/25/21 03/26/21 03/27/21 11:59 11:59 11:59 11:59 Intake Total 44 57 85 Output Total 50 15 Balance -6 42 85 Weight 75.4 kg Orders (Last 24 hours) Category Date Time Status Discharge Routine Discharge 03/26/21 Ordered Discharge/Telephone Order Routine Discharge 03/26/21 Active Release Body to Home Routine Discharge 03/26/21 Ordered Patient Care Notes (Last 24 hours) 03/26/21 12:35 Nursing Note by Gabbie Cornell Pt asystole on the tawer, no pulse felt, no heart tones, no blood pressure, no reflexes, and no respirations x 1 minute. Verified with Spring Vasquez RN. TOD 1211. Initialized on 03/26/21 12:35 - END OF NOTE 03/26/21 11:13 PRE [employer] Note by Maia Turcios This aide notified Giovani Cuadra RN of patients oxygen saturations and blood pressure at this time. Initialized on 03/26/21 11:13 - END OF NOTE 03/26/21 11:00 (created 03/26/21 11:39) Nursing Note by Gabbie Cornell Called Antonia, pt's [id number], to let her know that pt condition is deteriorating and that her vitals signs are becoming less life sustaining. Initialized on 03/26/21 11:39 - END OF NOTE 03/26/21 07:52 PRE [employer] Note by Maia Turcios This aide notified Giovani Cuadra RN of B/P of at this time. Initialized on 03/26/21 07:52 - END OF NOTE 03/26/21 04:08 Nursing Note by Renate Pastor PRIMARY NURSE AWARE OF BP. Initialized on 03/26/21 04:08 - END OF NOTE 03/26/21 00:04 Nursing Note by Renate Pastor PRIMARY NURSE AWARE OF PT VITALS. Initialized on 03/26/21 00:04 - END OF NOTE 03/25/21 20:08 Nursing Note by Renate Pastor PRIMARY NURSE AWARE OF 2000 VITALS. Initialized on 03/25/21 20:08 - END OF NOTE Patient - Vitals & Intake/Output Vital Signs: Vital Signs Temperature 97.1 F 03/26/21 11:13 Pulse Rate 78 03/26/21 11:13 Respiratory Rate 14 03/26/21 11:13 Blood Pressure 42/03/26/21 11:13 O2 Sat by Pulse Oximetry 60 L 03/26/21 11:13 Intake & Output: Intake & Output 03/24/21 03/25/21 03/26/21 03/27/21 11:59 11:59 11:59 11:59 Intake Total 44 57 85 Output Total 50 15 Balance -6 42 85 Weight 75.4 kg - Lab Result Diagrams: 03/23/21 08:15 03/23/21 10:00 Micro Results-Entire Visit: Microbiology 03/23/21 09:00 Urine Culture - Final Catherized Klebsiella Pneumoniae Escherichia Coli - Procedures and Test Procedures and Tests throughout Hospitalization: Therapy Orders & Screens 03/23/21 08:37 Intubate Patient ROUTINE Comment: 03/23/21 08:38 Vent Settings [Ventilator Management] ROUTINE Comment: 03/23/21 14:36 Respiratory Therapy Assessment DAILY Comment: Diagnosis: RESPIRATORY FAILURE, SEPSIS PNEUMONIA 03/23/21 17:03 Oxygen NASAL CANNULA 4 lpm Comment: Diagnosis: RESPIRATORY FAILURE, SEPSIS PNEUMONIA Discharge Exam Wound Assessment: Skin/Wound Assessment Wound/Incision Assessment Start: 03/23/21 13:39 Text: Status: Active Freq: Q6H Protocol: Document 03/26/21 08:00 LUND (Rec: 03/26/21 08:51 LUND [id number]) Wound/Incision Assessment Posterior Heel Wound Assessment Shift Assessment Wound Type Pressure Ulcer Wound Stage Stage I Dressing Status Dry & Intact Drainage Amount None General Appearance Clean/Dry Comment Floating patient's heels to help with pressure. Posterior Medial Buttock Wound Assessment Shift Assessment Wound Type FISSURE Wound Stage Non Pressure Wound Drainage Amount None Drainage Odor None/Absent General Appearance Clean/Dry Wound Photo Photo Taken No Comments: 03/26/21 12:40 No pulse, no respiration patient declared . Final Diagnosis/Problem List - Final Discharge Diagnosis/Problem (1) Respiratory failure Current Visit: Yes Status: Acute Code(s): J96.90 - RESPIRATORY FAILURE, UNSP, UNSP W HYPOXIA OR HYPERCAPNIA (2) Heart failure with acute decompensation, type unknown Current Visit: Yes Status: Acute Code(s): I50.9 - HEART FAILURE, UNSPECIFIED (3) Bilateral pneumonia Current Visit: Yes Status: Acute Code(s): J18.9 - PNEUMONIA, UNSPECIFIED ORGANISM - Discharge Discharge Date: 03/26/21 Disposition: Condition: Prescriptions: No Action Pravastatin Sodium 40 mg PO QHS Loratadine 10 mg [Claritin 10 mg] 10 mg PO DAILY Insulin Detemir [Levemir] 45 unit SQ HS Isosorbide Mononitrate 30 mg [Imdur 30 MG] 30 mg PO DAILY Docusate Sodium 100 mg [Colace 100 MG] 100 mg PO TID Cyanocobalamin 1000 Mcg/ml [Cyanocobalamin B-12 1000 MCG/ML] 1,000 mcg IJ UD Clopidogrel Bisulfate 75 mg [PLAVIX 75 MG Tablet] 75 mg PO DAILY Carvedilol 12.5 mg [Coreg 12.5 mg] 25 mg PO BID PANTOPRAZOLE 40 mg Tablet [Protonix 40MG Tablet] 40 mg PO DAILY Aspirin 81 mg PO DAILY Acetaminophen 325 mg [Tylenol 325 mg] 650 mg PO Q4H PRN PRN Reason: Pain And/Or Fever Metformin HCl 500 mg [Glucophage 500 MG] 500 mg PO TID Ferrous Sulfate 325 mg [Feosol 325 mg] 325 mg PO BID Trazodone HCl 25 mg PO HS Nitroglycerin 0.4 mg Tablet [Nitrostat 0.4 MG Tablet] 0.4 mg SL UD PRN PRN Reason: Chest Pain Clonidine HCl 0.1 mg [Catapres 0.1 MG] 0.3 mg PO BID Acetaminophen 325 mg [Tylenol 325 mg] 650 mg PO 0600 Oxycodone HCl 5 mg PO HSPRN PRN PRN Reason: Pain Gabapentin 300 mg PO TID Escitalopram Oxalate 10 mg [Lexapro 10 MG] 20 mg PO DAILY Carboxymethylcellulose Sodium [Refresh Plus] 1 each OP Q2H/PRN PRN PRN Reason: dryness Spironolactone 25 mg [Aldactone 25 MG] 25 mg PO DAILY Oxymetazoline HCl [Nasal [place]] 30 ml NS Q4HPRN PRN PRN Reason: DRY NOSE Insulin Aspart [NovoLOG Insulin] 1 unit SQ UD PRN PRN Reason: Hyperglycemia Magnesium Hydroxide 30 ml [Milk of Magnesia 30 ml] 30 ml PO Q6HPRN PRN PRN Reason: Indigestion Glucagon 1 mg [GlucaGen 1 MG] 1 mg IM UD Sodium Phosphate,[place]-Dibasic [Enema] 1 applic RC DAILY PRN PRN PRN Reason: Constipation Hydrochlorothiazide 25 mg [hydroDIURIL 25 MG] 25 mg PO DAILY Additional Instructions: ALVES[facility]ako [facility] ORDERS: -ROUTINE END OF LIFE CARE -SEE ATTACHED MEDICATION LIST FOR ORDERS Follow up with: HOMER ZHENG [Primary Care Provider] -
== END 2021-03-26 16:00 | disposition expired | DRG 189 ==
LOC: ED 07:42 → ICU 12:16 → OBSVTOIN 12:16 → INTOOBSV 12:16 → MED SURG 03-24 12:46 → INTOOBSV 03-24 12:46 → ICU 03-24 12:46 → OBSVTOIN 03-24 12:46 → ICU 03-24 12:47 → MED SURG 03-24 12:47 → UNDODISIN 03-26 16:00
PROVIDERS: ADMIT General Practice; ATTEND General Practice
DX: J96.90 Respiratory failure, unspecified, unspecified whether with hypoxia or hypercapnia (principal); J18.9 Pneumonia, unspecified organism; E87.0 Hyperosmolality and hypernatremia; I11.0 Hypertensive heart disease with heart failure; I50.9 Heart failure, unspecified; E11.9 Type 2 diabetes mellitus without complications; L89.621 Pressure ulcer of left heel, stage 1; L89.611 Pressure ulcer of right heel, stage 1; J44.9 Chronic obstructive pulmonary disease, unspecified; E78.5 Hyperlipidemia, unspecified; Z79.899 Other long term (current) drug therapy; Z79.01 Long term (current) use of anticoagulants; Z86.73 Personal history of transient ischemic attack (TIA), and cerebral infarction without residual deficits; Z20.822 Contact with and (suspected) exposure to COVID-19
CPT/HCPCS: 31500; 36000; 36415; 36600; 51702; 70450; 71045; 80048; 80053; 80307; 81001; 82375; 82803; 83605; 83735; 83880; 84145; 84484; 85025; 87077; 87086; 87186; 93005; 94002; 94762; 96374; 96375; 99285; 99291; 99292; U0003; J0171; J0330; J0456; J2250; J3010; J3475; A9270-GY